=== PATIENT | female | born 1985 | race African-American/Black ===

== ENCOUNTER 2020-07-29 09:27 | Emergency (ER) | payer OTHER, SELFPAY ==
[2020-07-29 10:37] VITALS: BP 149/96; PULSE 63; RESP 18; TEMP 36.8; O2SAT 96; BMI 31.2
--- NOTE | 2020-07-29 12:59 | MHC.CARE ---
Addendum entered by [facility] 07/29/20 14:32: Followed up with patient, explained the Partial Hospitalization Program to patient, she expressed interest in attending so written materials and contact information were given to her. she continued to state her pain was significant, requested additional warm blankets. Provider updated. Original Note: CARE Team responded to consult request speak with patient who came to the ED for abdominal pain but reported to the provider ongoing depression due to the loss of her parents last year. Patient was resting in bed in a darkened room but sat up and easily engaged with the conversation, was alert and oriented. She explained that both of her parents about one year ago from illnesses, stated she does not to know what to do with herself and wishes they were back every moment; patient was quite tearful and at times sobbed loudly. In terms of natural and professional supports, patient reported she lives with her boyfriend who is helpful but is not close with any family members. Has a therapist at [facility] but has not had a session for about one month due to changes in the agency, is on a wait list for psychiatry. Patient was open to CARE Team reaching out to therapist on her behalf. Called [facility], clerical receptionist will reach out to the clinician and have her contact client directly and [facility].
[2020-07-29 13:15] LABS: MANUAL DIFF FLAG NO
[2020-07-29 13:16] LABS: Basophils Percent Auto 0.2 % (0-2); Hematocrit 41.1 % (37-47); Hemoglobin 13.2 g/dl (12.0-16.0); Imm Gran Abs Auto 0.07 X10*3/uL (0.00-0.03); Imm Gran Pct Auto 0.5 % (0.0-0.4); Lymphocytes Absolute Auto 1.9 X10*3/uL (1.2-4.9); Lymphocytes Percent Auto 13.1 % (20-40); Mean Corpuscular HGB Conc 32.1 g/dl (31.0-35.0); Mean Corpuscular Hemoglobin 26.5 pg (27.0-33.0); Mean Corpuscular Volume 82.4 fL (80-98); Mean Platelet Volume 8.8 fL (9.4-12.3); Monocytes Absolute Auto 1.1 X10*3/uL (0.1-1.2); Monocytes Percent Auto 7.5 % (2-11); Neutrophils Absolute Auto 11.5 X10*3/uL (2.0-8.3); Neutrophils Percent Auto 78.7 % (45-73); Platelet Count 558 X10*3/uL (160-400); Red Blood Count 4.99 X10*6/uL (4.20-5.50); Red Cell Distribution Width 18.4 % (11.0-16.0); White Blood Count 14.6 X10*3/uL (4.8-10.8)
[2020-07-29] MEDS: 0.9 % Sodium Chloride 1,000 ML 999 ML IVCONT (13:21)
[2020-07-29] MEDS: ondansetron HCL 4 MG/2 ML VIAL IVPUSH (13:22)
--- NOTE | 2020-07-29 13:22 | PC.NURSE ---
22G IN R HAND. FLUIDS RUNNING. MEDICATED FOR NAUSEA. PT REQUESTING PAIN MEDICATION FOR ABDOMINAL PAIN. SEEN HERE YESTERDAY FOR SAME ISSUE.
[2020-07-29 14:00] LABS: Alanine Aminotransferase 14 U/L (0-31); Albumin Level 5.1 g/dL (3.5-5.0); Alkaline Phosphatase 88 U/L (39-117); Anion Gap 17 (12-20); Aspartate Amino Transferase 27 U/L (5-31); Bilirubin Direct 0.2 mg/dL (0.0-0.5); Bilirubin Total 0.5 mg/dL (0.0-1.0); Blood Urea Nitrogen 10 mg/dL (9-16); Calcium 10.4 mg/dL (8.4-10.2); Carbon Dioxide 31 mmol/L (22-29); Chloride 93 mmol/L (96-108); Creatinine Clr Calc Pharmacy 87.8; Estimated Glomerular Filt Rate > 60; Glucose Random 128 mg/dL (60-115); Potassium 3.3 mmol/l (3.3-5.1); Sodium 138 mmol/L (135-145); Total Protein 8.7 g/dL (6.5-8.0)
--- NOTE | 2020-07-29 14:53 | ED.ABDPAIN ---
HPI - Abdominal Pain General Chief Complaint: Abdominal Pain Stated Complaint: ABD, BACK PAIN Time Seen by Provider: 07/29/20 11:39 Source: patient Mode of arrival: ambulatory Limitations: no limitations History of Present Illness MD elicited complaint: abdominal pain Onset (ago): week(s) Location: diffuse Quality: aching Radiation: none Migration to: no migration Exacerbating factors: vomiting Relieving factors: rest Related Data Patient : No Allergies Allergy/AdvReac Type Severity Reaction Status Date / Time prochlorperazine Allergy Mild RASH, gets Unverified 07/15/20 15:33 [From Compazine] cold metoclopramide [From REGLAN] Allergy Unknown MAKES ME Unverified 07/15/20 15:33 COLD famotidine [Pepcid] AdvReac Unknown loss of Verified 04/22/20 00:00 appetite Compazine Allergy Unknown Uncoded 06/09/20 00:00 Review of Systems Review of Systems Yes all other systems are reviewed and are negative Physical Exam Vital Signs and I&O and Narrative: Vital Signs and I&O: Vital Signs Temp 98.3 F 07/29/20 10:37 Pulse 63 07/29/20 10:37 Resp 18 07/29/20 10:37 BP 149/96 H 07/29/20 10:37 Pulse Ox 96 07/29/20 10:37 Intake & Output 07/28/20 07/29/20 07/29/20 18:59 06:59 18:59 Weight 72.575 kg Body Mass Index 31.2 Const: General: cooperative and healthy appearing; No acute distress or intoxicated appearing Nutritional Appearance: average body habitus Orientation/consciousness: patient oriented x3 HENMT: Head: Yes normal to inspection Ears: hearing grossly normal bilaterally Eyes: General: appearance normal, both eyes and all related structures Visual Ricardo: normal visual ricardo by confrontation Neck: Neck: Yes normal visual inspection, No positive Brudzinski's sign, No positive Kernig's sign and No tender Thyroid: Thyroid normal Chest: Chest palpation & inspection: normal inspection of the chest Resp: Effort & Inspection: normal respiratory effort Cardio: Jugular venous distension: no JVD GI: Inspection: Yes normal to inspection Percussion: Yes normal to percussion Auscultation: normal bowel sounds : General: Yes no CVA tenderness Back/Spine/Pelvis: Back: no CVA tenderness Skin: General skin exam: no rashes or lesions noted Neuro: General: patient oriented x3 Extrem: General: Yes normal to inspection Course Course Hospital Course: history of cannabis abuse / induced hyperemesis. More so more anxious recently lost her parents. She was to talk to her counselor here. Her met with care team who referred her to a partial program. MDM - Abdominal Pain Differential Diagnosis Differential diagnosis: Likely abdominal pain, gastroenteritis and gastritis; Unlikely aortic dissection, acute appendicitis, bowel perforation, calculus of kidney, constipation, diverticulitis, endometriosis and ovarian cyst Medical Records Attestation: I reviewed the patient's medical records. Lab Data Attestation: I reviewed the patient's lab results. Result diagrams: 07/29/20 13:11 07/29/20 13:11 Labs: Lab Results 07/29/20 07/29/20 Range/Units 13:11 13:11 WBC 14.6 H (4.8-10.8) X10*3/uL RBC 4.99 (4.20-5.50) X10*6/uL Hgb 13.2 (12.0-16.0) g/dl Hct 41.1 (37-47) % MCV 82.4 (80-98) fL MCH 26.5 L (27.0-33.0) pg MCHC 32.1 (31.0-35.0) g/dl RDW 18.4 H (11.0-16.0) % Plt Count 558 H (160-400) X10*3/uL MPV 8.8 L (9.4-12.3) fL Immature Gran % (Auto) 0.5 H (0.0-0.4) % Neut % (Auto) 78.7 H (45-73) % Lymph % (Auto) 13.1 L (20-40) % [place] % (Auto) 7.5 (2-11) % Eos % (Auto) 0.0 (0-4) % Baso % (Auto) 0.2 (0-2) % Neut # (Auto) 11.5 H (2.0-8.3) X10*3/uL Lymph # (Auto) 1.9 (1.2-4.9) X10*3/uL [place] # (Auto) 1.1 (0.1-1.2) X10*3/uL Eos # (Auto) 0.0 (0.0-0.4) X10*3/uL Baso # (Auto) 0.0 (0.0-0.2) X10*3/uL Abs Immat Gran (auto) 0.07 H (0.00-0.03) X10*3/uL Absolute Nucleated RBC 0.000 (0.0-0.012) X10*3/uL Nucleated RBC % (auto) 0.0 (0.0-0.2) /100WBC Sodium 138 (135-145) mmol/L Potassium 3.3 (3.3-5.1) mmol/l Chloride 93 L (96-108) mmol/L Carbon Dioxide 31 H (22-29) mmol/L Anion Gap 17 (12-20) BUN 10 (9-16) mg/dL Creatinine 0.78 (0.5-1.4) mg/dL Estim Creat Clear Calc 87.8 Estimated GFR > 60 Random Glucose 128 H (60-115) mg/dL Calcium 10.4 H (8.4-10.2) mg/dL Total Bilirubin 0.5 (0.0-1.0) mg/dL Direct Bilirubin 0.2 (0.0-0.5) mg/dL AST 27 (5-31) U/L ALT 14 (0-31) U/L Alkaline Phosphatase 88 (39-117) U/L Total Protein 8.7 H (6.5-8.0) g/dL Albumin 5.1 H (3.5-5.0) g/dL Discharge Plan Discharge Clinical Impression: Nausea & vomiting Patient Disposition: Elopement Instructions: Acute Nausea and Vomiting (ED) Discharge Date/Time: 07/29/20 14:58 [facility] Past Medical History Attestation statement: The following information was validated with the patient. Medical History (Updated 07/29/20 @ 15:05 by Rocky Burks NP) Anemia Depression Surgical History (Updated 07/29/20 @ 10:40 by Dionna Marquis) No history of previous surgery Social History Social History Advance Directives: No Advance Directives Information Provided: No
--- NOTE | 2020-07-29 14:53 | PC.NURSE ---
pt requesting pain medication provider states she will not be receiving pain medication in the ed she then took her iv access out and left the ed no active vomiting steady gait out of the ed
== END 2020-07-29 14:58 | disposition left against medical advice (07) ==
PROVIDERS: Nurse Practitioner Primary Care; Emergency Provider Emergency Medicine; PCP Internal Medicine
DX: R11.2 Nausea with vomiting, unspecified (principal); F12.10 Cannabis abuse, uncomplicated
CPT/HCPCS: 36415; 80048; 80076; 85025; 96361; 96374; 96376; 99282; 99284

== ENCOUNTER 2020-08-27 09:39 | Outpatient (REF) | payer OTHER, SELFPAY ==
[2020-08-27 16:47] LABS: CT PCR NOT DETECTED (Not Detect.); NG PCR NOT DETECTED (Not Detect.)
[2020-08-28 12:56] LABS: BV Int Neg Control Negative (Negative); BV Int Pos Control Positive (Positive)
[2020-09-01 19:51] LABS: HPV mRNA E6/E7 rflx Not Detected (Not Detected)
== END 2020-08-27 09:40 | disposition home or self-care (01) ==
LOC: HO.LAB 09:39
PROVIDERS: Visit Provider Advanced Practice Midwife
DX: Z01.419 Encounter for gynecological examination (general) (routine) without abnormal findings (principal); N92.6 Irregular menstruation, unspecified; N94.6 Dysmenorrhea, unspecified; R82.90 Unspecified abnormal findings in urine; R10.2 Pelvic and perineal pain; F32.9 Major depressive disorder, single episode, unspecified; N92.0 Excessive and frequent menstruation with regular cycle; Z20.2 Contact with and (suspected) exposure to infections with a predominantly sexual mode of transmission
CPT/HCPCS: 87480; 87491; 87510; 87591; 87624; 87625; 87660; 88142

== ENCOUNTER 2020-09-09 09:45 | Outpatient (REF) | payer OTHER, SELFPAY ==
--- NOTE | 2020-09-09 09:49 | US_ITS ---
EXAMINATION: US PELVIS US TRANSVAGINAL CLINICAL INFORMATION: Pelvic and perineal pain. COMPARISON: CT scan of the abdomen and pelvis December 2019. Pelvic ultrasound September 2019. TECHNIQUE: Transabdominal and transvaginal ultrasound of the pelvis performed. FINDINGS: Uterus: 8.0 x 3.6 x 5.3 cm. Endometrial thickness: 1.1 cm. Possible mass within the endometrial canal, polyp measuring approximately 5 mm. There is a 5 mm hypoechoic intramural mass in the posterior body compatible with a small fibroid. Right Ovary: 2.9 x 2.3 x 2.1 cm with a volume of 7.3 mL. A 9 mm cyst noted. Left Ovary: 2.3 x 2.1 x 1.0 cm with a volume of 2.5 mL. A 1.0 cm septated cyst noted. US/US transvaginal IMPRESSION: 1. Possible endometrial polyp. 2. Small fibroid. 3. Small bilateral ovarian cysts.
--- NOTE | 2020-09-09 09:49 | US_ITS ---
EXAMINATION: US PELVIS US TRANSVAGINAL CLINICAL INFORMATION: Pelvic and perineal pain. COMPARISON: CT scan of the abdomen and pelvis December 2019. Pelvic ultrasound September 2019. TECHNIQUE: Transabdominal and transvaginal ultrasound of the pelvis performed. FINDINGS: Uterus: 8.0 x 3.6 x 5.3 cm. Endometrial thickness: 1.1 cm. Possible mass within the endometrial canal, polyp measuring approximately 5 mm. There is a 5 mm hypoechoic intramural mass in the posterior body compatible with a small fibroid. Right Ovary: 2.9 x 2.3 x 2.1 cm with a volume of 7.3 mL. A 9 mm cyst noted. Left Ovary: 2.3 x 2.1 x 1.0 cm with a volume of 2.5 mL. A 1.0 cm septated cyst noted. US/US pelvic complete IMPRESSION: 1. Possible endometrial polyp. 2. Small fibroid. 3. Small bilateral ovarian cysts.
== END 2020-09-09 09:46 | disposition home or self-care (01) ==
LOC: HO.US 09:45
PROVIDERS: PCP Internal Medicine; Visit Provider Advanced Practice Midwife
DX: R10.2 Pelvic and perineal pain (principal)
CPT/HCPCS: 76830; 76856

== ENCOUNTER 2020-09-10 12:09 | Outpatient (REF) | payer OTHER, SELFPAY ==
[2020-09-10 14:23] LABS: Thyroid Stimulating Hormone 1.94 uIU/mL (0.32-4.0)
== END 2020-09-10 12:10 | disposition home or self-care (01) ==
LOC: HO.LAB 12:09
PROVIDERS: PCP Internal Medicine; Visit Provider Advanced Practice Midwife
DX: R10.2 Pelvic and perineal pain (principal); N92.0 Excessive and frequent menstruation with regular cycle; R82.90 Unspecified abnormal findings in urine; N84.0 Polyp of corpus uteri; F17.210 Nicotine dependence, cigarettes, uncomplicated; F12.20 Cannabis dependence, uncomplicated; Z71.2 Person consulting for explanation of examination or test findings
CPT/HCPCS: 84443; 87086; Q3014

== ENCOUNTER → 2020-09-21 10:34 | Outpatient (BNVA) | payer OTHER, SELFPAY | PROVIDERS: Visit Provider Advanced Practice Midwife | DX: Z76.89 Persons encountering health services in other specified circumstances (principal) ==

== ENCOUNTER 2020-09-24 15:34 | Emergency (ER) | payer OTHER, SELFPAY ==
[2020-09-24 16:03] VITALS: BP 180/90; PULSE 73; RESP 18; TEMP 37.2; O2SAT 98; BMI 31.2
--- NOTE | 2020-09-24 17:17 | ED_ITS ---
HPI - Nausea/Vomiting/Diarrhea General Chief complaint: Nausea/Vomiting/Diarrhea Stated complaint: food poisoning Time Seen by Provider: 09/24/20 17:08 Source: patient Mode of arrival: ambulatory Limitations: no limitations History of Present Illness HPI Narrative: Patient comes to emergency room complaining of nausea vomiting and diarrhea starting today at 1:00am. Patient denies abdominal pain. Patient states she had food poisoning. However, patient is known to use marijuana as well. MD elicited complaint: nausea, vomiting and diarrhea Related Data Home Medications Medication Instructions Recorded Confirmed acetaminophen 325 mg tablet 0 mg PO 08/27/20 docusate sodium 100 mg capsule 0 mg PO 08/27/20 ergocalciferol (vitamin D2) 1,250 1,250 mcg PO QWEEK 08/27/20 mcg (50,000 unit) capsule ferrous sulfate 325 mg (65 mg 0 mg PO 08/27/20 iron) tablet gabapentin 100 mg capsule 100 mg PO TID 08/27/20 lorazepam 0.5 mg tablet 0.5 mg PO TID PRN 08/27/20 lorazepam 1 mg tablet 1 mg PO Q6H PRN 08/27/20 melatonin 5 mg tablet 0 mg PO 08/27/20 nitrofurantoin 1 cap PO BID 08/27/20 monohydrate/macrocrystals 100 mg capsule paroxetine HCl 20 mg tablet 20 mg PO DAILY 08/27/20 risperidone 1 mg tablet 1 mg PO BEDTIME 08/27/20 tranexamic acid 650 mg tablet 1,300 mg PO TID 08/27/20 Previous Rx's Medication Instructions Recorded omeprazole 20 mg capsule,delayed 20 mg PO QAM #90 cap 09/01/20 release metronidazole 0.75 % vaginal gel 1 appful VAGINAL DAILY 5 Days #70 g 09/10/20 ondansetron HCl [Zofran] 4 mg PO Q6H PRN #14 tab 09/24/20 Allergies Allergy/AdvReac Type Severity Reaction Status Date / Time prochlorperazine Allergy Mild RASH, gets Verified 09/21/20 10:32 [From Compazine] cold metoclopramide [From REGLAN] Allergy Unknown MAKES ME Verified 09/21/20 10:32 COLD famotidine [Pepcid] AdvReac Unknown loss of Verified 09/21/20 10:32 appetite Compazine Allergy Unknown Unknown Uncoded 09/10/20 14:16 Review of Systems Review of Systems: Constitutional : No Weight loss, No Fever, No Chills, No Night Sweats, No Fatigue, No Malaise ENT/Mouth : No Hearing loss, No Ear Pain, No Nasal Congestion, No Sinus Pain, No Hoarseness, No sore throat, No Rhinorrhea, No Swallowing Difficulty Eyes: No Eye Pain, No Swelling, No Redness, No Foreign Body, No Discharge, No Vision Changes Cardiovascular : No Chest Pain, No SOB, No Dyspnea on Exertion, No Orthopnea, No Edema, No Palpitations Respiratory : No Cough, No Sputum, No Wheezing, No Smoke Exposure, No Dyspnea Gastrointestinal : Patient complaining of nausea vomiting and diarrhea, No Constipation, No abdominal Pain, No Hematochezia, No Melena Genitourinary : no irregular bleeding, No Dysuria, No Urinary Frequency, No Hematuria, No Urinary Incontinence, No Urgency, No Flank Pain, No Urinary Flow Changes, No Hesitancy Musculoskeletal : No joint pain, No Myalgias, No Joint Swelling Skin : No Skin Lesions, No rash Neuro : No Weakness, No Numbness, No Paresthesias, No Loss of Consciousness, No Dizziness, No Headache Psych : No Anxiety/Panic, No Depression, No SI/HI/AH/VH, No Social Issues, Heme/Lymph: No Bruising, No Bleeding,No Lymphadenopathy Endocrine : No Polyuria, No Polydipsia, No Temperature Intolerance [facility] Past Medical History Medical History (Updated 09/24/20 @ 19:03 by Mariia Johnson MD) Anemia Depression GERD (gastroesophageal reflux disease) Marijuana use, continuous Numbness of foot Syphilis contact, treated Surgical History No history of previous surgery Family History Family History Mother HTN (hypertension) Maternal Grandmother HTN (hypertension) Maternal Uncle HTN (hypertension) Maternal Aunt Diabetes mellitus Social History Social History Alcohol intake: never Smoking Status: Current every day smoker Tobacco Type: Cigarette Cigarettes Per Day: 4 Use of substances other than those prescribed or required for medical reasons: Yes Substance Use Type: Marijuana Substance Use Frequency: Chronic Longstanding Last Used Substance: Just Prior to Admission Any prior treatment program specific to substance use: No Advance Directives: No Advance Directives Information Provided: No Physical Exam Vital Signs: Vital Signs: Last Vital Signs Temp 99.0 F 09/24/20 16:03 Pulse 73 09/24/20 18:00 Resp 18 09/24/20 18:00 BP 178/84 H 09/24/20 18:00 Pulse Ox 98 09/24/20 18:00 Body Mass Index 31.2 Appearance: Alert. Oriented X3. Actively vomiting Eyes: Pupils equal, round and reactive to light. ENT: Pharynx normal. Neck: Normal inspection. Neck supple. No lymph nodes noted. No crepitus CVS: Normal heart rate and rhythm. Pulses normal. Normal S1 and S2 Respiratory: No respiratory distress. Breath sounds normal. No Wheezing. No rales Abdomen: Soft and nontender. No rigidity. No distention. good BS x4 Skin: Skin warm and dry. Normal skin color. Normal skin turgor. Extremities: No lower extremity edema. No lower extremity edema. No Lacerations. No Rash Neuro: Oriented X 3. No motor deficit. No sensory deficit. Moving all extermi ties. No slurred speech. Course Course Course Narrative: At this time, patient is no longer vomiting. Patient requesting something to sleep, states that she usually gets either morphine or Dilaudid to help her sleep. I discussed with the patient that at this time those medications are not indicated. I discussed the labs with the patient, patient being discharged home with nausea medications. I discussed with the patient that she needs to stop smoking marijuana her discomfort and induces cyclic vomiting MDM - Nausea/Vomiting/Diarrhea Lab Data Result diagrams: 09/24/20 17:52 09/24/20 17:52 Labs: Lab Results 09/24/20 09/24/20 09/24/20 Range/Units 17:52 17:52 17:52 Sodium 141 (135-145) mmol/L Potassium 3.7 (3.3-5.1) mmol/l Chloride 105 (96-108) mmol/L Carbon Dioxide 21 L (22-29) mmol/L Anion Gap 19 (12-20) BUN 8 L (9-16) mg/dL Creatinine 0.71 (0.5-1.4) mg/dL Estim Creat Clear Calc 96.4 Estimated GFR > 60 Random Glucose 117 H (60-115) mg/dL Calcium 9.4 D (8.4-10.2) mg/dL Total Bilirubin 0.6 (0.0-1.0) mg/dL Direct Bilirubin 0.3 (0.0-0.5) mg/dL AST 19 (5-31) U/L ALT 10 (0-31) U/L Alkaline Phosphatase 82 (39-117) U/L Total Protein 7.8 (6.5-8.0) g/dL Albumin 4.7 (3.5-5.0) g/dL Lipase 22 (8-78) U/L Beta HCG, Quant < 2 mIU/mL Urine Color YELLOW Urine Appearance CLOUDY Urine pH 8.0 (5.0-8.0) Ur Specific Graham 1.025 (1.005-1.025) Urine Protein TRACE (NEG-TRACE) MG/DL Urine Glucose (UA) NEG (NEG) MG/DL Urine Ketones 40 (NEG) MG/DL Urine Blood 1+ H (NEG) Urine Nitrite NEG (NEG) Ur Leukocyte Esterase NEG (NEG) Urine RBC 1-4 (0) /HPF Urine WBC 0 (0-4) /HPF Ur Squamous Epith Cells 2+ /LPF Amorphous Sediment 2+ /LPF Urine Bacteria NONE /LPF Urine Opiates Screen Not Detected (Not Detect) Ur Barbiturates Screen Not Detected (Not Detect) Ur Phencyclidine Scrn Not Detected (Not Detect) Ur Amphetamines Screen Not Detected (Not Detect) U Benzodiazepines Scrn Not Detected (Not Detect) Urine Cocaine Screen Not Detected (Not Detect) U Marijuana (THC) Screen POSITIVE H (Not Detect) Discharge Plan Discharge Clinical Impression: Cyclical vomiting, Marijuana use, continuous Patient Disposition: Home, Self-Care Instructions: Cyclic Vomiting Syndrome (ED) Prescriptions: New ondansetron HCl [Zofran] 4 mg tablet 4 mg PO Q6H PRN (Reason: nausea and vomiting) Qty: 14 RF: 0 No Action omeprazole 20 mg capsule,delayed release(DR/EC) 20 mg PO QAM Qty: 90 RF: 1 metronidazole [Metrogel Vaginal] 0.75 % gel 1 appful vaginal DAILY 5 Days Qty: 70 RF: 0 melatonin 5 mg tablet 0 mg PO RF: 0 risperidone 1 mg tablet 1 mg PO BEDTIME RF: 0 ergocalciferol (vitamin D2) 1,250 mcg (50,000 unit) capsule 1,250 mcg PO QWEEK RF: 0 gabapentin 100 mg capsule 100 mg PO TID RF: 0 docusate sodium 100 mg capsule 0 mg PO RF: 0 ferrous sulfate 325 mg (65 mg iron) tablet 0 mg PO RF: 0 paroxetine HCl 20 mg tablet 20 mg PO DAILY RF: 0 acetaminophen 325 mg tablet 0 mg PO RF: 0 tranexamic acid 650 mg tablet 1,300 mg PO TID RF: 0 nitrofurantoin monohyd/m-cryst 100 mg capsule 1 cap PO BID RF: 0 lorazepam 0.5 mg tablet 0.5 mg PO TID PRN (Reason: anxiety) RF: 0 lorazepam 1 mg tablet 1 mg PO Q6H PRN (Reason: anxiety) RF: 0
[2020-09-24] MEDS: 0.9 % Sodium Chloride 1,000 ML 999 ML IVCONT (17:50)
[2020-09-24] MEDS: ondansetron HCL 4 MG/2 ML VIAL IVPUSH (17:50)
[2020-09-24 18:00] VITALS: BP 178/84; PULSE 73; RESP 18; O2SAT 98
[2020-09-24 18:14] LABS: Glucose Urine UA NEG (NEG); Leukocyte Esterase Urine NEG (NEG); Nitrite Urine NEG (NEG); Specific Gravity - Urine 1.025 (1.005-1.025); Urine Blood 1+ (NEG); Urine Ketones 40 MG/DL (NEG); Urine Protein TRACE MG/DL (NEG-TRACE)
[2020-09-24 18:17] LABS: Appearance Urine CLOUDY; Color Urine YELLOW
[2020-09-24 18:23] LABS: Squamous Epithelial Cell Urine 2+ /LPF; WBC Urine 0 /HPF (0-4)
[2020-09-24 18:24] LABS: Amorphous Sediment Urine 2+ /LPF
[2020-09-24 18:37] LABS: Amphetamine Screen Urine Not Detected (Not Detect); Barbiturates, Urine Not Detected (Not Detect); Benzodiazepines Screen Urine Not Detected (Not Detect); Cannabinoid Screen Urine POSITIVE (Not Detect); Cocaine Screen Urine Not Detected (Not Detect); Opiate Screen Urine Not Detected (Not Detect); Phencyclidine Screen Urine Not Detected (Not Detect)
[2020-09-24 18:39] LABS: Alanine Aminotransferase 10 U/L (0-31); Albumin Level 4.7 g/dL (3.5-5.0); Alkaline Phosphatase 82 U/L (39-117); Anion Gap 19 (12-20); Aspartate Amino Transferase 19 U/L (5-31); Bilirubin Direct 0.3 mg/dL (0.0-0.5); Bilirubin Total 0.6 mg/dL (0.0-1.0); Blood Urea Nitrogen 8 mg/dL (9-16); Calcium 9.4 mg/dL (8.4-10.2); Carbon Dioxide 21 mmol/L (22-29); Chloride 105 mmol/L (96-108); Creatinine Clr Calc Pharmacy 96.4; Estimated Glomerular Filt Rate > 60; Glucose Random 117 mg/dL (60-115); Lipase 22 U/L (8-78); Potassium 3.7 mmol/l (3.3-5.1); Sodium 141 mmol/L (135-145); Total Protein 7.8 g/dL (6.5-8.0)
[2020-09-24 18:44] LABS: HCG Quantitative < 2 mIU/mL
[2020-09-24] MEDS: Acetaminophen 325 MG TABLET 650 MG PO (18:51)
[2020-09-24] MEDS: Dicyclomine HCl 10 MG CAPSULE PO (19:00)
== END 2020-09-24 19:13 | disposition home or self-care (01) ==
PROVIDERS: Emergency Provider Emergency Medicine; PCP Internal Medicine
DX: R11.15 Cyclical vomiting syndrome unrelated to migraine (principal); F12.90 Cannabis use, unspecified, uncomplicated; F17.210 Nicotine dependence, cigarettes, uncomplicated; Z71.6 Tobacco abuse counseling; Z79.899 Other long term (current) drug therapy; Z20.828 Contact with and (suspected) exposure to other viral communicable diseases
CPT/HCPCS: 80048; 80076; 80307; 81001; 83690; 84702; 96361; 96372; 96374; 96375; 99284; J2405

== ENCOUNTER 2020-09-27 12:37 | Emergency (ER) | payer OTHER, SELFPAY ==
[2020-09-27 14:52] VITALS: BP 181/99; PULSE 71; RESP 18; TEMP 37.1; O2SAT 98; BMI 29.9
--- NOTE | 2020-09-27 15:41 | PC.NURSE ---
PT HAS BEEN SLEEPING IN THE WR NO ACTIVE VOMITING NOTED OR REPORTED
== END 2020-09-27 16:35 | disposition left against medical advice (07) ==
PROVIDERS: Emergency Provider Emergency Medicine; PCP Internal Medicine
DX: R11.10 Vomiting, unspecified (principal)
CPT/HCPCS: 99282

== ENCOUNTER 2020-09-30 12:23 | Outpatient (REF) | payer OTHER, SELFPAY ==
[2020-09-30 13:28] LABS: MANUAL DIFF FLAG NO
[2020-09-30 13:35] LABS: Basophils Absolute Auto 0.1 X10*3/uL (0.0-0.2); Basophils Percent Auto 0.9 % (0-2); Eosinophils Absolute Auto 0.5 X10*3/uL (0.0-0.4); Eosinophils Percent Auto 6.1 % (0-4); Hemoglobin 10.3 g/dl (12.0-16.0); Imm Gran Abs Auto 0.04 X10*3/uL (0.00-0.03); Imm Gran Pct Auto 0.5 % (0.0-0.4); Lymphocytes Absolute Auto 3.8 X10*3/uL (1.2-4.9); Lymphocytes Percent Auto 42.8 % (20-40); Mean Corpuscular HGB Conc 31.2 g/dl (31.0-35.0); Mean Corpuscular Hemoglobin 27.2 pg (27.0-33.0); Mean Corpuscular Volume 87.1 fL (80-98); Mean Platelet Volume 10.4 fL (9.4-12.3); Monocytes Absolute Auto 0.8 X10*3/uL (0.1-1.2); Monocytes Percent Auto 9.5 % (2-11); Neutrophils Absolute Auto 3.5 X10*3/uL (2.0-8.3); Neutrophils Percent Auto 40.2 % (45-73); Platelet Count 370 X10*3/uL (160-400); Red Blood Count 3.79 X10*6/uL (4.20-5.50); Red Cell Distribution Width 17.5 % (11.0-16.0); White Blood Count 8.8 X10*3/uL (4.8-10.8)
[2020-09-30 13:49] LABS: Anion Gap 14 (12-20); Blood Urea Nitrogen 13 mg/dL (9-16); Calcium 9.2 mg/dL (8.4-10.2); Carbon Dioxide 27 mmol/L (22-29); Chloride 104 mmol/L (96-108); Estimated Glomerular Filt Rate > 60; Glucose Fasting 73 mg/dL (60-99); Potassium 4.1 mmol/l (3.3-5.1); Sodium 141 mmol/L (135-145)
== END 2020-09-30 12:24 | disposition home or self-care (01) ==
LOC: HO.LAB 12:23
PROVIDERS: PCP Internal Medicine; Visit Provider Nurse Practitioner Family
DX: E87.6 Hypokalemia (principal)
CPT/HCPCS: 36415; 80048; 85025

== ENCOUNTER → 2020-10-07 10:44 | Outpatient (BNVA) | payer OTHER, SELFPAY | PROVIDERS: PCP Internal Medicine; Visit Provider Obstetrics & Gynecology | DX: N92.0 Excessive and frequent menstruation with regular cycle (principal) | CPT/HCPCS: Q3014 ==

== ENCOUNTER 2020-10-27 12:01 | Outpatient (REF) | payer OTHER, SELFPAY ==
--- NOTE | 2020-10-27 12:06 | XR_ITS ---
EXAMINATION: XR CHEST CLINICAL INFORMATION: Chest pain. COMPARISON: Chest radiographs dated 06/02/2020 TECHNIQUE: 2 views of the chest were obtained. FINDINGS: The lungs are clear. The heart and mediastinal structures are unremarkable. Mild thoracic dextro scoliosis is noted. XR/XR chest 2V IMPRESSION: No acute cardiopulmonary process.
== END 2020-10-27 12:02 | disposition home or self-care (01) ==
LOC: HO.XRAY 12:01
PROVIDERS: PCP Internal Medicine; Visit Provider Internal Medicine
DX: R07.9 Chest pain, unspecified (principal)
CPT/HCPCS: 71046; 99212

== ENCOUNTER 2020-10-27 12:48 | Outpatient (REF) | payer OTHER, SELFPAY ==
[2020-10-28 10:16] LABS: BV Int Neg Control Negative (Negative); BV Int Pos Control Positive (Positive)
== END 2020-10-27 12:49 | disposition home or self-care (01) ==
LOC: HO.LAB 12:48
PROVIDERS: Advanced Practice Midwife; PCP Internal Medicine; Visit Provider Internal Medicine
DX: Z20.828 Contact with and (suspected) exposure to other viral communicable diseases (principal); N89.8 Other specified noninflammatory disorders of vagina
CPT/HCPCS: 87480; 87510; 87660; C9803; U0003

== ENCOUNTER → 2020-11-03 08:06 | Outpatient (BNVA) | payer OTHER, SELFPAY | PROVIDERS: PCP Internal Medicine; Visit Provider Obstetrics & Gynecology | DX: N92.0 Excessive and frequent menstruation with regular cycle (principal) | CPT/HCPCS: 99212 ==

== ENCOUNTER 2020-11-19 07:23 | Day surgery (SDC) | payer OTHER, SELFPAY ==
[2020-10-28 13:42] VITALS: BMI 32.0
--- NOTE | 2020-11-03 14:20 | HO.ANESPROP2 ---
HPI - Anesthesia Eval Consult details Narrative: 35yo F for D&C Diagnostic Hysteroscopy,poss polypectomy/myomectomy PMFSH Past Medical History Medical History Anemia Anxiety Chest pain Depression GERD (gastroesophageal reflux disease) History of back pain History of bipolar disorder Hx of Hx of iron deficiency anemia Hx of migraines Hypokalemia Marijuana use, continuous Menorrhagia Numbness of foot Syphilis contact, treated Family History Family History Mother HTN (hypertension) Maternal Grandmother HTN (hypertension) Maternal Uncle HTN (hypertension) Maternal Aunt Diabetes mellitus Surgical History Surgical History History of dilation and curettage Hx of colonoscopy Hx of esophagogastroduodenoscopy Social History Social History Alcohol intake: never Smoking Status: Former smoker Tobacco Type: Cigarette Packs Per Day: 0.25 Cigarettes Per Day: 5.0 Years Smoked: 15 Substance Use Type: Marijuana Meds Allergies Allergy/AdvReac Type Severity Reaction Status Date / Time prochlorperazine Allergy Mild RASH, gets Verified 11/03/20 08:38 [From Compazine] cold metoclopramide [From REGLAN] Allergy Unknown MAKES ME Verified 11/03/20 08:38 COLD famotidine [Pepcid] AdvReac Unknown loss of Verified 11/03/20 08:38 appetite Compazine Allergy Unknown Unknown Uncoded 11/03/20 08:38 Home Medications Medication Instructions Recorded Confirmed Type acetaminophen 325 mg tablet 325 mg PO QID PRN 08/27/20 11/03/20 History docusate sodium 100 mg capsule 100 mg PO DAILY 08/27/20 11/03/20 History ergocalciferol (vitamin D2) 1,250 1,250 mcg PO QWEEK 08/27/20 11/03/20 History mcg (50,000 unit) capsule gabapentin 100 mg capsule 100 mg PO TID 08/27/20 11/03/20 History lorazepam 0.5 mg tablet 0.5 mg PO TID PRN 08/27/20 11/03/20 History lorazepam 1 mg tablet 1 mg PO Q6H PRN 08/27/20 11/03/20 History nitrofurantoin 1 cap PO BID 08/27/20 11/03/20 History monohydrate/macrocrystals 100 mg capsule paroxetine HCl 20 mg tablet 20 mg PO DAILY 08/27/20 11/03/20 History risperidone 1 mg tablet 1 mg PO BEDTIME 08/27/20 11/03/20 History tranexamic acid 650 mg tablet 1,300 mg PO TID 08/27/20 11/03/20 History Exam Exam Date and Time: November 03, 2020 1420 Height,Weight and Vital Signs: Height 5 ft Weight 74.389 kg Pertinent Lab Results Pertinent Lab Results: Laboratory Tests 09/30/20 09/30/20 12:40 12:40 WBC 8.8 Hgb 10.3 L D Hct 33.0 L Plt Count 370 D Sodium 141 Potassium 4.1 Chloride 104 Carbon Dioxide 27 BUN 13 D Creatinine 0.74 Assessment and Plan Assessment Anesthesia Assessment: Chart Reviewed
--- NOTE | 2020-11-18 10:13 | HO.ANESPROP2 ---
Documented by User: Susie Guillen 11/18/20 10:14 HPI - Anesthesia Eval Consult details Narrative: 35yo F for D&C Diagnostic Hysteroscopy,poss polypectomy/myomectomy PMFSH Past Medical History Medical History Anemia Anxiety Chest pain Depression GERD (gastroesophageal reflux disease) History of back pain History of bipolar disorder Hx of Hx of iron deficiency anemia Hx of migraines Hypokalemia Marijuana use, continuous Menorrhagia Numbness of foot Syphilis contact, treated Family History Family History Mother HTN (hypertension) Maternal Grandmother HTN (hypertension) Maternal Uncle HTN (hypertension) Maternal Aunt Diabetes mellitus Surgical History Surgical History History of dilation and curettage Hx of colonoscopy Hx of esophagogastroduodenoscopy Social History Social History Are you a primary medical care administrator to a significant other at home: No Do you presently have visiting nurse or other home services: No Alcohol intake: never Smoking Status: Former smoker Tobacco Type: Cigarette Packs Per Day: 0.25 Cigarettes Per Day: 5.0 Years Smoked: 15 Smoked in Last 30 Days: No Smoking Quit Date: 08/2020 Patient Interested in Nicotine Replacement: No Patient Given Instructions on How to Stop Smoking: No Use of substances other than those prescribed or required for medical reasons: Yes Substance Use Type: Marijuana Substance Use Frequency: Weekly Have you been hit, kicked, punched, or otherwise hurt by someone within the past year? If so, by whom?: No Advance Directives: No Advance Directives Information Provided: No Advance Directives on File: No Recently lost weight without trying: No Meds Allergies Allergy/AdvReac Type Severity Reaction Status Date / Time prochlorperazine Allergy Mild RASH, gets Verified 11/03/20 08:38 [From Compazine] cold metoclopramide [From REGLAN] Allergy Unknown MAKES ME Verified 11/03/20 08:38 COLD famotidine [Pepcid] AdvReac Unknown loss of Verified 11/03/20 08:38 appetite Compazine Allergy Unknown Unknown Uncoded 11/03/20 08:38 Home Medications Medication Instructions Recorded Confirmed Type acetaminophen 325 mg tablet 325 mg PO QID PRN 08/27/20 11/03/20 History ergocalciferol (vitamin D2) 1,250 1,250 mcg PO QWEEK 08/27/20 11/03/20 History mcg (50,000 unit) capsule gabapentin 100 mg capsule 100 mg PO TID 08/27/20 11/03/20 History lorazepam 0.5 mg tablet 0.5 mg PO TID PRN 08/27/20 11/03/20 History lorazepam 1 mg tablet 1 mg PO Q6H PRN 08/27/20 11/03/20 History nitrofurantoin 1 cap PO BID 08/27/20 11/03/20 History monohydrate/macrocrystals 100 mg capsule paroxetine HCl 20 mg tablet 20 mg PO DAILY 08/27/20 11/03/20 History risperidone 1 mg tablet 1 mg PO BEDTIME 08/27/20 11/03/20 History tranexamic acid 650 mg tablet 1,300 mg PO TID 08/27/20 11/03/20 History Exam Exam Date and Time: November 18, 2020 1013 Height,Weight and Vital Signs: Height 5 ft Weight 74.389 kg Pertinent Lab Results Pertinent Lab Results: Laboratory Tests 09/30/20 09/30/20 12:40 12:40 WBC 8.8 Hgb 10.3 L D Hct 33.0 L Plt Count 370 D Sodium 141 Potassium 4.1 Chloride 104 Carbon Dioxide 27 BUN 13 D Creatinine 0.74 Assessment and Plan Assessment Anesthesia Assessment: Chart Reviewed Documented by User: Isael Malhotra 11/19/20 09:45 PMFSH Past Medical History Medical History Anemia Anxiety Chest pain Depression GERD (gastroesophageal reflux disease) History of back pain History of bipolar disorder Hx of Hx of iron deficiency anemia Hx of migraines Hypokalemia Marijuana use, continuous Menorrhagia Numbness of foot Syphilis contact, treated Family History Family History Mother HTN (hypertension) Maternal Grandmother HTN (hypertension) Maternal Uncle HTN (hypertension) Maternal Aunt Diabetes mellitus Family history of problems with anesthesia: No Surgical History Surgical History History of dilation and curettage Hx of colonoscopy Hx of esophagogastroduodenoscopy History of Problems with Anesthesia: No Social History Social History Are you a primary medical care administrator to a significant other at home: No Do you presently have visiting nurse or other home services: No Alcohol intake: never Smoking Status: Former smoker Tobacco Type: Cigarette Packs Per Day: 0.25 Cigarettes Per Day: 5.0 Years Smoked: 15 Smoked in Last 30 Days: No Smoking Quit Date: 08/2020 Patient Interested in Nicotine Replacement: No Patient Given Instructions on How to Stop Smoking: No Use of substances other than those prescribed or required for medical reasons: Yes Substance Use Type: Marijuana Substance Use Frequency: Weekly Have you been hit, kicked, punched, or otherwise hurt by someone within the past year? If so, by whom?: No Advance Directives: No Advance Directives Information Provided: No Advance Directives on File: No Recently lost weight without trying: No Meds Allergies Allergy/AdvReac Type Severity Reaction Status Date / Time prochlorperazine Allergy Mild RASH, gets Verified 11/03/20 08:38 [From Compazine] cold metoclopramide [From REGLAN] Allergy Unknown MAKES ME Verified 11/03/20 08:38 COLD famotidine [Pepcid] AdvReac Unknown loss of Verified 11/03/20 08:38 appetite Compazine Allergy Unknown Unknown Uncoded 11/03/20 08:38 Home Medications Medication Instructions Recorded Confirmed Type acetaminophen 325 mg tablet 325 mg PO QID PRN 08/27/20 11/03/20 History ergocalciferol (vitamin D2) 1,250 1,250 mcg PO QWEEK 08/27/20 11/03/20 History mcg (50,000 unit) capsule gabapentin 100 mg capsule 100 mg PO TID 08/27/20 11/03/20 History lorazepam 0.5 mg tablet 0.5 mg PO TID PRN 08/27/20 11/03/20 History lorazepam 1 mg tablet 1 mg PO Q6H PRN 08/27/20 11/03/20 History nitrofurantoin 1 cap PO BID 08/27/20 11/03/20 History monohydrate/macrocrystals 100 mg capsule paroxetine HCl 20 mg tablet 20 mg PO DAILY 08/27/20 11/03/20 History risperidone 1 mg tablet 1 mg PO BEDTIME 08/27/20 11/03/20 History tranexamic acid 650 mg tablet 1,300 mg PO TID 08/27/20 11/03/20 History Exam Airway Mallampati Class: I TM Dist: >3cm Neck ROM: Full Loose/Missing/Broken Teeth: No Heart: ok Lungs: ok
[2020-11-19 08:35] VITALS: BP 125/80; PULSE 70; RESP 16; TEMP 36.3; O2SAT 98
[2020-11-19 08:40] LABS: UPreg QC Valid YES; Urine Pregnancy NEGATIVE (NEGATIVE)
--- NOTE | 2020-11-19 08:45 | MHC.SHP ---
Pre-Procedural Eval Section B Chief Complaint: menorrhagia Allergies: Allergies Allergy/AdvReac Type Severity Reaction Status Date / Time prochlorperazine Allergy Mild RASH, gets Verified 11/03/20 08:38 [From Compazine] cold metoclopramide [From REGLAN] Allergy Unknown MAKES ME Verified 11/03/20 08:38 COLD famotidine [Pepcid] AdvReac Unknown loss of Verified 11/03/20 08:38 appetite Compazine Allergy Unknown Unknown Uncoded 11/03/20 08:38 Plan I have reviewed the history and physical and performed a pertinent physical examination on my patient. No changes have occurred unless specified.
[2020-11-19] MEDS: Lactated Ringers 1,000 ML 100 ML IVCONT (08:54)
--- NOTE | 2020-11-19 10:21 | PM.OP ---
Brief Operative Note Date of Service: 11/19/20 Pre-op diagnosis: Menometrorrhagia Post-op diagnosis: same Procedure: Hysteroscopy D&C Surgeon: Bijan Campo MD Anesthesia: MAC Estimated blood loss (mL): 0 Pathology: other (Endometrial Scrapping. Polyp) Condition: stable Disposition: PACU
--- NOTE | 2020-11-19 10:22 | P.OP_ITS ---
Operative Note Operative Note Date of Service: 11/19/20 Narrative: Preop Diagnosis: Menometrorrhagia Operation: Diagnostic Hysteroscopy, Dilataion & Curettage Post Op Diagnosis: normal endometrial and endocervical cavity no evidence of pathology QBL: Minimal Anesthesia: MAC Surgeon: Bijan Campo MD Revenue Integrity Analyst: None Complication: None Pathology: Endometrial Scrapings Procedure: The patient was put in the dorsal lithotomy position, scrubbed, and draped in the usual manner. A sterile speculum was inserted in the patient's vagina. The anterior lip of the cervix was grasped with a single tooth tenaculum. The cervix was dilated up to 5 mm, then the scope was inserted in the patient's uterus. Inspection revealed normal endocervical & endometrial cavity with no evidence of pathology. The scope was taken out of the uterine cavity , then sharp curetting was carried on with no complications. At the end of the procedure, all instruments were taken out of the patient uterine and vaginal cavity. The single tooth tenaculum was removed and homeostasis was assured using pressure. The patient tolerated the procedure well and was transferred to the PACU in a stable condition.
[2020-11-19 10:35] VITALS: BP 148/93; PULSE 73; RESP 20; TEMP 36.4; O2SAT 100
[2020-11-19 10:40] VITALS: BP 143/95; PULSE 72; RESP 20; O2SAT 98
[2020-11-19] MEDS: fentaNYL citrate/PF 100 MCG/2 ML VIAL 50 MCG IVPUSH ×2 (10:40→10:45)
[2020-11-19 10:45] VITALS: BP 144/88; PULSE 67; RESP 20; O2SAT 97
[2020-11-19 10:50] VITALS: BP 126/78; PULSE 64; RESP 16; O2SAT 96
[2020-11-19] MEDS: Ketorolac Tromethamine 15 MG/ML VIAL IVPUSH (10:50)
[2020-11-19] MEDS: Acetaminophen 325 MG TABLET 650 MG PO (10:51)
[2020-11-19 11:05] VITALS: BP 116/81; PULSE 58; RESP 16; TEMP 36.4; O2SAT 100
== END 2020-11-19 11:49 | disposition home or self-care (01) ==
LOC: HO.SSS 07:24
PROVIDERS: Nurse Practitioner; PCP Internal Medicine; Visit Provider Obstetrics & Gynecology
PROC: 0UDB8ZX Extraction of Endometrium, Via Natural or Artificial Opening Endoscopic, Diagnostic (ICD-10-PCS; CPT 58558; principal; 2020-11-19 09:40)
DX: N92.0 Excessive and frequent menstruation with regular cycle (principal); D64.9 Anemia, unspecified; E87.6 Hypokalemia; F32.9 Major depressive disorder, single episode, unspecified; K21.9 Gastro-esophageal reflux disease without esophagitis; R20.0 Anesthesia of skin; F12.90 Cannabis use, unspecified, uncomplicated; Z87.891 Personal history of nicotine dependence; Z79.899 Other long term (current) drug therapy
CPT/HCPCS: 58558; 81025; 88305; J1885; J2250; J3010

== ENCOUNTER → 2020-12-02 12:05 | Outpatient (BNVA) | payer OTHER, SELFPAY | PROVIDERS: PCP Internal Medicine; Visit Provider Obstetrics & Gynecology | DX: Z48.89 Encounter for other specified surgical aftercare (principal); N92.0 Excessive and frequent menstruation with regular cycle | CPT/HCPCS: Q3014 ==

== ENCOUNTER 2021-01-31 10:12 | Outpatient (REF) | payer OTHER, SELFPAY ==
[2021-01-31 12:00] LABS: Hematocrit 33.7 % (37-47); Hemoglobin 9.9 g/dl (12.0-16.0); Mean Corpuscular HGB Conc 29.4 g/dl (31.0-35.0); Mean Corpuscular Hemoglobin 24.4 pg (27.0-33.0); Mean Corpuscular Volume 83.2 fL (80-98); Mean Platelet Volume 8.9 fL (9.4-12.3); Platelet Count 493 X10*3/uL (160-400); Red Blood Count 4.05 X10*6/uL (4.20-5.50); Red Cell Distribution Width 17.9 % (11.0-16.0); White Blood Count 7.6 X10*3/uL (4.8-10.8)
[2021-02-01 09:59] LABS: CT PCR NOT DETECTED (Not Detect.); NG PCR NOT DETECTED (Not Detect.)
[2021-02-01 10:43] LABS: BV Int Neg Control Negative (Negative); BV Int Pos Control Positive (Positive)
== END 2021-01-31 10:13 | disposition home or self-care (01) ==
LOC: HO.LAB 10:12
PROVIDERS: PCP Internal Medicine; Visit Provider Obstetrics & Gynecology
DX: N92.0 Excessive and frequent menstruation with regular cycle (principal); N76.0 Acute vaginitis; B96.89 Other specified bacterial agents as the cause of diseases classified elsewhere
CPT/HCPCS: 36415; 85027; 87480; 87491; 87510; 87591; 87660; 99212

== ENCOUNTER 2021-02-06 07:58 | Emergency (ER) | payer OTHER, SELFPAY ==
--- NOTE | ~2021-02-06 | CT_ITS ---
EXAMINATION: CT ABDOMEN AND PELVIS WITHOUT CONTRAST CLINICAL INFORMATION: Left flank pain. Hematuria COMPARISON: Portions of previous study 01/20/20 TECHNIQUE: Multidetector volumetric imaging was performed from the superior aspect of the liver through the pubic symphysis. Sagittal and coronal reformatted images were obtained on the technologist's workstation. This CT examination was performed using dose optimization techniques as appropriate, variously including the following: *Automated exposure control *Adjustment of mA and/or kV according to patient size (this includes techniques or standardized protocols for targeted exams where dose is matched to indication/reason for exam; i.e. extremities or head) *Use of iterative reconstruction technique DLP: 711 mGy-cm FINDINGS: LUNG BASES: No suspicious abnormality in the visualized lower chest. LIVER, GALLBLADDER, AND BILIARY TREE: The liver contour is smooth. There is an unchanged focal area of low attenuation along the right side of the falciform ligament. This is a common location for focal fatty change and does not require any further evaluation. There is no opaque gallstone. There is no definite biliary dilation PANCREAS: No suspicious abnormality SPLEEN: Within normal limits ADRENAL GLANDS: No suspicious abnormality and no interval change. KIDNEYS AND URETERS: There is no dilation of the urinary collecting system on either side. There is no opaque urinary calculus demonstrated. There is no perinephric fat stranding. BLADDER: The bladder is not well-distended but there is no definite abnormality. No bladder calculus demonstrated. GASTROINTESTINAL TRACT: No localized colonic wall thickening. No small bowel dilation. The stomach is moderately distended. The appendix is normal. ABDOMINAL WALL: No significant hernia is appreciated. LYMPH NODES: There are no measurably enlarged abdominal or pelvic lymph nodes. There is a minimal amount of nonspecific free pelvic fluid. VASCULAR: There is no abdominal aortic aneurysm. PELVIC VISCERA: Within normal limits for age. Probably physiologic small right ovarian cysts. OSSEOUS STRUCTURES: No suspicious abnormality. Pseudoarticulation on the left at the lumbosacral junction. CT/CT abdomen pelvis wo con IMPRESSION: No evidence of urinary obstruction, opaque calculus or perinephric stranding. No etiology for hematuria demonstrated. Small amount of nonspecific free pelvic fluid which is not unusual in this age group.
[2021-02-06 09:16] VITALS: BP 177/99; PULSE 82; RESP 18; O2SAT 96; BMI 37.7
--- NOTE | 2021-02-06 09:39 | ED_ITS ---
HPI - Nausea/Vomiting/Diarrhea General Chief complaint: Nausea/Vomiting/Diarrhea Stated complaint: left flank pain, vomiting Time Seen by Provider: 02/06/21 09:13 Source: patient Mode of arrival: ambulatory Limitations: no limitations History of Present Illness HPI Narrative: 35 y/o female with history of depression, GERD, chronic anemia, marijuana use with cyclical vomiting who presents to the ED with 3-4 days of left sided abdominal pain and persistent vomiting. She reports being seen in [facility] ED yesterday and they didn't do anything so she left. She has not been able to eat or drink for the last 3 days. She states she is now only dry heaving because there is nothing in her system. She denies urinary symptoms including dysuria, hematuria, frequency or urgency. She reports a recently diagnosed yeast infection but she did not use the vaginal suppositories due to nausea and vomiting. She has persistent white thick vaginal discharge and some mild itching. Denies chance of . She denies fever, chills, SOB, chest pain. No known exposure to COVID. She arrives crying and anxious, stating her depr ession is severe and she no longer wants to live. Her mother and father in 2019 and she has no one. She denies thoughts of harming herself or attempts in the past but states she does not want to be alive anymore. MD elicited complaint: nausea, vomiting and abdominal pain Pertinent past history: cyclical vomiting Onset (ago): day(s) (4) Description of vomiting: food contents, watery and bilious Associated nausea: Yes Associated abdominal pain: Yes Location of pain: LUQ Radiation: epigastric and left flank Pain consistency: intermittent Severity: severe Quality: cramping and stabbing Exacerbating factors: eating Relieving factors: vomiting Context: marijuana use Associated symptoms: loss of appetite and nausea/vomiting Related Data Home Medications Medication Instructions Recorded Confirmed gabapentin 100 mg capsule 100 mg PO TID 08/27/20 02/03/21 lorazepam 0.5 mg tablet 0.5 mg PO TID PRN 08/27/20 02/03/21 lorazepam 1 mg tablet 1 mg PO Q6H PRN 08/27/20 02/03/21 paroxetine HCl 20 mg tablet 20 mg PO DAILY 08/27/20 02/03/21 risperidone 1 mg tablet 1 mg PO BEDTIME 08/27/20 02/03/21 Previous Rx's Medication Instructions Recorded ondansetron HCl [Zofran] 4 mg PO Q6H PRN #14 tab 09/24/20 cyclobenzaprine 10 mg tablet 10 mg PO BEDTIME 30 Days #30 tab 09/30/20 ibuprofen 800 mg tablet 800 mg PO Q8H PRN 10 Days #30 tab 09/30/20 omeprazole 20 mg capsule,delayed 20 mg PO DAILY #30 cap 10/03/20 release melatonin 10 mg capsule 10 mg PO BEDTIME PRN #30 cap 10/24/20 metronidazole 500 mg tablet 500 mg PO BID 7 Days #14 tab 10/27/20 docusate sodium 100 mg capsule 100 mg PO DAILY PRN 90 Days #90 cap 11/08/20 ferrous sulfate 325 mg (65 mg 325 mg PO BID 90 Days #180 tab 12/09/20 iron) tablet acetaminophen 325 mg tablet 650 mg PO Q6H PRN 30 Days #120 tab 01/01/21 metronidazole 0.75 % vaginal gel 1 appful VAGINAL BEDTIME 5 Days 01/31/21 #37.5 g tranexamic acid 650 mg tablet 1,300 mg PO TID 5 Days #30 tab 01/31/21 ergocalciferol (vitamin D2) 1,250 1,250 mcg PO QWEEK 30 Days #5 cap 02/03/21 mcg (50,000 unit) capsule Allergies Allergy/AdvReac Type Severity Reaction Status Date / Time metoclopramide [From REGLAN] Allergy Mild MAKES ME Verified 02/03/21 15:01 COLD prochlorperazine Allergy Mild RASH, gets Verified 02/03/21 15:01 [From Compazine] cold famotidine [Pepcid] AdvReac Mild loss of Verified 02/03/21 15:01 appetite Review of Systems Review of Systems: Constitutional: No Fever, No Chills ENT/Mouth: No sore throat, No Rhinorrhea, No Swallowing Difficulty Cardiovascular: No Chest Pain, No SOB, No Orthopnea, No Edema Respiratory: No Cough, No Sputum, No Wheezing, No dyspnea Gastrointestinal: + Nausea, + Vomiting, No Diarrhea, + abdominal Pain, No Hematochezia, No Melena Genitourinary: No Dysuria, No Urinary Frequency, No Hematuria, +Vaginal discharge Musculoskeletal: No joint pain, No Myalgias Skin: No Skin Lesions, No rash Neuro: No Weakness, No Numbness, No Dizziness, No Headache Psych: + Anxiety/Panic, + Depression Heme/Lymph: No Bruising, No Lymphadenopathy Endocrine: No Polyuria, No Polydipsia Gastrointestinal: Gastrointestinal: Reports nausea PMFSH Past Medical History Medical History Anemia Anxiety Chest pain Depression GERD (gastroesophageal reflux disease) History of back pain History of bipolar disorder Hx of Hx of iron deficiency anemia Hx of migraines Hypokalemia Iron deficiency anemia due to chronic blood loss Marijuana use, continuous Menorrhagia Numbness of foot Syphilis contact, treated Surgical History History of dilation and curettage Hx of colonoscopy Hx of esophagogastroduodenoscopy Family History Family History Mother HTN (hypertension) Maternal Grandmother HTN (hypertension) Maternal Uncle HTN (hypertension) Maternal Aunt Diabetes mellitus Social History Social History Alcohol intake: never Smoking Status: Current every day smoker Tobacco Type: Cigarette Packs Per Day: 0.25 Cigarettes Per Day: 5.0 Years Smoked: 15 Use of substances other than those prescribed or required for medical reasons: Yes Substance Use Type: Marijuana Substance Use Frequency: Occasionally Last Used Substance: Hours (ago) Any prior treatment program specific to substance use: No Advance Directives: No Physical Exam Vital Signs: Vital Signs: Last Vital Signs Pulse 70 02/06/21 11:49 Resp 16 02/06/21 11:49 BP 129/90 H 02/06/21 11:49 Pulse Ox 97 02/06/21 11:49 Body Mass Index 37.7 Appearance: Alert. Oriented X3. Crying, anxious Eyes: Pupils equal, round and reactive to light. ENT: Pharynx normal. Neck: Normal inspection. Neck supple. CVS: Normal heart rate and rhythm. Pulses normal. Respiratory: No respiratory distress. Breath sounds normal. Abdomen: Soft with left sided abdominal tenderness, not present when distracted with conversation, +CVA tenderness, +BS x4 Skin: Skin warm and dry. Normal skin color. Normal skin turgor. No rashes. Extremities: No lower extremity edema. Neuro: Oriented X 3. No motor deficit. No sensory deficit. Psych: depressed, anxious, tearful, vague suicidal statements with good insight to her illness. Course Course Course Narrative: 35 y/o female with history of bipolar depression, cyclical vomiting with continued marijuana use who presents to the ED with 3-4 days of left sided abdominal pain and vomiting. Untreated yeast infection can lead to systemic effects w/ vomiting but this is likely due to recurrent cyclical vomiting. Will check labs, utox and UA. Her exam changes with distraction, no significant abdominal tenderness illicited. Will give IVF, zofran, pepcid and toradol and reassess. Reevaluation(s) Reevaluation #1: Labs showing mild leukocytosis 11.6, likely reactive from vomiting. LFTs and renal function unremarkable. UA with blood, not due for menses for a couple weeks. Will get CT scan to assess for possible kidney stone given continued reports of pain. Reevaluation #2: Records obtained from [facility] from yesterday's visit - frequently asking for narcotics there and was not given them given the etiology of her pain was due to cyclical vomiting. She continues to request IV morphine here. Awaiting CT scan. Reevaluation #3: CT is negative for acute intra-abdominal pathology. No kidney stones. It was explained that she will not be getting IV pain medication for her reported recurrent abdominal pain. She is sleeping comfortably between care. She is upset with this, pulling out her IV and demanding to leave. She is adamantly denying SI saying she only said that before because she misses her parents. She would never harm herself. She has a therapist with an appointment on Sunday. Nursing called to bedside to remove IV and patient eloped. Consultations Consultation #1: BHN consulted for severe depression and reports of not wanting to live MDM - Nausea/Vomiting/Diarrhea Lab Data Result diagrams: 02/06/21 10:09 02/06/21 10:09 Labs: Lab Results 02/06/21 02/06/21 02/06/21 Range/Units 09:38 09:38 09:38 WBC (4.8-10.8) X10*3/uL RBC (4.20-5.50) X10*6/uL Hgb (12.0-16.0) g/dl Hct (37-47) % MCV (80-98) fL MCH (27.0-33.0) pg MCHC (31.0-35.0) g/dl RDW (11.0-16.0) % Plt Count (160-400) X10*3/uL MPV (9.4-12.3) fL Immature Gran % (Auto) (0.0-0.4) % Neut % (Auto) (45-73) % Lymph % (Auto) (20-40) % [place] % (Auto) (2-11) % Eos % (Auto) (0-4) % Baso % (Auto) (0-2) % Lymph # (Auto) (1.2-4.9) X10*3/uL [place] # (Auto) (0.1-1.2) X10*3/uL Eos # (Auto) (0.0-0.4) X10*3/uL Baso # (Auto) (0.0-0.2) X10*3/uL Abs Immat Gran (auto) (0.00-0.03) X10*3/uL Absolute Neuts (auto) (2.0-8.3) X10*3/uL Absolute Nucleated RBC (0.0-0.012) X10*3/uL Nucleated RBC % (auto) (0.0-0.2) /100WBC Hold Blue Top Sodium (135-145) mmol/L Potassium (3.3-5.1) mmol/L Chloride (96-108) mmol/L Carbon Dioxide (22-29) mmol/L Anion Gap (12-20) BUN (9-16) mg/dL Creatinine (0.5-1.4) mg/dL Estim Creat Clear Calc Estimated GFR Random Glucose (60-115) mg/dL Calcium (8.4-10.2) mg/dL Magnesium (1.6-2.6) mg/dL Total Bilirubin (0.0-1.0) mg/dL Direct Bilirubin (0.0-0.5) mg/dL AST (5-31) U/L ALT (0-31) U/L Alkaline Phosphatase (39-117) U/L Total Protein (6.5-8.0) g/dL Albumin (3.5-5.0) g/dL Urine Color YELLOW Urine Appearance HAZY Urine pH 7.0 (5.0-8.0) Ur Specific [place] 1.025 (1.005-1.025) Urine Protein 2+ H (NEG-TRACE) MG/DL Urine Glucose (UA) NEG (NEG) MG/DL Urine Ketones 40 (NEG) MG/DL Urine Blood 2+ H (NEG) Urine Nitrite NEG (NEG) Ur Leukocyte Esterase NEG (NEG) Urine RBC 1-4 (0) /HPF Urine WBC 0 (0-4) /HPF Ur Squamous Epith Cells TRACE /LPF Urine Bacteria NONE /LPF Urine Test NEGATIVE (NEGATIVE) Urine Opiates Screen Not Detected (Not Detect) Ur Barbiturates Screen Not Detected (Not Detect) Ur Phencyclidine Scrn Not Detected (Not Detect) Ur Amphetamines Screen Not Detected (Not Detect) U Benzodiazepines Scrn Not Detected (Not Detect) Urine Cocaine Screen Not Detected (Not Detect) U Marijuana (THC) Screen POSITIVE H (Not Detect) Ethyl Alcohol mg/dL 02/06/21 02/06/21 02/06/21 Range/Units 10:09 10:09 10:09 WBC 11.6 H (4.8-10.8) X10*3/uL RBC 4.77 (4.20-5.50) X10*6/uL Hgb 11.7 L (12.0-16.0) g/dl Hct 38.8 (37-47) % MCV 81.3 (80-98) fL MCH 24.5 L (27.0-33.0) pg MCHC 30.2 L (31.0-35.0) g/dl RDW 18.5 H (11.0-16.0) % Plt Count 488 H (160-400) X10*3/uL MPV 8.7 L (9.4-12.3) fL Immature Gran % (Auto) 0.9 H (0.0-0.4) % Neut % (Auto) 71.2 (45-73) % Lymph % (Auto) 19.3 L (20-40) % [place] % (Auto) 8.1 (2-11) % Eos % (Auto) 0.2 (0-4) % Baso % (Auto) 0.3 (0-2) % Lymph # (Auto) 2.2 (1.2-4.9) X10*3/uL [place] # (Auto) 0.9 (0.1-1.2) X10*3/uL Eos # (Auto) 0.0 (0.0-0.4) X10*3/uL Baso # (Auto) 0.0 (0.0-0.2) X10*3/uL Abs Immat Gran (auto) 0.11 H (0.00-0.03) X10*3/uL Absolute Neuts (auto) 8.3 (2.0-8.3) X10*3/uL Absolute Nucleated RBC 0.000 (0.0-0.012) X10*3/uL Nucleated RBC % (auto) 0.0 (0.0-0.2) /100WBC Hold Blue Top SEE NOTE Sodium 141 (135-145) mmol/L Potassium 3.3 (3.3-5.1) mmol/L Chloride 103 (96-108) mmol/L Carbon Dioxide 20 L (22-29) mmol/L Anion Gap 21 H (12-20) BUN 11 (9-16) mg/dL Creatinine 0.83 (0.5-1.4) mg/dL Estim Creat Clear Calc 91.3 Estimated GFR > 60 Random Glucose 128 H (60-115) mg/dL Calcium 9.7 (8.4-10.2) mg/dL Magnesium 2.2 (1.6-2.6) mg/dL Total Bilirubin 0.5 (0.0-1.0) mg/dL Direct Bilirubin 0.2 (0.0-0.5) mg/dL AST 20 (5-31) U/L ALT 17 (0-31) U/L Alkaline Phosphatase 88 (39-117) U/L Total Protein 8.8 H (6.5-8.0) g/dL Albumin 5.0 (3.5-5.0) g/dL Urine Color Urine Appearance Urine pH (5.0-8.0) Ur Specific [place] (1.005-1.025) Urine Protein (NEG-TRACE) MG/DL Urine Glucose (UA) (NEG) MG/DL Urine Ketones (NEG) MG/DL Urine Blood (NEG) Urine Nitrite (NEG) Ur Leukocyte Esterase (NEG) Urine RBC (0) /HPF Urine WBC (0-4) /HPF Ur Squamous Epith Cells /LPF Urine Bacteria /LPF Urine Test (NEGATIVE) Urine Opiates Screen (Not Detect) Ur Barbiturates Screen (Not Detect) Ur Phencyclidine Scrn (Not Detect) Ur Amphetamines Screen (Not Detect) U Benzodiazepines Scrn (Not Detect) Urine Cocaine Screen (Not Detect) U Marijuana (THC) Screen (Not Detect) Ethyl Alcohol mg/dL 02/06/21 Range/Units 10:09 WBC (4.8-10.8) X10*3/uL RBC (4.20-5.50) X10*6/uL Hgb (12.0-16.0) g/dl Hct (37-47) % MCV (80-98) fL MCH (27.0-33.0) pg MCHC (31.0-35.0) g/dl RDW (11.0-16.0) % Plt Count (160-400) X10*3/uL MPV (9.4-12.3) fL Immature Gran % (Auto) (0.0-0.4) % Neut % (Auto) (45-73) % Lymph % (Auto) (20-40) % [place] % (Auto) (2-11) % Eos % (Auto) (0-4) % Baso % (Auto) (0-2) % Lymph # (Auto) (1.2-4.9) X10*3/uL [place] # (Auto) (0.1-1.2) X10*3/uL Eos # (Auto) (0.0-0.4) X10*3/uL Baso # (Auto) (0.0-0.2) X10*3/uL Abs Immat Gran (auto) (0.00-0.03) X10*3/uL Absolute Neuts (auto) (2.0-8.3) X10*3/uL Absolute Nucleated RBC (0.0-0.012) X10*3/uL Nucleated RBC % (auto) (0.0-0.2) /100WBC Hold Blue Top Sodium (135-145) mmol/L Potassium (3.3-5.1) mmol/L Chloride (96-108) mmol/L Carbon Dioxide (22-29) mmol/L Anion Gap (12-20) BUN (9-16) mg/dL Creatinine (0.5-1.4) mg/dL Estim Creat Clear Calc Estimated GFR Random Glucose (60-115) mg/dL Calcium (8.4-10.2) mg/dL Magnesium (1.6-2.6) mg/dL Total Bilirubin (0.0-1.0) mg/dL Direct Bilirubin (0.0-0.5) mg/dL AST (5-31) U/L ALT (0-31) U/L Alkaline Phosphatase (39-117) U/L Total Protein (6.5-8.0) g/dL Albumin (3.5-5.0) g/dL Urine Color Urine Appearance Urine pH (5.0-8.0) Ur Specific [place] (1.005-1.025) Urine Protein (NEG-TRACE) MG/DL Urine Glucose (UA) (NEG) MG/DL Urine Ketones (NEG) MG/DL Urine Blood (NEG) Urine Nitrite (NEG) Ur Leukocyte Esterase (NEG) Urine RBC (0) /HPF Urine WBC (0-4) /HPF Ur Squamous Epith Cells /LPF Urine Bacteria /LPF Urine Test (NEGATIVE) Urine Opiates Screen (Not Detect) Ur Barbiturates Screen (Not Detect) Ur Phencyclidine Scrn (Not Detect) Ur Amphetamines Screen (Not Detect) U Benzodiazepines Scrn (Not Detect) Urine Cocaine Screen (Not Detect) U Marijuana (THC) Screen (Not Detect) Ethyl Alcohol < 10 mg/dL Discharge Plan Discharge Clinical Impression: Cyclical vomiting Depression Qualifiers: Depression Type: major depressive disorder Major depression recurrence: recurr ent Active/Remission status: currently active Major depression episode severity: unspecified Qualified Code(s): F33.9 - Major depressive disorder, recurrent, unspecified Patient Disposition: Elopement Instructions: Cyclic Vomiting Syndrome (ED) Prescriptions: No Action omeprazole 20 mg capsule,delayed release(DR/EC) 20 mg PO DAILY Qty: 30 RF: 1 melatonin 10 mg capsule 10 mg PO BEDTIME PRN (Reason: for insomnia) Qty: 30 RF: 0 docusate sodium 100 mg capsule 100 mg PO DAILY PRN (Reason: constipation) 90 Days Qty: 90 RF: 3 ferrous sulfate 325 mg (65 mg iron) tablet 325 mg PO BID 90 Days Qty: 180 RF: 3 acetaminophen 325 mg tablet 650 mg PO Q6H PRN (Reason: fever or pain) 30 Days Qty: 120 RF: 6 ondansetron HCl [Zofran] 4 mg tablet 4 mg PO Q6H PRN (Reason: nausea and vomiting) Qty: 14 RF: 0 ergocalciferol (vitamin D2) 1,250 mcg (50,000 unit) capsule 1,250 mcg PO QWEEK 30 Days Qty: 5 RF: 3 ibuprofen 800 mg tablet 800 mg PO Q8H PRN (Reason: pain) 10 Days Qty: 30 RF: 0 cyclobenzaprine 10 mg tablet 10 mg PO BEDTIME 30 Days Qty: 30 RF: 0 metronidazole [Flagyl] 500 mg tablet 500 mg PO BID 7 Days Qty: 14 RF: 0 risperidone 1 mg tablet 1 mg PO BEDTIME RF: 0 gabapentin 100 mg capsule 100 mg PO TID RF: 0 paroxetine HCl 20 mg tablet 20 mg PO DAILY RF: 0 lorazepam 0.5 mg tablet 0.5 mg PO TID PRN (Reason: anxiety) RF: 0 lorazepam 1 mg tablet 1 mg PO Q6H PRN (Reason: anxiety) RF: 0 tranexamic acid [Lysteda] 650 mg tablet 1,300 mg PO TID 5 Days Qty: 30 RF: 2 metronidazole 0.75 % gel 1 appful vaginal BEDTIME 5 Days Qty: 37.5 RF: 0 Referrals: Aggie Bo MD [Physician] - 1 week (recurrent nausea and vomiting)
[2021-02-06] MEDS: 0.9 % Sodium Chloride 1,000 ML 999 ML IVCONT (09:41)
[2021-02-06 09:54] LABS: Glucose Urine UA NEG (NEG); Leukocyte Esterase Urine NEG (NEG); Nitrite Urine NEG (NEG); Specific Gravity - Urine 1.025 (1.005-1.025); Urine Blood 2+ (NEG); Urine Ketones 40 MG/DL (NEG); Urine Protein 2+ MG/DL (NEG-TRACE)
[2021-02-06] MEDS: ondansetron HCL 4 MG/2 ML VIAL IVPUSH (09:54)
[2021-02-06] MEDS: LORazepam 2 MG/ML VIAL 1 MG IVPUSH (09:55)
[2021-02-06] MEDS: Famotidine/PF 20 MG/2 ML VIAL IVPUSH (09:55)
[2021-02-06 09:56] LABS: Appearance Urine HAZY; Color Urine YELLOW
[2021-02-06 10:03] LABS: Squamous Epithelial Cell Urine TRACE /LPF; WBC Urine 0 /HPF (0-4)
[2021-02-06 10:14] LABS: MANUAL DIFF FLAG NO
[2021-02-06 10:15] LABS: Basophils Percent Auto 0.3 % (0-2); Eosinophils Percent Auto 0.2 % (0-4); Hematocrit 38.8 % (37-47); Hemoglobin 11.7 g/dl (12.0-16.0); Imm Gran Abs Auto 0.11 X10*3/uL (0.00-0.03); Imm Gran Pct Auto 0.9 % (0.0-0.4); Lymphocytes Absolute Auto 2.2 X10*3/uL (1.2-4.9); Lymphocytes Percent Auto 19.3 % (20-40); Mean Corpuscular HGB Conc 30.2 g/dl (31.0-35.0); Mean Corpuscular Hemoglobin 24.5 pg (27.0-33.0); Mean Corpuscular Volume 81.3 fL (80-98); Mean Platelet Volume 8.7 fL (9.4-12.3); Monocytes Absolute Auto 0.9 X10*3/uL (0.1-1.2); Monocytes Percent Auto 8.1 % (2-11); Neutrophils Absolute Auto 8.3 X10*3/uL (2.0-8.3); Neutrophils Percent Auto 71.2 % (45-73); Platelet Count 488 X10*3/uL (160-400); Red Blood Count 4.77 X10*6/uL (4.20-5.50); Red Cell Distribution Width 18.5 % (11.0-16.0); White Blood Count 11.6 X10*3/uL (4.8-10.8)
--- NOTE | 2021-02-06 10:30 | PC.NURSE ---
PT REPORTS SHE WANTS TO BE WITH PARENTS WHO RECENTLY PASSED ON. CRYING AND REPORTS FEELING DEPRESSED. PT EXPRESSED THIS WITH PA AT BEDSIDE, DENIES FEELINGS OF SI. PA EXPLAINED TO PT WILL ENSURE EVERYTHING IS MEDICALLY STABLE THEN WILL GET HER SOMEONE TO TALK TO. PT RESTING QUIETLY AT THIS TIME.
[2021-02-06 10:35] LABS: Ethanol < 10 mg/dL
[2021-02-06 10:36] VITALS: BP 116/79; PULSE 86; RESP 17; O2SAT 98
[2021-02-06 10:41] LABS: Alanine Aminotransferase 17 U/L (0-31); Alkaline Phosphatase 88 U/L (39-117); Aspartate Amino Transferase 20 U/L (5-31); Bilirubin Direct 0.2 mg/dL (0.0-0.5); Bilirubin Total 0.5 mg/dL (0.0-1.0); Blood Urea Nitrogen 11 mg/dL (9-16); Calcium 9.7 mg/dL (8.4-10.2); Creatinine Clr Calc Pharmacy 91.3; Estimated Glomerular Filt Rate > 60; Glucose Random 128 mg/dL (60-115); Magnesium 2.2 mg/dL (1.6-2.6); Total Protein 8.8 g/dL (6.5-8.0)
[2021-02-06 10:44] LABS: UPreg QC Valid YES; Urine Pregnancy NEGATIVE (NEGATIVE)
[2021-02-06 10:51] LABS: Anion Gap 21 (12-20); Carbon Dioxide 20 mmol/L (22-29); Chloride 103 mmol/L (96-108); Potassium 3.3 mmol/L (3.3-5.1); Sodium 141 mmol/L (135-145)
[2021-02-06 10:56] LABS: Amphetamine Screen Urine Not Detected (Not Detect); Barbiturates, Urine Not Detected (Not Detect); Benzodiazepines Screen Urine Not Detected (Not Detect); Cannabinoid Screen Urine POSITIVE (Not Detect); Cocaine Screen Urine Not Detected (Not Detect); Opiate Screen Urine Not Detected (Not Detect); Phencyclidine Screen Urine Not Detected (Not Detect)
[2021-02-06] MEDS: Fluconazole 150 MG TABLET PO (11:44)
[2021-02-06] MEDS: Ketorolac Tromethamine 30 MG/ML VIAL IVPUSH (11:45)
[2021-02-06 11:49] VITALS: BP 129/90; PULSE 70; RESP 16; O2SAT 97
[2021-02-06] MEDS: Acetaminophen 325 MG TABLET 975 MG PO (13:22)
--- NOTE | 2021-02-06 14:47 | PC.NURSE ---
THIS WRECKING CAR DRIVER WENT TO PT's ROOM TO TAKE OUT IV. THE PT WAS NOT IN HER ROOM. PT TOOK OUT HER IV, THREW IT IN THE TRASH, AND LEFT THE EMERGENCY ROOM WITHOUT DISCHARGE SUMMARY/RECOMMENDATION.
== END 2021-02-06 14:25 | disposition left against medical advice (07) ==
PROVIDERS: Physician Assistant; Emergency Provider Emergency Medicine Emergency Medical Services; PCP Internal Medicine
DX: R11.15 Cyclical vomiting syndrome unrelated to migraine (principal); F12.90 Cannabis use, unspecified, uncomplicated; F33.9 Major depressive disorder, recurrent, unspecified; Z72.89 Other problems related to lifestyle; Z63.4 Disappearance and death of family member; R10.9 Unspecified abdominal pain; K21.9 Gastro-esophageal reflux disease without esophagitis; D64.9 Anemia, unspecified; F17.210 Nicotine dependence, cigarettes, uncomplicated; Z79.899 Other long term (current) drug therapy
CPT/HCPCS: 36415; 74176; 80048; 80076; 80307; 80320; 81001; 81025; 83735; 85025; 96361; 96374; 96375; 99284; J1885; J2060; J2405

== ENCOUNTER 2021-02-17 07:30 | Emergency (ER) | payer OTHER, SELFPAY ==
--- NOTE | ~2021-02-17 | XR_ITS ---
EXAMINATION: XR CHEST CLINICAL INFORMATION: Chest pain COMPARISON: Chest radiographs 10/27/2020, 06/02/2020 TECHNIQUE: Portable upright AP view of the chest was obtained. FINDINGS: The lungs are clear. The vascularity is normal. There is no pneumothorax or pleural reaction. No infiltrate or groundglass opacity or effusion. The heart is normal in size and the hilar and mediastinal contours are unremarkable. There is a gentle dextrocurvature thoracic spine again noted. XR/XR chest 1V IMPRESSION: Unremarkable examination.
--- NOTE | 2021-02-17 07:41 | ECG_ITS ---
Test Reason : CHEST TIGHTNESS Blood Pressure : / mmHG Vent. Rate : 072 BPM Atrial Rate : 072 BPM P-R Int : 158 ms QRS Dur : 080 ms QT Int : 380 ms P-R-T Axes : 046 006 012 degrees QTc Int : 416 ms Normal sinus rhythm with sinus arrhythmia Normal ECG When compared with ECG of 20-SEP-2019 03:55, No significant change was found Referred By: Marylu Richard Electronically Signed By:Otf Jaramillo
[2021-02-17 07:47] VITALS: BP 121/86; PULSE 75; RESP 14; TEMP 36.6; O2SAT 98; BMI 37.3
[2021-02-17 08:43] LABS: MANUAL DIFF FLAG NO
[2021-02-17 08:44] LABS: Basophils Absolute Auto 0.1 X10*3/uL (0.0-0.2); Basophils Percent Auto 0.8 % (0-2); Eosinophils Absolute Auto 0.3 X10*3/uL (0.0-0.4); Eosinophils Percent Auto 5.2 % (0-4); Hematocrit 33.6 % (37-47); Hemoglobin 10.1 g/dl (12.0-16.0); Imm Gran Abs Auto 0.02 X10*3/uL (0.00-0.03); Imm Gran Pct Auto 0.3 % (0.0-0.4); Lymphocytes Percent Auto 29.8 % (20-40); Mean Corpuscular HGB Conc 30.1 g/dl (31.0-35.0); Mean Corpuscular Volume 83.2 fL (80-98); Mean Platelet Volume 8.5 fL (9.4-12.3); Monocytes Absolute Auto 0.6 X10*3/uL (0.1-1.2); Monocytes Percent Auto 9.5 % (2-11); Neutrophils Absolute Auto 3.6 X10*3/uL (2.0-8.3); Neutrophils Percent Auto 54.4 % (45-73); Platelet Count 582 X10*3/uL (160-400); Red Blood Count 4.04 X10*6/uL (4.20-5.50); Red Cell Distribution Width 18.9 % (11.0-16.0); White Blood Count 6.5 X10*3/uL (4.8-10.8)
--- NOTE | 2021-02-17 08:54 | ED_ITS ---
HPI - Chest Pain General Chief Complaint: Chest Pain Stated Complaint: chest pain Time Seen by Provider: 02/17/21 07:41 Source: patient Mode of arrival: ambulatory History of Present Illness HPI narrative: 35 y/o female with history of depression, GERD, chronic anemia, marijuana use with cyclical vomiting who presents to the ED with substernal chest tightness since last night with mild associated SOB. Reports symptoms are related to increased cigarette smoking/stress. Admits lost her mother and father, which is increasing stresors at home. Denies cough, fever, chills, abdominal pain, nausea/vomiting, LE edema, calf pain MD complaint: chest discomfort Related Data Home Medications Medication Instructions Recorded Confirmed gabapentin 100 mg capsule 100 mg PO TID 08/27/20 02/03/21 lorazepam 0.5 mg tablet 0.5 mg PO TID PRN 08/27/20 02/03/21 lorazepam 1 mg tablet 1 mg PO Q6H PRN 08/27/20 02/03/21 paroxetine HCl 20 mg tablet 20 mg PO DAILY 08/27/20 02/03/21 Previous Rx's Medication Instructions Recorded ondansetron HCl [Zofran] 4 mg PO Q6H PRN #14 tab 09/24/20 cyclobenzaprine 10 mg tablet 10 mg PO BEDTIME 30 Days #30 tab 09/30/20 ibuprofen 800 mg tablet 800 mg PO Q8H PRN 10 Days #30 tab 09/30/20 metronidazole 500 mg tablet 500 mg PO BID 7 Days #14 tab 10/27/20 docusate sodium 100 mg capsule 100 mg PO DAILY PRN 90 Days #90 cap 11/08/20 ferrous sulfate 325 mg (65 mg 325 mg PO BID 90 Days #180 tab 12/09/20 iron) tablet acetaminophen 325 mg tablet 650 mg PO Q6H PRN 30 Days #120 tab 01/01/21 metronidazole 0.75 % vaginal gel 1 appful VAGINAL BEDTIME 5 Days 01/31/21 #37.5 g tranexamic acid 650 mg tablet 1,300 mg PO TID 5 Days #30 tab 01/31/21 ergocalciferol (vitamin D2) 1,250 1,250 mcg PO QWEEK 30 Days #5 cap 02/03/21 mcg (50,000 unit) capsule melatonin 10 mg capsule 10 mg PO BEDTIME PRN #30 cap 02/16/21 risperidone 1 mg tablet 1 mg PO DAILY #90 tab 02/16/21 omeprazole 20 mg capsule,delayed 20 mg PO QAM #90 cap 02/17/21 release Allergies Allergy/AdvReac Type Severity Reaction Status Date / Time metoclopramide [From REGLAN] Allergy Mild MAKES ME Verified 02/03/21 15:01 COLD prochlorperazine Allergy Mild RASH, gets Verified 02/03/21 15:01 [From Compazine] cold famotidine [Pepcid] AdvReac Mild loss of Verified 02/03/21 15:01 appetite Review of Systems Review of Systems: Constitutional: No Fever, No Chills Cardiovascular: + Chest Pain, +SOB, No Dyspnea on Exertion, No Edema, No Palpitations Respiratory: No Cough, +cigarette smoking Gastrointestinal: No Nausea, No Vomiting, No Diarrhea, No Constipation, No Abdominal pain Genitourinary: No Dysuria, No Urinary Frequency, No Hematuria Musculoskeletal: No joint pain, No Myalgias Skin: No Skin Lesions, No rash Neuro: No Weakness, No Numbness, No Paresthesias Psych: No Anxiety/Panic, + Depression, No SI/HI Yes all other systems are reviewed and are negative [facility] Past Medical History Attestation statement: The following information was validated with the patient. Medical History Anemia Anxiety Chest pain Depression GERD (gastroesophageal reflux disease) History of back pain History of bipolar disorder Hx of Hx of iron deficiency anemia Hx of migraines Hypokalemia Iron deficiency anemia due to chronic blood loss Marijuana use, continuous Menorrhagia Numbness of foot Syphilis contact, treated Surgical History History of dilation and curettage Hx of colonoscopy Hx of esophagogastroduodenoscopy Family History Family History Mother HTN (hypertension) Maternal Grandmother HTN (hypertension) Maternal Uncle HTN (hypertension) Maternal Aunt Diabetes mellitus Social History Social History Alcohol intake: never Smoking Status: Current every day smoker Tobacco Type: Cigarette Packs Per Day: 0.25 Cigarettes Per Day: 5.0 Years Smoked: 15 Use of substances other than those prescribed or required for medical reasons: Yes Substance Use Type: Marijuana Advance Directives: Yes Advance Directives Information Provided: Yes Advance Directives on File: No Physical Exam Vital Signs: Vital Signs: Last Vital Signs Temp 97.8 F 02/17/21 07:47 Pulse 75 02/17/21 07:47 Resp 14 02/17/21 07:47 BP 121/86 02/17/21 07:47 Pulse Ox 98 02/17/21 07:47 Body Mass Index 37.3 Const: General: cooperative, healthy appearing and comfortable Orientation/consciousness: patient oriented x3 Limitations: no limitations HENMT: Head: Yes normal to inspection Ears: hearing grossly normal bilaterally General nose exam: Normal external nose present Face and sinus: Yes normal facial exam Eyes: General: appearance normal, both eyes and all related structures EOM: EOMs intact bilaterally Neck: Neck: Yes normal visual inspection and Yes no meningeal signs Resp: Effort & Inspection: normal respiratory effort Auscultation: clear to auscultation bilaterally, no rales, no rhonchi and no wheezes Cardio: Rate: regular rate Heart sounds: S1 normal heart sound present and S2 normal heart sound present GI: Inspection: Yes normal to inspection Palpation (GI): Soft to palpation, nontender, no guarding and not rigid Skin: Rashes: no rashes Wounds: no wounds Neuro: General: patient oriented x3 and no meningeal signs Gait exam (Neuro): Normal gait present Extrem: General: Yes normal to inspection, Yes no pedal edema and Yes no calf tenderness Course Course Course Narrative: -no leukocytosis, H&H stable, troponin negative XR chest 1V IMPRESSION: Unremarkable examination. -UA and negative MDM - Chest Pain MDM Narrative Medical decision making narrative: 35 y/o female with history of depression, GERD, chronic anemia, marijuana use with cyclical vomiting who presents to the ED with substernal chest tightness since last night with mild associated SOB. On exam VSS, NAD, anxious, lungs CTA, no pedal edema or calf tenderness. Likely anxiety. Rule out ACS vs pneumonia. Low concern for PE/CHF or viral syndrome/COVID-19 Plan: EKG, labs, CXR Medical Records Data Attestation: I reviewed the patient's medical records. Lab Data Attestation: I reviewed the patient's lab results. Result diagrams: 02/17/21 08:35 02/17/21 08:35 Labs: Lab Results 02/17/21 02/17/21 02/17/21 Range/Units 08:35 08:35 08:35 WBC 6.5 (4.8-10.8) X10*3/uL RBC 4.04 L (4.20-5.50) X10*6/uL Hgb 10.1 L (12.0-16.0) g/dl Hct 33.6 L (37-47) % MCV 83.2 (80-98) fL MCH 25.0 L (27.0-33.0) pg MCHC 30.1 L (31.0-35.0) g/dl RDW 18.9 H (11.0-16.0) % Plt Count 582 H (160-400) X10*3/uL MPV 8.5 L (9.4-12.3) fL Immature Gran % (Auto) 0.3 (0.0-0.4) % Neut % (Auto) 54.4 (45-73) % Lymph % (Auto) 29.8 (20-40) % [place] % (Auto) 9.5 (2-11) % Eos % (Auto) 5.2 H (0-4) % Baso % (Auto) 0.8 (0-2) % Lymph # (Auto) 2.0 (1.2-4.9) X10*3/uL [place] # (Auto) 0.6 (0.1-1.2) X10*3/uL Eos # (Auto) 0.3 (0.0-0.4) X10*3/uL Baso # (Auto) 0.1 (0.0-0.2) X10*3/uL Abs Immat Gran (auto) 0.02 (0.00-0.03) X10*3/uL Absolute Neuts (auto) 3.6 (2.0-8.3) X10*3/uL Absolute Nucleated RBC 0.000 (0.0-0.012) X10*3/uL Nucleated RBC % (auto) 0.0 (0.0-0.2) /100WBC Hold Blue Top SEE NOTE Sodium 142 (135-145) mmol/L Potassium 3.7 (3.3-5.1) mmol/L Chloride 107 (96-108) mmol/L Carbon Dioxide 26 (22-29) mmol/L Anion Gap 13 (12-20) BUN 9 (9-16) mg/dL Creatinine 0.74 (0.5-1.4) mg/dL Estim Creat Clear Calc 101.7 Estimated GFR > 60 Random Glucose 99 (60-115) mg/dL Calcium 9.3 (8.4-10.2) mg/dL Magnesium 2.5 (1.6-2.6) mg/dL Total Bilirubin 0.4 (0.0-1.0) mg/dL Direct Bilirubin 0.2 (0.0-0.5) mg/dL AST 15 (5-31) U/L ALT 11 (0-31) U/L Alkaline Phosphatase 67 D (39-117) U/L Troponin I High Sens (<3.5-17.0) ng/L Total Protein 7.3 (6.5-8.0) g/dL Albumin 4.4 (3.5-5.0) g/dL Lipase 38 (8-78) U/L Urine Color Urine Appearance Urine pH (5.0-8.0) Ur Specific [place] (1.005-1.025) Urine Protein (NEG-TRACE) MG/DL Urine Glucose (UA) (NEG) MG/DL Urine Ketones (NEG) MG/DL Urine Blood (NEG) Urine Nitrite (NEG) Ur Leukocyte Esterase (NEG) Urine RBC (0) /HPF Urine WBC (0-4) /HPF Ur Squamous Epith Cells /LPF Calcium Oxalate Crystal /LPF Urine Bacteria /LPF Urine Mucus /LPF Urine Test (NEGATIVE) Urine Opiates Screen (Not Detect) Ur Barbiturates Screen (Not Detect) Ur Phencyclidine Scrn (Not Detect) Ur Amphetamines Screen (Not Detect) U Benzodiazepines Scrn (Not Detect) Urine Cocaine Screen (Not Detect) U Marijuana (THC) Screen (Not Detect) COVID-19 (JESSICA) (Negative) COVID-19 Clin Com 02/17/21 02/17/21 02/17/21 Range/Units 08:35 08:35 09:59 WBC (4.8-10.8) X10*3/uL RBC (4.20-5.50) X10*6/uL Hgb (12.0-16.0) g/dl Hct (37-47) % MCV (80-98) fL MCH (27.0-33.0) pg MCHC (31.0-35.0) g/dl RDW (11.0-16.0) % Plt Count (160-400) X10*3/uL MPV (9.4-12.3) fL Immature Gran % (Auto) (0.0-0.4) % Neut % (Auto) (45-73) % Lymph % (Auto) (20-40) % [place] % (Auto) (2-11) % Eos % (Auto) (0-4) % Baso % (Auto) (0-2) % Lymph # (Auto) (1.2-4.9) X10*3/uL [place] # (Auto) (0.1-1.2) X10*3/uL Eos # (Auto) (0.0-0.4) X10*3/uL Baso # (Auto) (0.0-0.2) X10*3/uL Abs Immat Gran (auto) (0.00-0.03) X10*3/uL Absolute Neuts (auto) (2.0-8.3) X10*3/uL Absolute Nucleated RBC (0.0-0.012) X10*3/uL Nucleated RBC % (auto) (0.0-0.2) /100WBC Hold Blue Top Sodium (135-145) mmol/L Potassium (3.3-5.1) mmol/L Chloride (96-108) mmol/L Carbon Dioxide (22-29) mmol/L Anion Gap (12-20) BUN (9-16) mg/dL Creatinine (0.5-1.4) mg/dL Estim Creat Clear Calc Estimated GFR Random Glucose (60-115) mg/dL Calcium (8.4-10.2) mg/dL Magnesium (1.6-2.6) mg/dL Total Bilirubin (0.0-1.0) mg/dL Direct Bilirubin (0.0-0.5) mg/dL AST (5-31) U/L ALT (0-31) U/L Alkaline Phosphatase (39-117) U/L Troponin I High Sens < 3.5 (<3.5-17.0) ng/L Total Protein (6.5-8.0) g/dL Albumin (3.5-5.0) g/dL Lipase (8-78) U/L Urine Color YELLOW Urine Appearance CLEAR Urine pH 6.5 (5.0-8.0) Ur Specific [place] >= 1.030 H (1.005-1.025) Urine Protein TRACE (NEG-TRACE) MG/DL Urine Glucose (UA) NEG (NEG) MG/DL Urine Ketones 5 (NEG) MG/DL Urine Blood 1+ H (NEG) Urine Nitrite NEG (NEG) Ur Leukocyte Esterase NEG (NEG) Urine RBC 0-2 (0) /HPF Urine WBC 0-2 (0-4) /HPF Ur Squamous Epith Cells 1+ /LPF Calcium Oxalate Crystal 1+ /LPF Urine Bacteria TRACE /LPF Urine Mucus 1+ /LPF Urine Test (NEGATIVE) Urine Opiates Screen (Not Detect) Ur Barbiturates Screen (Not Detect) Ur Phencyclidine Scrn (Not Detect) Ur Amphetamines Screen (Not Detect) U Benzodiazepines Scrn (Not Detect) Urine Cocaine Screen (Not Detect) U Marijuana (THC) Screen (Not Detect) COVID-19 (JESSICA) Negative (Negative) COVID-19 Clin Com See Note 02/17/21 02/17/21 Range/Units 09:59 09:59 WBC (4.8-10.8) X10*3/uL RBC (4.20-5.50) X10*6/uL Hgb (12.0-16.0) g/dl Hct (37-47) % MCV (80-98) fL MCH (27.0-33.0) pg MCHC (31.0-35.0) g/dl RDW (11.0-16.0) % Plt Count (160-400) X10*3/uL MPV (9.4-12.3) fL Immature Gran % (Auto) (0.0-0.4) % Neut % (Auto) (45-73) % Lymph % (Auto) (20-40) % [place] % (Auto) (2-11) % Eos % (Auto) (0-4) % Baso % (Auto) (0-2) % Lymph # (Auto) (1.2-4.9) X10*3/uL [place] # (Auto) (0.1-1.2) X10*3/uL Eos # (Auto) (0.0-0.4) X10*3/uL Baso # (Auto) (0.0-0.2) X10*3/uL Abs Immat Gran (auto) (0.00-0.03) X10*3/uL Absolute Neuts (auto) (2.0-8.3) X10*3/uL Absolute Nucleated RBC (0.0-0.012) X10*3/uL Nucleated RBC % (auto) (0.0-0.2) /100WBC Hold Blue Top Sodium (135-145) mmol/L Potassium (3.3-5.1) mmol/L Chloride (96-108) mmol/L Carbon Dioxide (22-29) mmol/L Anion Gap (12-20) BUN (9-16) mg/dL Creatinine (0.5-1.4) mg/dL Estim Creat Clear Calc Estimated GFR Random Glucose (60-115) mg/dL Calcium (8.4-10.2) mg/dL Magnesium (1.6-2.6) mg/dL Total Bilirubin (0.0-1.0) mg/dL Direct Bilirubin (0.0-0.5) mg/dL AST (5-31) U/L ALT (0-31) U/L Alkaline Phosphatase (39-117) U/L Troponin I High Sens (<3.5-17.0) ng/L Total Protein (6.5-8.0) g/dL Albumin (3.5-5.0) g/dL Lipase (8-78) U/L Urine Color Urine Appearance Urine pH (5.0-8.0) Ur Specific [place] (1.005-1.025) Urine Protein (NEG-TRACE) MG/DL Urine Glucose (UA) (NEG) MG/DL Urine Ketones (NEG) MG/DL Urine Blood (NEG) Urine Nitrite (NEG) Ur Leukocyte Esterase (NEG) Urine RBC (0) /HPF Urine WBC (0-4) /HPF Ur Squamous Epith Cells /LPF Calcium Oxalate Crystal /LPF Urine Bacteria /LPF Urine Mucus /LPF Urine Test NEGATIVE (NEGATIVE) Urine Opiates Screen Not Detected (Not Detect) Ur Barbiturates Screen Not Detected (Not Detect) Ur Phencyclidine Scrn Not Detected (Not Detect) Ur Amphetamines Screen Not Detected (Not Detect) U Benzodiazepines Scrn Not Detected (Not Detect) Urine Cocaine Screen Not Detected (Not Detect) U Marijuana (THC) Screen POSITIVE H (Not Detect) COVID-19 (JESSICA) (Negative) COVID-19 Clin Com ECG Data ECG #1: Attestation: I personally reviewed and interpreted this ECG as follows: ECG interpretation date: 02/17/21 ECG interpretation time: 07:44 Prior ECG tracings: available for review Interpretation: EKG normal sinus rhythm with a rate of 72. No STEMI, nonischemic. QTC 416, unchanged from prior Discharge Plan Discharge Clinical Impression: Chest pain Patient Disposition: Home, Self-Care Instructions: Chest Pain (ED) Additional Instructions: Your blood work and chest x-ray were unremarkable today in the ED Is important for you to follow-up with her primary care doctor If her symptoms persist or worsen, become more constant, develops fever, chills, or shortness of breath return to the ED Prescriptions: No Action docusate sodium 100 mg capsule 100 mg PO DAILY PRN (Reason: constipation) 90 Days Qty: 90 RF: 3 ferrous sulfate 325 mg (65 mg iron) tablet 325 mg PO BID 90 Days Qty: 180 RF: 3 acetaminophen 325 mg tablet 650 mg PO Q6H PRN (Reason: fever or pain) 30 Days Qty: 120 RF: 6 risperidone 1 mg tablet 1 mg PO DAILY Qty: 90 RF: 3 melatonin 10 mg capsule 10 mg PO BEDTIME PRN (Reason: for insomnia) Qty: 30 RF: 3 omeprazole 20 mg capsule,delayed release(DR/EC) 20 mg PO QAM Qty: 90 RF: 0 ondansetron HCl [Zofran] 4 mg tablet 4 mg PO Q6H PRN (Reason: nausea and vomiting) Qty: 14 RF: 0 ergocalciferol (vitamin D2) 1,250 mcg (50,000 unit) capsule 1,250 mcg PO QWEEK 30 Days Qty: 5 RF: 3 ibuprofen 800 mg tablet 800 mg PO Q8H PRN (Reason: pain) 10 Days Qty: 30 RF: 0 cyclobenzaprine 10 mg tablet 10 mg PO BEDTIME 30 Days Qty: 30 RF: 0 metronidazole [Flagyl] 500 mg tablet 500 mg PO BID 7 Days Qty: 14 RF: 0 gabapentin 100 mg capsule 100 mg PO TID RF: 0 paroxetine HCl 20 mg tablet 20 mg PO DAILY RF: 0 lorazepam 0.5 mg tablet 0.5 mg PO TID PRN (Reason: anxiety) RF: 0 lorazepam 1 mg tablet 1 mg PO Q6H PRN (Reason: anxiety) RF: 0 tranexamic acid [Lysteda] 650 mg tablet 1,300 mg PO TID 5 Days Qty: 30 RF: 2 metronidazole 0.75 % gel 1 appful vaginal BEDTIME 5 Days Qty: 37.5 RF: 0 Referrals: Zonia Kamara MD [Primary Care Provider] - 2 days
[2021-02-17 09:03] LABS: COVID-19 Test Negative (Negative); IDNOW Serial# 9DD0AD1C
[2021-02-17 09:13] LABS: Alanine Aminotransferase 11 U/L (0-31); Albumin Level 4.4 g/dL (3.5-5.0); Alkaline Phosphatase 67 U/L (39-117); Anion Gap 13 (12-20); Aspartate Amino Transferase 15 U/L (5-31); Bilirubin Direct 0.2 mg/dL (0.0-0.5); Bilirubin Total 0.4 mg/dL (0.0-1.0); Blood Urea Nitrogen 9 mg/dL (9-16); Calcium 9.3 mg/dL (8.4-10.2); Carbon Dioxide 26 mmol/L (22-29); Chloride 107 mmol/L (96-108); Creatinine Clr Calc Pharmacy 101.7; Estimated Glomerular Filt Rate > 60; Glucose Random 99 mg/dL (60-115); Lipase 38 U/L (8-78); Magnesium 2.5 mg/dL (1.6-2.6); Potassium 3.7 mmol/L (3.3-5.1); Sodium 142 mmol/L (135-145); Total Protein 7.3 g/dL (6.5-8.0)
[2021-02-17 09:19] LABS: Troponin-I High Sensitivity < 3.5 ng/L (<3.5-17.0)
--- NOTE | 2021-02-17 10:10 | PC.NURSE ---
pt ambulating to restroom w steady gait to provide ua spec, tolerating po w/o issue. nad.
[2021-02-17 10:34] LABS: Glucose Urine UA NEG (NEG); Leukocyte Esterase Urine NEG (NEG); Nitrite Urine NEG (NEG); PH 6.5 (5.0-8.0); Specific Gravity - Urine >= 1.030 (1.005-1.025); Urine Blood 1+ (NEG); Urine Ketones 5 MG/DL (NEG); Urine Protein TRACE MG/DL (NEG-TRACE)
[2021-02-17 10:40] LABS: UPreg QC Valid YES; Urine Pregnancy NEGATIVE (NEGATIVE)
[2021-02-17 10:41] LABS: Appearance Urine CLEAR; Color Urine YELLOW
[2021-02-17 10:56] LABS: Bacteria Urine TRACE /LPF; Calcium Oxalate Crystals Urine 1+ /LPF; Mucus Urine 1+ /LPF; RBC Urine 0-2 /HPF (0); Squamous Epithelial Cell Urine 1+ /LPF; WBC Urine 0-2 /HPF (0-4)
[2021-02-17 11:00] LABS: Amphetamine Screen Urine Not Detected (Not Detect); Barbiturates, Urine Not Detected (Not Detect); Benzodiazepines Screen Urine Not Detected (Not Detect); Cannabinoid Screen Urine POSITIVE (Not Detect); Cocaine Screen Urine Not Detected (Not Detect); Opiate Screen Urine Not Detected (Not Detect); Phencyclidine Screen Urine Not Detected (Not Detect)
== END 2021-02-17 11:33 | disposition home or self-care (01) ==
PROVIDERS: Emergency Provider Emergency Medicine; PCP Internal Medicine
DX: R07.9 Chest pain, unspecified (principal); F17.210 Nicotine dependence, cigarettes, uncomplicated; F12.90 Cannabis use, unspecified, uncomplicated; Z20.822 Contact with and (suspected) exposure to COVID-19; Z71.6 Tobacco abuse counseling; Z79.899 Other long term (current) drug therapy
CPT/HCPCS: 36415; 71045; 80048; 80076; 80307; 81001; 81025; 83690; 83735; 84484; 85025; 87635; 93005; 99284

== ENCOUNTER 2021-02-22 12:44 | Emergency (ER) | payer OTHER, SELFPAY ==
--- NOTE | ~2021-02-22 | XR_ITS ---
EXAMINATION: XR ABDOMEN KUB CLINICAL INDICATION: Abdominal pain COMPARISON: CT abdomen 02/06/2021 TECHNIQUE: AP view of the abdomen. FINDINGS: The bowel gas pattern is normal with no evidence of ileus or obstruction. Phleboliths are noted in the right hemipelvis. No unusual soft tissue calcifications are noted. Again seen is a pseudoarticulation at the left lumbosacral junction. The bones are otherwise unremarkable. XR/XR KUB IMPRESSION: No acute disease.
[2021-02-22 13:05] VITALS: BP 133/84; PULSE 76; RESP 18; TEMP 37.4; O2SAT 96; BMI 31.6
[2021-02-22 16:29] LABS: MANUAL DIFF FLAG NO
[2021-02-22 16:34] LABS: Basophils Absolute Auto 0.1 X10*3/uL (0.0-0.2); Basophils Percent Auto 0.8 % (0-2); Eosinophils Absolute Auto 0.2 X10*3/uL (0.0-0.4); Hematocrit 35.8 % (37-47); Hemoglobin 10.5 g/dl (12.0-16.0); Imm Gran Abs Auto 0.01 X10*3/uL (0.00-0.03); Imm Gran Pct Auto 0.2 % (0.0-0.4); Lymphocytes Percent Auto 45.9 % (20-40); Mean Corpuscular HGB Conc 29.3 g/dl (31.0-35.0); Mean Corpuscular Hemoglobin 24.6 pg (27.0-33.0); Mean Corpuscular Volume 83.8 fL (80-98); Mean Platelet Volume 8.6 fL (9.4-12.3); Monocytes Absolute Auto 0.4 X10*3/uL (0.1-1.2); Monocytes Percent Auto 6.5 % (2-11); Neutrophils Absolute Auto 2.9 X10*3/uL (2.0-8.3); Neutrophils Percent Auto 43.6 % (45-73); Platelet Count 568 X10*3/uL (160-400); Red Blood Count 4.27 X10*6/uL (4.20-5.50); Red Cell Distribution Width 18.5 % (11.0-16.0); White Blood Count 6.6 X10*3/uL (4.8-10.8)
[2021-02-22 16:59] LABS: Alanine Aminotransferase 12 U/L (0-31); Albumin Level 4.7 g/dL (3.5-5.0); Alkaline Phosphatase 73 U/L (39-117); Aspartate Amino Transferase 18 U/L (5-31); Bilirubin Direct 0.3 mg/dL (0.0-0.5); Bilirubin Total 0.6 mg/dL (0.0-1.0); Magnesium 2.3 mg/dL (1.6-2.6); Total Protein 7.8 g/dL (6.5-8.0)
[2021-02-22 17:00] LABS: Anion Gap 15 (12-20); Blood Urea Nitrogen 11 mg/dL (9-16); Calcium 9.9 mg/dL (8.4-10.2); Carbon Dioxide 28 mmol/L (22-29); Chloride 102 mmol/L (96-108); Creatinine Clr Calc Pharmacy 121.8; Estimated Glomerular Filt Rate > 60; Glucose Random 68 mg/dL (60-115); Lipase 38 U/L (8-78); Potassium 4.3 mmol/L (3.3-5.1); Sodium 141 mmol/L (135-145)
--- NOTE | 2021-02-22 17:27 | ED_ITS ---
HPI - Abdominal Pain General Chief Complaint: Abdominal Pain Stated Complaint: abd pain Time Seen by Provider: 02/22/21 13:19 Source: patient Mode of arrival: ambulatory Limitations: no limitations History of Present Illness HPI narrative: 35 y/o female with history of depression, GERD, chronic anemia, marijuana use with cyclical vomiting presents to the emergency department for diffuse abdominal pain. States that she has been having nausea and vomiting with diarrhea over the past 3 days. States that she is weak, unable to eat or drink, but denies fevers, chills, chest pain or pressure, palpitations, shortne ss of breath, dysuria, hematuria, and edema. MD elicited complaint: abdominal pain and flank pain Onset (ago): day(s) Pain Consistency: constant Location: diffuse Severity: severe Pain scale (0-10): 10 Quality: aching Exacerbating factors: eating, vomiting and movement Relieving factors: nothing Associated symptoms: nausea, vomiting and diarrhea Related Data Home Medications Medication Instructions Recorded Confirmed gabapentin 100 mg capsule 100 mg PO TID 08/27/20 02/03/21 lorazepam 0.5 mg tablet 0.5 mg PO TID PRN 08/27/20 02/03/21 lorazepam 1 mg tablet 1 mg PO Q6H PRN 08/27/20 02/03/21 paroxetine HCl 20 mg tablet 20 mg PO DAILY 08/27/20 02/03/21 Previous Rx's Medication Instructions Recorded ondansetron HCl [Zofran] 4 mg PO Q6H PRN #14 tab 09/24/20 cyclobenzaprine 10 mg tablet 10 mg PO BEDTIME 30 Days #30 tab 09/30/20 ibuprofen 800 mg tablet 800 mg PO Q8H PRN 10 Days #30 tab 09/30/20 metronidazole 500 mg tablet 500 mg PO BID 7 Days #14 tab 10/27/20 docusate sodium 100 mg capsule 100 mg PO DAILY PRN 90 Days #90 cap 11/08/20 ferrous sulfate 325 mg (65 mg 325 mg PO BID 90 Days #180 tab 12/09/20 iron) tablet acetaminophen 325 mg tablet 650 mg PO Q6H PRN 30 Days #120 tab 01/01/21 metronidazole 0.75 % vaginal gel 1 appful VAGINAL BEDTIME 5 Days 01/31/21 #37.5 g tranexamic acid 650 mg tablet 1,300 mg PO TID 5 Days #30 tab 01/31/21 ergocalciferol (vitamin D2) 1,250 1,250 mcg PO QWEEK 30 Days #5 cap 02/03/21 mcg (50,000 unit) capsule melatonin 10 mg capsule 10 mg PO BEDTIME PRN #30 cap 02/16/21 risperidone 1 mg tablet 1 mg PO DAILY #90 tab 02/16/21 omeprazole 20 mg capsule,delayed 20 mg PO QAM #90 cap 02/17/21 release Allergies Allergy/AdvReac Type Severity Reaction Status Date / Time metoclopramide [From REGLAN] Allergy Mild MAKES ME Verified 02/03/21 15:01 COLD prochlorperazine Allergy Mild RASH, gets Verified 02/03/21 15:01 [From Compazine] cold famotidine [Pepcid] AdvReac Mild loss of Verified 02/03/21 15:01 appetite Review of Systems Review of Systems Constitutional: No Weight loss, No Fever, No Chills, No Night Sweats, No Fatigue, No Malaise ENT/Mouth: No Ear Pain, No Nasal Congestion, No Sinus Pain, No sore throat, No Rhinorrhea, No Swallowing Difficulty Eyes: No Eye Pain, No Swelling, No Redness Cardiovascular: No Chest Pain, No SOB, No Dyspnea on Exertion, No Orthopnea, No Edema, No Palpitations Respiratory: No Cough, No Sputum, No Wheezing, No Smoke Exposure, No Dyspnea Gastrointestinal: Positive Nausea, Positive Vomiting, positive Diarrhea, positive abdominal Pain, No Hematochezia, No Melena Genitourinary: no irregular bleeding, No Dysuria, No Urinary Frequency, No Hematuria, No Urinary Incontinence, No Urgency, No Flank Pain, No Urinary Flow Changes, No Hesitancy Musculoskeletal: No joint pain, No Myalgias, No Joint Swelling Skin: No Skin Lesions, No rash Neuro: No Weakness, No Numbness, No Paresthesias, No Loss of Consciousness, No Dizziness, No Headache Psych: No Anxiety/Panic, No Depression, No SI/HI/AH/VH, positive Social Issues Heme/Lymph: No Bruising, No Bleeding,No Lymphadenopathy Endocrine: No Polyuria, No Polydipsia, No Temperature Intolerance Yes all other systems are reviewed and are negative Physical Exam Vital Signs: Vital Signs: Last Vital Signs Temp 99.4 F 02/22/21 13:05 Pulse 86 02/22/21 20:00 Resp 16 02/22/21 20:00 BP 128/75 02/22/21 20:00 Pulse Ox 99 02/22/21 20:00 Body Mass Index 31.6 Appearance: Alert. Oriented X3. Moderate distress. Eyes: Pupils equal, round and reactive to light. ENT: Pharynx normal. Neck: Normal inspection. Neck supple. CVS: Normal heart rate and rhythm. Pulses normal. Respiratory: No respiratory distress. Breath sounds normal. Abdomen: Soft and nontender. Skin: Skin warm and dry. Normal skin color. Normal skin turgor. Extremities: No lower extremity edema. Gait well balanced well coordinated Neuro: No motor deficit. No sensory deficit. No focal neural deficit Course Course Course Narrative: A 35-year-old female presents with abdominal pain. Labs drawn in the emergency department waiting room, CBC and Chem 7 are unremarkable, she does have a known history of anemia, current H&H 10.5/35.8 which is a better value and consistent with her prior values dating back to 2018. Platelets are 568 also improved and consistent with prior values which have been as high as 700 dating back to 2018. 5:25 p.m. patient very upset because of the long wait time, speaking in an angry derogatory tone is unable to be redirected, states that she wants to get divorce lawyer's involved to [place] us because she was waiting in the emergency department waiting room. She stated that ?idiots sent her home with no IV fluids? after she was evaluated here for chest pain with a normal lab workup besides her baseline anemia. Patient is requesting pain medications, I offered Toradol and Zofran for her nausea. Patient dissatisfied with this plan however will accept medications. MDM - Abdominal Pain Differential Diagnosis Differential diagnosis: Likely abdominal pain and calculus of kidney Medical Records Attestation: I reviewed the patient's medical records. Lab Data Attestation: I reviewed the patient's lab results. Result diagrams: 02/22/21 16:21 02/22/21 16:21 Labs: Lab Results 02/22/21 02/22/21 02/22/21 Range/Units 16:21 16:21 16:21 WBC 6.6 (4.8-10.8) X10*3/uL RBC 4.27 (4.20-5.50) X10*6/uL Hgb 10.5 L (12.0-16.0) g/dl Hct 35.8 L (37-47) % MCV 83.8 (80-98) fL MCH 24.6 L (27.0-33.0) pg MCHC 29.3 L (31.0-35.0) g/dl RDW 18.5 H (11.0-16.0) % Plt Count 568 H (160-400) X10*3/uL MPV 8.6 L (9.4-12.3) fL Immature Gran % (Auto) 0.2 (0.0-0.4) % Neut % (Auto) 43.6 L (45-73) % Lymph % (Auto) 45.9 H (20-40) % [place] % (Auto) 6.5 (2-11) % Eos % (Auto) 3.0 (0-4) % Baso % (Auto) 0.8 (0-2) % Lymph # (Auto) 3.0 (1.2-4.9) X10*3/uL [place] # (Auto) 0.4 (0.1-1.2) X10*3/uL Eos # (Auto) 0.2 (0.0-0.4) X10*3/uL Baso # (Auto) 0.1 (0.0-0.2) X10*3/uL Abs Immat Gran (auto) 0.01 (0.00-0.03) X10*3/uL Absolute Neuts (auto) 2.9 (2.0-8.3) X10*3/uL Absolute Nucleated RBC 0.000 (0.0-0.012) X10*3/uL Nucleated RBC % (auto) 0.0 (0.0-0.2) /100WBC Hold Blue Top SEE NOTE Sodium 141 (135-145) mmol/L Potassium 4.3 (3.3-5.1) mmol/L Chloride 102 (96-108) mmol/L Carbon Dioxide 28 (22-29) mmol/L Anion Gap 15 (12-20) BUN 11 (9-16) mg/dL Creatinine 0.71 (0.5-1.4) mg/dL Estim Creat Clear Calc 121.8 Estimated GFR > 60 Random Glucose 68 (60-115) mg/dL Calcium 9.9 D (8.4-10.2) mg/dL Magnesium (1.6-2.6) mg/dL Total Bilirubin (0.0-1.0) mg/dL Direct Bilirubin (0.0-0.5) mg/dL AST (5-31) U/L ALT (0-31) U/L Alkaline Phosphatase (39-117) U/L Total Protein (6.5-8.0) g/dL Albumin (3.5-5.0) g/dL Lipase 38 (8-78) U/L 02/22/21 Range/Units 16:21 WBC (4.8-10.8) X10*3/uL RBC (4.20-5.50) X10*6/uL Hgb (12.0-16.0) g/dl Hct (37-47) % MCV (80-98) fL MCH (27.0-33.0) pg MCHC (31.0-35.0) g/dl RDW (11.0-16.0) % Plt Count (160-400) X10*3/uL MPV (9.4-12.3) fL Immature Gran % (Auto) (0.0-0.4) % Neut % (Auto) (45-73) % Lymph % (Auto) (20-40) % [place] % (Auto) (2-11) % Eos % (Auto) (0-4) % Baso % (Auto) (0-2) % Lymph # (Auto) (1.2-4.9) X10*3/uL [place] # (Auto) (0.1-1.2) X10*3/uL Eos # (Auto) (0.0-0.4) X10*3/uL Baso # (Auto) (0.0-0.2) X10*3/uL Abs Immat Gran (auto) (0.00-0.03) X10*3/uL Absolute Neuts (auto) (2.0-8.3) X10*3/uL Absolute Nucleated RBC (0.0-0.012) X10*3/uL Nucleated RBC % (auto) (0.0-0.2) /100WBC Hold Blue Top Sodium (135-145) mmol/L Potassium (3.3-5.1) mmol/L Chloride (96-108) mmol/L Carbon Dioxide (22-29) mmol/L Anion Gap (12-20) BUN (9-16) mg/dL Creatinine (0.5-1.4) mg/dL Estim Creat Clear Calc Estimated GFR Random Glucose (60-115) mg/dL Calcium (8.4-10.2) mg/dL Magnesium 2.3 (1.6-2.6) mg/dL Total Bilirubin 0.6 (0.0-1.0) mg/dL Direct Bilirubin 0.3 (0.0-0.5) mg/dL AST 18 (5-31) U/L ALT 12 (0-31) U/L Alkaline Phosphatase 73 (39-117) U/L Total Protein 7.8 (6.5-8.0) g/dL Albumin 4.7 (3.5-5.0) g/dL Lipase (8-78) U/L Imaging Data Abdominal x-ray: Attestation: I personally reviewed and interpreted this imaging study as follows: Radiologist's impression: EXAMINATION: XR ABDOMEN KUB CLINICAL INDICATION: Abdominal pain COMPARISON: CT abdomen 02/06/2021 TECHNIQUE: AP view of the abdomen. FINDINGS: The bowel gas pattern is normal with no evidence of ileus or obstruction. Phleboliths are noted in the right hemipelvis. No unusual soft tissue calcifications are noted. Again seen is a pseudoarticulation at the left lumbosacral junction. The bones are otherwise unremarkable. XR/XR KUB IMPRESSION: No acute disease. Discharge Plan Discharge Clinical Impression: Abdominal pain Patient Disposition: Home, Self-Care Instructions: Abdominal Pain (ED) Additional Instructions: You were evaluated for abdominal pain. X-rays are negative for acute findings. Your blood work did not shown infection, and your liver enzymes were normal. You have chronic anemia, your hemoglobin was 10.5 and her hematocrit was 35.8 which is better than her previous values. Normal hemoglobin is 12 and normal hematocrit is 37. Your levels are not low enough for blood transfusion. Your lab values do not indicate dehydration. Please follow-up with primary care physician. Thank you for choosing this emergency department for evaluation. Please follow-up with primary care physician as needed. Return to the emergency department for any new, concerning, or worsening symptoms. Prescriptions: No Action docusate sodium 100 mg capsule 100 mg PO DAILY PRN (Reason: constipation) 90 Days Qty: 90 RF: 3 ferrous sulfate 325 mg (65 mg iron) tablet 325 mg PO BID 90 Days Qty: 180 RF: 3 acetaminophen 325 mg tablet 650 mg PO Q6H PRN (Reason: fever or pain) 30 Days Qty: 120 RF: 6 risperidone 1 mg tablet 1 mg PO DAILY Qty: 90 RF: 3 melatonin 10 mg capsule 10 mg PO BEDTIME PRN (Reason: for insomnia) Qty: 30 RF: 3 omeprazole 20 mg capsule,delayed release(DR/EC) 20 mg PO QAM Qty: 90 RF: 0 ondansetron HCl [Zofran] 4 mg tablet 4 mg PO Q6H PRN (Reason: nausea and vomiting) Qty: 14 RF: 0 ergocalciferol (vitamin D2) 1,250 mcg (50,000 unit) capsule 1,250 mcg PO QWEEK 30 Days Qty: 5 RF: 3 ibuprofen 800 mg tablet 800 mg PO Q8H PRN (Reason: pain) 10 Days Qty: 30 RF: 0 cyclobenzaprine 10 mg tablet 10 mg PO BEDTIME 30 Days Qty: 30 RF: 0 metronidazole [Flagyl] 500 mg tablet 500 mg PO BID 7 Days Qty: 14 RF: 0 gabapentin 100 mg capsule 100 mg PO TID RF: 0 paroxetine HCl 20 mg tablet 20 mg PO DAILY RF: 0 lorazepam 0.5 mg tablet 0.5 mg PO TID PRN (Reason: anxiety) RF: 0 lorazepam 1 mg tablet 1 mg PO Q6H PRN (Reason: anxiety) RF: 0 tranexamic acid [Lysteda] 650 mg tablet 1,300 mg PO TID 5 Days Qty: 30 RF: 2 metronidazole 0.75 % gel 1 appful vaginal BEDTIME 5 Days Qty: 37.5 RF: 0 Interventions: ED Discharge Assessment Last Done: 02/22/21 20:50 Discharge Date/Time: 02/22/21 20:52 [facility] Past Medical History Attestation statement: The following information was validated with the patient. Source: old records reviewed Medical History Anemia Anxiety Chest pain Depression GERD (gastroesophageal reflux disease) History of back pain History of bipolar disorder Hx of Hx of iron deficiency anemia Hx of migraines Hypokalemia Iron deficiency anemia due to chronic blood loss Marijuana use, continuous Menorrhagia Numbness of foot Syphilis contact, treated Surgical History History of dilation and curettage Hx of colonoscopy Hx of esophagogastroduodenoscopy Family History Family History Mother HTN (hypertension) Maternal Grandmother HTN (hypertension) Maternal Uncle HTN (hypertension) Maternal Aunt Diabetes mellitus Social History Social History Alcohol intake: never Smoking Status: Current every day smoker Tobacco Type: Cigarette Packs Per Day: 0.25 Cigarettes Per Day: 5.0 Years Smoked: 15 Substance Use Type: Marijuana Advance Directives: No Advance Directives Information Provided: No
[2021-02-22] MEDS: ondansetron HCL 4 MG/2 ML VIAL IVPUSH (18:21)
[2021-02-22] MEDS: Ketorolac Tromethamine 30 MG/ML VIAL IVPUSH (18:21)
[2021-02-22] MEDS: 0.9 % Sodium Chloride 1,000 ML 999 ML IVCONT (18:23)
[2021-02-22 20:00] VITALS: BP 128/75; PULSE 86; RESP 16; O2SAT 99
--- NOTE | 2021-02-22 20:01 | PC.NURSE ---
Pt sitting upright in bed, speaking full sentences, denies pain. Pt tolerating PO intake. Plan for DC after IVFs is complete. Continue to monitor.
== END 2021-02-22 20:52 | disposition home or self-care (01) ==
PROVIDERS: Emergency Medicine; Emergency Provider Internal Medicine; PCP Internal Medicine
DX: R10.9 Unspecified abdominal pain (principal); R11.2 Nausea with vomiting, unspecified; F12.90 Cannabis use, unspecified, uncomplicated; F17.210 Nicotine dependence, cigarettes, uncomplicated
CPT/HCPCS: 36415; 74018; 80048; 80076; 83690; 83735; 85025; 96361; 96374; 96375; 99284; J1885; J2405

== ENCOUNTER → 2021-03-14 14:10 | Outpatient (BNVA) | payer OTHER, SELFPAY | PROVIDERS: Visit Provider Obstetrics & Gynecology | DX: N92.0 Excessive and frequent menstruation with regular cycle (principal) | CPT/HCPCS: 99212 ==

== ENCOUNTER 2021-03-18 08:47 | Emergency (ER) | payer OTHER, SELFPAY ==
--- NOTE | 2021-03-18 09:21 | ED_ITS ---
HPI - Abdominal Pain General Chief Complaint: General Medical Stated Complaint: dehydration Time Seen by Provider: 03/18/21 09:20 Source: patient Mode of arrival: ambulatory Limitations: no limitations History of Present Illness HPI narrative: Patient history of anxiety/depression has not taken medication for last few days was seen at [facility] been here multiple times for similar situation very anxious on arrival trying to vomit asking for IV fluids and also to drink Related Data Home Medications Medication Instructions Recorded Confirmed lorazepam 0.5 mg tablet 0.5 mg PO TID PRN 08/27/20 02/03/21 lorazepam 1 mg tablet 1 mg PO Q6H PRN 08/27/20 02/03/21 paroxetine HCl 20 mg tablet 20 mg PO DAILY 08/27/20 02/03/21 Previous Rx's Medication Instructions Recorded ondansetron HCl [Zofran] 4 mg PO Q6H PRN #14 tab 09/24/20 cyclobenzaprine 10 mg tablet 10 mg PO BEDTIME 30 Days #30 tab 09/30/20 ibuprofen 800 mg tablet 800 mg PO Q8H PRN 10 Days #30 tab 09/30/20 metronidazole 500 mg tablet 500 mg PO BID 7 Days #14 tab 10/27/20 docusate sodium 100 mg capsule 100 mg PO DAILY PRN 90 Days #90 cap 11/08/20 ferrous sulfate 325 mg (65 mg 325 mg PO BID 90 Days #180 tab 12/09/20 iron) tablet metronidazole 0.75 % vaginal gel 1 appful VAGINAL BEDTIME 5 Days 01/31/21 #37.5 g ergocalciferol (vitamin D2) 1,250 1,250 mcg PO QWEEK 30 Days #5 cap 02/03/21 mcg (50,000 unit) capsule melatonin 10 mg capsule 10 mg PO BEDTIME PRN #30 cap 02/16/21 risperidone 1 mg tablet 1 mg PO DAILY #90 tab 02/16/21 omeprazole 20 mg capsule,delayed 20 mg PO QAM #90 cap 02/17/21 release tranexamic acid 650 mg tablet 1,300 mg PO TID 5 Days #30 tab 03/14/21 acetaminophen 325 mg tablet 650 mg PO Q6H PRN 30 Days #120 tab 03/15/21 gabapentin 100 mg capsule 100 mg PO TID #270 cap 03/15/21 Allergies Allergy/AdvReac Type Severity Reaction Status Date / Time metoclopramide [From REGLAN] Allergy Mild MAKES ME Verified 02/03/21 15:01 COLD prochlorperazine Allergy Mild RASH, gets Verified 02/03/21 15:01 [From Compazine] cold famotidine [Pepcid] AdvReac Mild loss of Verified 02/03/21 15:01 appetite Review of Systems Review of Systems Constitutional : No Weight loss, No Fever, No Chills ENT/Mouth : No sore throat, No Rhinorrhea Eyes: No Eye Pain, No Swelling Cardiovascular : No Chest Pain, no palpitations Respiratory : No Cough, No Sputum, no shortness of breath Gastrointestinal : + Nausea, +Vomiting, No Diarrhea, No abdominal Pain, no black stools Genitourinary : No Dysuria, No Urinary Frequency Musculoskeletal : No joint pain, No Myalgias, No Joint Swelling Skin : No Skin Lesions, No rash Neuro : No Weakness, No Numbness, No Dizziness, No Headache Psych : + Anxiety/Panic, No Depression Heme/Lymph: No Bruising, No Lymphadenopathy Endocrine : No Polyuria, No Polydipsia All other systems reviewed and are negative Physical Exam Vital Signs: Vital Signs: Last Vital Signs Temp 98.7 F 03/18/21 12:01 Pulse 95 03/18/21 12:01 Resp 18 03/18/21 12:01 BP 150/100 H 03/18/21 12:01 Pulse Ox 98 03/18/21 12:01 Body Mass Index 35.3 Appearance: Alert. Oriented X3. No acute distress. Very anxious crying in between Eyes: PERRLA, No Nystagmus ENT: Pharynx normal. Oral Mucosa moist Neck: Normal inspection. Neck supple. CVS: Normal heart rate and rhythm. Pulses normal. Respiratory: No respiratory distress. Equal air entry bilateral, no wheezing/rales/rhonchi Abdomen: Soft and nontender. Bowel sounds are present, no mass palpable, no CVA tenderness Skin: Skin warm and dry. Normal skin color. Normal skin turgor. Extremities: No lower extremity edema. No calf tenderness Neuro: Oriented X 3. No motor deficit. No sensory deficit.No cerebellar signs , cranial nerves II-XII intact MDM - Abdominal Pain MDM Narrative Medical decision making narrative: Patient feeling much better after Ativan relaxed discharged home advised to continue her home medication Medical Records Attestation: I reviewed the patient's medical records. Lab Data Attestation: I reviewed the patient's lab results. Labs: Lab Results 03/18/21 Range/Units 10:03 Urine Color YELLOW Urine Appearance HAZY Urine pH 6.0 (5.0-8.0) Ur Specific [place] >= 1.030 H (1.005-1.025) Urine Protein 2+ H (NEG-TRACE) MG/DL Urine Glucose (UA) NEG (NEG) MG/DL Urine Ketones >=80 (NEG) MG/DL Urine Blood 3+ H (NEG) Urine Nitrite NEG (NEG) Ur Leukocyte Esterase NEG (NEG) Urine RBC 76-150 H (0) /HPF Urine WBC 1-4 (0-4) /HPF Ur Squamous Epith Cells 1+ /LPF Urine Bacteria NONE /LPF Urine Mucus 1+ /LPF Discharge Plan Discharge Clinical Impression: Anxiety Patient Disposition: Home, Self-Care Instructions: Anxiety (ED) Additional Instructions: Continue medication follow-up with therapist Prescriptions: No Action docusate sodium 100 mg capsule 100 mg PO DAILY PRN (Reason: constipation) 90 Days Qty: 90 RF: 3 ferrous sulfate 325 mg (65 mg iron) tablet 325 mg PO BID 90 Days Qty: 180 RF: 3 risperidone 1 mg tablet 1 mg PO DAILY Qty: 90 RF: 3 melatonin 10 mg capsule 10 mg PO BEDTIME PRN (Reason: for insomnia) Qty: 30 RF: 3 omeprazole 20 mg capsule,delayed release(DR/EC) 20 mg PO QAM Qty: 90 RF: 0 gabapentin 100 mg capsule 100 mg PO TID Qty: 270 RF: 3 acetaminophen 325 mg tablet 650 mg PO Q6H PRN (Reason: fever or pain) 30 Days Qty: 120 RF: 6 ondansetron HCl [Zofran] 4 mg tablet 4 mg PO Q6H PRN (Reason: nausea and vomiting) Qty: 14 RF: 0 ergocalciferol (vitamin D2) 1,250 mcg (50,000 unit) capsule 1,250 mcg PO QWEEK 30 Days Qty: 5 RF: 3 ibuprofen 800 mg tablet 800 mg PO Q8H PRN (Reason: pain) 10 Days Qty: 30 RF: 0 cyclobenzaprine 10 mg tablet 10 mg PO BEDTIME 30 Days Qty: 30 RF: 0 metronidazole [Flagyl] 500 mg tablet 500 mg PO BID 7 Days Qty: 14 RF: 0 tranexamic acid [Lysteda] 650 mg tablet 1,300 mg PO TID 5 Days Qty: 30 RF: 11 paroxetine HCl 20 mg tablet 20 mg PO DAILY RF: 0 lorazepam 0.5 mg tablet 0.5 mg PO TID PRN (Reason: anxiety) RF: 0 lorazepam 1 mg tablet 1 mg PO Q6H PRN (Reason: anxiety) RF: 0 metronidazole 0.75 % gel 1 appful vaginal BEDTIME 5 Days Qty: 37.5 RF: 0 Interventions: ED Discharge Assessment Last Done: 03/18/21 12:10 Discharge Date/Time: 03/18/21 12:11 PMF[facility] Past Medical History Medical History Anemia Anxiety Chest pain Depression GERD (gastroesophageal reflux disease) History of back pain History of bipolar disorder Hx of Hx of iron deficiency anemia Hx of migraines Hypokalemia Iron deficiency anemia due to chronic blood loss Marijuana use, continuous Menorrhagia Numbness of foot Syphilis contact, treated Surgical History History of dilation and curettage Hx of colonoscopy Hx of esophagogastroduodenoscopy Family History Family History Mother HTN (hypertension) Maternal Grandmother HTN (hypertension) Maternal Uncle HTN (hypertension) Maternal Aunt Diabetes mellitus Social History Social History Alcohol intake: never Smoking Status: Current every day smoker Tobacco Type: Cigarette Packs Per Day: 0.25 Cigarettes Per Day: 5.0 Years Smoked: 15 Use of substances other than those prescribed or required for medical reasons: Yes Substance Use Type: Marijuana Advance Directives: No Advance Directives Information Provided: No Patient : No
[2021-03-18 09:48] VITALS: BP 146/92; PULSE 68; RESP 16; TEMP 37.1; O2SAT 99; BMI 35.3
[2021-03-18] MEDS: LORazepam 2 MG/ML VIAL IM (09:55)
[2021-03-18 10:10] LABS: Appearance Urine HAZY; Color Urine YELLOW; Glucose Urine UA NEG (NEG); Leukocyte Esterase Urine NEG (NEG); Nitrite Urine NEG (NEG); Specific Gravity - Urine >= 1.030 (1.005-1.025); Urine Blood 3+ (NEG); Urine Ketones >=80 MG/DL (NEG); Urine Protein 2+ MG/DL (NEG-TRACE)
[2021-03-18 10:22] LABS: Mucus Urine 1+ /LPF; Squamous Epithelial Cell Urine 1+ /LPF
[2021-03-18 12:01] VITALS: BP 150/100; PULSE 95; RESP 18; TEMP 37.1; O2SAT 98
== END 2021-03-18 12:11 | disposition home or self-care (01) ==
PROVIDERS: Emergency Provider Internal Medicine; PCP Internal Medicine
DX: E86.0 Dehydration (principal); F41.1 Generalized anxiety disorder; F43.0 Acute stress reaction; F17.210 Nicotine dependence, cigarettes, uncomplicated; Z79.899 Other long term (current) drug therapy; Z71.6 Tobacco abuse counseling
CPT/HCPCS: 81001; 81003; 96372; 99284; J2060

== ENCOUNTER 2021-03-19 08:08 | Emergency (ER) | payer OTHER, SELFPAY ==
[2021-03-19 09:34] VITALS: BP 131/89; PULSE 106; RESP 18; TEMP 36.6; O2SAT 99; BMI 35.3
--- NOTE | 2021-03-19 10:02 | ED.NAVMDI ---
HPI - Nausea/Vomiting/Diarrhea General Chief complaint: Nausea/Vomiting/Diarrhea Stated complaint: nausea Time Seen by Provider: 03/19/21 09:35 History of Present Illness HPI Narrative: This is a 35 years old female presented to the emergency department with the chief complaint of nausea vomiting unable to keep any fluids down. She was seen yesterday in the emergency department a discharge home a the urine yesterday showed ketonuria and high specific gravity consistent with dehydration MD elicited complaint: nausea and vomiting Onset (ago): day(s) (2 days) Description of vomiting: watery and continuous Description of diarrhea: watery Associated nausea: Yes Quality: cramping Exacerbating factors: eating Related Data Home Medications Medication Instructions Recorded Confirmed lorazepam 0.5 mg tablet 0.5 mg PO TID PRN 08/27/20 02/03/21 lorazepam 1 mg tablet 1 mg PO Q6H PRN 08/27/20 02/03/21 paroxetine HCl 20 mg tablet 20 mg PO DAILY 08/27/20 02/03/21 Previous Rx's Medication Instructions Recorded ondansetron HCl [Zofran] 4 mg PO Q6H PRN #14 tab 09/24/20 cyclobenzaprine 10 mg tablet 10 mg PO BEDTIME 30 Days #30 tab 09/30/20 ibuprofen 800 mg tablet 800 mg PO Q8H PRN 10 Days #30 tab 09/30/20 metronidazole 500 mg tablet 500 mg PO BID 7 Days #14 tab 10/27/20 docusate sodium 100 mg capsule 100 mg PO DAILY PRN 90 Days #90 cap 11/08/20 ferrous sulfate 325 mg (65 mg 325 mg PO BID 90 Days #180 tab 12/09/20 iron) tablet metronidazole 0.75 % vaginal gel 1 appful VAGINAL BEDTIME 5 Days 01/31/21 #37.5 g ergocalciferol (vitamin D2) 1,250 1,250 mcg PO QWEEK 30 Days #5 cap 02/03/21 mcg (50,000 unit) capsule melatonin 10 mg capsule 10 mg PO BEDTIME PRN #30 cap 02/16/21 risperidone 1 mg tablet 1 mg PO DAILY #90 tab 02/16/21 omeprazole 20 mg capsule,delayed 20 mg PO QAM #90 cap 02/17/21 release tranexamic acid 650 mg tablet 1,300 mg PO TID 5 Days #30 tab 03/14/21 acetaminophen 325 mg tablet 650 mg PO Q6H PRN 30 Days #120 tab 03/15/21 gabapentin 100 mg capsule 100 mg PO TID #270 cap 03/15/21 Allergies Allergy/AdvReac Type Severity Reaction Status Date / Time metoclopramide [From REGLAN] Allergy Mild MAKES ME Verified 02/03/21 15:01 COLD prochlorperazine Allergy Mild RASH, gets Verified 02/03/21 15:01 [From Compazine] cold famotidine [Pepcid] AdvReac Mild loss of Verified 02/03/21 15:01 appetite Review of Systems Review of Systems: Yes all other systems are reviewed and are negative Cardiovascular: Cardiovascular: Reports no additional cardiovascular complaints Gastrointestinal: Gastrointestinal: Reports nausea and Reports vomiting Allergic/Immunologic: Allergic/Immunologic: Reports no additional allergic/immunologic complaints PMFSH Past Medical History Medical History Anemia Anxiety Chest pain Depression GERD (gastroesophageal reflux disease) History of back pain History of bipolar disorder Hx of Hx of iron deficiency anemia Hx of migraines Hypokalemia Iron deficiency anemia due to chronic blood loss Marijuana use, continuous Menorrhagia Numbness of foot Syphilis contact, treated Surgical History History of dilation and curettage Hx of colonoscopy Hx of esophagogastroduodenoscopy Family History Family History Mother HTN (hypertension) Maternal Grandmother HTN (hypertension) Maternal Uncle HTN (hypertension) Maternal Aunt Diabetes mellitus Social History Social History Alcohol intake: never Smoking Status: Current every day smoker Tobacco Type: Cigarette Packs Per Day: 0.25 Cigarettes Per Day: 5.0 Years Smoked: 15 Substance Use Type: Marijuana Advance Directives: No Advance Directives Information Provided: No Patient : No Physical Exam Vital Signs: Vital Signs: Last Vital Signs Temp 98 F 03/19/21 09:34 Pulse 106 H 03/19/21 09:34 Resp 18 03/19/21 09:34 BP 131/89 03/19/21 09:34 Pulse Ox 99 03/19/21 09:34 Body Mass Index 35.3 Const: General: cooperative and anxious Orientation/consciousness: oriented to person, oriented to place, oriented to time and patient oriented x3 HENMT: Head: Yes normal to inspection Eyes: General: appearance normal, both eyes and all related structures Neck: Neck: Yes normal visual inspection and Yes full ROM Chest: Chest palpation & inspection: normal inspection of the chest and normal palpation of entire chest wall Resp: Effort & Inspection: normal respiratory effort and able to speak in complete sentences Cardio: Jugular venous distension: no JVD Rate: regular rate Rhythm: regular rhythm GI: Inspection: Yes normal to inspection Percussion: Yes normal to percussion Skin: General skin exam: no rashes or lesions noted and elasticity normal Neuro: General: oriented to person, oriented to place, oriented to time and patient oriented x3 Extrem: General: Yes normal to inspection and Yes full ROM Procedures Procedure Narrative Procedure Narrative: Difficult IV access I was asked the RN to insert a peripheral IV, under ultrasound-guided linear probe cannulated the right deep brachial vein at 1 cm with a 20 gauge intracan catheter 1 3/4 inch good blood flow labs obtained fluids started MDM - Nausea/Vomiting/Diarrhea MDM Narrative Medical decision making narrative: Patient is feeling much better we will discharge her home She tolerated p.o. well, she is feeling much better. Labs showed a metabolic acidosis with anion gap about she received a more than 2 L of fluids BUN was slightly elevated to 18 Lab Data Result diagrams: 03/19/21 11:00 03/19/21 11:00 Labs: Lab Results 03/19/21 03/19/21 03/19/21 Range/Units 10:59 10:59 11:00 WBC 13.3 H (4.8-10.8) X10*3/uL RBC 4.91 (4.20-5.50) X10*6/uL Hgb 12.3 (12.0-16.0) g/dl Hct 39.2 (37-47) % MCV 79.8 L (80-98) fL MCH 25.1 L (27.0-33.0) pg MCHC 31.4 (31.0-35.0) g/dl RDW 19.1 H (11.0-16.0) % Plt Count 765 H D (160-400) X10*3/uL MPV 9.0 L (9.4-12.3) fL Immature Gran % (Auto) 0.5 H (0.0-0.4) % Neut % (Auto) 73.7 H (45-73) % Lymph % (Auto) 16.5 L (20-40) % [place] % (Auto) 9.1 (2-11) % Eos % (Auto) 0.0 (0-4) % Baso % (Auto) 0.2 (0-2) % Lymph # (Auto) 2.2 (1.2-4.9) X10*3/uL [place] # (Auto) 1.2 (0.1-1.2) X10*3/uL Eos # (Auto) 0.0 (0.0-0.4) X10*3/uL Baso # (Auto) 0.0 (0.0-0.2) X10*3/uL Abs Immat Gran (auto) 0.07 H (0.00-0.03) X10*3/uL Absolute Neuts (auto) 9.8 H (2.0-8.3) X10*3/uL Absolute Nucleated RBC 0.000 (0.0-0.012) X10*3/uL Nucleated RBC % (auto) 0.0 (0.0-0.2) /100WBC Sodium (135-145) mmol/L Potassium (3.3-5.1) mmol/L Chloride (96-108) mmol/L Carbon Dioxide (22-29) mmol/L Anion Gap (12-20) BUN (9-16) mg/dL Creatinine (0.5-1.4) mg/dL Estim Creat Clear Calc Estimated GFR Random Glucose (60-115) mg/dL Calcium (8.4-10.2) mg/dL Total Bilirubin (0.0-1.0) mg/dL AST (5-31) U/L ALT (0-31) U/L Alkaline Phosphatase (39-117) U/L Total Protein (6.5-8.0) g/dL Albumin (3.5-5.0) g/dL Beta HCG, Quant Cancelled Urine Opiates Screen Not Detected (Not Detect) Ur Barbiturates Screen Not Detected (Not Detect) Ur Phencyclidine Scrn Not Detected (Not Detect) Ur Amphetamines Screen Not Detected (Not Detect) U Benzodiazepines Scrn Not Detected (Not Detect) Urine Cocaine Screen Not Detected (Not Detect) U Marijuana (THC) Screen POSITIVE H (Not Detect) 03/19/21 Range/Units 11:00 WBC (4.8-10.8) X10*3/uL RBC (4.20-5.50) X10*6/uL Hgb (12.0-16.0) g/dl Hct (37-47) % MCV (80-98) fL MCH (27.0-33.0) pg MCHC (31.0-35.0) g/dl RDW (11.0-16.0) % Plt Count (160-400) X10*3/uL MPV (9.4-12.3) fL Immature Gran % (Auto) (0.0-0.4) % Neut % (Auto) (45-73) % Lymph % (Auto) (20-40) % [place] % (Auto) (2-11) % Eos % (Auto) (0-4) % Baso % (Auto) (0-2) % Lymph # (Auto) (1.2-4.9) X10*3/uL [place] # (Auto) (0.1-1.2) X10*3/uL Eos # (Auto) (0.0-0.4) X10*3/uL Baso # (Auto) (0.0-0.2) X10*3/uL Abs Immat Gran (auto) (0.00-0.03) X10*3/uL Absolute Neuts (auto) (2.0-8.3) X10*3/uL Absolute Nucleated RBC (0.0-0.012) X10*3/uL Nucleated RBC % (auto) (0.0-0.2) /100WBC Sodium 139 (135-145) mmol/L Potassium 3.6 (3.3-5.1) mmol/L Chloride 95 L (96-108) mmol/L Carbon Dioxide 25 (22-29) mmol/L Anion Gap 23 H (12-20) BUN 18 H D (9-16) mg/dL Creatinine 1.02 (0.5-1.4) mg/dL Estim Creat Clear Calc 71.7 Estimated GFR > 60 Random Glucose 117 H D (60-115) mg/dL Calcium 10.5 H D (8.4-10.2) mg/dL Total Bilirubin 0.8 (0.0-1.0) mg/dL AST 21 (5-31) U/L ALT 15 (0-31) U/L Alkaline Phosphatase 91 D (39-117) U/L Total Protein 8.9 H (6.5-8.0) g/dL Albumin 4.9 (3.5-5.0) g/dL Beta HCG, Quant < 2 Urine Opiates Screen (Not Detect) Ur Barbiturates Screen (Not Detect) Ur Phencyclidine Scrn (Not Detect) Ur Amphetamines Screen (Not Detect) U Benzodiazepines Scrn (Not Detect) Urine Cocaine Screen (Not Detect) U Marijuana (THC) Screen (Not Detect) Discharge Plan Discharge Clinical Impression: Acute dehydration, Vomiting Patient Disposition: Home, Self-Care Instructions: Dehydration (ED), Acute Nausea and Vomiting (ED) Prescriptions: No Action docusate sodium 100 mg capsule 100 mg PO DAILY PRN (Reason: constipation) 90 Days Qty: 90 RF: 3 ferrous sulfate 325 mg (65 mg iron) tablet 325 mg PO BID 90 Days Qty: 180 RF: 3 risperidone 1 mg tablet 1 mg PO DAILY Qty: 90 RF: 3 melatonin 10 mg capsule 10 mg PO BEDTIME PRN (Reason: for insomnia) Qty: 30 RF: 3 omeprazole 20 mg capsule,delayed release(DR/EC) 20 mg PO QAM Qty: 90 RF: 0 gabapentin 100 mg capsule 100 mg PO TID Qty: 270 RF: 3 acetaminophen 325 mg tablet 650 mg PO Q6H PRN (Reason: fever or pain) 30 Days Qty: 120 RF: 6 ondansetron HCl [Zofran] 4 mg tablet 4 mg PO Q6H PRN (Reason: nausea and vomiting) Qty: 14 RF: 0 ergocalciferol (vitamin D2) 1,250 mcg (50,000 unit) capsule 1,250 mcg PO QWEEK 30 Days Qty: 5 RF: 3 ibuprofen 800 mg tablet 800 mg PO Q8H PRN (Reason: pain) 10 Days Qty: 30 RF: 0 cyclobenzaprine 10 mg tablet 10 mg PO BEDTIME 30 Days Qty: 30 RF: 0 metronidazole [Flagyl] 500 mg tablet 500 mg PO BID 7 Days Qty: 14 RF: 0 tranexamic acid [Lysteda] 650 mg tablet 1,300 mg PO TID 5 Days Qty: 30 RF: 11 paroxetine HCl 20 mg tablet 20 mg PO DAILY RF: 0 lorazepam 0.5 mg tablet 0.5 mg PO TID PRN (Reason: anxiety) RF: 0 lorazepam 1 mg tablet 1 mg PO Q6H PRN (Reason: anxiety) RF: 0 metronidazole 0.75 % gel 1 appful vaginal BEDTIME 5 Days Qty: 37.5 RF: 0
[2021-03-19] MEDS: 0.9 % Sodium Chloride 1,000 ML 999 ML IVCONT ×3 (10:57→13:17)
[2021-03-19 11:10] LABS: MANUAL DIFF FLAG NO
[2021-03-19 11:12] LABS: Basophils Percent Auto 0.2 % (0-2); Hematocrit 39.2 % (37-47); Hemoglobin 12.3 g/dl (12.0-16.0); Imm Gran Abs Auto 0.07 X10*3/uL (0.00-0.03); Imm Gran Pct Auto 0.5 % (0.0-0.4); Lymphocytes Absolute Auto 2.2 X10*3/uL (1.2-4.9); Lymphocytes Percent Auto 16.5 % (20-40); Mean Corpuscular HGB Conc 31.4 g/dl (31.0-35.0); Mean Corpuscular Hemoglobin 25.1 pg (27.0-33.0); Mean Corpuscular Volume 79.8 fL (80-98); Monocytes Absolute Auto 1.2 X10*3/uL (0.1-1.2); Monocytes Percent Auto 9.1 % (2-11); Neutrophils Absolute Auto 9.8 X10*3/uL (2.0-8.3); Neutrophils Percent Auto 73.7 % (45-73); Platelet Count 765 X10*3/uL (160-400); Red Blood Count 4.91 X10*6/uL (4.20-5.50); Red Cell Distribution Width 19.1 % (11.0-16.0); White Blood Count 13.3 X10*3/uL (4.8-10.8)
[2021-03-19] MEDS: LORazepam 2 MG/ML VIAL 1 MG IVPUSH (11:23)
[2021-03-19 11:46] LABS: Alanine Aminotransferase 15 U/L (0-31); Albumin Level 4.9 g/dL (3.5-5.0); Alkaline Phosphatase 91 U/L (39-117); Anion Gap 23 (12-20); Aspartate Amino Transferase 21 U/L (5-31); Bilirubin Total 0.8 mg/dL (0.0-1.0); Blood Urea Nitrogen 18 mg/dL (9-16); Calcium 10.5 mg/dL (8.4-10.2); Carbon Dioxide 25 mmol/L (22-29); Chloride 95 mmol/L (96-108); Creatinine Clr Calc Pharmacy 71.7; Estimated Glomerular Filt Rate > 60; Glucose Random 117 mg/dL (60-115); Potassium 3.6 mmol/L (3.3-5.1); Sodium 139 mmol/L (135-145); Total Protein 8.9 g/dL (6.5-8.0)
[2021-03-19 11:47] LABS: Amphetamine Screen Urine Not Detected (Not Detect); Barbiturates, Urine Not Detected (Not Detect); Benzodiazepines Screen Urine Not Detected (Not Detect); Cannabinoid Screen Urine POSITIVE (Not Detect); Cocaine Screen Urine Not Detected (Not Detect); Opiate Screen Urine Not Detected (Not Detect); Phencyclidine Screen Urine Not Detected (Not Detect)
[2021-03-19 11:53] LABS: HCG Quantitative < 2 mIU/mL
== END 2021-03-19 14:45 | disposition home or self-care (01) ==
PROVIDERS: Emergency Provider Emergency Medicine; PCP Internal Medicine
DX: R11.2 Nausea with vomiting, unspecified (principal); E86.0 Dehydration; F17.201 Nicotine dependence, unspecified, in remission; F12.90 Cannabis use, unspecified, uncomplicated; K21.9 Gastro-esophageal reflux disease without esophagitis
CPT/HCPCS: 36415; 36573; 80053; 80307; 84702; 85025; 96361; 96374; 96375; 99283; 99284; 99285; J1790; J2060

== ENCOUNTER → 2021-04-26 09:20 | Outpatient (BNVA) | payer OTHER, SELFPAY | PROVIDERS: PCP Internal Medicine; Visit Provider Advanced Practice Midwife | DX: O21.0 Mild hyperemesis gravidarum (principal); Z32.01 Encounter for pregnancy test, result positive | CPT/HCPCS: 81003; 81025; 99212 ==

== ENCOUNTER 2021-04-27 04:48 | Emergency (ER) | payer OTHER, SELFPAY ==
[2021-04-27 05:31] VITALS: BP 152/79; PULSE 60; RESP 16; TEMP 36.8; O2SAT 99; BMI 34.2
--- NOTE | 2021-04-27 05:53 | ED.NAVMDI ---
HPI - Nausea/Vomiting/Diarrhea General Chief complaint: Nausea/Vomiting/Diarrhea Stated complaint: , can't keep any food down Time Seen by Provider: 04/27/21 05:37 Source: patient Mode of arrival: ambulatory History of Present Illness HPI Narrative: patient with history of anxiety 1st trimester likely 6 weeks planning for MTP this week comes here for nausea vomiting asking for medicine for anxiety and nausea and asking for water and food denies any vaginal bleed or significant lower abdominal pain patient was at [facility] last week had a CT scan done Related Data Home Medications Medication Instructions Recorded Confirmed lorazepam 0.5 mg tablet 0.5 mg PO TID PRN 08/27/20 02/03/21 lorazepam 1 mg tablet 1 mg PO Q6H PRN 08/27/20 04/26/21 paroxetine HCl 20 mg tablet 20 mg PO DAILY 08/27/20 04/26/21 Previous Rx's Medication Instructions Recorded ondansetron HCl [Zofran] 4 mg PO Q6H PRN #14 tab 09/24/20 cyclobenzaprine 10 mg tablet 10 mg PO BEDTIME 30 Days #30 tab 09/30/20 ibuprofen 800 mg tablet 800 mg PO Q8H PRN 10 Days #30 tab 09/30/20 metronidazole 500 mg tablet 500 mg PO BID 7 Days #14 tab 10/27/20 docusate sodium 100 mg capsule 100 mg PO DAILY PRN 90 Days #90 cap 11/08/20 ferrous sulfate 325 mg (65 mg 325 mg PO BID 90 Days #180 tab 12/09/20 iron) tablet metronidazole 0.75 % vaginal gel 1 appful VAGINAL BEDTIME 5 Days 01/31/21 #37.5 g ergocalciferol (vitamin D2) 1,250 1,250 mcg PO QWEEK 30 Days #5 cap 02/03/21 mcg (50,000 unit) capsule melatonin 10 mg capsule 10 mg PO BEDTIME PRN #30 cap 02/16/21 risperidone 1 mg tablet 1 mg PO DAILY #90 tab 02/16/21 omeprazole 20 mg capsule,delayed 20 mg PO QAM #90 cap 02/17/21 release tranexamic acid 650 mg tablet 1,300 mg PO TID 5 Days #30 tab 03/14/21 acetaminophen 325 mg tablet 650 mg PO Q6H PRN 30 Days #120 tab 03/15/21 gabapentin 100 mg capsule 100 mg PO TID #270 cap 03/15/21 Allergies Allergy/AdvReac Type Severity Reaction Status Date / Time metoclopramide [From REGLAN] Allergy Mild MAKES ME Verified 04/26/21 09:44 COLD prochlorperazine Allergy Mild RASH, gets Verified 04/26/21 09:44 [From Compazine] cold famotidine [Pepcid] AdvReac Mild loss of Verified 04/26/21 09:44 appetite Review of Systems Review of Systems: Yes all other systems are reviewed and are negative [facility] Past Medical History Medical History Anemia Anxiety Chest pain Depression GERD (gastroesophageal reflux disease) History of back pain History of bipolar disorder Hx of Hx of iron deficiency anemia Hx of migraines Hypokalemia Iron deficiency anemia due to chronic blood loss Marijuana use, continuous Menorrhagia Numbness of foot Syphilis contact, treated Surgical History History of dilation and curettage Hx of colonoscopy Hx of esophagogastroduodenoscopy Family History Family History Mother HTN (hypertension) Maternal Grandmother HTN (hypertension) Maternal Uncle HTN (hypertension) Maternal Aunt Diabetes mellitus Social History Social History Are you a primary field care advocate to a significant other at home: No Do you presently have visiting nurse or other home services: No Alcohol intake: never Cigarette Packs Per Day: 0.25 Cigarettes Per Day: 5.0 Years Smoked: 15 Substance Use Type: Marijuana Advance Directives: No Advance Directives Information Provided: No Patient : Yes Physical Exam Vital Signs: Vital Signs: Last Vital Signs Temp 98.3 F 04/27/21 05:31 Pulse 60 04/27/21 05:31 Resp 16 04/27/21 05:31 BP 152/79 H 04/27/21 05:31 Pulse Ox 99 04/27/21 05:31 Body Mass Index 34.2 Appearance: Alert. Oriented X3. No acute distress. anxious Eyes: PERRLA, No Nystagmus ENT: Pharynx normal. Oral Mucosa moist Neck: Normal inspection. Neck supple. CVS: Normal heart rate and rhythm. Pulses normal. Respiratory: No respiratory distress. Equal air entry bilateral, no wheezing/rales/rhonchi Abdomen: Soft and nontender. Bowel sounds are present, no mass palpable, no CVA tenderness Skin: Skin warm and dry. Normal skin color. Normal skin turgor. Extremities: No lower extremity edema. No calf tenderness Neuro: Oriented X 3. No motor deficit. MDM - Nausea/Vomiting/Diarrhea MDM Narrative Medical decision making narrative: patient's anxiety multiple complaints asking to stay here for longer seen in the ER drinking fluids asking for food no significant distress asking for anxiety medication planning for MTP this week patient was given Zofran sublingual and Ativan will discharge patient home Discharge Plan Discharge Clinical Impression: Vomiting affecting , antepartum, Anxiety Patient Disposition: Home, Self-Care Instructions: Acute Nausea and Vomiting (ED), Anxiety (ED) Additional Instructions: follow-up with your OB doctor drink plenty of fluids Prescriptions: No Action docusate sodium 100 mg capsule 100 mg PO DAILY PRN (Reason: constipation) 90 Days Qty: 90 RF: 3 ferrous sulfate 325 mg (65 mg iron) tablet 325 mg PO BID 90 Days Qty: 180 RF: 3 risperidone 1 mg tablet 1 mg PO DAILY Qty: 90 RF: 3 melatonin 10 mg capsule 10 mg PO BEDTIME PRN (Reason: for insomnia) Qty: 30 RF: 3 omeprazole 20 mg capsule,delayed release(DR/EC) 20 mg PO QAM Qty: 90 RF: 0 gabapentin 100 mg capsule 100 mg PO TID Qty: 270 RF: 3 acetaminophen 325 mg tablet 650 mg PO Q6H PRN (Reason: fever or pain) 30 Days Qty: 120 RF: 6 ondansetron HCl [Zofran] 4 mg tablet 4 mg PO Q6H PRN (Reason: nausea and vomiting) Qty: 14 RF: 0 ergocalciferol (vitamin D2) 1,250 mcg (50,000 unit) capsule 1,250 mcg PO QWEEK 30 Days Qty: 5 RF: 3 ibuprofen 800 mg tablet 800 mg PO Q8H PRN (Reason: pain) 10 Days Qty: 30 RF: 0 cyclobenzaprine 10 mg tablet 10 mg PO BEDTIME 30 Days Qty: 30 RF: 0 metronidazole [Flagyl] 500 mg tablet 500 mg PO BID 7 Days Qty: 14 RF: 0 tranexamic acid [Lysteda] 650 mg tablet 1,300 mg PO TID 5 Days Qty: 30 RF: 11 paroxetine HCl 20 mg tablet 20 mg PO DAILY RF: 0 lorazepam 0.5 mg tablet 0.5 mg PO TID PRN (Reason: anxiety) RF: 0 lorazepam 1 mg tablet 1 mg PO Q6H PRN (Reason: anxiety) RF: 0 metronidazole 0.75 % gel 1 appful vaginal BEDTIME 5 Days Qty: 37.5 RF: 0
--- NOTE | 2021-04-27 05:54 | PC.NURSE ---
patient coming into the room with rn, patient changing into hospital attire, wanting hospital sock, holding legs out for this rn to place socks on feet. handing socks to patient who sighs at this rn. Asking for fluids and ice, explaining that md will be in shortly and after his evaluation. patient unsatisfied with that response, leaving to go into the bathroom, ignoring the nurses triage. provider in the room, patient given po zofran and tolerating 1 glass of water. asking for more water finishing a whole pitcher without vomiting. patient demanding an iv explaining that she is tolerating liquids and an iv is not necessary if she can eat and drink. patient then stating that she has been throwing up this whole time, patient has been constantly out in the hallway following this rn and md around the nurses station. no evidence of emesis bags or that the patient has been throwing up. stating to patient that I need to not be drinking and eat, taking fluids away from patient, patient screaming that this rn. grabbing beverages from this rns hands and attempting to drink them. Asking for more water, now denying that she was throwing up.
[2021-04-27] MEDS: LORazepam 1 MG TABLET PO (06:14)
--- NOTE | 2021-04-27 06:20 | PC.NURSE ---
patient has now found her own cup and is drinking water from the sink. plan of care for discharge. patient continuously ringing the fuller for the nurse, then coming into the halls and following this rn around the department. patient directed back to her room several times. patient having no active episodes of vomiting while repeatedly ambulating around the unit in full view of staff.
== END 2021-04-27 06:23 | disposition home or self-care (01) ==
PROVIDERS: Emergency Provider Internal Medicine
DX: O21.0 Mild hyperemesis gravidarum (principal); O99.341 Other mental disorders complicating pregnancy, first trimester; F41.9 Anxiety disorder, unspecified; Z3A.01 Less than 8 weeks gestation of pregnancy
CPT/HCPCS: 99283

== ENCOUNTER 2021-04-27 19:11 | Emergency (ER) | payer OTHER, SELFPAY ==
[2021-04-27 19:54] VITALS: BP 147/98; PULSE 95; RESP 16; TEMP 36.7; O2SAT 97; BMI 34.7
--- NOTE | 2021-04-27 22:38 | PC.NURSE ---
PT HAS BEEN PACING AROUND WAITING ROOM, ASKING WHEN SHE WILL GO BACK. NO VOMITING FOR PAST 90 MINUTES. PT STOPPED TAKING IN FLUIDS AFTER TRIAGE.
--- NOTE | 2021-04-27 23:27 | ED_ITS ---
HPI - Nausea/Vomiting/Diarrhea General Chief complaint: Nausea/Vomiting/Diarrhea Stated complaint: Vomiting/Preg Time Seen by Provider: 04/27/21 23:27 Source: patient Mode of arrival: ambulatory History of Present Illness HPI Narrative: 35-year-old female who is and has complaints of nausea and vomiting with plans for medical on 05/03. As per nursing on observation patient has been noted to be tolerating liquids while waiting to be seen in the waiting room. Patient denies any fever, chills, diarrhea, urinary pain /burning /frequency, or vaginal bleeding. Related Data Home Medications Medication Instructions Recorded Confirmed lorazepam 0.5 mg tablet 0.5 mg PO TID PRN 08/27/20 02/03/21 lorazepam 1 mg tablet 1 mg PO Q6H PRN 08/27/20 04/26/21 paroxetine HCl 20 mg tablet 20 mg PO DAILY 08/27/20 04/26/21 Previous Rx's Medication Instructions Recorded ondansetron HCl [Zofran] 4 mg PO Q6H PRN #14 tab 09/24/20 cyclobenzaprine 10 mg tablet 10 mg PO BEDTIME 30 Days #30 tab 09/30/20 ibuprofen 800 mg tablet 800 mg PO Q8H PRN 10 Days #30 tab 09/30/20 metronidazole 500 mg tablet 500 mg PO BID 7 Days #14 tab 10/27/20 docusate sodium 100 mg capsule 100 mg PO DAILY PRN 90 Days #90 cap 11/08/20 ferrous sulfate 325 mg (65 mg 325 mg PO BID 90 Days #180 tab 12/09/20 iron) tablet metronidazole 0.75 % vaginal gel 1 appful VAGINAL BEDTIME 5 Days 01/31/21 #37.5 g ergocalciferol (vitamin D2) 1,250 1,250 mcg PO QWEEK 30 Days #5 cap 02/03/21 mcg (50,000 unit) capsule melatonin 10 mg capsule 10 mg PO BEDTIME PRN #30 cap 02/16/21 risperidone 1 mg tablet 1 mg PO DAILY #90 tab 02/16/21 omeprazole 20 mg capsule,delayed 20 mg PO QAM #90 cap 02/17/21 release tranexamic acid 650 mg tablet 1,300 mg PO TID 5 Days #30 tab 03/14/21 acetaminophen 325 mg tablet 650 mg PO Q6H PRN 30 Days #120 tab 03/15/21 gabapentin 100 mg capsule 100 mg PO TID #270 cap 03/15/21 pyridoxine (vitamin B6) 25 mg PO TID 14 Days #42 tab 04/28/21 Allergies Allergy/AdvReac Type Severity Reaction Status Date / Time metoclopramide [From REGLAN] Allergy Mild MAKES ME Verified 04/27/21 19:54 COLD prochlorperazine Allergy Mild RASH, gets Verified 04/27/21 19:54 [From Compazine] cold famotidine [Pepcid] AdvReac Mild loss of Verified 04/27/21 19:54 appetite Review of Systems Review of Systems: Pertinent positives and negatives as stated in HPI 10 point review of systems is otherwise negative. FOR[facility]LY [facility], [facility] Past Medical History Source: nursing notes reviewed Medical History Anemia Anxiety Chest pain Depression GERD (gastroesophageal reflux disease) History of back pain History of bipolar disorder Hx of Hx of iron deficiency anemia Hx of migraines Hypokalemia Iron deficiency anemia due to chronic blood loss Marijuana use, continuous Menorrhagia Numbness of foot Syphilis contact, treated Surgical History History of dilation and curettage Hx of colonoscopy Hx of esophagogastroduodenoscopy Family History Family History Mother HTN (hypertension) Maternal Grandmother HTN (hypertension) Maternal Uncle HTN (hypertension) Maternal Aunt Diabetes mellitus Social History Social History Are you a primary care professionals to a significant other at home: No Do you presently have visiting nurse or other home services: No Alcohol intake: never Cigarette Packs Per Day: 0.25 Cigarettes Per Day: 5.0 Years Smoked: 15 Substance Use Type: Marijuana Advance Directives: No Advance Directives Information Provided: No Patient : Yes Physical Exam Vital Signs: Vital Signs: Last Vital Signs Temp 98.7 F 04/28/21 00:00 Pulse 71 04/28/21 00:00 Resp 17 04/28/21 00:00 BP 157/94 H 04/28/21 00:00 Pulse Ox 99 04/28/21 00:00 Body Mass Index 34.7 VITAL SIGNS: Reviewed. GENERAL: Well developed, well nourished, in no acute distress. HEAD: Normocephalic/atraumatic EYES: PERRLA, EOMI EARS: Ext canals without abnormality NOSE: Nares patent bilateral OROPHARYNX: no oral lesions noted, posterior pharynx clear NECK: Supple, no adenopathy LUNGS: Normal breath sounds. No adventitious sounds or accessory muscle use. SpO2<99> CARDIOVASCULAR: Regular rate and rhythm without noted murmurs ABDOMEN: Soft, non-tender, non-distended with bowel sounds. MUSCULOSKELETAL: No tenderness, deformities, or effusions noted on gross inspection. EXTREMITIES: No cyanosis, clubbing or edema. SKIN: Inspection of the skin reveals no rashes NEUROLOGIC: Alert and oriented x 4. Course Course Course Narrative: 35-year-old female with history and clinical presentation consistent with nausea and vomiting associated with , patient able to tolerate oral intake while here in the emergency room after receiving Zofran as well as vitamin B6. Patient was subsequently discharged in stable condition with a prescription for vitamin B6. Discharge Plan Discharge Clinical Impression: Nausea and vomiting during Patient Disposition: Home, Self-Care Instructions: Nausea and Vomiting in (ED) Additional Instructions: 1. Please take the medication that has been sent to your pharmacy for your nausea and vomiting. Return to the ER for any acute worsening of your symptoms. Prescriptions: New pyridoxine (vitamin B6) 25 mg tablet 25 mg PO TID 14 Days Qty: 42 RF: 0 No Action docusate sodium 100 mg capsule 100 mg PO DAILY PRN (Reason: constipation) 90 Days Qty: 90 RF: 3 ferrous sulfate 325 mg (65 mg iron) tablet 325 mg PO BID 90 Days Qty: 180 RF: 3 risperidone 1 mg tablet 1 mg PO DAILY Qty: 90 RF: 3 melatonin 10 mg capsule 10 mg PO BEDTIME PRN (Reason: for insomnia) Qty: 30 RF: 3 omeprazole 20 mg capsule,delayed release(DR/EC) 20 mg PO QAM Qty: 90 RF: 0 gabapentin 100 mg capsule 100 mg PO TID Qty: 270 RF: 3 acetaminophen 325 mg tablet 650 mg PO Q6H PRN (Reason: fever or pain) 30 Days Qty: 120 RF: 6 ondansetron HCl [Zofran] 4 mg tablet 4 mg PO Q6H PRN (Reason: nausea and vomiting) Qty: 14 RF: 0 ergocalciferol (vitamin D2) 1,250 mcg (50,000 unit) capsule 1,250 mcg PO QWEEK 30 Days Qty: 5 RF: 3 ibuprofen 800 mg tablet 800 mg PO Q8H PRN (Reason: pain) 10 Days Qty: 30 RF: 0 cyclobenzaprine 10 mg tablet 10 mg PO BEDTIME 30 Days Qty: 30 RF: 0 metronidazole [Flagyl] 500 mg tablet 500 mg PO BID 7 Days Qty: 14 RF: 0 tranexamic acid [Lysteda] 650 mg tablet 1,300 mg PO TID 5 Days Qty: 30 RF: 11 paroxetine HCl 20 mg tablet 20 mg PO DAILY RF: 0 lorazepam 0.5 mg tablet 0.5 mg PO TID PRN (Reason: anxiety) RF: 0 lorazepam 1 mg tablet 1 mg PO Q6H PRN (Reason: anxiety) RF: 0 metronidazole 0.75 % gel 1 appful vaginal BEDTIME 5 Days Qty: 37.5 RF: 0 Referrals: Jorge Brewer MD [Primary Care Provider] - 2 days
[2021-04-28] VITALS: BP 157/94; PULSE 71; RESP 17; TEMP 37.1; O2SAT 99
[2021-04-28] MEDS: Pyridoxine HCl (Vitamin B6) 50 MG TABLET PO (00:50)
--- NOTE | 2021-04-28 01:37 | PC.NURSE ---
TOLERATING MULTIPLE PO CHALLENGES WITH WATER, MEDICATION, JUICE. PATIENT HAVING NO EPISODES OF VOMITING. CURRENTLY ASLEEP ON THE STRETCHER WITH NO DISTRESS.
== END 2021-04-28 01:49 | disposition home or self-care (01) ==
PROVIDERS: Emergency Provider Student in an Organized Health Care Education/Training Program; PCP Internal Medicine
DX: O21.9 Vomiting of pregnancy, unspecified (principal); O09.519 Supervision of elderly primigravida, unspecified trimester; Z3A.00 Weeks of gestation of pregnancy not specified
CPT/HCPCS: 99283; 99284

== ENCOUNTER → 2021-05-03 10:35 | Outpatient (BNVA) | payer OTHER, SELFPAY | PROVIDERS: PCP Internal Medicine; Visit Provider Obstetrics & Gynecology | DX: N92.0 Excessive and frequent menstruation with regular cycle (principal) | CPT/HCPCS: Q3014 ==

== ENCOUNTER 2021-06-04 14:32 | Emergency (ER) | payer OTHER, SELFPAY ==
[2021-06-04 14:41] VITALS: BP 172/87; PULSE 88; RESP 16; TEMP 37.2; O2SAT 98; BMI 33.2
[2021-06-04 15:57] LABS: Glucose Urine UA NEG (NEG); Leukocyte Esterase Urine NEG (NEG); Nitrite Urine NEG (NEG); Specific Gravity - Urine 1.025 (1.005-1.025); UACC Culture Trigger NO; Urine Blood 2+ (NEG); Urine Ketones 15 MG/DL (NEG); Urine Protein 1+ MG/DL (NEG-TRACE)
[2021-06-04 15:59] LABS: Appearance Urine HAZY; Color Urine YELLOW
[2021-06-04 16:06] LABS: Bacteria Urine 1+ /LPF; Mucus Urine 2+ /LPF; Squamous Epithelial Cell Urine 3+ /LPF; WBC Urine 0 /HPF (0-4)
[2021-06-04] MEDS: Ondansetron ODT 4 MG TAB.RAPDIS SUBLINGUAL (16:50)
[2021-06-04 16:54] LABS: MANUAL DIFF FLAG NO
[2021-06-04 16:56] LABS: Basophils Absolute Auto 0.1 X10*3/uL (0.0-0.2); Basophils Percent Auto 0.5 % (0-2); Eosinophils Percent Auto 0.4 % (0-4); Hematocrit 35.8 % (37-47); Hemoglobin 11.1 g/dl (12.0-16.0); Imm Gran Abs Auto 0.17 X10*3/uL (0.00-0.03); Imm Gran Pct Auto 1.6 % (0.0-0.4); Lymphocytes Absolute Auto 1.8 X10*3/uL (1.2-4.9); Lymphocytes Percent Auto 16.2 % (20-40); Mean Corpuscular Hemoglobin 24.3 pg (27.0-33.0); Mean Corpuscular Volume 78.3 fL (80-98); Mean Platelet Volume 8.9 fL (9.4-12.3); Monocytes Absolute Auto 0.4 X10*3/uL (0.1-1.2); Neutrophils Absolute Auto 8.4 X10*3/uL (2.0-8.3); Neutrophils Percent Auto 77.3 % (45-73); Platelet Count 718 X10*3/uL (160-400); Red Blood Count 4.57 X10*6/uL (4.20-5.50); Red Cell Distribution Width 18.2 % (11.0-16.0); White Blood Count 10.8 X10*3/uL (4.8-10.8)
[2021-06-04 17:20] LABS: Alanine Aminotransferase 9 U/L (0-31); Albumin Level 4.6 g/dL (3.5-5.0); Alkaline Phosphatase 81 U/L (39-117); Anion Gap 17 (12-20); Aspartate Amino Transferase 15 U/L (5-31); Bilirubin Direct 0.2 mg/dL (0.0-0.5); Bilirubin Total 0.4 mg/dL (0.0-1.0); Blood Urea Nitrogen 6 mg/dL (9-16); Calcium 9.8 mg/dL (8.4-10.2); Carbon Dioxide 20 mmol/L (22-29); Chloride 108 mmol/L (96-108); Estimated Glomerular Filt Rate > 60; Glucose Random 134 mg/dL (60-115); Lipase 26 U/L (8-78); Potassium 3.8 mmol/L (3.3-5.1); Sodium 141 mmol/L (135-145)
--- NOTE | 2021-06-04 17:47 | PC.NURSE ---
pt flailing around in the hospital bed, attempted to place an IV for patients n/v and patient uncooperative with care- thrashing around in the bed not listening to this RN advising her to stay still patient uncooperative with the IV attempt X2
--- NOTE | 2021-06-04 17:51 | ED.NAVMDI ---
HPI - Nausea/Vomiting/Diarrhea General Chief complaint: Nausea/Vomiting/Diarrhea Stated complaint: ?Food Poisoning Time Seen by Provider: 06/04/21 17:22 Source: patient Mode of arrival: ambulatory Limitations: no limitations History of Present Illness HPI Narrative: Patient smoked cannabis been here multiple times in the past for nausea vomiting abdominal pain with history of cyclic vomiting with use of cannabis comes here for nausea vomiting since last night also complaining of diarrhea asking for pain medicine in the ER. No fever no chills no urinary complaints Related Data Home Medications Medication Instructions Recorded Confirmed lorazepam 0.5 mg tablet 0.5 mg PO TID PRN 08/27/20 02/03/21 lorazepam 1 mg tablet 1 mg PO Q6H PRN 08/27/20 04/26/21 Previous Rx's Medication Instructions Recorded ondansetron HCl 4 mg tablet 4 mg PO Q6H PRN #14 tab 09/24/20 (Zofran) cyclobenzaprine 10 mg tablet 10 mg PO BEDTIME 30 Days #30 tab 09/30/20 ibuprofen 800 mg tablet 800 mg PO Q8H PRN 10 Days #30 tab 09/30/20 metronidazole 500 mg tablet 500 mg PO BID 7 Days #14 tab 10/27/20 (Flagyl) docusate sodium 100 mg capsule 100 mg PO DAILY PRN 90 Days #90 cap 11/08/20 metronidazole 0.75 % vaginal gel 1 appful VAGINAL BEDTIME 5 Days 01/31/21 #37.5 g melatonin 10 mg capsule 10 mg PO BEDTIME PRN #30 cap 02/16/21 risperidone 1 mg tablet 1 mg PO DAILY #90 tab 02/16/21 tranexamic acid 650 mg tablet 1,300 mg PO TID 5 Days #30 tab 03/14/21 (Lysteda) acetaminophen 325 mg tablet 650 mg PO Q6H PRN 30 Days #120 tab 03/15/21 gabapentin 100 mg capsule 100 mg PO TID #270 cap 03/15/21 pyridoxine (vitamin B6) 25 mg 25 mg PO TID 14 Days #42 tab 04/28/21 tablet ergocalciferol (vitamin D2) 1,250 1,250 mcg PO QWEEK 30 Days #5 cap 05/09/21 mcg (50,000 unit) capsule ferrous sulfate 325 mg (65 mg 325 mg PO BID 90 Days #180 tab 05/09/21 iron) tablet omeprazole 20 mg capsule,delayed 20 mg PO QAM #90 cap 05/09/21 release paroxetine HCl 20 mg tablet 20 mg PO DAILY 90 Days #90 tab 05/09/21 ondansetron 4 mg disintegrating 4 mg PO Q6-8H PRN #7 tab 06/04/21 tablet Allergies Allergy/AdvReac Type Severity Reaction Status Date / Time metoclopramide [From REGLAN] Allergy Mild MAKES ME Verified 04/27/21 19:54 COLD prochlorperazine Allergy Mild RASH, gets Verified 04/27/21 19:54 [From Compazine] cold famotidine [Pepcid] AdvReac Mild loss of Verified 04/27/21 19:54 appetite Review of Systems Review of Systems: Yes all other systems are reviewed and are negative COUNT INCLUDES THE [facility] Past Medical History Medical History Anemia Anxiety Chest pain Depression GERD (gastroesophageal reflux disease) History of back pain History of bipolar disorder Hx of Hx of iron deficiency anemia Hx of migraines Hypokalemia Iron deficiency anemia due to chronic blood loss Marijuana use, continuous Menorrhagia Numbness of foot Syphilis contact, treated Surgical History History of dilation and curettage Hx of colonoscopy Hx of esophagogastroduodenoscopy Family History Family History Mother HTN (hypertension) Maternal Grandmother HTN (hypertension) Maternal Uncle HTN (hypertension) Maternal Aunt Diabetes mellitus Social History Social History Are you a primary director of primary care to a significant other at home: No Do you presently have visiting nurse or other home services: No Alcohol intake: never Cigarette Packs Per Day: 0.25 Cigarettes Per Day: 5.0 Years Smoked: 15 Substance Use Type: Marijuana Advance Directives: No Advance Directives Information Provided: No Physical Exam Vital Signs: Vital Signs: Last Vital Signs Temp 98.9 F 06/04/21 14:41 Pulse 88 06/04/21 14:41 Resp 16 06/04/21 14:41 BP 172/87 H 06/04/21 14:41 Pulse Ox 98 06/04/21 14:41 Body Mass Index 33.2 Appearance: Alert. Oriented X3. No acute distress. Eyes: PERRLA, No Nystagmus ENT: Pharynx normal. Oral Mucosa moist Neck: Normal inspection. Neck supple. CVS: Normal heart rate and rhythm. Pulses normal. Respiratory: No respiratory distress. Equal air entry bilateral, no wheezing/rales/rhonchi Abdomen: Soft and mild diffuse tenderness no rebound tenderness or guarding Bowel sounds are present, no mass palpable, no CVA tenderness Skin: Skin warm and dry. Normal skin color. Normal skin turgor. Extremities: No lower extremity edema. No calf tenderness Neuro: Oriented X 3. No motor deficit. No sensory deficit.No cerebellar signs , cranial nerves II-XII intact MDM - Nausea/Vomiting/Diarrhea MDM Narrative Medical decision making narrative: Patient feeling better now taking p.o. fluids will discharge patient home Lab Data Attestation: I reviewed the patient's lab results. Result diagrams: 06/04/21 16:49 06/04/21 16:49 Labs: Lab Results 06/04/21 06/04/21 06/04/21 Range/Units 15:39 16:49 16:49 WBC 10.8 (4.8-10.8) X10*3/uL RBC 4.57 (4.20-5.50) X10*6/uL Hgb 11.1 L (12.0-16.0) g/dl Hct 35.8 L (37-47) % MCV 78.3 L (80-98) fL MCH 24.3 L (27.0-33.0) pg MCHC 31.0 (31.0-35.0) g/dl RDW 18.2 H (11.0-16.0) % Plt Count 718 H (160-400) X10*3/uL MPV 8.9 L (9.4-12.3) fL Immature Gran % (Auto) 1.6 H (0.0-0.4) % Neut % (Auto) 77.3 H (45-73) % Lymph % (Auto) 16.2 L (20-40) % Ford % (Auto) 4.0 (2-11) % Eos % (Auto) 0.4 (0-4) % Baso % (Auto) 0.5 (0-2) % Lymph # (Auto) 1.8 (1.2-4.9) X10*3/uL Ford # (Auto) 0.4 (0.1-1.2) X10*3/uL Eos # (Auto) 0.0 (0.0-0.4) X10*3/uL Baso # (Auto) 0.1 (0.0-0.2) X10*3/uL Abs Immat Gran (auto) 0.17 H (0.00-0.03) X10*3/uL Absolute Neuts (auto) 8.4 H (2.0-8.3) X10*3/uL Absolute Nucleated RBC 0.000 (0.0-0.012) X10*3/uL Nucleated RBC % (auto) 0.0 (0.0-0.2) /100WBC Sodium 141 (135-145) mmol/L Potassium 3.8 (3.3-5.1) mmol/L Chloride 108 (96-108) mmol/L Carbon Dioxide 20 L (22-29) mmol/L Anion Gap 17 (12-20) BUN 6 L D (9-16) mg/dL Creatinine 0.70 (0.5-1.4) mg/dL Estim Creat Clear Calc 101.0 Estimated GFR > 60 Random Glucose 134 H (60-115) mg/dL Calcium 9.8 D (8.4-10.2) mg/dL Total Bilirubin 0.4 (0.0-1.0) mg/dL Direct Bilirubin 0.2 (0.0-0.5) mg/dL AST 15 (5-31) U/L ALT 9 (0-31) U/L Alkaline Phosphatase 81 (39-117) U/L Total Protein 8.0 (6.5-8.0) g/dL Albumin 4.6 (3.5-5.0) g/dL Lipase 26 (8-78) U/L Urine Color YELLOW Urine Appearance HAZY Urine pH 7.0 (5.0-8.0) Ur Specific Bighorn 1.025 (1.005-1.025) Urine Protein 1+ H (NEG-TRACE) MG/DL Urine Glucose (UA) NEG (NEG) MG/DL Urine Ketones 15 (NEG) MG/DL Urine Blood 2+ H (NEG) Urine Nitrite NEG (NEG) Ur Leukocyte Esterase NEG (NEG) Urine RBC 5-9 H (0) /HPF Urine WBC 0 (0-4) /HPF Ur Squamous Epith Cells 3+ /LPF Urine Bacteria 1+ /LPF Urine Mucus 2+ /LPF Urine Yeast 2+ /HPF Discharge Plan Discharge Clinical Impression: Cyclic vomiting syndrome Patient Disposition: Home, Self-Care Instructions: Cyclic Vomiting Syndrome (ED) Additional Instructions: Stop smoking marijuana drink plenty of fluids take medication for nausea as prescribed Prescriptions: New ondansetron 4 mg tablet,disintegrating 4 mg PO Q6-8H PRN (Reason: nausea and vomiting) Qty: 7 RF: 0 No Action docusate sodium 100 mg capsule 100 mg PO DAILY PRN (Reason: constipation) 90 Days Qty: 90 RF: 3 risperidone 1 mg tablet 1 mg PO DAILY Qty: 90 RF: 3 melatonin 10 mg capsule 10 mg PO BEDTIME PRN (Reason: for insomnia) Qty: 30 RF: 3 gabapentin 100 mg capsule 100 mg PO TID Qty: 270 RF: 3 acetaminophen 325 mg tablet 650 mg PO Q6H PRN (Reason: fever or pain) 30 Days Qty: 120 RF: 6 ferrous sulfate 325 mg (65 mg iron) tablet 325 mg PO BID 90 Days Qty: 180 RF: 3 omeprazole 20 mg capsule,delayed release(DR/EC) 20 mg PO QAM Qty: 90 RF: 3 paroxetine HCl 20 mg tablet 20 mg PO DAILY 90 Days Qty: 90 RF: 3 ergocalciferol (vitamin D2) 1,250 mcg (50,000 unit) capsule 1,250 mcg PO QWEEK 30 Days Qty: 5 RF: 3 ondansetron HCl [Zofran] 4 mg tablet 4 mg PO Q6H PRN (Reason: nausea and vomiting) Qty: 14 RF: 0 pyridoxine (vitamin B6) 25 mg tablet 25 mg PO TID 14 Days Qty: 42 RF: 0 ibuprofen 800 mg tablet 800 mg PO Q8H PRN (Reason: pain) 10 Days Qty: 30 RF: 0 cyclobenzaprine 10 mg tablet 10 mg PO BEDTIME 30 Days Qty: 30 RF: 0 metronidazole [Flagyl] 500 mg tablet 500 mg PO BID 7 Days Qty: 14 RF: 0 tranexamic acid [Lysteda] 650 mg tablet 1,300 mg PO TID 5 Days Qty: 30 RF: 11 lorazepam 0.5 mg tablet 0.5 mg PO TID PRN (Reason: anxiety) RF: 0 lorazepam 1 mg tablet 1 mg PO Q6H PRN (Reason: anxiety) RF: 0 metronidazole 0.75 % gel 1 appful vaginal BEDTIME 5 Days Qty: 37.5 RF: 0 Interventions: ED Discharge Assessment Last Done: 06/04/21 19:06 Discharge Date/Time: 06/04/21 19:07
[2021-06-04] MEDS: Morphine Sulfate 4 MG/ML CARTRIDGE IM (18:03)
--- NOTE | 2021-06-04 18:47 | PC.NURSE ---
per provider request, patient to be PO challenged- this RN went to give the patient some water and patient was initially refusing to attempt to drink any fluids. This RN informed the patient that she needed to try to drink some water to see how she felt after in order to discharge her home. Patient not cooperative with care- eventually reluctantly taking the water and laying back down not drinking any.
== END 2021-06-04 19:07 | disposition home or self-care (01) ==
PROVIDERS: Emergency Provider Internal Medicine; PCP Internal Medicine
DX: R11.15 Cyclical vomiting syndrome unrelated to migraine (principal); F12.90 Cannabis use, unspecified, uncomplicated; R10.9 Unspecified abdominal pain; F17.210 Nicotine dependence, cigarettes, uncomplicated
CPT/HCPCS: 36415; 80048; 80076; 81001; 83690; 85025; 96372; 99284; J2270

== ENCOUNTER 2021-06-16 12:11 | Outpatient (REF) | payer OTHER, SELFPAY ==
--- NOTE | ~2021-06-16 | XR_ITS ---
EXAMINATION: XR CHEST 2 VIEWS CLINICAL INFORMATION: Shortness of breath. COMPARISON: Prior chest radiographs, most recently 02/17/2021 TECHNIQUE: Frontal and lateral views of the chest were obtained. FINDINGS: The heart, great vessels, pulmonary vasculature and mediastinum are normal. The lungs show no focal infiltrate, effusion or pneumothorax. There is no acute osseous abnormality. There is a mild thoracic levoscoliosis, which may be positional. XR/XR chest 2V IMPRESSION: No active cardiopulmonary disease.
--- NOTE | 2021-06-16 12:15 | ECG_ITS ---
Test Reason : CHEST PAIN Blood Pressure : / mmHG Vent. Rate : 061 BPM Atrial Rate : 061 BPM P-R Int : 170 ms QRS Dur : 074 ms QT Int : 408 ms P-R-T Axes : 040 009 015 degrees QTc Int : 410 ms Normal sinus rhythm Normal ECG When compared with ECG of 17-FEB-2021 07:44, No significant change was found Referred By: Zonia Black Electronically Signed By:JUANCARLOS LOPEZ
== END 2021-06-16 12:12 | disposition home or self-care (01) ==
LOC: HO.XRAY 12:11
PROVIDERS: PCP Internal Medicine; Visit Provider Internal Medicine
DX: R07.9 Chest pain, unspecified (principal); R06.02 Shortness of breath; D64.9 Anemia, unspecified; E78.5 Hyperlipidemia, unspecified; E55.9 Vitamin D deficiency, unspecified
CPT/HCPCS: 71046; 93005

== ENCOUNTER 2021-07-07 12:27 | Outpatient (REF) | payer OTHER, SELFPAY ==
--- NOTE | ~2021-07-07 | US_ITS ---
EXAMINATION: US RETROPERITONEAL LIMITED (RENAL ONLY) CLINICAL INFORMATION: Calculus of kidney. COMPARISON: X-ray abdomen K[facility] 02/22/2021. CT abdomen and pelvis 02/06/2021. Renal ultrasound 12/07/2019. Ultrasound abdomen 10/13/2019. TECHNIQUE: Real-time imaging of the kidneys. FINDINGS: RIGHT KIDNEY: 10.4 x 3.7 x 4.5 cm (SAG x AP x TRV). The kidney is normal in size, contour, and echogenicity. Renal cortical thickness is normal. No stone or focal parenchymal lesions. No hydronephrosis. LEFT KIDNEY: 9.6 x 4.8 x 4.5 cm (SAG x AP x TRV). The kidney is normal in size, contour, and echogenicity. Renal cortical thickness is normal. There is a 2 mm echogenic density in the midpole questionable for a small stone. No focal parenchymal lesions or hydronephrosis. US/US renal BI IMPRESSION: Question tiny left renal stone.
== END 2021-07-07 12:28 | disposition home or self-care (01) ==
LOC: HO.US 12:27
PROVIDERS: PCP Internal Medicine; Visit Provider Internal Medicine
DX: N20.0 Calculus of kidney (principal)
CPT/HCPCS: 76775

== ENCOUNTER 2021-07-16 16:04 | Emergency (ER) | payer OTHER, SELFPAY ==
--- NOTE | ~2021-07-16 | CT_ITS ---
EXAMINATION: CT ABDOMEN AND PELVIS WITH CONTRAST CLINICAL INFORMATION: Left lower quadrant pain. Left CVA tenderness. COMPARISON: CT scan abdomen pelvis February 06, 2021 TECHNIQUE: Multidetector volumetric images were obtained from the superior aspect of the liver through the pubic symphysis following administration 85 mL of Omnipaque 350 intravenous contrast. Sagittal and coronal reformatted images were obtained on the technologist's workstation. Oral contrast: No This CT examination was performed using dose optimization techniques as appropriate, variously including the following: *Automated exposure control *Adjustment of mA and/or kV according to patient size (this includes techniques or standardized protocols for targeted exams where dose is matched to indication/reason for exam; i.e. extremities or head) *Use of iterative reconstruction technique DLP: 589 mGy-cm FINDINGS: LUNG BASES: The visualized lung bases are unremarkable. LIVER, GALLBLADDER, AND BILIARY TREE: The liver is normal in size, shape, and attenuation. No focal hepatic lesion or biliary ductal dilatation is present. The gallbladder is unremarkable with no evidence of radiopaque gallstones, gallbladder wall thickening, or obvious pericholecystic inflammatory changes. PANCREAS: Unremarkable. SPLEEN: Unremarkable. ADRENAL GLANDS: Unremarkable. KIDNEYS AND URETERS: The kidneys are normal in size, shape, and attenuation. No hydronephrosis, hydroureter, or calculi seen. No perinephric stranding. BLADDER: Unremarkable. GASTROINTESTINAL TRACT: The small and large bowel are unremarkable. The appendix is unremarkable. ABDOMINAL WALL: No significant hernia is appreciated. LYMPH NODES: Normal. VASCULAR: Unremarkable. PELVIC VISCERA: Unremarkable. OSSEOUS STRUCTURES: Unremarkable. CT/CT abdomen pelvis w con IMPRESSION: No acute abnormality CT scan abdomen pelvis.
[2021-07-16 16:13] VITALS: BP 169/98; PULSE 106; RESP 18; TEMP 36.8; O2SAT 100; BMI 35.2
--- NOTE | 2021-07-16 19:53 | ED_ITS ---
HPI - Nausea/Vomiting/Diarrhea General Chief complaint: Nausea/Vomiting/Diarrhea <KATERINA Ty Last Filed: 07/16/21 22:45> Stated complaint: Stomach pain <KATERINA Ty Last Filed: 07/16/21 22:45> Time Seen by Provider: 07/16/21 19:53 <KATERINA Ty Last Filed: 07/16/21 22:45> Source: patient <KATERINA Ty Last Filed: 07/16/21 22:45> Mode of arrival: ambulatory <KATERINA Ty Last Filed: 07/16/21 22:45> Limitations: no limitations <KATERINA Ty Last Filed: 07/16/21 22:45> History of Present Illness HPI Narrative: 35-year-old female with a history of cyclic vomiting presents for 2 days of nausea vomiting and left lower quadrant pain. States her left lower quadrant pain radiates to her back. Patient states she has vomited multiple times, and is vomiting as I am interviewing her. Patient denies bad foods, defer water sources, travel, recent antibiotic use. No fevers, patient has had diarrhea. No chest pain, no shortness of breath. Patient when she is seen at [facility] for her vomiting they give her morphine <KATERINA Ty - Last Filed: 07/16/21 22:45> MD elicited complaint: nausea, vomiting, diarrhea and abdominal pain <KATERINA Ty Last Filed: 07/16/21 22:45> Pertinent past history: cyclical vomiting <KATERINA Ty Last Filed: 07/16/21 22:45> Onset (ago): day(s) (2) <KATERINA Ty - Last Filed: 07/16/21 22:45> Description of vomiting: food contents and bilious <KATERINA Ty Last Filed: 07/16/21 22:45> Associated nausea: Yes <KATERINA Ty Last Filed: 07/16/21 22:45> Associated abdominal pain: Yes <KATERINA Ty Last Filed: 07/16/21 22:45> Location of pain: LLQ <KATERINA Ty Last Filed: 07/16/21 22:45> Pain consistency: constant <KATERINA Ty Last Filed: 07/16/21 22:45> Severity: severe <KATERINA Ty Last Filed: 07/16/21 22:45> Quality: cramping and aching <KATERINA Ty Last Filed: 07/16/21 22:45> Exacerbating factors: eating and vomiting <KATERINA Ty Last Filed: 07/16/21 22:45> Relieving factors: none <KATERINA Ty Last Filed: 07/16/21 22:45> Associated symptoms: nausea/vomiting <KATERINA Ty Last Filed: 07/16/21 22:45> Related Data Home medications: Previous Rx's Medication Instructions Recorded cyclobenzaprine 10 mg tablet 10 mg PO BEDTIME 30 Days #30 tab 09/30/20 ibuprofen 800 mg tablet 800 mg PO Q8H PRN 10 Days #30 tab 09/30/20 docusate sodium 100 mg capsule 100 mg PO DAILY PRN 90 Days #90 cap 11/08/20 risperidone 1 mg tablet 1 mg PO DAILY #90 tab 02/16/21 tranexamic acid 650 mg tablet 1,300 mg PO TID 5 Days #30 tab 03/14/21 (Lysteda) gabapentin 100 mg capsule 100 mg PO TID #270 cap 03/15/21 omeprazole 20 mg capsule,delayed 20 mg PO QAM #90 cap 05/09/21 release melatonin 10 mg capsule 10 mg PO BEDTIME PRN #30 cap 06/07/21 ergocalciferol (vitamin D2) 1,250 1,250 mcg PO QWEEK 30 Days #5 cap 06/16/21 mcg (50,000 unit) capsule ferrous sulfate 325 mg (65 mg 325 mg PO BID 90 Days #180 tab 06/16/21 iron) tablet ondansetron 4 mg disintegrating 4 mg PO Q8H PRN 30 Days #90 tab 06/16/21 tablet paroxetine HCl 20 mg tablet 20 mg PO DAILY 90 Days #90 tab 06/16/21 pyridoxine (vitamin B6) 25 mg 25 mg PO TID 14 Days #42 tab 06/16/21 tablet acetaminophen 325 mg tablet 650 mg PO Q6H PRN 30 Days #120 tab 07/05/21 ondansetron HCl 4 mg tablet 4 mg PO Q8H PRN #10 tab 07/17/21 (Zofran) <KATERINA Ty Last Filed: 07/16/21 22:45> Allergies/Adverse reactions: Allergies Allergy/AdvReac Type Severity Reaction Status Date / Time metoclopramide [From REGLAN] Allergy Mild MAKES ME Verified 06/16/21 11:45 COLD prochlorperazine Allergy Mild RASH, gets Verified 06/16/21 11:45 [From Compazine] cold famotidine [Pepcid] AdvReac Mild loss of Verified 06/16/21 11:45 appetite <KATERINA Ty Last Filed: 07/16/21 22:45> Review of Systems Constitutional: Constitutional: Denies fatigue, Denies headache(s) and Denies weakness <KATERINA Ty Last Filed: 07/16/21 22:45> Eyes: Eyes: Denies diplopia <KATERINA Ty Last Filed: 07/16/21 22:45> ENT: Denies vertigo, Denies dizziness, Denies otalgia, Denies headache(s), Denies mouth pain, Denies post nasal drip, Denies sinus pain, Denies sinus pressure, Denies sore throat and Denies throat swelling <KATERINA Ty Last Filed: 07/16/21 22:45> Cardiovascular: Cardiovascular: Denies chest pain, Denies syncope, Denies leg edema, Denies lightheadedness, Denies Loss of Consciousness, Denies palpitations and Denies dyspnea <KATERINA Ty Last Filed: 07/16/21 22:45> Respiratory: Respiratory: Denies chest congestion, Denies cough and Denies dyspnea <KATERINA Ty Last Filed: 07/16/21 22:45> Gastrointestinal: Gastrointestinal: Reports abdominal pain, Reports diarrhea, Reports nausea and Reports vomiting <KATERINA Ty Last Filed: 07/16/21 22:45> Genitourinary: Genitourinary: Reports no additional female genitourinary complaints <KATERINA Ty Last Filed: 07/16/21 22:45> Musculoskeletal: Musculoskeletal: Reports no additional musculoskeletal compla ints <KATERINA Ty - Last Filed: 07/16/21 22:45> Neurologic: Denies confusion, Denies vertigo, Denies dizziness, Denies syncope, Denies headache(s) and Denies weakness <KATERINA Ty - Last Filed: 07/16/21 22:45> Psychiatric: Psychiatric: Denies anxiety, Denies confusion and Denies depression <KATERINA Ty - Last Filed: 07/16/21 22:45> Endocrine: Endocrine: Denies fatigue and Denies palpitations <KATERINA Ty - Last Filed: 07/16/21 22:45> Allergic/Immunologic: Allergic/Immunologic: Denies throat swelling <KATERINA Ty - Last Filed: 07/16/21 22:45> [facility] Past Medical History Medical History: Medical History Anemia Anxiety Chest pain Chest pain Cyclic vomiting syndrome Depression GERD (gastroesophageal reflux disease) History of back pain History of bipolar disorder Hx of Hx of iron deficiency anemia Hx of migraines Hypokalemia Iron deficiency anemia due to chronic blood loss Iron deficiency anemia due to chronic blood loss Marijuana use, continuous Menorrhagia Moderate recurrent major depression Numbness of foot Renal calculi Shortness of breath Syphilis contact, treated <KATERINA Ty - Last Filed: 07/16/21 22:45> Surgical History: Surgical History History of dilation and curettage Hx of colonoscopy Hx of esophagogastroduodenoscopy <KATERINA Ty - Last Filed: 07/16/21 22:45> Family History Family History: Family History (Updated 06/16/21 @ 11:33 by OBIE Linder) Mother HTN (hypertension) Maternal Grandmother HTN (hypertension) Maternal Uncle HTN (hypertension) Maternal Aunt Diabetes mellitus Family/Other Mental health disorder Substance use disorder <KATERINA Ty - Last Filed: 07/16/21 22:45> Social History Social History: Social History Housing: Apartment Are you a primary patient care technician to a significant other at home: No Do you presently have visiting nurse or other home services: No Alcohol intake: never Cigarette Packs Per Day: 0.25 Cigarettes Per Day: 5 Years Smoked: 15 e-Cigarette/Vaping Use: Never Used Second Hand Smoke Exposure: No Substance Use Type: Marijuana Advance Directives: No Advance Directives Information Provided: No Patient : No service: No Current occupational status: unemployed <KATERINA Ty - Last Filed: 07/16/21 22:45> Physical Exam Vital Signs: Vital Signs: Last Vital Signs Temp 97.7 F 07/17/21 00:27 Pulse 63 07/17/21 00:27 Resp 22 H 07/17/21 00:27 BP 189/107 H 07/17/21 00:27 Pulse Ox 100 07/17/21 00:27 Body Mass Index 35.2 <KATERINA Ty - Last Filed: 07/16/21 22:45> Vital Signs: Last Vital Signs Temp 97.7 F 07/17/21 00:27 Pulse 63 07/17/21 00:27 Resp 22 H 07/17/21 00:27 BP 189/107 H 07/17/21 00:27 Pulse Ox 100 07/17/21 00:27 Body Mass Index 35.2 <Hi Scruggs MD - Last Filed: 07/17/21 02:43> Const: General: awake, Physically active and acute distress (from vomiting); No confusion <KATERINA Ty - Last Filed: 07/16/21 22:45> Nutritional Appearance: well nourished <KATERINA Ty - Last Filed: 07/16/21 22:45> Orientation/consciousness: patient oriented x3 and No confusion <KATERINA Ty - Last Filed: 07/16/21 22:45> Limitations: no limitations <KATERINA Ty Last Filed: 07/16/21 22:45> HENMT: Head: Yes normal to inspection, Yes normocephalic and Yes atraumatic <KATERINA Ty - Last Filed: 07/16/21 22:45> Ears: hearing grossly normal bilaterally, external ears normal, TM's normal bilaterally and EAC's normal <KATERINA Ty - Last Filed: 07/16/21 22:45> General nose exam: Normal external nose present <Hortensia Manrique [facility] Last Filed: 07/16/21 22:45> Face and sinus: Yes normal facial exam and Yes sinuses nontender <Hortensia Manrique [facility] Last Filed: 07/16/21 22:45> Mouth: Normal oral and palatal mucosa present <Hortensia Manrique [facility] Last Filed: 07/16/21 22:45> Throat: Yes posterior oropharynx normal <Hortensia Manrique [facility] Last Filed: 07/16/21 22:45> Eyes: Conjunctivae: conjunctivae normal <Hortensia Manrique [facility] Last Filed: 07/16/21 22:45> Pupils: Equal, round and reactive pupils present <Hortensia Manrique [facility] Last Filed: 07/16/21 22:45> EOM: EOMs intact bilaterally <Hortensia Manrique [facility] Last Filed: 07/16/21 22:45> Neck: Neck: Yes full ROM, Yes no lymphadenopathy and Yes supple <Hortensia Manrique [facility] Last Filed: 07/16/21 22:45> Resp: Effort & Inspection: normal respiratory effort and able to speak in complete sentences <Hortensia Manrique [facility] Last Filed: 07/16/21 22:45> Auscultation: clear to auscultation bilaterally, no crackles, no rales, no rhonchi and no wheezes <Hortensia Manrique [facility] Last Filed: 07/16/21 22:45> Cardio: Rate: regular rate <Hortensia Manrique [facility] Last Filed: 07/16/21 22:45> Rhythm: regular rhythm <Hortensia Manrique [facility] Last Filed: 07/16/21 22:45> Heart sounds: S1 normal heart sound present and S2 normal heart sound present <Hortensia Manrique [facility] Last Filed: 07/16/21 22:45> GI: Inspection: Yes obesity <Hortensia Manrique [facility] Last Filed: 07/16/21 22:45> Palpation (GI): Soft to palpation, Tenderness to palpation present (GI) in the LLQ, Guarding due to palpation present (GI) in the LLQ and not rigid <Hortensia Manrique [facility] Last Filed: 07/16/21 22:45> Percussion: Yes normal to percussion <KATERINA Ty - Last Filed: 07/16/21 22:45> Auscultation: normal bowel sounds <KATERINA Ty - Last Filed: 07/16/21 22:45> : General: Yes CVA tenderness on the left <KATERINA Ty - Last Filed: 07/16/21 22:45> Back/Spine/Pelvis: Back: CVA tenderness <KATERINA Ty - Last Filed: 07/16/21 22:45> Skin: General skin exam: no rashes or lesions noted <KATERINA Ty - Last Filed: 07/16/21 22:45> Neuro: General: patient oriented x3 and No confusion <KATERINA Ty - Last Filed: 07/16/21 22:45> Cranial nerves: Yes Equal, round and reactive pupils present <KATERINA Ty Last Filed: 07/16/21 22:45> Extrem: General: Yes normal to inspection and Yes full ROM <KATERINA Ty - Last Filed: 07/16/21 22:45> Psych: Appearance: grossly normal <KATERINA Ty Last Filed: 07/16/21 22:45> Affect: normal affect <KATERINA Ty - Last Filed: 07/16/21 22:45> Attitude: cooperative <KATERINA Ty - Last Filed: 07/16/21 22:45> Thought process: Normal thought process present <KATERINA Ty Last Filed: 07/16/21 22:45> Course Course Course Narrative: Labs are remarkable for mild anemia and leukocytosis of 12.2, most likely reactive due to vomiting. Awaiting CT scan results. <KATERINA Ty Last Filed: 07/16/21 22:45> Reevaluation(s) Reevaluation #1: Patient is sleeping comfortably, vomiting has resolved. Sign patient out to Dr. Scruggs, pending CT scan results. <KATERINA Ty Last Filed: 07/16/21 22:45> Reevaluation #2: IMPRESSION: No acute abnormality CT scan abdomen pelvis.? Will discharge on zofran <Hi Scruggs MD - Last Filed: 07/17/21 02:43> Time: 02:42 <Hi Scruggs MD - Last Filed: 07/17/21 02:43> MDM - Nausea/Vomiting/Diarrhea Lab Data Result diagrams: : 07/16/21 21:05 07/16/21 21:05 <KATERINA Ty - Last Filed: 07/16/21 22:45> Labs: Lab Results 07/16/21 07/16/21 07/17/21 Range/Units 21:05 21:05 00:24 WBC 12.2 H (4.8-10.8) X10*3/uL RBC 4.53 (4.20-5.50) X10*6/uL Hgb 10.7 L (12.0-16.0) g/dl Hct 35.0 L (37-47) % MCV 77.3 L (80-98) fL MCH 23.6 L (27.0-33.0) pg MCHC 30.6 L (31.0-35.0) g/dl RDW 18.1 H (11.0-16.0) % Plt Count 713 H (160-400) X10*3/uL MPV 8.7 L (9.4-12.3) fL Immature Gran % (Auto) 0.7 H (0.0-0.4) % Neut % (Auto) 79.3 H (45-73) % Lymph % (Auto) 15.5 L (20-40) % Clinch % (Auto) 3.7 (2-11) % Eos % (Auto) 0.2 (0-4) % Baso % (Auto) 0.6 (0-2) % Lymph # (Auto) 1.9 (1.2-4.9) X10*3/uL Clinch # (Auto) 0.5 (0.1-1.2) X10*3/uL Eos # (Auto) 0.0 (0.0-0.4) X10*3/uL Baso # (Auto) 0.1 (0.0-0.2) X10*3/uL Abs Immat Gran (auto) 0.09 H (0.00-0.03) X10*3/uL Absolute Neuts (auto) 9.7 H (2.0-8.3) X10*3/uL Absolute Nucleated RBC 0.000 (0.0-0.012) X10*3/uL Nucleated RBC % (auto) 0.0 (0.0-0.2) /100WBC Sodium 138 (135-145) mmol/L Potassium 3.9 (3.3-5.1) mmol/L Chloride 103 (96-108) mmol/L Carbon Dioxide 20 L (22-29) mmol/L Anion Gap 19 (12-20) BUN 6 L (9-16) mg/dL Creatinine 0.75 (0.5-1.4) mg/dL Estim Creat Clear Calc 97.2 Estimated GFR > 60 POC Glucose 132 H (60-115) mg/dL Random Glucose 143 H (60-115) mg/dL Calcium 10.0 (8.4-10.2) mg/dL Total Bilirubin 0.5 (0.0-1.0) mg/dL Direct Bilirubin 0.2 (0.0-0.5) mg/dL AST 18 (5-31) U/L ALT 10 (0-31) U/L Alkaline Phosphatase 89 (39-117) U/L Total Protein 8.0 (6.5-8.0) g/dL Albumin 4.7 (3.5-5.0) g/dL Lipase 34 (8-78) U/L <KATERINA Ty - Last Filed: 07/16/21 22:45> Lab Results 07/16/21 07/16/21 07/17/21 Range/Units 21:05 21:05 00:24 WBC 12.2 H (4.8-10.8) X10*3/uL RBC 4.53 (4.20-5.50) X10*6/uL Hgb 10.7 L (12.0-16.0) g/dl Hct 35.0 L (37-47) % MCV 77.3 L (80-98) fL MCH 23.6 L (27.0-33.0) pg MCHC 30.6 L (31.0-35.0) g/dl RDW 18.1 H (11.0-16.0) % Plt Count 713 H (160-400) X10*3/uL MPV 8.7 L (9.4-12.3) fL Immature Gran % (Auto) 0.7 H (0.0-0.4) % Neut % (Auto) 79.3 H (45-73) % Lymph % (Auto) 15.5 L (20-40) % Clinch % (Auto) 3.7 (2-11) % Eos % (Auto) 0.2 (0-4) % Baso % (Auto) 0.6 (0-2) % Lymph # (Auto) 1.9 (1.2-4.9) X10*3/uL Clinch # (Auto) 0.5 (0.1-1.2) X10*3/uL Eos # (Auto) 0.0 (0.0-0.4) X10*3/uL Baso # (Auto) 0.1 (0.0-0.2) X10*3/uL Abs Immat Gran (auto) 0.09 H (0.00-0.03) X10*3/uL Absolute Neuts (auto) 9.7 H (2.0-8.3) X10*3/uL Absolute Nucleated RBC 0.000 (0.0-0.012) X10*3/uL Nucleated RBC % (auto) 0.0 (0.0-0.2) /100WBC Sodium 138 (135-145) mmol/L Potassium 3.9 (3.3-5.1) mmol/L Chloride 103 (96-108) mmol/L Carbon Dioxide 20 L (22-29) mmol/L Anion Gap 19 (12-20) BUN 6 L (9-16) mg/dL Creatinine 0.75 (0.5-1.4) mg/dL Estim Creat Clear Calc 97.2 Estimated GFR > 60 POC Glucose 132 H (60-115) mg/dL Random Glucose 143 H (60-115) mg/dL Calcium 10.0 (8.4-10.2) mg/dL Total Bilirubin 0.5 (0.0-1.0) mg/dL Direct Bilirubin 0.2 (0.0-0.5) mg/dL AST 18 (5-31) U/L ALT 10 (0-31) U/L Alkaline Phosphatase 89 (39-117) U/L Total Protein 8.0 (6.5-8.0) g/dL Albumin 4.7 (3.5-5.0) g/dL Lipase 34 (8-78) U/L <Hi Scruggs MD - Last Filed: 07/17/21 02:43> Discharge Plan Discharge Clinical Impression: Cyclic vomiting syndrome <KATERINA Ty - Last Filed: 07/16/21 22:45> Patient Disposition: Home, Self-Care <KATERINA Ty - Last Filed: 07/16/21 22:45> Prescriptions: New ondansetron HCl [Zofran] 4 mg tablet 4 mg PO Q8H PRN (Reason: nausea and vomiting) Qty: 10 RF: 0 No Action docusate sodium 100 mg capsule 100 mg PO DAILY PRN (Reason: constipation) 90 Days Qty: 90 RF: 3 risperidone 1 mg tablet 1 mg PO DAILY Qty: 90 RF: 3 gabapentin 100 mg capsule 100 mg PO TID Qty: 270 RF: 3 omeprazole 20 mg capsule,delayed release(DR/EC) 20 mg PO QAM Qty: 90 RF: 3 melatonin 10 mg capsule 10 mg PO BEDTIME PRN (Reason: for insomnia) Qty: 30 RF: 3 acetaminophen 325 mg tablet 650 mg PO Q6H PRN (Reason: fever or pain) 30 Days Qty: 120 RF: 6 ibuprofen 800 mg tablet 800 mg PO Q8H PRN (Reason: pain) 10 Days Qty: 30 RF: 0 cyclobenzaprine 10 mg tablet 10 mg PO BEDTIME 30 Days Qty: 30 RF: 0 ergocalciferol (vitamin D2) 1,250 mcg (50,000 unit) capsule 1,250 mcg PO QWEEK 30 Days Qty: 5 RF: 3 ferrous sulfate 325 mg (65 mg iron) tablet 325 mg PO BID 90 Days Qty: 180 RF: 3 paroxetine HCl 20 mg tablet 20 mg PO DAILY 90 Days Qty: 90 RF: 3 pyridoxine (vitamin B6) 25 mg tablet 25 mg PO TID 14 Days Qty: 42 RF: 0 ondansetron 4 mg tablet,disintegrating 4 mg PO Q8H PRN (Reason: nausea and vomiting) 30 Days Qty: 90 RF: 0 tranexamic acid [Lysteda] 650 mg tablet 1,300 mg PO TID 5 Days Qty: 30 RF: 11 <KATERINA Ty - Last Filed: 07/16/21 22:45> Referrals: Zonia Kamara MD [Primary Care Provider] - 1 week <KATERINA Ty - Last Filed: 07/16/21 22:45>
[2021-07-16 21:14] LABS: MANUAL DIFF FLAG NO
[2021-07-16 21:15] LABS: Basophils Absolute Auto 0.1 X10*3/uL (0.0-0.2); Basophils Percent Auto 0.6 % (0-2); Eosinophils Percent Auto 0.2 % (0-4); Hemoglobin 10.7 g/dl (12.0-16.0); Imm Gran Abs Auto 0.09 X10*3/uL (0.00-0.03); Imm Gran Pct Auto 0.7 % (0.0-0.4); Lymphocytes Absolute Auto 1.9 X10*3/uL (1.2-4.9); Lymphocytes Percent Auto 15.5 % (20-40); Mean Corpuscular HGB Conc 30.6 g/dl (31.0-35.0); Mean Corpuscular Hemoglobin 23.6 pg (27.0-33.0); Mean Corpuscular Volume 77.3 fL (80-98); Mean Platelet Volume 8.7 fL (9.4-12.3); Monocytes Absolute Auto 0.5 X10*3/uL (0.1-1.2); Monocytes Percent Auto 3.7 % (2-11); Neutrophils Absolute Auto 9.7 X10*3/uL (2.0-8.3); Neutrophils Percent Auto 79.3 % (45-73); Platelet Count 713 X10*3/uL (160-400); Red Blood Count 4.53 X10*6/uL (4.20-5.50); Red Cell Distribution Width 18.1 % (11.0-16.0); White Blood Count 12.2 X10*3/uL (4.8-10.8)
[2021-07-16 21:31] LABS: Alanine Aminotransferase 10 U/L (0-31); Albumin Level 4.7 g/dL (3.5-5.0); Alkaline Phosphatase 89 U/L (39-117); Anion Gap 19 (12-20); Aspartate Amino Transferase 18 U/L (5-31); Bilirubin Direct 0.2 mg/dL (0.0-0.5); Bilirubin Total 0.5 mg/dL (0.0-1.0); Blood Urea Nitrogen 6 mg/dL (9-16); Carbon Dioxide 20 mmol/L (22-29); Chloride 103 mmol/L (96-108); Creatinine Clr Calc Pharmacy 97.2; Estimated Glomerular Filt Rate > 60; Glucose Random 143 mg/dL (60-115); Lipase 34 U/L (8-78); Potassium 3.9 mmol/L (3.3-5.1); Sodium 138 mmol/L (135-145)
--- NOTE | 2021-07-16 21:33 | PC.NURSE ---
Patient here for nausea and vomiting. Asking for PO, explained to patient she has been vomiting and I will need to ask her nurse if it is ok. patient proceeded to the bathroom and filled a cup of water and drank the whole cup and able to tolerate.
[2021-07-16] MEDS: LORazepam 2 MG/ML VIAL 1 MG IVPUSH (21:58)
[2021-07-16] MEDS: ondansetron HCL 4 MG/2 ML VIAL IVPUSH (21:58)
[2021-07-16] MEDS: iohexoL 350 MG/ML 100 ML INFUS..BTL 85 ML IV (22:11)
--- NOTE | 2021-07-16 22:45 | PC.NURSE ---
IV access was previously established by Rita Otero RN. Shortly after CT scan, IV access infiltrated. No access at this time. Pt is a difficult stick. Provider aware. Pt also repeatedly asking for cranberry juice but vomiting.
[2021-07-17 00:27] VITALS: BP 189/107; PULSE 63; RESP 22; TEMP 36.5; O2SAT 100
[2021-07-17 00:28] LABS: Glucose, Whole Blood 132 mg/dL (60-115)
[2021-07-17] MEDS: 0.9 % Sodium Chloride 1,000 ML 999 ML IV (00:44)
--- NOTE | 2021-07-17 03:13 | PC.NURSE ---
pt was asking for pain medication for cyclic vomiing syndrome. provider made aware, pt did receive ativan and zofran. pt has a ride home and is ready for discharge. teaching on the need to stop smoking abner.
== END 2021-07-17 03:15 | disposition home or self-care (01) ==
PROVIDERS: Physician Assistant; Emergency Provider Emergency Medicine; PCP Internal Medicine
DX: R11.15 Cyclical vomiting syndrome unrelated to migraine (principal); R11.2 Nausea with vomiting, unspecified; R10.9 Unspecified abdominal pain; F12.90 Cannabis use, unspecified, uncomplicated; Z79.899 Other long term (current) drug therapy; F17.210 Nicotine dependence, cigarettes, uncomplicated; Z71.6 Tobacco abuse counseling
CPT/HCPCS: 36415; 74177; 80048; 80076; 82947; 83690; 85025; 96361; 96374; 96375; 99283; 99284; J2060; J2405; Q9967

== ENCOUNTER 2021-08-02 17:00 | Emergency (ER) | payer OTHER, SELFPAY ==
[2021-08-02 17:45] VITALS: BP 122/86; PULSE 81; RESP 18; TEMP 36.8; O2SAT 97; BMI 35.2
--- NOTE | 2021-08-02 18:39 | ED_ITS ---
HPI - Extremity Problem General Chief complaint: Extremity Injury, Upper Stated complaint: neck shoulder arm pain/ numb Time Seen by Provider: 08/02/21 17:59 Source: patient Mode of arrival: ambulatory Limitations: no limitations History of Present Illness HPI Narrative: Patient presents to the ED for right sided neck pain going down arm so for the past 2 days. Patient states she slept on the right side of her neck and shoulder & woke up with right-sided neck and shoulder feeling tight and limited ability to turn neck to the right side. Patient feeling like she has a knot in right trapezius/shoulder/right neck. Patient denies any trauma the neck/ shoulder/back. Patient denies any headache, fever, chills, nausea, vomiting, or photophobia. Patient denies any right upper extremity swelling. Patient denies any slurred speech, loss of vision, or paralysis of extremities. Related Data Previous Rx's Medication Instructions Recorded cyclobenzaprine 10 mg tablet 10 mg PO BEDTIME 30 Days #30 tab 09/30/20 ibuprofen 800 mg tablet 800 mg PO Q8H PRN 10 Days #30 tab 09/30/20 docusate sodium 100 mg capsule 100 mg PO DAILY PRN 90 Days #90 cap 11/08/20 risperidone 1 mg tablet 1 mg PO DAILY #90 tab 02/16/21 tranexamic acid 650 mg tablet 1,300 mg PO TID 5 Days #30 tab 03/14/21 (Lysteda) gabapentin 100 mg capsule 100 mg PO TID #270 cap 03/15/21 omeprazole 20 mg capsule,delayed 20 mg PO QAM #90 cap 05/09/21 release melatonin 10 mg capsule 10 mg PO BEDTIME PRN #30 cap 06/07/21 ergocalciferol (vitamin D2) 1,250 1,250 mcg PO QWEEK 30 Days #5 cap 06/16/21 mcg (50,000 unit) capsule ferrous sulfate 325 mg (65 mg 325 mg PO BID 90 Days #180 tab 06/16/21 iron) tablet ondansetron 4 mg disintegrating 4 mg PO Q8H PRN 30 Days #90 tab 06/16/21 tablet paroxetine HCl 20 mg tablet 20 mg PO DAILY 90 Days #90 tab 06/16/21 pyridoxine (vitamin B6) 25 mg 25 mg PO TID 14 Days #42 tab 06/16/21 tablet acetaminophen 325 mg tablet 650 mg PO Q6H PRN 30 Days #120 tab 07/05/21 ondansetron HCl 4 mg tablet 4 mg PO Q8H PRN #10 tab 07/17/21 (Zofran) cyclobenzaprine 10 mg tablet 10 mg PO TID PRN #21 tab 08/02/21 naproxen 500 mg tablet 500 mg PO BID PRN #20 tab 08/02/21 Allergies Allergy/AdvReac Type Severity Reaction Status Date / Time metoclopramide [From REGLAN] Allergy Mild MAKES ME Verified 08/02/21 17:45 COLD prochlorperazine Allergy Mild RASH, gets Verified 08/02/21 17:45 [From Compazine] cold famotidine [Pepcid] AdvReac Mild loss of Verified 08/02/21 17:45 appetite Review of Systems Review of Systems: Yes all other systems are reviewed and are negative Constitutional: Constitutional: Reports as per HPI and Reports no additional constitutional complaints Eyes: Eyes: Reports as per HPI and Reports no additional eye complaints ENT: Reports system reviewed and no additional complaints, except as documented, Reports as per HPI and Reports neck pain (right sided neck pain) Cardiovascular: Cardiovascular: Reports as per HPI and Reports no additional cardiovascular complaints Respiratory: Respiratory: Reports as per HPI and Reports no additional respiratory complaints Gastrointestinal: Gastrointestinal: Reports as per HPI and Reports no additional gastrointestinal complaints Genitourinary: Genitourinary: Reports no additional female genitourinary complaints and Reports as per HPI Musculoskeletal: Musculoskeletal: Reports no additional musculoskeletal complaints, Reports as per HPI, Reports arthralgias (right shoulder) and Reports neck pain (right sided neck pain) Integumentary/Breasts: Skin/Breast: Reports system reviewed and no additional complaints, except as docu and Reports as per HPI Neurologic: Reports system reviewed and no additional complaints, except as documented and Reports as per HPI Psychiatric: Psychiatric: Reports no additional psychiatric complaints and Reports as per HPI PMFSH Past Medical History Medical History Anemia Anxiety Chest pain Chest pain Cyclic vomiting syndrome Depression GERD (gastroesophageal reflux disease) History of back pain History of bipolar disorder Hx of Hx of iron deficiency anemia Hx of migraines Hypokalemia Iron deficiency anemia due to chronic blood loss Iron deficiency anemia due to chronic blood loss Marijuana use, continuous Menorrhagia Moderate recurrent major depression Numbness of foot Renal calculi Shortness of breath Syphilis contact, treated Surgical History History of dilation and curettage Hx of colonoscopy Hx of esophagogastroduodenoscopy Family History Family History (Updated 06/16/21 @ 11:33 by OBIE Linder) Mother HTN (hypertension) Maternal Grandmother HTN (hypertension) Maternal Uncle HTN (hypertension) Maternal Aunt Diabetes mellitus Family/Other Mental health disorder Substance use disorder Social History Social History Housing: Apartment Are you a primary healthcare network consultant to a significant other at home: No Do you presently have visiting nurse or other home services: No Alcohol intake: never Cigarette Packs Per Day: 0.25 Cigarettes Per Day: 5 Years Smoked: 15 e-Cigarette/Vaping Use: Never Used Second Hand Smoke Exposure: No Substance Use Type: Marijuana Advance Directives: No Advance Directives Information Provided: Yes Patient : No service: No Current occupational status: unemployed Physical Exam Vital Signs: Vital Signs: Last Vital Signs Temp 98.3 F 08/02/21 17:45 Pulse 81 08/02/21 17:45 Resp 18 08/02/21 17:45 BP 122/86 08/02/21 17:45 Pulse Ox 97 08/02/21 17:45 Body Mass Index 35.2 Const: General: cooperative, healthy appearing, comfortable, no acute distress, well developed, alert, awake and Physically active Orientation/consciousness: patient oriented x3 HENMT: Head: Yes normal to inspection, Yes No palpable skull fracture present, Yes normocephalic, Yes atraumatic and No abrasion Head images: 1. Tender on the right trapezius/right shoulder and right lateral neck on palpation and movement. Negative for palpable mass on palpation. Negative for any posterior neck tenderness on palpation. Negative for photophobia. Negative for meningeal signs. Negative for any ecchymosis or bruises of anterior, lateral, and posterior neck Eyes: General: appearance normal, both eyes and all related structures Neck: Neck: Yes normal visual inspection, Yes full ROM, Yes no lymp hadenopathy, Yes no meningeal signs, Yes trachea midline, Yes supple and Yes tender Chest: Chest palpation & inspection: normal inspection of the chest and normal palpation of entire chest wall Resp: Effort & Inspection: normal respiratory effort and able to speak in complete sentences Cardio: Jugular venous distension: no JVD Heart sounds: S1 normal heart sound present and S2 normal heart sound present GI: Inspection: Yes normal to inspection and No abdominal wall ecchymosis Palpation (GI): Soft to palpation, not firm, nontender, no guarding and not rigid : General: No CVA tenderness and Yes no CVA tenderness Back/Spine/Pelvis: Back: no CVA tenderness, No CVA tenderness and No back tenderness Skin: General skin exam: no rashes or lesions noted and elasticity normal Neuro: General: patient oriented x3, gait normal, no meningeal signs and CN's II-XI intact bilaterally Cranial nerves: Yes CN's II-XII intact bilaterally Extrem: General: Yes normal to inspection and Yes full ROM Shoulder/upper arm images: 1. Tender and patient states feels tight. Negative for ecchymosis or obvious deformity. Patient has range of motion of shoulder. Right upper extremity negative for swelling, redness, mass, bluish black discoloration, hotness, coolness. Neural, vascular, motor exam of right upper e xtremity intact. Psych: Appearance: grossly normal, well kempt and not disheveled Course Course Course Narrative: No indication for imaging. Not suspecting meningitis. not Suspect any carotid dissection. Patient did not have any recent chiropractic work of neck or any trauma Reevaluation(s) Reevaluation #1: Diagnosis muscle spasm/torcillosis. Patient discharged with NSAIDs and muscle relaxers Time: 18:46 Discharge Plan Discharge Clinical Impression: Muscle spasm, Torticollis Patient Disposition: Home, Self-Care Instructions: Muscle Spasm (ED) Additional Instructions: Return to ED for any headache, neck stiffness, photophobia, fever, chills, slurred speech, swelling of right upper extremity, severe neck pain, paralysis of extremity, chest pain, shortness of breath, loss of vision, dizziness, or any other concerning symptoms. Warm compress can be placed on area for relief. Please follow-up with primary care provider. Prescriptions: New naproxen 500 mg tablet 500 mg PO BID PRN (Reason: pain) Qty: 20 RF: 0 cyclobenzaprine 10 mg tablet 10 mg PO TID PRN (Reason: muscle spasm) Qty: 21 RF: 0 No Action docusate sodium 100 mg capsule 100 mg PO DAILY PRN (Reason: constipation) 90 Days Qty: 90 RF: 3 risperidone 1 mg tablet 1 mg PO DAILY Qty: 90 RF: 3 gabapentin 100 mg capsule 100 mg PO TID Qty: 270 RF: 3 omeprazole 20 mg capsule,delayed release(DR/EC) 20 mg PO QAM Qty: 90 RF: 3 melatonin 10 mg capsule 10 mg PO BEDTIME PRN (Reason: for insomnia) Qty: 30 RF: 3 acetaminophen 325 mg tablet 650 mg PO Q6H PRN (Reason: fever or pain) 30 Days Qty: 120 RF: 6 ondansetron HCl [Zofran] 4 mg tablet 4 mg PO Q8H PRN (Reason: nausea and vomiting) Qty: 10 RF: 0 ibuprofen 800 mg tablet 800 mg PO Q8H PRN (Reason: pain) 10 Days Qty: 30 RF: 0 cyclobenzaprine 10 mg tablet 10 mg PO BEDTIME 30 Days Qty: 30 RF: 0 ergocalciferol (vitamin D2) 1,250 mcg (50,000 unit) capsule 1,250 mcg PO QWEEK 30 Days Qty: 5 RF: 3 ferrous sulfate 325 mg (65 mg iron) tablet 325 mg PO BID 90 Days Qty: 180 RF: 3 paroxetine HCl 20 mg tablet 20 mg PO DAILY 90 Days Qty: 90 RF: 3 pyridoxine (vitamin B6) 25 mg tablet 25 mg PO TID 14 Days Qty: 42 RF: 0 ondansetron 4 mg tablet,disintegrating 4 mg PO Q8H PRN (Reason: nausea and vomiting) 30 Days Qty: 90 RF: 0 tranexamic acid [Lysteda] 650 mg tablet 1,300 mg PO TID 5 Days Qty: 30 RF: 11 Interventions: ED Discharge Assessment Last Done: 08/02/21 19:00 Discharge Date/Time: 08/02/21 19:25 Print Language: Greenlandic
[2021-08-02] MEDS: Ibuprofen 800 MG TABLET PO (18:54)
[2021-08-02] MEDS: Cyclobenzaprine HCl 10 MG TABLET PO (18:54)
== END 2021-08-02 19:25 | disposition home or self-care (01) ==
PROVIDERS: Emergency Provider Internal Medicine; PCP Internal Medicine
DX: G24.3 Spasmodic torticollis (principal); M54.2 Cervicalgia; M25.511 Pain in right shoulder; F17.210 Nicotine dependence, cigarettes, uncomplicated; F12.90 Cannabis use, unspecified, uncomplicated; Z79.899 Other long term (current) drug therapy; Z71.6 Tobacco abuse counseling
CPT/HCPCS: 99283

== ENCOUNTER 2021-09-29 12:02 | Outpatient (REF) | payer OTHER, SELFPAY ==
[2021-09-29 12:28] LABS: MANUAL DIFF FLAG NO
[2021-09-29 12:45] LABS: Basophils Absolute Auto 0.1 X10*3/uL (0.0-0.2); Basophils Percent Auto 0.7 % (0-2); Eosinophils Absolute Auto 0.7 X10*3/uL (0.0-0.4); Eosinophils Percent Auto 8.7 % (0-4); Hematocrit 32.4 % (37.0-47.0); Hemoglobin 9.4 g/dl (12.0-16.0); Imm Gran Abs Auto 0.03 X10*3/uL (0.00-0.03); Imm Gran Pct Auto 0.4 % (0.0-0.4); Lymphocytes Absolute Auto 2.7 X10*3/uL (1.2-4.9); Lymphocytes Percent Auto 36.5 % (20-40); Mean Corpuscular Hemoglobin 22.9 pg (27.0-33.0); Mean Platelet Volume 8.7 fL (9.4-12.3); Monocytes Absolute Auto 0.5 X10*3/uL (0.1-1.2); Monocytes Percent Auto 6.7 % (2-11); Neutrophils Absolute Auto 3.5 x10*3/uL (2.0-8.3); Platelet Count 563 X10*3/uL (160-400); Red Cell Distribution Width 17.6 % (11.0-16.0); White Blood Count 7.5 X10*3/uL (4.8-10.8)
[2021-09-29 13:24] LABS: Alanine Aminotransferase 13 U/L (0-31); Albumin Level 4.3 g/dL (3.5-5.0); Alkaline Phosphatase 87 U/L (39-117); Anion Gap 11 (12-20); Aspartate Amino Transferase 16 U/L (5-31); Bilirubin Total 0.3 mg/dL (0.0-1.0); Blood Urea Nitrogen 9 mg/dL (9-16); Calcium 9.2 mg/dL (8.4-10.2); Carbon Dioxide 26 mmol/L (22-29); Chloride 108 mmol/L (96-108); Cholesterol 134 mg/dL; Estimated Glomerular Filt Rate > 60; Glucose Fasting 76 mg/dL (60-99); HDL Cholesterol 55 mg/dL; Iron 20 mcg/dL (30-160); LDL Cholesterol Calculated 65 mg/dl; Percent Iron Saturation 4 % (15-50); Sodium 141 mmol/L (135-145); Total Iron Binding Capacity 489 mcg/dL (228-428); Total Protein 7.4 g/dL (6.5-8.0); Triglycerides 70 mg/dL; Unsaturated Iron Binding 469 ug/dL
[2021-09-29 13:38] LABS: Thyroid Stimulating Hormone 15.73 uIU/mL (0.32-4.0)
[2021-10-04 12:41] LABS: Vitamin D 25-OH, D2 6 ng/mL; Vitamin D 25-OH, D3 10 ng/mL; Vitamin D 25-OH, Total 16 ng/mL (30-100)
== END 2021-09-29 12:03 | disposition home or self-care (01) ==
LOC: HO.LAB 12:02
PROVIDERS: PCP Internal Medicine; Visit Provider Internal Medicine
DX: R07.9 Chest pain, unspecified (principal); D64.9 Anemia, unspecified; E55.9 Vitamin D deficiency, unspecified; E66.9 Obesity, unspecified; E78.5 Hyperlipidemia, unspecified
CPT/HCPCS: 36415; 80053; 80061; 82306; 83540; 84443; 85025

== ENCOUNTER 2021-10-14 14:13 | Outpatient (REF) | payer OTHER, SELFPAY ==
[2021-10-14 14:35] LABS: MANUAL DIFF FLAG NO
[2021-10-14 14:55] LABS: Basophils Absolute Auto 0.1 X10*3/uL (0.0-0.2); Basophils Percent Auto 0.8 % (0-2); Eosinophils Absolute Auto 0.6 X10*3/uL (0.0-0.4); Eosinophils Percent Auto 6.7 % (0-4); Hematocrit 32.7 % (37.0-47.0); Hemoglobin 9.4 g/dl (12.0-16.0); Imm Gran Abs Auto 0.03 X10*3/uL (0.00-0.03); Imm Gran Pct Auto 0.3 % (0.0-0.4); Lymphocytes Absolute Auto 1.9 X10*3/uL (1.2-4.9); Mean Corpuscular HGB Conc 28.7 g/dl (31.0-35.0); Mean Corpuscular Hemoglobin 22.4 pg (27.0-33.0); Mean Corpuscular Volume 77.9 fL (80.0-98.0); Mean Platelet Volume 8.7 fL (9.4-12.3); Monocytes Absolute Auto 0.5 X10*3/uL (0.1-1.2); Neutrophils Absolute Auto 5.8 x10*3/uL (2.0-8.3); Neutrophils Percent Auto 65.2 % (45-73); Platelet Count 616 X10*3/uL (160-400); Red Cell Distribution Width 17.4 % (11.0-16.0); White Blood Count 8.8 X10*3/uL (4.8-10.8)
[2021-10-14 15:21] LABS: Alanine Aminotransferase 10 U/L (0-31); Albumin Level 4.5 g/dL (3.5-5.0); Alkaline Phosphatase 81 U/L (39-117); Anion Gap 11 (12-20); Aspartate Amino Transferase 16 U/L (5-31); Bilirubin Total 0.4 mg/dL (0.0-1.0); Blood Urea Nitrogen 8 mg/dL (9-16); Calcium 9.5 mg/dL (8.4-10.2); Carbon Dioxide 27 mmol/L (22-29); Chloride 107 mmol/L (96-108); Cholesterol 141 mg/dL; Estimated Glomerular Filt Rate > 60; Glucose Fasting 109 mg/dL (60-99); HDL Cholesterol 52 mg/dL; Iron 15 mcg/dL (30-160); LDL Cholesterol Calculated 74 mg/dl; Percent Iron Saturation 3 % (15-50); Potassium 3.8 mmol/L (3.3-5.1); Sodium 141 mmol/L (135-145); Total Iron Binding Capacity 506 mcg/dL (228-428); Total Protein 7.5 g/dL (6.5-8.0); Triglycerides 76 mg/dL; Unsaturated Iron Binding 491 ug/dL
[2021-10-14 15:43] LABS: Free T4 (Free Thyroxine) 0.79 ng/dL (0.71-1.85)
[2021-10-17 03:54] LABS: HBS Num1 4.15 mIU/mL (0-7.99); HBc Num1 0.06 S/CO (0.00-0.79); HBsAGNum1 0.27 S/CO (0.00-0.99); Hepatitis B Core Antibody Nonreactive (Nonreactive); Hepatitis B Surface Antigen Negative (Negative); ~Hepatitis B Surface Antibody NONREACTIVE (Nonreactive)
[2021-10-17 07:47] LABS: TS Negative Control Passed; TS Panel A 0; TS Panel B 0; TS Positive Control Passed; TSpotTB Negative (Negative)
[2021-10-17 17:02] LABS: Thyroid Peroxidase Antibodies >900 IU/mL (<9)
[2021-10-17 21:10] LABS: Thyroglobulin Antibodies 5 IU/mL (< or = 1)
[2021-10-17 21:36] LABS: Rubella IgG Antibody 3.13 Index
[2021-10-20 17:42] LABS: Vitamin D 25-OH, D2 16 ng/mL; Vitamin D 25-OH, D3 14 ng/mL; Vitamin D 25-OH, Total 30 ng/mL (30-100)
== END 2021-10-14 14:14 | disposition home or self-care (01) ==
LOC: HO.LAB 14:13
PROVIDERS: PCP Internal Medicine; Visit Provider Internal Medicine
DX: Z01.84 Encounter for antibody response examination (principal); R06.02 Shortness of breath; E03.9 Hypothyroidism, unspecified; D64.9 Anemia, unspecified; E78.5 Hyperlipidemia, unspecified; E55.9 Vitamin D deficiency, unspecified
CPT/HCPCS: 36415; 80053; 80061; 82306; 83540; 84439; 85025; 86376; 86481; 86704; 86706; 86735; 86762; 86765; 86787; 86800; 87340

== ENCOUNTER 2021-10-30 08:03 | Emergency (ER) | payer OTHER, SELFPAY ==
--- NOTE | ~2021-10-30 | CT_ITS ---
EXAMINATION: CT ABDOMEN AND PELVIS WITHOUT CONTRAST CLINICAL INFORMATION: Left flank pain with blood in urine COMPARISON: Prior CT scan the abdomen and pelvis June 2021 TECHNIQUE: Multidetector volumetric imaging was performed from the superior aspect of the liver through the pubic symphysis. Sagittal and coronal reformatted images were obtained on the technologist's workstation. This CT examination was performed using dose optimization techniques as appropriate, variously including the following: *Automated exposure control *Adjustment of mA and/or kV according to patient size (this includes techniques or standardized protocols for targeted exams where dose is matched to indication/reason for exam; i.e. extremities or head) *Use of iterative reconstruction technique DLP: 656 mGy-cm FINDINGS: LUNG BASES: The visualized lung bases are unremarkable. LIVER, GALLBLADDER, AND BILIARY TREE: The liver is normal in size, shape, and attenuation. No focal hepatic lesion or biliary ductal dilatation is present. The gallbladder is unremarkable with no evidence of radiopaque gallstones, gallbladder wall thickening, or obvious pericholecystic inflammatory changes. PANCREAS: Unremarkable. SPLEEN: Unremarkable. ADRENAL GLANDS: Unremarkable. KIDNEYS AND URETERS: The kidneys are normal in size, shape, and attenuation. No hydronephrosis, hydroureter, or calculi seen. No perinephric stranding. BLADDER: Unremarkable. GASTROINTESTINAL TRACT: The small and large bowel are unremarkable. The appendix is unremarkable. ABDOMINAL WALL: No significant hernia is appreciated. LYMPH NODES: Normal. VASCULAR: Unremarkable. PELVIC VISCERA: Unremarkable. OSSEOUS STRUCTURES: Unremarkable. CT/CT abdomen pelvis wo con IMPRESSION: No significant abnormality. No evidence for urinary tract calculi Fleischner guidelines were followed.
[2021-10-30 08:31] VITALS: BP 180/103; PULSE 93; RESP 16; TEMP 36.9; O2SAT 98; BMI 35.2
--- NOTE | 2021-10-30 08:54 | ED.GENADULT ---
HPI - General Adult General Chief complaint: General Medical Stated complaint: Flu Like Symptoms Time Seen by Provider: 10/30/21 08:53 Source: patient Mode of arrival: ambulatory Limitations: no limitations History of Present Illness HPI narrative: 36-year-old female came in for evaluation of abdominal pain. This is a 36-year-old female history of chronic abdominal pain, stated that her abdominal pain started 3-4 days ago as diffuse abdominal pain, feeling nauseous, but no vomiting, pain is localized to left side of the abdomen, describing the pain as dull aching pain, moderate in severity, 5/10., no alleviating factor, no relieving factor, no aggravating factor, patient had this pain in the past multiple times, patient was seen at [facility] and [facility] in the last 2-3 days but patient left because the long time of waiting in those 2 hospitals, last bowel movement was 3 days ago patient also feels constipated. Patient with history of chronic cyclical vomiting, with chronic marijuana use. LMP is today, no vaginal discharge otherwise and no abnormal vaginal bleeding, patient declined chance of being . Patient declined chance of being . Related Data Previous Rx's Medication Instructions Recorded ibuprofen 800 mg tablet 800 mg PO Q8H PRN 10 Days #30 tab 09/30/20 docusate sodium 100 mg capsule 100 mg PO DAILY PRN 90 Days #90 cap 11/08/20 risperidone 1 mg tablet 1 mg PO DAILY #90 tab 02/16/21 omeprazole 20 mg capsule,delayed 20 mg PO QAM #90 cap 05/09/21 release ferrous sulfate 325 mg (65 mg 325 mg PO BID 90 Days #180 tab 06/16/21 iron) tablet paroxetine HCl 20 mg tablet 20 mg PO DAILY 90 Days #90 tab 06/16/21 pyridoxine (vitamin B6) 25 mg 25 mg PO TID 14 Days #42 tab 06/16/21 tablet ondansetron HCl 4 mg tablet 4 mg PO Q8H PRN #10 tab 07/17/21 (Zofran) cyclobenzaprine 10 mg tablet 10 mg PO TID PRN #21 tab 08/02/21 naproxen 500 mg tablet 500 mg PO BID PRN #20 tab 08/02/21 fluconazole 150 mg tablet 150 mg PO Q3D #2 tab 09/27/21 gabapentin 100 mg capsule 100 mg PO TID #270 cap 09/27/21 tranexamic acid 650 mg tablet 1,300 mg PO TID 30 Days #180 tab 09/27/21 (Lysteda) levothyroxine 25 mcg tablet 25 mcg PO DAILY 90 Days #90 tab 10/01/21 ergocalciferol (vitamin D2) 1,250 1,250 mcg PO QWEEK 30 Days #5 cap 10/04/21 mcg (50,000 unit) capsule melatonin 10 mg capsule 10 mg PO BEDTIME PRN #30 cap 10/08/21 acetaminophen 325 mg tablet 650 mg PO Q6H PRN 30 Days #120 tab 10/30/21 ondansetron HCl 4 mg tablet 4 mg PO Q8H PRN #7 tab 10/30/21 (Zofran) Allergies Allergy/AdvReac Type Severity Reaction Status Date / Time metoclopramide [From REGLAN] Allergy Mild MAKES ME Verified 09/27/21 11:27 COLD prochlorperazine Allergy Mild RASH, gets Verified 09/27/21 11:27 [From Compazine] cold famotidine [Pepcid] AdvReac Mild loss of Verified 09/27/21 11:27 appetite Review of Systems Review of Systems: All other systems are reviewed and are negative Constitutional: Reports as per HPI and Reports no additional constitutional complaints Eyes: Reports as per HPI and Reports no additional eye complaints Reports system reviewed and no additional complaints, except as documented Cardiovascular: Reports as per HPI and Reports no additional cardiovascular complaints Respiratory: Reports as per HPI and Reports no additional respiratory complaints Gastrointestinal: Reports as per HPI and Reports no additional gastrointestinal complaints Genitourinary: Reports no additional female genitourinary complaints Musculoskeletal: Reports no additional musculoskeletal complaints Skin/Breast: Reports system reviewed and no additional complaints, except as docu Psychiatric: Reports no additional psychiatric complaints Endocrine: Reports no additional endocrine complaints Hematologic/Lymphatic: Reports no additional hematologic/lymphatic complaints Allergic/Immunologic: Reports no additional allergic/immunologic complaints Reports system reviewed and no additional complaints, except as documented and Reports Abnormal speech present [facility] Past Medical History Medical History Anemia Anxiety Chest pain Chest pain Cyclic vomiting syndrome Depression GERD (gastroesophageal reflux disease) History of back pain History of bipolar disorder Hx of Hx of iron deficiency anemia Hx of migraines Hypokalemia Hypothyroidism Iron deficiency anemia due to chronic blood loss Iron deficiency anemia due to chronic blood loss Marijuana use, continuous Menorrhagia Moderate recurrent major depression Numbness of foot Polyarthralgia Renal calculi Shortness of breath Syphilis contact, treated Surgical History History of dilation and curettage Hx of colonoscopy Hx of esophagogastroduodenoscopy Family History Family History Mother HTN (hypertension) Maternal Grandmother HTN (hypertension) Maternal Uncle HTN (hypertension) Maternal Aunt Diabetes mellitus Family/Other Mental health disorder Substance use disorder Social History Social History Housing: Apartment Are you a primary housekeeper caregiver to a significant other at home: No Do you presently have visiting nurse or other home services: No Alcohol intake: never Cigarette Packs Per Day: 0.25 Cigarettes Per Day: 5 Years Smoked: 15 e-Cigarette/Vaping Use: Never Used Second Hand Smoke Exposure: No Substance Use Type: Marijuana Advance Directives: No Advance Directives Information Provided: No Patient : No service: No Current occupational status: unemployed Physical Exam Vital Signs: Vital Signs: Last Vital Signs Temp 98.4 F 10/30/21 13:15 Pulse 78 10/30/21 13:15 Resp 16 10/30/21 13:15 BP 183/97 H 10/30/21 13:15 Pulse Ox 100 10/30/21 13:15 BMI result Body Mass Index 35.2 Vital signs have been reviewed as appeared to be correct. Blood pressure elevated. Heart rate normal. Respiration rate normal. Temperature normal. Oxygen saturation normal. Appearance: Alert. Oriented X3. No acute distress. Head: Normal external exam. Normocephalic. Atraumatic. No Faulkner signs noted. No raccoon eyes noted Eyes: PERRLA. EOMI. Conjunctiva and sclera normal. Eyelids normal. ENT: TM's Normal. Pharynx normal. Uvula midline. Moist mucous membranes. No trismus noted. No drooling noted. No muffled voice noted. Neck: Normal inspection. Neck supple. FROM. No adenopathy. Thyroid Normal. No meningeal signs. No neck mass noted. CVS: Normal heart rate and rhythm. Heart sound normal. No murmurs noted. Pulses normal throughout. Respiratory: No respiratory distress. Painless inspiration. Breath sounds normal. No wheezes/rales/rhonchi noted. Chest nontender. No accessory muscle usage noted or decreased air movement noted. Abdomen: Soft and nontender. Bowel sounds normal in all 4 quadrants. No distention noted. No organomegaly noted. No visible injury noted. Back: No CVA tenderness. Full range of motion noted. Skin: Skin warm and dry. Normal skin color. Normal skin turgor. No rashes/lesions/lacerations noted. Extremities: No lower extremity edema. Extremities exhibit normal range of motion. Extremities nontender. Neuro: Oriented X 3. Cranial nerve exam: II-XII are grossly intact No motor deficit. No sensory deficit. Reflexes normal. Course Course Course Narrative: Assessment and plan. 36-year-old female came in for evaluation of abdominal pain and nausea and vomiting, patient is well-known to our ED staff, patient had leukocytosis, and chronic anemia but otherwise unremarkable labs, blood in the urine secondary to menstruation now, CT abdomen and pelvis is unremarkable for acute pathology. Patient now feels better and able to tolerate p.o. intake. I have taken care of this patient in the past patient not really truly drug seeker but patient believes that morphine is the only medicine work for her, on I also felt that patient had mental/psychiatric component into her frequent symptoms of abdominal pain. Patient at the current time denies SI or HI or hallucination. Medical Decision Making Lab Data Lab results reviewed: Yes I reviewed the patient's lab results. Result diagrams: 10/30/21 11:28 10/30/21 11:28 Labs: Lab Results 10/30/21 10/30/21 10/30/21 Range/Units 09:07 09:07 11:28 WBC 16.7 H (4.8-10.8) X10*3/uL RBC 4.42 (4.20-5.50) X10*6/uL Hgb 9.8 L (12.0-16.0) g/dl Hct 32.2 L (37.0-47.0) % MCV 72.9 L (80.0-98.0) fL MCH 22.2 L (27.0-33.0) pg MCHC 30.4 L (31.0-35.0) g/dl RDW 17.2 H (11.0-16.0) % Plt Count 752 H (160-400) X10*3/uL MPV 8.9 L (9.4-12.3) fL Immature Gran % (Auto) 1.4 H (0.0-0.4) % Neut % (Auto) 81.3 H (45-73) % Lymph % (Auto) 9.5 L (20-40) % Johnson % (Auto) 7.6 (2-11) % Eos % (Auto) 0.0 (0-4) % Baso % (Auto) 0.2 (0-2) % Lymph # (Auto) 1.6 (1.2-4.9) X10*3/uL Johnson # (Auto) 1.3 H (0.1-1.2) X10*3/uL Eos # (Auto) 0.0 (0.0-0.4) X10*3/uL Baso # (Auto) 0.0 (0.0-0.2) X10*3/uL Abs Immat Gran (auto) 0.23 H (0.00-0.03) X10*3/uL Absolute Neuts (auto) 13.6 H (2.0-8.3) x10*3/uL Absolute Nucleated RBC 0.030 H (0.0-0.012) X10*3/uL Nucleated RBC % (auto) 0.2 (0.0-0.2) /100WBC Sodium (135-145) mmol/L Potassium (3.3-5.1) mmol/L Chloride (96-108) mmol/L Carbon Dioxide (22-29) mmol/L Anion Gap (12-20) BUN (9-16) mg/dL Creatinine (0.5-1.4) mg/dL Estim Creat Clear Calc Estimated GFR Random Glucose (60-115) mg/dL Calcium (8.4-10.2) mg/dL Total Bilirubin (0.0-1.0) mg/dL Direct Bilirubin (0.0-0.5) mg/dL AST (5-31) U/L ALT (0-31) U/L Alkaline Phosphatase (39-117) U/L Troponin I High Sens (<3.5-17.0) ng/L Total Protein (6.5-8.0) g/dL Albumin (3.5-5.0) g/dL Lipase (8-78) U/L Urine Color DK YELLOW Urine Appearance CLOUDY Urine pH 6.0 (5.0-8.0) Ur Specific [place] >= 1.030 H (1.005-1.025) Urine Protein 3+ H (NEG-TRACE) MG/DL Urine Glucose (UA) NEG (NEG) MG/DL Urine Ketones 40 (NEG) MG/DL Urine Blood 3+ H (NEG) Urine Nitrite NEG (NEG) Ur Leukocyte Esterase NEG (NEG) Urine RBC TNTC H (0) /HPF Urine WBC 0-2 (0-4) /HPF Ur Squamous Epith Cells 1+ /LPF Urine Bacteria NONE /LPF Urine Test NEGATIVE (NEGATIVE) 10/30/21 10/30/21 Range/Units 11:28 11:28 WBC (4.8-10.8) X10*3/uL RBC (4.20-5.50) X10*6/uL Hgb (12.0-16.0) g/dl Hct (37.0-47.0) % MCV (80.0-98.0) fL MCH (27.0-33.0) pg MCHC (31.0-35.0) g/dl RDW (11.0-16.0) % Plt Count (160-400) X10*3/uL MPV (9.4-12.3) fL Immature Gran % (Auto) (0.0-0.4) % Neut % (Auto) (45-73) % Lymph % (Auto) (20-40) % Johnson % (Auto) (2-11) % Eos % (Auto) (0-4) % Baso % (Auto) (0-2) % Lymph # (Auto) (1.2-4.9) X10*3/uL Johnson # (Auto) (0.1-1.2) X10*3/uL Eos # (Auto) (0.0-0.4) X10*3/uL Baso # (Auto) (0.0-0.2) X10*3/uL Abs Immat Gran (auto) (0.00-0.03) X10*3/uL Absolute Neuts (auto) (2.0-8.3) x10*3/uL Absolute Nucleated RBC (0.0-0.012) X10*3/uL Nucleated RBC % (auto) (0.0-0.2) /100WBC Sodium 140 (135-145) mmol/L Potassium 3.2 L (3.3-5.1) mmol/L Chloride 101 (96-108) mmol/L Carbon Dioxide 27 (22-29) mmol/L Anion Gap 15 (12-20) BUN 11 (9-16) mg/dL Creatinine 0.77 (0.5-1.4) mg/dL Estim Creat Clear Calc 93.8 Estimated GFR > 60 Random Glucose 126 H (60-115) mg/dL Calcium 10.3 H D (8.4-10.2) mg/dL Total Bilirubin 0.6 (0.0-1.0) mg/dL Direct Bilirubin 0.3 (0.0-0.5) mg/dL AST 39 H D (5-31) U/L ALT 17 (0-31) U/L Alkaline Phosphatase 99 D (39-117) U/L Troponin I High Sens 6.4 (<3.5-17.0) ng/L Total Protein 8.8 H (6.5-8.0) g/dL Albumin 5.0 (3.5-5.0) g/dL Lipase 35 (8-78) U/L Urine Color Urine Appearance Urine pH (5.0-8.0) Ur Specific [place] (1.005-1.025) Urine Protein (NEG-TRACE) MG/DL Urine Glucose (UA) (NEG) MG/DL Urine Ketones (NEG) MG/DL Urine Blood (NEG) Urine Nitrite (NEG) Ur Leukocyte Esterase (NEG) Urine RBC (0) /HPF Urine WBC (0-4) /HPF Ur Squamous Epith Cells /LPF Urine Bacteria /LPF Urine Test (NEGATIVE) Imaging Data CT scan - abdomen: Attestation: I personally reviewed and interpreted this imaging study as follows: Radiologist's impression: No significant abnormality. ? No evidence for urinary tract calculi ? Fleischner guidelines were followed. Discharge Plan Discharge Clinical Impression: Abdominal pain Patient Disposition: Home, Self-Care Instructions: Abdominal Pain (ED) Prescriptions: New ondansetron HCl [Zofran] 4 mg tablet 4 mg PO Q8H PRN (Reason: nausea and vomiting) Qty: 7 RF: 0 No Action docusate sodium 100 mg capsule 100 mg PO DAILY PRN (Reason: constipation) 90 Days Qty: 90 RF: 3 risperidone 1 mg tablet 1 mg PO DAILY Qty: 90 RF: 3 omeprazole 20 mg capsule,delayed release(DR/EC) 20 mg PO QAM Qty: 90 RF: 3 levothyroxine 25 mcg tablet 25 mcg PO DAILY 90 Days Qty: 90 RF: 1 ergocalciferol (vitamin D2) 1,250 mcg (50,000 unit) capsule 1,250 mcg PO QWEEK 30 Days Qty: 5 RF: 3 melatonin 10 mg capsule 10 mg PO BEDTIME PRN (Reason: for insomnia) Qty: 30 RF: 3 acetaminophen 325 mg tablet 650 mg PO Q6H PRN (Reason: fever or pain) 30 Days Qty: 120 RF: 6 ondansetron HCl [Zofran] 4 mg tablet 4 mg PO Q8H PRN (Reason: nausea and vomiting) Qty: 10 RF: 0 naproxen 500 mg tablet 500 mg PO BID PRN (Reason: pain) Qty: 20 RF: 0 cyclobenzaprine 10 mg tablet 10 mg PO TID PRN (Reason: muscle spasm) Qty: 21 RF: 0 ibuprofen 800 mg tablet 800 mg PO Q8H PRN (Reason: pain) 10 Days Qty: 30 RF: 0 ferrous sulfate 325 mg (65 mg iron) tablet 325 mg PO BID 90 Days Qty: 180 RF: 3 paroxetine HCl 20 mg tablet 20 mg PO DAILY 90 Days Qty: 90 RF: 3 pyridoxine (vitamin B6) 25 mg tablet 25 mg PO TID 14 Days Qty: 42 RF: 0 gabapentin 100 mg capsule 100 mg PO TID Qty: 270 RF: 3 tranexamic acid [Lysteda] 650 mg tablet 1,300 mg PO TID 30 Days Qty: 180 RF: 6 fluconazole 150 mg tablet 150 mg PO Q3D Qty: 2 RF: 0 Referrals: Zonia Kamara MD [Primary Care Provider] - 2 days
[2021-10-30 09:29] LABS: Appearance Urine CLOUDY; Color Urine DK YELLOW; Glucose Urine UA NEG (NEG); Leukocyte Esterase Urine NEG (NEG); Nitrite Urine NEG (NEG); Specific Gravity - Urine >= 1.030 (1.005-1.025); UACC Culture Trigger NO; Urine Blood 3+ (NEG); Urine Ketones 40 MG/DL (NEG); Urine Protein 3+ MG/DL (NEG-TRACE)
[2021-10-30 09:32] LABS: UPreg QC Valid YES; Urine Pregnancy NEGATIVE (NEGATIVE)
[2021-10-30 09:44] LABS: RBC Urine TNTC /HPF (0); Squamous Epithelial Cell Urine 1+ /LPF; WBC Urine 0-2 /HPF (0-4)
[2021-10-30] MEDS: Milk of Magnesia 30 ML ORAL.SUSP PO (10:12)
[2021-10-30] MEDS: 0.9 % Sodium Chloride 1,000 ML 999 ML IV (10:14)
[2021-10-30] MEDS: Morphine Sulfate 2 MG/ML CARTRIDGE 1 MG IVPUSH (10:23)
[2021-10-30 11:33] LABS: MANUAL DIFF FLAG NO
[2021-10-30 11:36] LABS: Basophils Percent Auto 0.2 % (0-2); Hematocrit 32.2 % (37.0-47.0); Hemoglobin 9.8 g/dl (12.0-16.0); Imm Gran Abs Auto 0.23 X10*3/uL (0.00-0.03); Imm Gran Pct Auto 1.4 % (0.0-0.4); Lymphocytes Absolute Auto 1.6 X10*3/uL (1.2-4.9); Lymphocytes Percent Auto 9.5 % (20-40); Mean Corpuscular HGB Conc 30.4 g/dl (31.0-35.0); Mean Corpuscular Hemoglobin 22.2 pg (27.0-33.0); Mean Corpuscular Volume 72.9 fL (80.0-98.0); Mean Platelet Volume 8.9 fL (9.4-12.3); Monocytes Absolute Auto 1.3 X10*3/uL (0.1-1.2); Monocytes Percent Auto 7.6 % (2-11); NRBC Pct Auto 0.2 /100WBC (0.0-0.2); Neutrophils Absolute Auto 13.6 x10*3/uL (2.0-8.3); Neutrophils Percent Auto 81.3 % (45-73); Platelet Count 752 X10*3/uL (160-400); Red Blood Count 4.42 X10*6/uL (4.20-5.50); Red Cell Distribution Width 17.2 % (11.0-16.0); White Blood Count 16.7 X10*3/uL (4.8-10.8)
--- NOTE | 2021-10-30 11:36 | ECG_ITS ---
Test Reason : CP Blood Pressure : / mmHG Vent. Rate : 061 BPM Atrial Rate : 061 BPM P-R Int : 132 ms QRS Dur : 082 ms QT Int : 434 ms P-R-T Axes : 046 018 029 degrees QTc Int : 436 ms Sinus rhythm with Premature atrial complexes Otherwise normal ECG When compared with ECG of 16-JUN-2021 12:25, Premature atrial complexes are now Present Referred By: Liliana Alexander Electronically Signed By:RAYNE MAURICE MD
[2021-10-30] MEDS: ondansetron HCL 4 MG/2 ML VIAL IVPUSH ×2 (11:48→13:07)
[2021-10-30] MEDS: Ketorolac Tromethamine 30 MG/ML VIAL IVPUSH (11:50)
[2021-10-30 11:52] LABS: Alanine Aminotransferase 17 U/L (0-31); Alkaline Phosphatase 99 U/L (39-117); Anion Gap 15 (12-20); Aspartate Amino Transferase 39 U/L (5-31); Bilirubin Direct 0.3 mg/dL (0.0-0.5); Bilirubin Total 0.6 mg/dL (0.0-1.0); Blood Urea Nitrogen 11 mg/dL (9-16); Calcium 10.3 mg/dL (8.4-10.2); Carbon Dioxide 27 mmol/L (22-29); Chloride 101 mmol/L (96-108); Creatinine Clr Calc Pharmacy 93.8; Estimated Glomerular Filt Rate > 60; Glucose Random 126 mg/dL (60-115); Lipase 35 U/L (8-78); Potassium 3.2 mmol/L (3.3-5.1); Sodium 140 mmol/L (135-145); Total Protein 8.8 g/dL (6.5-8.0)
[2021-10-30 12:49] LABS: Troponin-I High Sensitivity 6.4 ng/L (<3.5-17.0)
[2021-10-30] MEDS: Morphine Sulfate 2 MG/ML CARTRIDGE IVPUSH (13:11)
[2021-10-30] MEDS: Potassium Chloride Packet 20 MEQ PACKET 40 MEQ PO (13:12)
[2021-10-30] MEDS: Magnesium Hydrox/Alum Hydrox 30 ML ORAL.SUSP PO (13:14)
[2021-10-30 13:15] VITALS: BP 183/97; PULSE 78; RESP 16; TEMP 36.9; O2SAT 100
== END 2021-10-30 15:06 | disposition home or self-care (01) ==
PROVIDERS: Emergency Provider Emergency Medicine; PCP Internal Medicine
DX: R10.9 Unspecified abdominal pain (principal); D72.829 Elevated white blood cell count, unspecified; D64.9 Anemia, unspecified
CPT/HCPCS: 36415; 74176; 80048; 80076; 81001; 81025; 83690; 84484; 85025; 93005; 96361; 96374; 96375; 96376; 99284; J1885; J2270; J2405

== ENCOUNTER 2021-10-31 14:14 | Emergency (ER) | payer OTHER, SELFPAY ==
--- NOTE | ~2021-10-31 | XR_ITS ---
EXAMINATION: XR ABDOMEN KUB CLINICAL INDICATION: Evaluate stool burden COMPARISON: 02/22/2021 plain films and 10/30/2021 CT scan TECHNIQUE: AP view of the abdomen. FINDINGS: The bowel gas pattern is normal with no evidence of ileus or obstruction. No unusual soft tissue calcifications are noted. Mild degenerative changes at the lumbosacral junction with partial sacralization of L5 on the left. XR/XR KUB IMPRESSION: Unremarkable bowel gas pattern. No evidence for obstruction
[2021-10-31 14:22] VITALS: BP 172/100; PULSE 72; O2SAT 100
[2021-10-31 15:31] VITALS: BP 149/100; PULSE 94; RESP 16; TEMP 37.2; O2SAT 98; BMI 35.2
--- NOTE | 2021-10-31 20:09 | ED_ITS ---
HPI - Nausea/Vomiting/Diarrhea General Chief complaint: Nausea/Vomiting/Diarrhea Stated complaint: N/V X 1 WEEK Time Seen by Provider: 10/31/21 19:57 Source: patient Mode of arrival: ambulatory Limitations: no limitations History of Present Illness HPI Narrative: 36-year-old female with a history of cyclic vomiting syndrome, chronic abdominal pain and vomiting here with reports of abdominal pain for the last few days associated vomiting, inability to tolerate p.o.. Patient tells me she was seen her several days ago and had some lab work and a CT scan. She was discharged home but had continued symptoms. She has had some constipation and her last BM was about 5 days ago. She denies any fevers, chills, urinary symptoms. She is currently on her menses. Associated nausea: Yes Related Data Previous Rx's Medication Instructions Recorded ibuprofen 800 mg tablet 800 mg PO Q8H PRN 10 Days #30 tab 09/30/20 docusate sodium 100 mg capsule 100 mg PO DAILY PRN 90 Days #90 cap 11/08/20 risperidone 1 mg tablet 1 mg PO DAILY #90 tab 02/16/21 omeprazole 20 mg capsule,delayed 20 mg PO QAM #90 cap 05/09/21 release ferrous sulfate 325 mg (65 mg 325 mg PO BID 90 Days #180 tab 06/16/21 iron) tablet paroxetine HCl 20 mg tablet 20 mg PO DAILY 90 Days #90 tab 06/16/21 pyridoxine (vitamin B6) 25 mg 25 mg PO TID 14 Days #42 tab 06/16/21 tablet ondansetron HCl 4 mg tablet 4 mg PO Q8H PRN #10 tab 07/17/21 (Zofran) cyclobenzaprine 10 mg tablet 10 mg PO TID PRN #21 tab 08/02/21 naproxen 500 mg tablet 500 mg PO BID PRN #20 tab 08/02/21 fluconazole 150 mg tablet 150 mg PO Q3D #2 tab 09/27/21 gabapentin 100 mg capsule 100 mg PO TID #270 cap 09/27/21 tranexamic acid 650 mg tablet 1,300 mg PO TID 30 Days #180 tab 09/27/21 (Lysteda) levothyroxine 25 mcg tablet 25 mcg PO DAILY 90 Days #90 tab 10/01/21 ergocalciferol (vitamin D2) 1,250 1,250 mcg PO QWEEK 30 Days #5 cap 12/07/21 mcg (50,000 unit) capsule melatonin 10 mg capsule 10 mg PO BEDTIME PRN #30 cap 10/08/21 acetaminophen 325 mg tablet 650 mg PO Q6H PRN 30 Days #120 tab 10/30/21 ondansetron HCl 4 mg tablet 4 mg PO Q8H PRN #7 tab 10/30/21 (Zofran) ondansetron 4 mg disintegrating 4 mg PO Q6H PRN #10 tab 11/01/21 tablet Allergies Allergy/AdvReac Type Severity Reaction Status Date / Time metoclopramide [From REGLAN] Allergy Mild MAKES ME Verified 09/27/21 11:27 COLD prochlorperazine Allergy Mild RASH, gets Verified 09/27/21 11:27 [From Compazine] cold famotidine [Pepcid] AdvReac Mild loss of Verified 09/27/21 11:27 appetite Review of Systems Review of Systems: Yes all other systems are reviewed and are negative Constitutional: Constitutional: Reports no additional constitutional complaints, Denies body ache(s), Denies chills, Denies fever(s), Denies headache(s) and Denies weakness Eyes: Eyes: Reports no additional eye complaints and Denies change in vision ENT: Reports system reviewed and no additional complaints, except as d ocumented, Denies dizziness, Denies headache(s), Denies nasal congestion, Denies nasal discharge and Denies neck pain Cardiovascular: Cardiovascular: Reports no additional cardiovascular complaints, Denies chest pain, Denies leg edema and Denies dyspnea Respiratory: Respiratory: Reports no additional respiratory complaints, Denies cough and Denies dyspnea Gastrointestinal: Gastrointestinal: Reports no additional gastrointestinal complaints, Reports abdominal pain, Reports constipation, Denies diarrhea, Reports nausea and Reports vomiting Genitourinary: Genitourinary: Reports no additional female genitourinary complaints and Denies urinary incontinence Musculoskeletal: Musculoskeletal: Reports no additional musculoskeletal complaints, Denies back pain, Denies arthralgias, Denies joint swelling, Denies neck pain, Denies numbness and Denies tingling Integumentary/Breasts: Skin/Breast: Reports system reviewed and no additional complaints, except as docu and Denies rash Neurologic: Reports system reviewed and no additional complaints, except as documented, Denies Abnormal speech present, Denies dizziness, Denies headache(s), Denies numbness, Denies tingling and Denies weakness [facility] Past Medical History Attestation statement: The following information was validated with the patient. Source: old records reviewed and nursing notes reviewed Medical History Anemia Anxiety Chest pain Chest pain Cyclic vomiting syndrome Depression GERD (gastroesophageal reflux disease) History of back pain History of bipolar disorder Hx of Hx of iron deficiency anemia Hx of migraines Hypokalemia Hypothyroidism Iron deficiency anemia due to chronic blood loss Iron deficiency anemia due to chronic blood loss Marijuana use, continuous Menorrhagia Moderate recurrent major depression Numbness of foot Polyarthralgia Renal calculi Shortness of breath Syphilis contact, treated Surgical History History of dilation and curettage Hx of colonoscopy Hx of esophagogastroduodenoscopy Family History Family History Mother HTN (hypertension) Maternal Grandmother HTN (hypertension) Maternal Uncle HTN (hypertension) Maternal Aunt Diabetes mellitus Family/Other Mental health disorder Substance use disorder Social History Social History Housing: Apartment Are you a primary lawn care technician to a significant other at home: No Do you presently have visiting nurse or other home services: No Alcohol intake: never Cigarette Packs Per Day: 0.25 Cigarettes Per Day: 5 Years Smoked: 15 e-Cigarette/Vaping Use: Never Used Second Hand Smoke Exposure: No Substance Use Type: Marijuana Advance Directives: No Advance Directives Information Provided: No Patient : No service: No Current occupational status: unemployed Physical Exam Vital Signs: Vital Signs: Last Vital Signs Temp 99 F 10/31/21 22:00 Pulse 94 10/31/21 22:00 Resp 15 10/31/21 22:00 BP 149/100 H 10/31/21 22:00 Pulse Ox 98 10/31/21 22:00 BMI result Body Mass Index 35.2 Const: General: cooperative, healthy appearing, comfortable and no acute distress Orientation/consciousness: patient oriented x3 Limitations: no limitations HENMT: Head: Yes normal to inspection Ears: hearing grossly normal bilaterally and TM's normal bilaterally General nose exam: Normal external nose present Face and sinus: Yes normal facial exam Mouth: Normal oral and palatal mucosa present Throat: Yes posterior oropharynx normal, Yes tonsils normal and Yes uvula midline Eyes: General: appearance normal, both eyes and all related structures Pupils: Equal, round and reactive pupils present Neck: Neck: Yes normal visual inspection, Yes full ROM and Yes no lymphadenopathy Chest: Chest palpation & inspection: normal inspection of the chest Resp: Effort & Inspection: normal respiratory effort Auscultation: clear to auscultation bilaterally Cardio: Rate: regular rate Rhythm: regular rhythm Peripheral pulses: Peripheral pulses 2+ throughout GI: Inspection: Yes normal to inspection Palpation (GI): Soft to palpation and Tenderness to palpation present (GI) (Mild diffusely tender. Rebound or guarding) Auscultation: normal bowel sounds Back/Spine/Pelvis: Thoracic/Lumbar Spine: thoracic and lumbar spine normal to inspection Skin: General skin exam: no rashes or lesions noted Neuro: General: patient oriented x3, no focal motor deficits and normal sensation to monofilament Cranial nerves: Yes Equal, round and reactive pupils present Cognition (Neuro): normal cognition Speech: No Abnormal speech present Gait exam (Neuro): Normal gait present Motor exam (neuro): 5/5 motor strength present throughout Extrem: General: Yes normal to inspection Course Course Course Narrative: 36-year-old female here with reports of generalized abdominal pain with nausea and vomiting constipation. Patient has history of chronic abdominal pain with vomiting as well as cyclic vomiting syndrome. She states her symptoms feel similar to her baseline. She does have some constipation and is taking Colace without any relief of symptoms. Patient has had multiple ER vi sits for similar symptoms. She normally receives morphine during her ER visits and is requesting a dose of morphine when I went in to examine her. This is likely contributing to her constipation. Will check labs, UA, KUB. Abdomen is diffusely tender with no rebound and guarding. Patient had a normal CT scan on 10/30/21. 2100-Leukocytosis from vomiting and not infection All other labs unremarkable. KUB does not show large stool burden or obstruction. Will continue fluids. 2200-spoke to patient. She has had about 8 oz of apple juice with no additional vomiting episodes. She is still complaining of nausea but no additional vomiting. Will repeat dose of Zofran. She continues to request morphine for pain. Her abdomen on repeat exam is soft and diffusely tender she is resting comfortably. At this time I feel like morphine may only further antagonize her constipation. Will give Toradol. lorazepam. No need for additional imaging as patient had negative CT scan <24 hrs with symp toms she tells me are consistent with her cyclical vomiting. 2330-Patient feeling much improved. She had apple juice 8 ounces x3 with no additional vomiting episodes. Resting comfortably. Reviewed worrisome signs and symptoms of when to return to the emergency department. Comfortable discharge home MDM - Nausea/Vomiting/Diarrhea Medical Records Attestation: I reviewed the patient's medical records. Lab Data Attestation: I reviewed the patient's lab results. Result diagrams: 10/31/21 20:48 10/31/21 20:48 Labs: Lab Results 10/31/21 10/31/21 10/31/21 Range/Units 20:48 20:48 20:50 WBC 15.0 H (4.8-10.8) X10*3/uL RBC 4.67 (4.20-5.50) X10*6/uL Hgb 10.5 L (12.0-16.0) g/dl Hct 35.1 L (37.0-47.0) % MCV 75.2 L (80.0-98.0) fL MCH 22.5 L (27.0-33.0) pg MCHC 29.9 L (31.0-35.0) g/dl RDW 17.6 H (11.0-16.0) % Plt Count 752 H (160-400) X10*3/uL MPV 8.8 L (9.4-12.3) fL Immature Gran % (Auto) 1.3 H (0.0-0.4) % Neut % (Auto) 67.5 (45-73) % Lymph % (Auto) 22.8 (20-40) % [place] % (Auto) 7.9 (2-11) % Eos % (Auto) 0.1 (0-4) % Baso % (Auto) 0.4 (0-2) % Lymph # (Auto) 3.4 (1.2-4.9) X10*3/uL [place] # (Auto) 1.2 (0.1-1.2) X10*3/uL Eos # (Auto) 0.0 (0.0-0.4) X10*3/uL Baso # (Auto) 0.1 (0.0-0.2) X10*3/uL Abs Immat Gran (auto) 0.20 H (0.00-0.03) X10*3/uL Absolute Neuts (auto) 10.1 H (2.0-8.3) x10*3/uL Absolute Nucleated RBC 0.090 H (0.0-0.012) X10*3/uL Nucleated RBC % (auto) 0.6 H (0.0-0.2) /100WBC Sodium 139 (135-145) mmol/L Potassium 3.5 (3.3-5.1) mmol/L Chloride 95 L (96-108) mmol/L Carbon Dioxide 32 H (22-29) mmol/L Anion Gap 16 (12-20) BUN 10 (9-16) mg/dL Creatinine 0.84 (0.5-1.4) mg/dL Estim Creat Clear Calc 85.9 Estimated GFR > 60 Random Glucose 102 (60-115) mg/dL Calcium 10.3 H (8.4-10.2) mg/dL Magnesium 2.8 H (1.6-2.6) mg/dL Total Bilirubin 0.6 (0.0-1.0) mg/dL Direct Bilirubin 0.3 (0.0-0.5) mg/dL AST 32 H (5-31) U/L ALT 21 (0-31) U/L Alkaline Phosphatase 97 (39-117) U/L Total Protein 8.6 H (6.5-8.0) g/dL Albumin 4.8 (3.5-5.0) g/dL Lipase 39 (8-78) U/L Urine Color YELLOW Urine Appearance HAZY Urine pH 7.5 (5.0-8.0) Ur Specific [place] 1.015 (1.005-1.025) Urine Protein 2+ H (NEG-TRACE) MG/DL Urine Glucose (UA) NEG (NEG) MG/DL Urine Ketones 40 (NEG) MG/DL Urine Blood 2+ H (NEG) Urine Nitrite NEG (NEG) Ur Leukocyte Esterase NEG (NEG) Urine RBC 15-29 H (0) /HPF Urine WBC 0-2 (0-4) /HPF Ur Squamous Epith Cells 4+ /LPF Urine Bacteria 1+ /LPF Urine Mucus TRACE /LPF Urine Test (NEGATIVE) 10/31/21 Range/Units 20:50 WBC (4.8-10.8) X10*3/uL RBC (4.20-5.50) X10*6/uL Hgb (12.0-16.0) g/dl Hct (37.0-47.0) % MCV (80.0-98.0) fL MCH (27.0-33.0) pg MCHC (31.0-35.0) g/dl RDW (11.0-16.0) % Plt Count (160-400) X10*3/uL MPV (9.4-12.3) fL Immature Gran % (Auto) (0.0-0.4) % Neut % (Auto) (45-73) % Lymph % (Auto) (20-40) % [place] % (Auto) (2-11) % Eos % (Auto) (0-4) % Baso % (Auto) (0-2) % Lymph # (Auto) (1.2-4.9) X10*3/uL [place] # (Auto) (0.1-1.2) X10*3/uL Eos # (Auto) (0.0-0.4) X10*3/uL Baso # (Auto) (0.0-0.2) X10*3/uL Abs Immat Gran (auto) (0.00-0.03) X10*3/uL Absolute Neuts (auto) (2.0-8.3) x10*3/uL Absolute Nucleated RBC (0.0-0.012) X10*3/uL Nucleated RBC % (auto) (0.0-0.2) /100WBC Sodium (135-145) mmol/L Potassium (3.3-5.1) mmol/L Chloride (96-108) mmol/L Carbon Dioxide (22-29) mmol/L Anion Gap (12-20) BUN (9-16) mg/dL Creatinine (0.5-1.4) mg/dL Estim Creat Clear Calc Estimated GFR Random Glucose (60-115) mg/dL Calcium (8.4-10.2) mg/dL Magnesium (1.6-2.6) mg/dL Total Bilirubin (0.0-1.0) mg/dL Direct Bilirubin (0.0-0.5) mg/dL AST (5-31) U/L ALT (0-31) U/L Alkaline Phosphatase (39-117) U/L Total Protein (6.5-8.0) g/dL Albumin (3.5-5.0) g/dL Lipase (8-78) U/L Urine Color Urine Appearance Urine pH (5.0-8.0) Ur Specific [place] (1.005-1.025) Urine Protein (NEG-TRACE) MG/DL Urine Glucose (UA) (NEG) MG/DL Urine Ketones (NEG) MG/DL Urine Blood (NEG) Urine Nitrite (NEG) Ur Leukocyte Esterase (NEG) Urine RBC (0) /HPF Urine WBC (0-4) /HPF Ur Squamous Epith Cells /LPF Urine Bacteria /LPF Urine Mucus /LPF Urine Test NEGATIVE (NEGATIVE) Discharge Plan Discharge Clinical Impression: Cyclic vomiting syndrome Patient Disposition: Home, Self-Care Instructions: Acute Nausea and Vomiting (ED) Additional Instructions: Follow-up with outpatient providers Start with clear liquids then advance diet as tolerated Prescriptions: New ondansetron 4 mg tablet,disintegrating 4 mg PO Q6H PRN (Reason: nausea and vomiting) Qty: 10 RF: 0 No Action docusate sodium 100 mg capsule 100 mg PO DAILY PRN (Reason: constipation) 90 Days Qty: 90 RF: 3 risperidone 1 mg tablet 1 mg PO DAILY Qty: 90 RF: 3 omeprazole 20 mg capsule,delayed release(DR/EC) 20 mg PO QAM Qty: 90 RF: 3 levothyroxine 25 mcg tablet 25 mcg PO DAILY 90 Days Qty: 90 RF: 1 ergocalciferol (vitamin D2) 1,250 mcg (50,000 unit) capsule 1,250 mcg PO QWEEK 30 Days Qty: 5 RF: 3 melatonin 10 mg capsule 10 mg PO BEDTIME PRN (Reason: for insomnia) Qty: 30 RF: 3 acetaminophen 325 mg tablet 650 mg PO Q6H PRN (Reason: fever or pain) 30 Days Qty: 120 RF: 6 ondansetron HCl [Zofran] 4 mg tablet 4 mg PO Q8H PRN (Reason: nausea and vomiting) Qty: 10 RF: 0 ondansetron HCl [Zofran] 4 mg tablet 4 mg PO Q8H PRN (Reason: nausea and vomiting) Qty: 7 RF: 0 naproxen 500 mg tablet 500 mg PO BID PRN (Reason: pain) Qty: 20 RF: 0 cyclobenzaprine 10 mg tablet 10 mg PO TID PRN (Reason: muscle spasm) Qty: 21 RF: 0 ibuprofen 800 mg tablet 800 mg PO Q8H PRN (Reason: pain) 10 Days Qty: 30 RF: 0 ferrous sulfate 325 mg (65 mg iron) tablet 325 mg PO BID 90 Days Qty: 180 RF: 3 paroxetine HCl 20 mg tablet 20 mg PO DAILY 90 Days Qty: 90 RF: 3 pyridoxine (vitamin B6) 25 mg tablet 25 mg PO TID 14 Days Qty: 42 RF: 0 gabapentin 100 mg capsule 100 mg PO TID Qty: 270 RF: 3 tranexamic acid [Lysteda] 650 mg tablet 1,300 mg PO TID 30 Days Qty: 180 RF: 6 fluconazole 150 mg tablet 150 mg PO Q3D Qty: 2 RF: 0 Referrals: Zonia Kamara MD [Primary Care Provider] - 2 days Interventions: ED Discharge Assessment Last Done: 11/01/21 00:31 Discharge Date/Time: 11/01/21 00:32
[2021-10-31 20:52] LABS: MANUAL DIFF FLAG NO
[2021-10-31 20:56] LABS: Basophils Absolute Auto 0.1 X10*3/uL (0.0-0.2); Basophils Percent Auto 0.4 % (0-2); Eosinophils Percent Auto 0.1 % (0-4); Hematocrit 35.1 % (37.0-47.0); Hemoglobin 10.5 g/dl (12.0-16.0); Imm Gran Pct Auto 1.3 % (0.0-0.4); Lymphocytes Absolute Auto 3.4 X10*3/uL (1.2-4.9); Lymphocytes Percent Auto 22.8 % (20-40); Mean Corpuscular HGB Conc 29.9 g/dl (31.0-35.0); Mean Corpuscular Hemoglobin 22.5 pg (27.0-33.0); Mean Corpuscular Volume 75.2 fL (80.0-98.0); Mean Platelet Volume 8.8 fL (9.4-12.3); Monocytes Absolute Auto 1.2 X10*3/uL (0.1-1.2); Monocytes Percent Auto 7.9 % (2-11); NRBC Pct Auto 0.6 /100WBC (0.0-0.2); Neutrophils Absolute Auto 10.1 x10*3/uL (2.0-8.3); Neutrophils Percent Auto 67.5 % (45-73); Platelet Count 752 X10*3/uL (160-400); Red Blood Count 4.67 X10*6/uL (4.20-5.50); Red Cell Distribution Width 17.6 % (11.0-16.0)
[2021-10-31 20:56] LABS: Appearance Urine HAZY; Color Urine YELLOW; Glucose Urine UA NEG (NEG); Leukocyte Esterase Urine NEG (NEG); Nitrite Urine NEG (NEG); PH 7.5 (5.0-8.0); Specific Gravity - Urine 1.015 (1.005-1.025); UACC Culture Trigger NO; Urine Blood 2+ (NEG); Urine Ketones 40 MG/DL (NEG); Urine Protein 2+ MG/DL (NEG-TRACE)
[2021-10-31 20:58] LABS: UPreg QC Valid YES; Urine Pregnancy NEGATIVE (NEGATIVE)
[2021-10-31] MEDS: 0.9 % Sodium Chloride 1,000 ML 999 ML IV (21:00)
[2021-10-31 21:01] VITALS: RESP 15
[2021-10-31] MEDS: ondansetron HCL 4 MG/2 ML VIAL IVPUSH ×2 (21:01→23:00)
[2021-10-31] MEDS: Morphine Sulfate 4 MG/ML CARTRIDGE IVPUSH (21:01)
[2021-10-31 21:05] LABS: WBC Urine 0-2 /HPF (0-4)
[2021-10-31 21:06] LABS: Bacteria Urine 1+ /LPF; Mucus Urine TRACE /LPF; Squamous Epithelial Cell Urine 4+ /LPF
[2021-10-31 21:09] LABS: Alanine Aminotransferase 21 U/L (0-31); Albumin Level 4.8 g/dL (3.5-5.0); Alkaline Phosphatase 97 U/L (39-117); Anion Gap 16 (12-20); Aspartate Amino Transferase 32 U/L (5-31); Bilirubin Direct 0.3 mg/dL (0.0-0.5); Bilirubin Total 0.6 mg/dL (0.0-1.0); Blood Urea Nitrogen 10 mg/dL (9-16); Calcium 10.3 mg/dL (8.4-10.2); Carbon Dioxide 32 mmol/L (22-29); Chloride 95 mmol/L (96-108); Creatinine Clr Calc Pharmacy 85.9; Estimated Glomerular Filt Rate > 60; Glucose Random 102 mg/dL (60-115); Lipase 39 U/L (8-78); Magnesium 2.8 mg/dL (1.6-2.6); Potassium 3.5 mmol/L (3.3-5.1); Sodium 139 mmol/L (135-145); Total Protein 8.6 g/dL (6.5-8.0)
[2021-10-31 22:00] VITALS: BP 149/100; PULSE 94; RESP 15; TEMP 37.2; O2SAT 98
[2021-10-31] MEDS: Ketorolac Tromethamine 30 MG/ML VIAL IVPUSH (23:00)
[2021-10-31] MEDS: LORazepam 2 MG/ML VIAL 1 MG IVPUSH (23:01)
== END 2021-11-01 00:32 | disposition home or self-care (01) ==
PROVIDERS: Nurse Practitioner Family; Emergency Provider Emergency Medicine; PCP Internal Medicine
DX: R11.15 Cyclical vomiting syndrome unrelated to migraine (principal); F12.90 Cannabis use, unspecified, uncomplicated; F17.200 Nicotine dependence, unspecified, uncomplicated
CPT/HCPCS: 36415; 74018; 80048; 80076; 81001; 81025; 83690; 83735; 85025; 96361; 96374; 96375; 96376; 99284; J1885; J2060; J2270; J2405

== ENCOUNTER 2021-12-30 07:20 | Emergency (ER) | payer OTHER, SELFPAY ==
[2021-12-30 07:22] VITALS: BP 166/104; PULSE 100; RESP 16; TEMP 37.3; O2SAT 96; BMI 37.0
--- NOTE | 2021-12-30 07:25 | ECG_ITS ---
Test Reason : cp Blood Pressure : / mmHG Vent. Rate : 082 BPM Atrial Rate : 082 BPM P-R Int : 138 ms QRS Dur : 080 ms QT Int : 372 ms P-R-T Axes : 077 035 030 degrees QTc Int : 434 ms Normal sinus rhythm with sinus arrhythmia Normal ECG When compared with ECG of 30-OCT-2021 11:45, Premature atrial complexes are no longer Present Referred By: Generic ED Physician Electronically Signed By:Otf Jaramillo
--- NOTE | 2021-12-30 07:44 | ED_ITS ---
HPI - Nausea/Vomiting/Diarrhea General Chief complaint: Nausea/Vomiting/Diarrhea Stated complaint: Back pain/Vomiting Time Seen by Provider: 12/30/21 07:31 Source: patient Mode of arrival: ambulatory Limitations: no limitations History of Present Illness HPI Narrative: Patient is a 36-year-old female with a past medical history of hypothyroidism, depression, cyclic vomiting syndrome, renal calculi, anemia. Patient presents emergency department for evaluation of diffuse lower back pain vomiting chest pain and shortness of breath. Reports symptoms x3 days. States she was evaluated at [facility] yesterday, they didn't do anything , reports being sent home with antiemetics but did not come up from the pharmacy. Diffuse anterior chest pain and pain the to the left lower chest beneath the ribs. S hortness of breath is intermittent and she is not able to identify exacerbating or alleviating factors. Pain to the left side of her abdomen. Reports she is vomiting at least 10 times daily, having liquid that she has strength or bile. Denies diarrhea, reports no BM for 2 days. Denies fevers or chills. Diffuse lower back pain, denies identifiable precipitating injury, burning with micturition, urinary frequency, urgency, hesitancy, bladder or bowel dysfunction, numbness or tingling of the perineum or bilateral legs. Denies any recent surgical procedures, any known immune compromising conditions, personal history of cancer, or IV drug usage. Denies possibility of , she is uncertain of her last menstrual period. Denies abnormal vaginal bleeding or abnormal vaginal discharge or pelvic pain. MD elicited complaint: nausea, vomiting and abdominal pain Onset (ago): day(s) Description of vomiting: food contents and bilious Associated nausea: Yes Associated abdominal pain: Yes Location of pain: LUQ and LLQ Pain consistency: constant Severity: severe Pain scale (0-10): 7 Quality: cramping Exacerbating factors: eating Relieving factors: none Associated symptoms: chest pain, nausea/vomiting and shortness of breath Related Data Previous Rx's Medication Instructions Recorded ibuprofen 800 mg tablet 800 mg PO Q8H PRN 10 Days #30 tab 09/30/20 risperidone 1 mg tablet 1 mg PO DAILY #90 tab 02/16/21 omeprazole 20 mg capsule,delayed 20 mg PO QAM #90 cap 05/09/21 release ferrous sulfate 325 mg (65 mg 325 mg PO BID 90 Days #180 tab 06/16/21 iron) tablet paroxetine HCl 20 mg tablet 20 mg PO DAILY 90 Days #90 tab 06/16/21 pyridoxine (vitamin B6) 25 mg 25 mg PO TID 14 Days #42 tab 06/16/21 tablet ondansetron HCl 4 mg tablet 4 mg PO Q8H PRN #10 tab 07/17/21 (Zofran) cyclobenzaprine 10 mg tablet 10 mg PO TID PRN #21 tab 08/02/21 naproxen 500 mg tablet 500 mg PO BID PRN #20 tab 08/02/21 fluconazole 150 mg tablet 150 mg PO Q3D #2 tab 09/27/21 gabapentin 100 mg capsule 100 mg PO TID #270 cap 09/27/21 tranexamic acid 650 mg tablet 1,300 mg PO TID 30 Days #180 tab 09/27/21 (Lysteda) levothyroxine 25 mcg tablet 25 mcg PO DAILY 90 Days #90 tab 10/01/21 ergocalciferol (vitamin D2) 1,250 1,250 mcg PO QWEEK 30 Days #5 cap 10/04/21 mcg (50,000 unit) capsule melatonin 10 mg capsule 10 mg PO BEDTIME PRN #30 cap 10/08/21 acetaminophen 325 mg tablet 650 mg PO Q6H PRN 30 Days #120 tab 10/30/21 ondansetron HCl 4 mg tablet 4 mg PO Q8H PRN #7 tab 10/30/21 (Zofran) ondansetron 4 mg disintegrating 4 mg PO Q6H PRN #10 tab 11/01/21 tablet docusate sodium 100 mg capsule 100 mg PO DAILY PRN 90 Days #90 cap 11/22/21 Allergies Allergy/AdvReac Type Severity Reaction Status Date / Time metoclopramide [From REGLAN] Allergy Mild MAKES ME Verified 09/27/21 11:27 COLD prochlorperazine Allergy Mild RASH, gets Verified 09/27/21 11:27 [From Compazine] cold famotidine [Pepcid] AdvReac Mild loss of Verified 09/27/21 11:27 appetite Review of Systems Review of Systems: Constitutional : No Weight loss, No Fever, No Chills ENT/Mouth :? No sore throat, No Rhinorrhea Eyes: No Swelling, No Redness Cardiovascular : Positive Chest Pain, Positive SOB, No Edema Respiratory : No Cough, No Sputum, No Wheezing Gastrointestinal : Positive Nausea, Positive Vomiting, no Diarrhea, positive abdominal pain, No Hematochezia, No Melena Genitourinary : No Dysuria, No Urinary Frequency, No Hematuria, No Urgency? Musculoskeletal : Positive back pain. No joint pain, No Myalgias, No Joint Swelling Skin : No Skin Lesions, No rash Neuro : No Weakness, No Numbness, No Dizziness, No Headache Psych : No Anxiety/Panic, No Depression Heme/Lymph: No Bruising, No Lymphadenopathy Endocrine : No Polyuria, No Polydipsia All other systems reviewed and are negative. Gastrointestinal: Gastrointestinal: Reports nausea PMFSH Past Medical History Attestation statement: The following information was validated with the patient. Source: old records reviewed Medical History Anemia Anxiety Chest pain Chest pain Cyclic vomiting syndrome Depression GERD (gastroesophageal reflux disease) History of back pain History of bipolar disorder Hx of Hx of iron deficiency anemia Hx of migraines Hypokalemia Hypothyroidism Iron deficiency anemia due to chronic blood loss Iron deficiency anemia due to chronic blood loss Marijuana use, continuous Menorrhagia Moderate recurrent major depression Numbness of foot Polyarthralgia Renal calculi Shortness of breath Syphilis contact, treated Surgical History History of dilation and curettage Hx of colonoscopy Hx of esophagogastroduodenoscopy Family History Family History Mother HTN (hypertension) Maternal Grandmother HTN (hypertension) Maternal Uncle HTN (hypertension) Maternal Aunt Diabetes mellitus Family/Other Mental health disorder Substance use disorder Social History Social History Housing: Apartment Are you a primary health care liaison to a significant other at home: No Do you presently have visiting nurse or other home services: No Alcohol intake: never Patient Tobacco Use Status: Current everyday Tobacco user Cigarette Packs Per Day: 0.25 Cigarettes Per Day: 5 Years Smoked: 15 e-Cigarette/Vaping Use: Never Used Second Hand Smoke Exposure: No Use of substances other than those prescribed or required for medical reasons: Yes Substance Use Type: Marijuana Advance Directives: No Advance Directives Information Provided: Yes Advance Directives on File: No service: No Current occupational status: unemployed Physical Exam Vital Signs: Vital Signs: Last Vital Signs Temp 97.8 F 12/30/21 08:39 Pulse 61 12/30/21 08:39 Resp 18 12/30/21 08:39 BP 151/91 H 12/30/21 08:39 Pulse Ox 98 12/30/21 08:39 BMI result Body Mass Index 37.0 Vital signs have been reviewed and appeared to be correct. Blood pressure elevated 166/104. Heart rate normal.? Respiration rate normal. Temperature normal.? Oxygen saturation normal. Appearance: Alert.?Oriented to person, place and time. No acute distress.?Normal affect. Eyes: Pupils equal, round and reactive to light.? ENT: Pharynx normal.?? Neck: Normal inspection.? Neck supple.?? CVS: Heart sounds normal. Normal heart rate and rhythm.? Pulses normal.?? Respiratory: No respiratory distress.? Lung sounds clear to auscultation bilaterally?? Abdomen: Soft and non-tender to palpation. Normoactive bowel sounds. No pulsatile mass.? Genitourinary: No CVA tenderness. Declines genitourinary/ pelvic exam Skin: Skin warm and dry.? Normal skin color.? Normal skin turgor.?? Extremities: No lower extremity edema.? No calf ttp? Neuro: Moves all extremities spontaneously. Sensation intact bilaterally. CN II- XII intact. No focal neuro deficits. Ambulates with normal steady gait. Course Course Course Narrative: Patient is a 36-year-old female being evaluated for multiple complaints including chest pain shortness of breath abdominal pain vomiting and lower back pain. Will obtain CBC to evaluate for leukocytosis/ anemia, CMP and lipase to evaluate for abnormal electrolytes /abnormal renal function/ abnormal hepatic/biliary function, EKG and troponin to evaluate for ischemia/ACS. D- dimer to exclude pulmonary embolism. Urinalysis to evaluate for infection/ pr egnancy. Will administer Zofran 4 mg IV and Toradol 30 mg IV. Disposition pending results. Reevaluation(s) Reevaluation #1: EKG reveals normal sinus rhythm, troponin 5.4 consistent with prior lab obtained, unlikely to be ACS. COVID-19 testing is negative. CBC reveals leukocytosis 14.3 but I suspect that this is reactive to vomiting or secondary to viral gastroenteritis. Hemoglobin and hematocrit are stable in comparison to baseline 10.1 and 34.2 respectively. thrombocytosis with platelet count 739 consistent with prior labs. CMP is overall unremarkable, liver function testing is normal, lipase is mildly elevated at 82, no RUQ tenderness on palpation, suspect this is due to dehydration. Discussed with patient that we can repeat labs after hydration to assure that lipase has normalized. Urinalysis results are pending at this time. Went to bedside to re-evaluate patient she is requesting additional pain medication at this time requesting Haldol and Benadryl she reports that she received this yesterday at another hospital. I discussed with her that at this time there is no indication for either medication. Offered bentyl. Patient is becoming aggressive, making physical gestures with a fist as though she is going to strike me, using vulgar words towards me. I suspect that her symptoms at this time are most consistent with a gastroenteritis. Time: 09:54 Reevaluation #2: Informed by nursing staff the patient left against medical advice in nursing staff to bedside patient's hospital gown on the bed personal belongings home. Nursing staff in contact with local PD unable to confirm whether patient left with IV catheter in place. Time: 10:48 MDM - Nausea/Vomiting/Diarrhea Medical Records Attestation: I reviewed the patient's medical records. Lab Data Attestation: I reviewed the patient's lab results. Result diagrams: 12/30/21 08:32 12/30/21 08:32 Labs: Lab Results 12/30/21 12/30/21 12/30/21 Range/Units 08:32 08:32 08:32 WBC 14.3 H (4.8-10.8) X10*3/uL RBC 4.66 (4.20-5.50) X10*6/uL Hgb 10.0 L (12.0-16.0) g/dl Hct 34.2 L (37.0-47.0) % MCV 73.4 L (80.0-98.0) fL MCH 21.5 L (27.0-33.0) pg MCHC 29.2 L (31.0-35.0) g/dl RDW 17.9 H (11.0-16.0) % Plt Count 739 H (160-400) X10*3/uL MPV 8.9 L (9.4-12.3) fL Immature Gran % (Auto) 1.7 H (0.0-0.4) % Neut % (Auto) 74.6 H (45-73) % Lymph % (Auto) 15.3 L (20-40) % [place] % (Auto) 8.1 (2-11) % Eos % (Auto) 0.1 (0-4) % Baso % (Auto) 0.2 (0-2) % Lymph # (Auto) 2.2 (1.2-4.9) X10*3/uL [place] # (Auto) 1.2 (0.1-1.2) X10*3/uL Eos # (Auto) 0.0 (0.0-0.4) X10*3/uL Baso # (Auto) 0.0 (0.0-0.2) X10*3/uL Abs Immat Gran (auto) 0.24 H (0.00-0.03) X10*3/uL Absolute Neuts (auto) 10.7 H (2.0-8.3) x10*3/uL Absolute Nucleated RBC 0.070 H (0.0-0.012) X10*3/uL Nucleated RBC % (auto) 0.5 H (0.0-0.2) /100WBC D-Dimer High Sensitivty NG/ML Sodium 137 (135-145) mmol/L Potassium 3.5 (3.3-5.1) mmol/L Chloride 96 (96-108) mmol/L Carbon Dioxide 27 (22-29) mmol/L Anion Gap 18 (12-20) BUN 8 L (9-16) mg/dL Creatinine 0.79 (0.5-1.4) mg/dL Estim Creat Clear Calc 94.1 Estimated GFR > 60 Random Glucose 119 H (60-115) mg/dL Calcium 10.4 H (8.4-10.2) mg/dL Magnesium 2.1 (1.6-2.6) mg/dL Total Bilirubin 0.5 (0.0-1.0) mg/dL AST 19 D (5-31) U/L ALT 10 (0-31) U/L Alkaline Phosphatase 94 (39-117) U/L Troponin I High Sens 5.4 (<3.5-17.0) ng/L Total Protein 8.4 H (6.5-8.0) g/dL Albumin 4.8 (3.5-5.0) g/dL Lipase 82 H (8-78) U/L Urine Color Urine Appearance Urine pH (5.0-8.0) Ur Specific [place] (1.005-1.025) Urine Protein (NEG-TRACE) MG/DL Urine Glucose (UA) (NEG) MG/DL Urine Ketones (NEG) MG/DL Urine Blood (NEG) Urine Nitrite (NEG) Ur Leukocyte Esterase (NEG) Urine RBC (0) /HPF Urine WBC (0-4) /HPF Ur Squamous Epith Cells /LPF Urine Bacteria /LPF Urine Test (NEGATIVE) COVID-19 (JESSICA) (Negative) COVID-19 Clin Com 12/30/21 12/30/21 12/30/21 Range/Units 08:32 09:44 09:44 WBC (4.8-10.8) X10*3/uL RBC (4.20-5.50) X10*6/uL Hgb (12.0-16.0) g/dl Hct (37.0-47.0) % MCV (80.0-98.0) fL MCH (27.0-33.0) pg MCHC (31.0-35.0) g/dl RDW (11.0-16.0) % Plt Count (160-400) X10*3/uL MPV (9.4-12.3) fL Immature Gran % (Auto) (0.0-0.4) % Neut % (Auto) (45-73) % Lymph % (Auto) (20-40) % [place] % (Auto) (2-11) % Eos % (Auto) (0-4) % Baso % (Auto) (0-2) % Lymph # (Auto) (1.2-4.9) X10*3/uL [place] # (Auto) (0.1-1.2) X10*3/uL Eos # (Auto) (0.0-0.4) X10*3/uL Baso # (Auto) (0.0-0.2) X10*3/uL Abs Immat Gran (auto) (0.00-0.03) X10*3/uL Absolute Neuts (auto) (2.0-8.3) x10*3/uL Absolute Nucleated RBC (0.0-0.012) X10*3/uL Nucleated RBC % (auto) (0.0-0.2) /100WBC D-Dimer High Sensitivty < 150 NG/ML Sodium (135-145) mmol/L Potassium (3.3-5.1) mmol/L Chloride (96-108) mmol/L Carbon Dioxide (22-29) mmol/L Anion Gap (12-20) BUN (9-16) mg/dL Creatinine (0.5-1.4) mg/dL Estim Creat Clear Calc Estimated GFR Random Glucose (60-115) mg/dL Calcium (8.4-10.2) mg/dL Magnesium (1.6-2.6) mg/dL Total Bilirubin (0.0-1.0) mg/dL AST (5-31) U/L ALT (0-31) U/L Alkaline Phosphatase (39-117) U/L Troponin I High Sens (<3.5-17.0) ng/L Total Protein (6.5-8.0) g/dL Albumin (3.5-5.0) g/dL Lipase (8-78) U/L Urine Color YELLOW Urine Appearance CLEAR Urine pH 8.5 H (5.0-8.0) Ur Specific [place] 1.015 (1.005-1.025) Urine Protein 2+ H (NEG-TRACE) MG/DL Urine Glucose (UA) NEG (NEG) MG/DL Urine Ketones >=80 (NEG) MG/DL Urine Blood 2+ H (NEG) Urine Nitrite NEG (NEG) Ur Leukocyte Esterase NEG (NEG) Urine RBC 15-29 H (0) /HPF Urine WBC 1-4 (0-4) /HPF Ur Squamous Epith Cells 3+ /LPF Urine Bacteria TRACE /LPF Urine Test (NEGATIVE) COVID-19 (JESSICA) Negative (Negative) COVID-19 Clin Com See Note 12/30/21 Range/Units 09:44 WBC (4.8-10.8) X10*3/uL RBC (4.20-5.50) X10*6/uL Hgb (12.0-16.0) g/dl Hct (37.0-47.0) % MCV (80.0-98.0) fL MCH (27.0-33.0) pg MCHC (31.0-35.0) g/dl RDW (11.0-16.0) % Plt Count (160-400) X10*3/uL MPV (9.4-12.3) fL Immature Gran % (Auto) (0.0-0.4) % Neut % (Auto) (45-73) % Lymph % (Auto) (20-40) % [place] % (Auto) (2-11) % Eos % (Auto) (0-4) % Baso % (Auto) (0-2) % Lymph # (Auto) (1.2-4.9) X10*3/uL [place] # (Auto) (0.1-1.2) X10*3/uL Eos # (Auto) (0.0-0.4) X10*3/uL Baso # (Auto) (0.0-0.2) X10*3/uL Abs Immat Gran (auto) (0.00-0.03) X10*3/uL Absolute Neuts (auto) (2.0-8.3) x10*3/uL Absolute Nucleated RBC (0.0-0.012) X10*3/uL Nucleated RBC % (auto) (0.0-0.2) /100WBC D-Dimer High Sensitivty NG/ML Sodium (135-145) mmol/L Potassium (3.3-5.1) mmol/L Chloride (96-108) mmol/L Carbon Dioxide (22-29) mmol/L Anion Gap (12-20) BUN (9-16) mg/dL Creatinine (0.5-1.4) mg/dL Estim Creat Clear Calc Estimated GFR Random Glucose (60-115) mg/dL Calcium (8.4-10.2) mg/dL Magnesium (1.6-2.6) mg/dL Total Bilirubin (0.0-1.0) mg/dL AST (5-31) U/L ALT (0-31) U/L Alkaline Phosphatase (39-117) U/L Troponin I High Sens (<3.5-17.0) ng/L Total Protein (6.5-8.0) g/dL Albumin (3.5-5.0) g/dL Lipase (8-78) U/L Urine Color Urine Appearance Urine pH (5.0-8.0) Ur Specific [place] (1.005-1.025) Urine Protein (NEG-TRACE) MG/DL Urine Glucose (UA) (NEG) MG/DL Urine Ketones (NEG) MG/DL Urine Blood (NEG) Urine Nitrite (NEG) Ur Leukocyte Esterase (NEG) Urine RBC (0) /HPF Urine WBC (0-4) /HPF Ur Squamous Epith Cells /LPF Urine Bacteria /LPF Urine Test NEGATIVE (NEGATIVE) COVID-19 (JESSICA) (Negative) COVID-19 Clin Com ECG Data Attestation: I personally reviewed and interpreted this ECG as follows: ECG interpretation date: 12/30/21 ECG interpretation time: 07:59 Prior ECG tracings: available for review Interpretation: Rate: 82 Rhythm:? Normal sinus rhythm [place]:? Normal Normal P waves.? Normal [place].?? Normal QRS complex.?? ST T wave :??No elevation, no ST depression, no T-wave inversion qTC: 434 prior studies:? October 2021 The study has been interpreted contemporaneously by me. Discharge Plan Discharge Clinical Impression: Vomiting Patient Disposition: Elopement Prescriptions: No Action risperidone 1 mg tablet 1 mg PO DAILY Qty: 90 3RF omeprazole 20 mg capsule,delayed release(DR/EC) 20 mg PO QAM Qty: 90 3RF levothyroxine 25 mcg tablet 25 mcg PO DAILY 90 Days Qty: 90 1RF ergocalciferol (vitamin D2) 1,250 mcg (50,000 unit) capsule 1,250 mcg PO QWEEK 30 Days Qty: 5 3RF melatonin 10 mg capsule 10 mg PO BEDTIME PRN (Reason: for insomnia) Qty: 30 3RF acetaminophen 325 mg tablet 650 mg PO Q6H PRN (Reason: fever or pain) 30 Days Qty: 120 6RF docusate sodium 100 mg capsule 100 mg PO DAILY PRN (Reason: constipation) 90 Days Qty: 90 3RF ondansetron HCl [Zofran] 4 mg tablet 4 mg PO Q8H PRN (Reason: nausea and vomiting) Qty: 10 0RF ondansetron HCl [Zofran] 4 mg tablet 4 mg PO Q8H PRN (Reason: nausea and vomiting) Qty: 7 0RF ondansetron 4 mg tablet,disintegrating 4 mg PO Q6H PRN (Reason: nausea and vomiting) Qty: 10 0RF naproxen 500 mg tablet 500 mg PO BID PRN (Reason: pain) Qty: 20 0RF cyclobenzaprine 10 mg tablet 10 mg PO TID PRN (Reason: muscle spasm) Qty: 21 0RF Rx Instructions: side effect is drowsiness. Do not take at work or while driving. ibuprofen 800 mg tablet 800 mg PO Q8H PRN (Reason: pain) 10 Days Qty: 30 0RF ferrous sulfate 325 mg (65 mg iron) tablet 325 mg PO BID 90 Days Qty: 180 3RF paroxetine HCl 20 mg tablet 20 mg PO DAILY 90 Days Qty: 90 3RF pyridoxine (vitamin B6) 25 mg tablet 25 mg PO TID 14 Days Qty: 42 0RF gabapentin 100 mg capsule 100 mg PO TID Qty: 270 3RF tranexamic acid [Lysteda] 650 mg tablet 1,300 mg PO TID 30 Days Qty: 180 6RF Rx Instructions: Start on the 1st day of menses up to 3-5 days fluconazole 150 mg tablet 150 mg PO Q3D Qty: 2 0RF Discharge Date/Time: 12/30/21 10:47
[2021-12-30 08:39] VITALS: BP 151/91; PULSE 61; RESP 18; TEMP 36.6; O2SAT 98
[2021-12-30] MEDS: Ketorolac Tromethamine 30 MG/ML VIAL IVPUSH (08:42)
[2021-12-30] MEDS: ondansetron HCL 4 MG/2 ML VIAL IVPUSH (08:42)
[2021-12-30] MEDS: 0.9 % Sodium Chloride 1,000 ML 999 ML IV (08:42)
[2021-12-30 08:43] LABS: MANUAL DIFF FLAG NO
--- NOTE | 2021-12-30 08:43 | PC.NURSE ---
PT has been a very difficulty stick. was tolerant of many attempts. states chest pain and left fredo epain started after food posioning. skin pwd. dry heaving infrequently. moist mm nsr on monitor. fluids infusing on pump into 24 left thumb.
[2021-12-30 08:44] LABS: Basophils Percent Auto 0.2 % (0-2); Eosinophils Percent Auto 0.1 % (0-4); Hematocrit 34.2 % (37.0-47.0); Imm Gran Abs Auto 0.24 X10*3/uL (0.00-0.03); Imm Gran Pct Auto 1.7 % (0.0-0.4); Lymphocytes Absolute Auto 2.2 X10*3/uL (1.2-4.9); Lymphocytes Percent Auto 15.3 % (20-40); Mean Corpuscular HGB Conc 29.2 g/dl (31.0-35.0); Mean Corpuscular Hemoglobin 21.5 pg (27.0-33.0); Mean Corpuscular Volume 73.4 fL (80.0-98.0); Mean Platelet Volume 8.9 fL (9.4-12.3); Monocytes Absolute Auto 1.2 X10*3/uL (0.1-1.2); Monocytes Percent Auto 8.1 % (2-11); NRBC Pct Auto 0.5 /100WBC (0.0-0.2); Neutrophils Absolute Auto 10.7 x10*3/uL (2.0-8.3); Neutrophils Percent Auto 74.6 % (45-73); Platelet Count 739 X10*3/uL (160-400); Red Blood Count 4.66 X10*6/uL (4.20-5.50); Red Cell Distribution Width 17.9 % (11.0-16.0); White Blood Count 14.3 X10*3/uL (4.8-10.8)
[2021-12-30 09:02] LABS: Troponin-I High Sensitivity 5.4 ng/L (<3.5-17.0)
[2021-12-30 09:10] LABS: COVID-19 Test Negative (Negative)
[2021-12-30 09:14] LABS: Alanine Aminotransferase 10 U/L (0-31); Albumin Level 4.8 g/dL (3.5-5.0); Alkaline Phosphatase 94 U/L (39-117); Anion Gap 18 (12-20); Aspartate Amino Transferase 19 U/L (5-31); Bilirubin Total 0.5 mg/dL (0.0-1.0); Blood Urea Nitrogen 8 mg/dL (9-16); Calcium 10.4 mg/dL (8.4-10.2); Carbon Dioxide 27 mmol/L (22-29); Chloride 96 mmol/L (96-108); Creatinine Clr Calc Pharmacy 94.1; Estimated Glomerular Filt Rate > 60; Glucose Random 119 mg/dL (60-115); Magnesium 2.1 mg/dL (1.6-2.6); Potassium 3.5 mmol/L (3.3-5.1); Sodium 137 mmol/L (135-145); Total Protein 8.4 g/dL (6.5-8.0)
[2021-12-30 09:20] LABS: Lipase 82 U/L (8-78)
--- NOTE | 2021-12-30 09:48 | PC.NURSE ---
Pt continues to complain of pain. [employer] is aware and will speak with patient directly. Additional labs being drawn at this time. pt PCT. Pt was ambulatory to [facility] w/o diff.
[2021-12-30 09:56] LABS: Appearance Urine CLEAR; Color Urine YELLOW; Glucose Urine UA NEG (NEG); Leukocyte Esterase Urine NEG (NEG); Nitrite Urine NEG (NEG); PH 8.5 (5.0-8.0); Specific Gravity - Urine 1.015 (1.005-1.025); UACC Culture Trigger NO; UPreg QC Valid YES; Urine Blood 2+ (NEG); Urine Ketones >=80 MG/DL (NEG)
[2021-12-30 09:57] LABS: Urine Pregnancy NEGATIVE (NEGATIVE)
[2021-12-30 09:58] LABS: Urine Protein 2+ MG/DL (NEG-TRACE)
[2021-12-30 10:08] LABS: Bacteria Urine TRACE /LPF; Squamous Epithelial Cell Urine 3+ /LPF
[2021-12-30 10:11] LABS: D Dimer High Sensitivity < 150 NG/ML
--- NOTE | 2021-12-30 10:46 | PC.NURSE ---
Pt appears to have left. There is no sign of her IV anywhere in the room. trash, linens etc. [facility] is aware and will attempt to locate her and confirm that her IV was removed.
== END 2021-12-30 10:47 | disposition left against medical advice (07) ==
PROVIDERS: Nurse Practitioner Family; Emergency Provider Emergency Medicine; PCP Internal Medicine
DX: M54.50 Low back pain, unspecified (principal); R07.89 Other chest pain; R11.2 Nausea with vomiting, unspecified; R06.02 Shortness of breath; R10.32 Left lower quadrant pain; F17.210 Nicotine dependence, cigarettes, uncomplicated; Z20.822 Contact with and (suspected) exposure to COVID-19; Z79.899 Other long term (current) drug therapy; Z71.6 Tobacco abuse counseling
CPT/HCPCS: 80053; 81001; 81025; 83690; 83735; 84484; 85025; 85379; 87635; 93005; 96361; 96374; 96375; 99284; 99285; J1885; J2405

== ENCOUNTER 2022-01-02 07:18 | Emergency (ER) | payer OTHER, SELFPAY ==
--- NOTE | ~2022-01-02 | CT_ITS ---
EXAMINATION: CT ABDOMEN AND PELVIS WITHOUT CONTRAST CLINICAL INFORMATION: Left flank pain COMPARISON: Previous CT of the abdomen and pelvis and KUB October 2021 TECHNIQUE: Multidetector volumetric imaging was performed from the superior aspect of the liver through the pubic symphysis. Sagittal and coronal reformatted images were obtained on the technologist's workstation. This CT examination was performed using dose optimization techniques as appropriate, variously including the following: *Automated exposure control *Adjustment of mA and/or kV according to patient size (this includes techniques or standardized protocols for targeted exams where dose is matched to indication/reason for exam; i.e. extremities or head) *Use of iterative reconstruction technique DLP: 684 mGy-cm FINDINGS: LUNG BASES: The visualized lung bases are unremarkable. LIVER, GALLBLADDER, AND BILIARY TREE: The liver is normal in size, shape, and attenuation. No focal hepatic lesion or biliary ductal dilatation is present. The gallbladder is unremarkable with no evidence of radiopaque gallstones, gallbladder wall thickening, or obvious pericholecystic inflammatory changes. PANCREAS: Unremarkable. SPLEEN: Unremarkable. ADRENAL GLANDS: Unremarkable. KIDNEYS AND URETERS: The kidneys are normal in size, shape, and attenuation. No hydronephrosis, hydroureter, or calculi seen. No perinephric stranding. BLADDER: Unremarkable. GASTROINTESTINAL TRACT: The small and large bowel are unremarkable. The appendix is unremarkable. ABDOMINAL WALL: There is a small umbilical hernia containing fat. LYMPH NODES: Normal. VASCULAR: Unremarkable. PELVIC VISCERA: Unremarkable. OSSEOUS STRUCTURES: Unremarkable. CT/CT abdomen pelvis wo con IMPRESSION: Unremarkable exam. No stone seen. Fleischner guidelines were followed.
[2022-01-02 07:22] VITALS: BP 148/100; PULSE 90; RESP 16; TEMP 37.2; O2SAT 97; BMI 37.0
--- NOTE | 2022-01-02 08:13 | ED_ITS ---
HPI - Abdominal Pain General Chief Complaint: Abdominal Pain Stated Complaint: pain on left side of abd Time Seen by Provider: 01/02/22 08:07 Source: patient Mode of arrival: ambulatory History of Present Illness HPI narrative: 36 yo female with hx of cyclic vomiting presented c/o left side abdominal pain X 1 week denies fever .chills MD elicited complaint: abdominal pain and flank pain Pertinent past history: other (cyclic vomiting) Onset (ago): week(s) (1) Pain Consistency: constant Location: LLQ Quality: cramping Radiation: L flank Migration to: no migration Exacerbating factors: nothing Relieving factors: nothing Associated symptoms: nausea Related Data Previous Rx's Medication Instructions Recorded ibuprofen 800 mg tablet 800 mg PO Q8H PRN 10 Days #30 tab 09/30/20 risperidone 1 mg tablet 1 mg PO DAILY #90 tab 02/16/21 omeprazole 20 mg capsule,delayed 20 mg PO QAM #90 cap 05/09/21 release ferrous sulfate 325 mg (65 mg 325 mg PO BID 90 Days #180 tab 06/16/21 iron) tablet paroxetine HCl 20 mg tablet 20 mg PO DAILY 90 Days #90 tab 06/16/21 pyridoxine (vitamin B6) 25 mg 25 mg PO TID 14 Days #42 tab 06/16/21 tablet ondansetron HCl 4 mg tablet 4 mg PO Q8H PRN #10 tab 07/17/21 (Zofran) cyclobenzaprine 10 mg tablet 10 mg PO TID PRN #21 tab 08/02/21 naproxen 500 mg tablet 500 mg PO BID PRN #20 tab 08/02/21 fluconazole 150 mg tablet 150 mg PO Q3D #2 tab 09/27/21 gabapentin 100 mg capsule 100 mg PO TID #270 cap 09/27/21 tranexamic acid 650 mg tablet 1,300 mg PO TID 30 Days #180 tab 09/27/21 (Lysteda) levothyroxine 25 mcg tablet 25 mcg PO DAILY 90 Days #90 tab 10/01/21 ergocalciferol (vitamin D2) 1,250 1,250 mcg PO QWEEK 30 Days #5 cap 10/04/21 mcg (50,000 unit) capsule melatonin 10 mg capsule 10 mg PO BEDTIME PRN #30 cap 10/08/21 acetaminophen 325 mg tablet 650 mg PO Q6H PRN 30 Days #120 tab 10/30/21 ondansetron HCl 4 mg tablet 4 mg PO Q8H PRN #7 tab 10/30/21 (Zofran) ondansetron 4 mg disintegrating 4 mg PO Q6H PRN #10 tab 11/01/21 tablet docusate sodium 100 mg capsule 100 mg PO DAILY PRN 90 Days #90 cap 11/22/21 Allergies Allergy/AdvReac Type Severity Reaction Status Date / Time metoclopramide [From REGLAN] Allergy Mild MAKES ME Verified 09/27/21 11:27 COLD prochlorperazine Allergy Mild RASH, gets Verified 09/27/21 11:27 [From Compazine] cold famotidine [Pepcid] AdvReac Mild loss of Verified 09/27/21 11:27 appetite Review of Systems Review of Systems Yes all other systems are reviewed and are negative Constitutional: Reports no additional constitutional complaints Reports system reviewed and no additional complaints, except as documented Respiratory: Reports no additional respiratory complaints Gastrointestinal: Reports no additional gastrointestinal complaints Musculoskeletal: Reports no additional musculoskeletal complaints Skin/Breast: Reports system reviewed and no additional complaints, except as docu Endocrine: Reports no additional endocrine complaints PMFSH Past Medical History Medical History Anemia Anxiety Chest pain Chest pain Cyclic vomiting syndrome Depression GERD (gastroesophageal reflux disease) History of back pain History of bipolar disorder Hx of Hx of iron deficiency anemia Hx of migraines Hypokalemia Hypothyroidism Iron deficiency anemia due to chronic blood loss Iron deficiency anemia due to chronic blood loss Marijuana use, continuous Menorrhagia Moderate recurrent major depression Numbness of foot Polyarthralgia Renal calculi Shortness of breath Syphilis contact, treated Surgical History History of dilation and curettage Hx of colonoscopy Hx of esophagogastroduodenoscopy Family History Family History Mother HTN (hypertension) Maternal Grandmother HTN (hypertension) Maternal Uncle HTN (hypertension) Maternal Aunt Diabetes mellitus Family/Other Mental health disorder Substance use disorder Social History Social History Housing: Apartment Are you a primary palliative care physician to a significant other at home: No Do you presently have visiting nurse or other home services: No Alcohol intake: never Patient Tobacco Use Status: Current everyday Tobacco user Cigarette Packs Per Day: 0.25 Cigarettes Per Day: 5 Years Smoked: 15 e-Cigarette/Vaping Use: Never Used Second Hand Smoke Exposure: No Substance Use Type: Marijuana Advance Directives: No Advance Directives Information Provided: No Patient : No service: No Current occupational status: unemployed Physical Exam ED Vital Signs: Vital Signs - 24 hr 01/02/22 07:22 01/02/22 09:20 Temperature 99 F Pulse Rate 90 90 Respiratory Rate 16 16 Blood Pressure 148/100 H 111/71 Pulse Oximetry 97 95 BMI result Body Mass Index 37.0 Const General: cooperative Nutritional Appearance: well nourished Orientation/consciousness: patient oriented x3 HENMT Head: Yes normal to inspection Face and sinus: Yes normal facial exam Mouth: Normal oral and palatal mucosa present Neck Neck: Yes normal visual inspection and Yes full ROM Chest Chest palpation & inspection: normal inspection of the chest Resp Effort & Inspection: normal respiratory effort and able to speak in complete sentences Auscultation: clear to auscultation bilaterally Cardio Jugular venous distension: no JVD Rate: regular rate GI Inspection: Yes normal to inspection Palpation (GI): Soft to palpation and Tenderness to palpation present (GI) (left lower quadrant tenderness) in the LUQ Auscultation: normal bowel sounds Skin General skin exam: no rashes or lesions noted and elasticity normal Lesions: no lesions Rashes: no rashes Neuro General: patient oriented x3 Course Reevaluation(s) Reevaluation #1: Patient is feeling much better, workup is negative including CT scan of the abdomen and pelvis ,labs are within normal limit ;hCG is negative she will be discharged home Time: 10:51 MDM - Abdominal Pain Lab Data Result diagrams: 01/02/22 09:17 01/02/22 09:17 Labs: Lab Results 01/02/22 01/02/22 01/02/22 Range/Units 08:45 09:17 09:17 WBC 11.3 H (4.8-10.8) X10*3/uL RBC 4.38 (4.20-5.50) X10*6/uL Hgb 9.5 L (12.0-16.0) g/dl Hct 32.5 L (37.0-47.0) % MCV 74.2 L (80.0-98.0) fL MCH 21.7 L (27.0-33.0) pg MCHC 29.2 L (31.0-35.0) g/dl RDW 18.4 H (11.0-16.0) % Plt Count 582 H (160-400) X10*3/uL MPV 8.4 L (9.4-12.3) fL Immature Gran % (Auto) 1.1 H (0.0-0.4) % Neut % (Auto) 66.0 (45-73) % Lymph % (Auto) 23.8 (20-40) % [place] % (Auto) 8.3 (2-11) % Eos % (Auto) 0.4 (0-4) % Baso % (Auto) 0.4 (0-2) % Lymph # (Auto) 2.7 (1.2-4.9) X10*3/uL [place] # (Auto) 0.9 (0.1-1.2) X10*3/uL Eos # (Auto) 0.1 (0.0-0.4) X10*3/uL Baso # (Auto) 0.1 (0.0-0.2) X10*3/uL Abs Immat Gran (auto) 0.12 H (0.00-0.03) X10*3/uL Absolute Neuts (auto) 7.4 (2.0-8.3) x10*3/uL Absolute Nucleated RBC 0.040 H (0.0-0.012) X10*3/uL Nucleated RBC % (auto) 0.4 H (0.0-0.2) /100WBC Sodium 135 (135-145) mmol/L Potassium 3.3 (3.3-5.1) mmol/L Chloride 95 L (96-108) mmol/L Carbon Dioxide 31 H (22-29) mmol/L Anion Gap 12 (12-20) BUN 5 L (9-16) mg/dL Creatinine 0.77 (0.5-1.4) mg/dL Estim Creat Clear Calc 96.6 Estimated GFR > 60 Random Glucose 129 H (60-115) mg/dL Calcium 9.7 D (8.4-10.2) mg/dL Total Bilirubin 0.5 (0.0-1.0) mg/dL AST 16 (5-31) U/L ALT 20 (0-31) U/L Alkaline Phosphatase 76 (39-117) U/L Total Protein 7.3 (6.5-8.0) g/dL Albumin 4.4 (3.5-5.0) g/dL Lipase 35 (8-78) U/L Beta HCG, Quant mIU/mL Urine Color YELLOW Urine Appearance HAZY Urine pH 6.5 (5.0-8.0) Ur Specific [place] 1.020 (1.005-1.025) Urine Protein 1+ H (NEG-TRACE) MG/DL Urine Glucose (UA) NEG (NEG) MG/DL Urine Ketones 15 (NEG) MG/DL Urine Blood TRACE (NEG) Urine Nitrite NEG (NEG) Ur Leukocyte Esterase NEG (NEG) Urine RBC 0 (0) /HPF Urine WBC 0-2 (0-4) /HPF Ur Squamous Epith Cells 2+ /LPF Urine Bacteria NONE /LPF Urine Mucus 1+ /LPF Urine Yeast 2+ /HPF 03// Range/Units 09:17 WBC (4.8-10.8) X10*3/uL RBC (4.20-5.50) X10*6/uL Hgb (12.0-16.0) g/dl Hct (37.0-47.0) % MCV (80.0-98.0) fL MCH (27.0-33.0) pg MCHC (31.0-35.0) g/dl RDW (11.0-16.0) % Plt Count (160-400) X10*3/uL MPV (9.4-12.3) fL Immature Gran % (Auto) (0.0-0.4) % Neut % (Auto) (45-73) % Lymph % (Auto) (20-40) % [place] % (Auto) (2-11) % Eos % (Auto) (0-4) % Baso % (Auto) (0-2) % Lymph # (Auto) (1.2-4.9) X10*3/uL [place] # (Auto) (0.1-1.2) X10*3/uL Eos # (Auto) (0.0-0.4) X10*3/uL Baso # (Auto) (0.0-0.2) X10*3/uL Abs Immat Gran (auto) (0.00-0.03) X10*3/uL Absolute Neuts (auto) (2.0-8.3) x10*3/uL Absolute Nucleated RBC (0.0-0.012) X10*3/uL Nucleated RBC % (auto) (0.0-0.2) /100WBC Sodium (135-145) mmol/L Potassium (3.3-5.1) mmol/L Chloride (96-108) mmol/L Carbon Dioxide (22-29) mmol/L Anion Gap (12-20) BUN (9-16) mg/dL Creatinine (0.5-1.4) mg/dL Estim Creat Clear Calc Estimated GFR Random Glucose (60-115) mg/dL Calcium (8.4-10.2) mg/dL Total Bilirubin (0.0-1.0) mg/dL AST (5-31) U/L ALT (0-31) U/L Alkaline Phosphatase (39-117) U/L Total Protein (6.5-8.0) g/dL Albumin (3.5-5.0) g/dL Lipase (8-78) U/L Beta HCG, Quant < 2 mIU/mL Urine Color Urine Appearance Urine pH (5.0-8.0) Ur Specific [place] (1.005-1.025) Urine Protein (NEG-TRACE) MG/DL Urine Glucose (UA) (NEG) MG/DL Urine Ketones (NEG) MG/DL Urine Blood (NEG) Urine Nitrite (NEG) Ur Leukocyte Esterase (NEG) Urine RBC (0) /HPF Urine WBC (0-4) /HPF Ur Squamous Epith Cells /LPF Urine Bacteria /LPF Urine Mucus /LPF Urine Yeast /HPF Imaging Data CT scan - abdomen: Radiologist's impression: PANCREAS: Unremarkable.? SPLEEN: Unremarkable.? ADRENAL GLANDS: Unremarkable.? KIDNEYS AND URETERS: The kidneys are normal in size, shape, and attenuation. No hydronephrosis, hydroureter, or calculi seen. No perinephric stranding. ? BLADDER: Unremarkable.? GASTROINTESTINAL TRACT: The small and large bowel are unremarkable. The appendix is unremarkable.? ABDOMINAL WALL: There is a small umbilical hernia containing fat.? LYMPH NODES: Normal. VASCULAR: Unremarkable. PELVIC VISCERA: Unremarkable.? OSSEOUS STRUCTURES: Unremarkable.? CT/CT abdomen pelvis wo con IMPRESSION: Unremarkable exam. No stone seen. ? Fleischner guidelines were followed. Dictated By: Carrie Bui MD Signed By: <Electronically signed by Carrie Bui MD in OV> 01/02/22 1011 DD/ 0957 TD/TT:? Vegetable Grader: REHANA Discharge Plan Discharge Clinical Impression: Abdominal pain Patient Disposition: Home, Self-Care Instructions: Abdominal Pain (ED) Additional Instructions: Please follow-up with your primary care physician, clear liquid diet times 24 hour, return to the emergency room if you worse Prescriptions: No Action risperidone 1 mg tablet 1 mg PO DAILY Qty: 90 3RF omeprazole 20 mg capsule,delayed release(DR/EC) 20 mg PO QAM Qty: 90 3RF levothyroxine 25 mcg tablet 25 mcg PO DAILY 90 Days Qty: 90 1RF ergocalciferol (vitamin D2) 1,250 mcg (50,000 unit) capsule 1,250 mcg PO QWEEK 30 Days Qty: 5 3RF melatonin 10 mg capsule 10 mg PO BEDTIME PRN (Reason: for insomnia) Qty: 30 3RF acetaminophen 325 mg tablet 650 mg PO Q6H PRN (Reason: fever or pain) 30 Days Qty: 120 6RF docusate sodium 100 mg capsule 100 mg PO DAILY PRN (Reason: constipation) 90 Days Qty: 90 3RF ondansetron HCl [Zofran] 4 mg tablet 4 mg PO Q8H PRN (Reason: nausea and vomiting) Qty: 10 0RF ondansetron HCl [Zofran] 4 mg tablet 4 mg PO Q8H PRN (Reason: nausea and vomiting) Qty: 7 0RF ondansetron 4 mg tablet,disintegrating 4 mg PO Q6H PRN (Reason: nausea and vomiting) Qty: 10 0RF naproxen 500 mg tablet 500 mg PO BID PRN (Reason: pain) Qty: 20 0RF cyclobenzaprine 10 mg tablet 10 mg PO TID PRN (Reason: muscle spasm) Qty: 21 0RF Rx Instructions: side effect is drowsiness. Do not take at work or while driving. ibuprofen 800 mg tablet 800 mg PO Q8H PRN (Reason: pain) 10 Days Qty: 30 0RF ferrous sulfate 325 mg (65 mg iron) tablet 325 mg PO BID 90 Days Qty: 180 3RF paroxetine HCl 20 mg tablet 20 mg PO DAILY 90 Days Qty: 90 3RF pyridoxine (vitamin B6) 25 mg tablet 25 mg PO TID 14 Days Qty: 42 0RF gabapentin 100 mg capsule 100 mg PO TID Qty: 270 3RF tranexamic acid [Lysteda] 650 mg tablet 1,300 mg PO TID 30 Days Qty: 180 6RF Rx Instructions: Start on the 1st day of menses up to 3-5 days fluconazole 150 mg tablet 150 mg PO Q3D Qty: 2 0RF Referrals: Zonia Kamara MD [Primary Care Provider] - 2 days
--- NOTE | 2022-01-02 08:49 | PC.NURSE ---
Pt received: Pt AOX4 and offers c/o L lower abd intermittently radiating to lower abd. Heart sounds normal and lungs clear. Pt abd soft and non-tender. Pt still up in bed and tolerating water with no noted N/V.
[2022-01-02 08:55] LABS: Appearance Urine HAZY; Glucose Urine UA NEG (NEG); Leukocyte Esterase Urine NEG (NEG); Nitrite Urine NEG (NEG); PH 6.5 (5.0-8.0); UACC Culture Trigger NO; Urine Blood TRACE (NEG); Urine Ketones 15 MG/DL (NEG); Urine Protein 1+ MG/DL (NEG-TRACE)
[2022-01-02 08:56] LABS: Color Urine YELLOW
[2022-01-02 09:15] LABS: RBC Urine 0 /HPF (0); Squamous Epithelial Cell Urine 2+ /LPF; WBC Urine 0-2 /HPF (0-4)
[2022-01-02 09:16] LABS: Mucus Urine 1+ /LPF
[2022-01-02 09:20] VITALS: BP 111/71; PULSE 90; RESP 16; O2SAT 95
[2022-01-02 09:23] LABS: MANUAL DIFF FLAG NO
[2022-01-02] MEDS: 0.9 % Sodium Chloride 1,000 ML 999 ML IVCONT (09:23)
[2022-01-02] MEDS: LORazepam 2 MG/ML VIAL 1 MG IVPUSH (09:23)
[2022-01-02] MEDS: ondansetron HCL 4 MG/2 ML VIAL IVPUSH (09:23)
[2022-01-02] MEDS: Morphine Sulfate 4 MG/ML CARTRIDGE IVPUSH (09:23)
[2022-01-02 09:25] LABS: Basophils Absolute Auto 0.1 X10*3/uL (0.0-0.2); Basophils Percent Auto 0.4 % (0-2); Eosinophils Absolute Auto 0.1 X10*3/uL (0.0-0.4); Eosinophils Percent Auto 0.4 % (0-4); Hematocrit 32.5 % (37.0-47.0); Hemoglobin 9.5 g/dl (12.0-16.0); Imm Gran Abs Auto 0.12 X10*3/uL (0.00-0.03); Imm Gran Pct Auto 1.1 % (0.0-0.4); Lymphocytes Absolute Auto 2.7 X10*3/uL (1.2-4.9); Lymphocytes Percent Auto 23.8 % (20-40); Mean Corpuscular HGB Conc 29.2 g/dl (31.0-35.0); Mean Corpuscular Hemoglobin 21.7 pg (27.0-33.0); Mean Corpuscular Volume 74.2 fL (80.0-98.0); Mean Platelet Volume 8.4 fL (9.4-12.3); Monocytes Absolute Auto 0.9 X10*3/uL (0.1-1.2); Monocytes Percent Auto 8.3 % (2-11); NRBC Pct Auto 0.4 /100WBC (0.0-0.2); Neutrophils Absolute Auto 7.4 x10*3/uL (2.0-8.3); Platelet Count 582 X10*3/uL (160-400); Red Blood Count 4.38 X10*6/uL (4.20-5.50); Red Cell Distribution Width 18.4 % (11.0-16.0); White Blood Count 11.3 X10*3/uL (4.8-10.8)
[2022-01-02 09:38] LABS: Alanine Aminotransferase 20 U/L (0-31); Albumin Level 4.4 g/dL (3.5-5.0); Alkaline Phosphatase 76 U/L (39-117); Anion Gap 12 (12-20); Aspartate Amino Transferase 16 U/L (5-31); Bilirubin Total 0.5 mg/dL (0.0-1.0); Blood Urea Nitrogen 5 mg/dL (9-16); Calcium 9.7 mg/dL (8.4-10.2); Carbon Dioxide 31 mmol/L (22-29); Chloride 95 mmol/L (96-108); Creatinine Clr Calc Pharmacy 96.6; Estimated Glomerular Filt Rate > 60; Glucose Random 129 mg/dL (60-115); Lipase 35 U/L (8-78); Potassium 3.3 mmol/L (3.3-5.1); Sodium 135 mmol/L (135-145); Total Protein 7.3 g/dL (6.5-8.0)
[2022-01-02 09:44] LABS: HCG Quantitative < 2 mIU/mL
--- NOTE | 2022-01-02 10:04 | PC.NURSE ---
Prior to admin any IV medications, pt noted to be intermittently drinking cups of water with no N/V or ABD pain. Pt able to ambulate with ease. Vitals WNL. MD Clarke aware. RN will continue to monitor.
== END 2022-01-02 11:25 | disposition home or self-care (01) ==
PROVIDERS: Emergency Provider Emergency Medicine; PCP Internal Medicine
DX: R10.9 Unspecified abdominal pain (principal); F12.90 Cannabis use, unspecified, uncomplicated; F17.200 Nicotine dependence, unspecified, uncomplicated
CPT/HCPCS: 36415; 74176; 80053; 81001; 83690; 84702; 85025; 96361; 96374; 96375; 99283; 99284; J2060; J2270; J2405

== ENCOUNTER 2022-01-23 12:44 | Emergency (ER) | payer OTHER, SELFPAY ==
[2022-01-23 12:53] VITALS: BP 140/90; PULSE 90; O2SAT 98
[2022-01-23 13:31] VITALS: BP 165/88; PULSE 76; RESP 18; TEMP 36.8; O2SAT 96; BMI 37.0
== END 2022-01-23 19:45 | disposition left against medical advice (07) ==
PROVIDERS: Emergency Provider Emergency Medicine
DX: R11.2 Nausea with vomiting, unspecified (principal); R10.9 Unspecified abdominal pain
CPT/HCPCS: 99281; 99282

== ENCOUNTER 2022-01-24 09:35 | Emergency (ER) | payer OTHER, SELFPAY ==
[2022-01-24 09:42] VITALS: BP 150/100; PULSE 96; O2SAT 99
--- NOTE | 2022-01-24 10:47 | PC.NURSE ---
pt called twice for triage w no answer from waiting room. ?lwt
[2022-01-24 11:15] VITALS: PULSE 78; RESP 16; TEMP 36.8; O2SAT 97; BMI 33.6
[2022-01-24 11:44] LABS: Hematocrit 34.1 % (37.0-47.0); Mean Corpuscular HGB Conc 29.3 g/dl (31.0-35.0); Mean Corpuscular Hemoglobin 20.6 pg (27.0-33.0); Mean Corpuscular Volume 70.3 fL (80.0-98.0); Mean Platelet Volume 9.2 fL (9.4-12.3); Platelet Count 630 X10*3/uL (160-400); Red Blood Count 4.85 X10*6/uL (4.20-5.50); White Blood Count 12.6 X10*3/uL (4.8-10.8)
[2022-01-24 11:59] LABS: Anion Gap 18 (12-20); Blood Urea Nitrogen 8 mg/dL (9-16); Calcium 10.8 mg/dL (8.4-10.2); Carbon Dioxide 24 mmol/L (22-29); Chloride 100 mmol/L (96-108); Creatinine Clr Calc Pharmacy 101.7; Estimated Glomerular Filt Rate > 60; Glucose Random 128 mg/dL (60-115); Lipase 34 U/L (8-78); Potassium 3.9 mmol/L (3.3-5.1); Sodium 138 mmol/L (135-145)
[2022-01-24] MEDS: Ondansetron ODT 4 MG TAB.RAPDIS TRANSLINGU (13:41)
[2022-01-24] MEDS: Acetaminophen 325 MG TABLET 650 MG PO (13:41)
--- NOTE | 2022-01-24 13:43 | PC.NURSE ---
pt sts she wants to leave, educated about importance of awaiting being seen, updated on blood work, asking for zofran and tylenol, provided as well as apple juice.
[2022-01-24 16:36] VITALS: BP 137/93; PULSE 111; RESP 16; TEMP 37.1; O2SAT 98
--- NOTE | 2022-01-24 16:54 | ED_ITS ---
HPI - Abdominal Pain General Chief Complaint: Abdominal Pain Stated Complaint: ABD PAIN,VOMITING,CONSTIPATION X'S 1 DAY PER EMS Time Seen by Provider: 01/24/22 16:54 Source: patient Mode of arrival: ambulatory Limitations: no limitations History of Present Illness HPI narrative: Patient has cyclic vomiting syndrome with anxiety been here multiple times for abdominal pain and vomiting comes here for similar situations patient already had 2 CT scans this yr already comes here for vomiting and diffuse abdominal pa in after eating mac and cheese yesterday had 3-4 vomiting today no diarrhea patient was seen drinking apple juice and water and the waiting area no actively vomiting since arrived Related Data Previous Rx's Medication Instructions Recorded ibuprofen 800 mg tablet 800 mg PO Q8H PRN 10 Days #30 tab 09/30/20 omeprazole 20 mg capsule,delayed 20 mg PO QAM #90 cap 05/09/21 release ferrous sulfate 325 mg (65 mg 325 mg PO BID 90 Days #180 tab 06/16/21 iron) tablet paroxetine HCl 20 mg tablet 20 mg PO DAILY 90 Days #90 tab 06/16/21 pyridoxine (vitamin B6) 25 mg 25 mg PO TID 14 Days #42 tab 06/16/21 tablet ondansetron HCl 4 mg tablet 4 mg PO Q8H PRN #10 tab 07/17/21 (Zofran) cyclobenzaprine 10 mg tablet 10 mg PO TID PRN #21 tab 08/02/21 naproxen 500 mg tablet 500 mg PO BID PRN #20 tab 08/02/21 fluconazole 150 mg tablet 150 mg PO Q3D #2 tab 09/27/21 gabapentin 100 mg capsule 100 mg PO TID #270 cap 09/27/21 tranexamic acid 650 mg tablet 1,300 mg PO TID 30 Days #180 tab 09/27/21 (Lysteda) levothyroxine 25 mcg tablet 25 mcg PO DAILY 90 Days #90 tab 10/01/21 ergocalciferol (vitamin D2) 1,250 1,250 mcg PO QWEEK 30 Days #5 cap 10/04/21 mcg (50,000 unit) capsule acetaminophen 325 mg tablet 650 mg PO Q6H PRN 30 Days #120 tab 10/30/21 ondansetron HCl 4 mg tablet 4 mg PO Q8H PRN #7 tab 10/30/21 (Zofran) ondansetron 4 mg disintegrating 4 mg PO Q6H PRN #10 tab 11/01/21 tablet docusate sodium 100 mg capsule 100 mg PO DAILY PRN 90 Days #90 cap 11/22/21 melatonin 10 mg capsule 10 mg PO BEDTIME PRN #30 cap 01/12/22 risperidone 1 mg tablet 1 mg PO DAILY #90 tab 01/12/22 ondansetron 4 mg disintegrating 4 mg PO Q6-8H PRN #7 tab 01/24/22 tablet Allergies Allergy/AdvReac Type Severity Reaction Status Date / Time metoclopramide [From REGLAN] Allergy Mild MAKES ME Verified 09/27/21 11:27 COLD prochlorperazine Allergy Mild RASH, gets Verified 09/27/21 11:27 [From Compazine] cold famotidine [Pepcid] AdvReac Mild loss of Verified 09/27/21 11:27 appetite Review of Systems Review of Systems Yes all other systems are reviewed and are negative PMFSH Past Medical History Medical History Anemia Anxiety Chest pain Chest pain Cyclic vomiting syndrome Depression GERD (gastroesophageal reflux disease) History of back pain History of bipolar disorder Hx of Hx of iron deficiency anemia Hx of migraines Hypokalemia Hypothyroidism Iron deficiency anemia due to chronic blood loss Iron deficiency anemia due to chronic blood loss Marijuana use, continuous Menorrhagia Moderate recurrent major depression Numbness of foot Polyarthralgia Renal calculi Shortness of breath Syphilis contact, treated Surgical History History of dilation and curettage Hx of colonoscopy Hx of esophagogastroduodenoscopy Family History Family History Mother HTN (hypertension) Maternal Grandmother HTN (hypertension) Maternal Uncle HTN (hypertension) Maternal Aunt Diabetes mellitus Family/Other Mental health disorder Substance use disorder Social History Social History Housing: Apartment Are you a primary assistant child care teacher to a significant other at home: No Do you presently have visiting nurse or other home services: No Alcohol intake: never Patient Tobacco Use Status: Current everyday Tobacco user Cigarette Packs Per Day: 0.25 Cigarettes Per Day: 5 Years Smoked: 15 e-Cigarette/Vaping Use: Never Used Second Hand Smoke Exposure: No Substance Use Type: Marijuana Advance Directives: No Advance Directives Information Provided: No Patient : No service: No Current occupational status: unemployed Physical Exam ED Vital Signs: Vital Signs - 24 hr 01/24/22 11:15 01/24/22 16:36 Temperature 98.2 F 98.7 F Pulse Rate 78 111 H Respiratory Rate 16 16 Blood Pressure 137/93 H Pulse Oximetry 97 98 BMI result Body Mass Index 33.6 Appearance: Alert. Oriented X3. No acute distress. ENT: Pharynx normal. Oral Mucosa moist Neck: Normal inspection. Neck supple. CVS: Normal heart rate and rhythm. Pulses normal. Respiratory: No respiratory distress. Equal air entry bilateral, no wheezing/rales/rhonchi Abdomen: Soft and nontender. Bowel sounds are present, no mass palpable, no CVA tenderness Skin: Skin warm and dry. Normal skin color. Normal skin turgor. Extremities: No lower extremity edema. No calf tenderness Neuro: Oriented X 3. MDM - Abdominal Pain MDM Narrative Medical decision making narrative: Patient without any distress Differential Diagnosis Differential diagnosis narrative:: Patient taking p.o. fluids no significant distress will discharge patient home Zofran with does have history of cyclic vomiting Lab Data Attestation: I reviewed the patient's lab results. Result diagrams: 01/24/22 11:29 01/24/22 11:29 Labs: Lab Results 01/24/22 01/24/22 Range/Units 11:29 11:29 WBC 12.6 H (4.8-10.8) X10*3/uL RBC 4.85 (4.20-5.50) X10*6/uL Hgb 10.0 L (12.0-16.0) g/dl Hct 34.1 L (37.0-47.0) % MCV 70.3 L (80.0-98.0) fL MCH 20.6 L (27.0-33.0) pg MCHC 29.3 L (31.0-35.0) g/dl RDW 18.0 H (11.0-16.0) % Plt Count 630 H (160-400) X10*3/uL MPV 9.2 L (9.4-12.3) fL Absolute Nucleated RBC 0.000 (0.0-0.012) X10*3/uL Nucleated RBC % (auto) 0.0 (0.0-0.2) /100WBC Sodium 138 (135-145) mmol/L Potassium 3.9 (3.3-5.1) mmol/L Chloride 100 (96-108) mmol/L Carbon Dioxide 24 (22-29) mmol/L Anion Gap 18 (12-20) BUN 8 L D (9-16) mg/dL Creatinine 0.78 (0.5-1.4) mg/dL Estim Creat Clear Calc 101.7 Estimated GFR > 60 Random Glucose 128 H (60-115) mg/dL Calcium 10.8 H D (8.4-10.2) mg/dL Lipase 34 (8-78) U/L Discharge Plan Discharge Clinical Impression: Vomiting Patient Disposition: Home, Self-Care Instructions: Acute Nausea and Vomiting (ED) Additional Instructions: Continue medication for the nausea Follow-up with your PCP Prescriptions: New ondansetron 4 mg tablet,disintegrating 4 mg PO Q6-8H PRN (Reason: nausea and vomiting) Qty: 7 0RF No Action omeprazole 20 mg capsule,delayed release(DR/EC) 20 mg PO QAM Qty: 90 3RF levothyroxine 25 mcg tablet 25 mcg PO DAILY 90 Days Qty: 90 1RF ergocalciferol (vitamin D2) 1,250 mcg (50,000 unit) capsule 1,250 mcg PO QWEEK 30 Days Qty: 5 3RF acetaminophen 325 mg tablet 650 mg PO Q6H PRN (Reason: fever or pain) 30 Days Qty: 120 6RF docusate sodium 100 mg capsule 100 mg PO DAILY PRN (Reason: constipation) 90 Days Qty: 90 3RF risperidone 1 mg tablet 1 mg PO DAILY Qty: 90 3RF melatonin 10 mg capsule 10 mg PO BEDTIME PRN (Reason: for insomnia) Qty: 30 3RF ondansetron HCl [Zofran] 4 mg tablet 4 mg PO Q8H PRN (Reason: nausea and vomiting) Qty: 10 0RF ondansetron HCl [Zofran] 4 mg tablet 4 mg PO Q8H PRN (Reason: nausea and vomiting) Qty: 7 0RF ondansetron 4 mg tablet,disintegrating 4 mg PO Q6H PRN (Reason: nausea and vomiting) Qty: 10 0RF naproxen 500 mg tablet 500 mg PO BID PRN (Reason: pain) Qty: 20 0RF cyclobenzaprine 10 mg tablet 10 mg PO TID PRN (Reason: muscle spasm) Qty: 21 0RF Rx Instructions: side effect is drowsiness. Do not take at work or while driving. ibuprofen 800 mg tablet 800 mg PO Q8H PRN (Reason: pain) 10 Days Qty: 30 0RF ferrous sulfate 325 mg (65 mg iron) tablet 325 mg PO BID 90 Days Qty: 180 3RF paroxetine HCl 20 mg tablet 20 mg PO DAILY 90 Days Qty: 90 3RF pyridoxine (vitamin B6) 25 mg tablet 25 mg PO TID 14 Days Qty: 42 0RF gabapentin 100 mg capsule 100 mg PO TID Qty: 270 3RF tranexamic acid [Lysteda] 650 mg tablet 1,300 mg PO TID 30 Days Qty: 180 6RF Rx Instructions: Start on the 1st day of menses up to 3-5 days fluconazole 150 mg tablet 150 mg PO Q3D Qty: 2 0RF
== END 2022-01-24 17:58 | disposition home or self-care (01) ==
PROVIDERS: Emergency Provider Internal Medicine; PCP Internal Medicine
DX: R11.15 Cyclical vomiting syndrome unrelated to migraine (principal); R10.9 Unspecified abdominal pain; F12.90 Cannabis use, unspecified, uncomplicated; K59.00 Constipation, unspecified; F41.1 Generalized anxiety disorder; F43.0 Acute stress reaction; Z79.899 Other long term (current) drug therapy; F17.210 Nicotine dependence, cigarettes, uncomplicated; Z71.6 Tobacco abuse counseling
CPT/HCPCS: 36415; 80048; 83690; 85027; 99283

== ENCOUNTER 2022-02-06 13:10 | Outpatient (REF) | payer OTHER, SELFPAY ==
[2022-02-06 13:33] LABS: MANUAL DIFF FLAG NO
[2022-02-06 14:25] LABS: Basophils Percent Auto 0.3 % (0-2); Eosinophils Percent Auto 0.4 % (0-4); Hematocrit 30.1 % (37.0-47.0); Hemoglobin 8.4 g/dl (12.0-16.0); Imm Gran Abs Auto 0.04 X10*3/uL (0.00-0.03); Imm Gran Pct Auto 0.4 % (0.0-0.4); Lymphocytes Percent Auto 9.9 % (20-40); Mean Corpuscular HGB Conc 27.9 g/dl (31.0-35.0); Mean Corpuscular Hemoglobin 20.8 pg (27.0-33.0); Mean Corpuscular Volume 74.5 fL (80.0-98.0); Mean Platelet Volume 9.1 fL (9.4-12.3); Monocytes Absolute Auto 1.4 X10*3/uL (0.1-1.2); Monocytes Percent Auto 14.1 % (2-11); Neutrophils Absolute Auto 7.2 x10*3/uL (2.0-8.3); Neutrophils Percent Auto 74.9 % (45-73); Platelet Count 596 X10*3/uL (160-400); Red Blood Count 4.04 X10*6/uL (4.20-5.50); White Blood Count 9.7 X10*3/uL (4.8-10.8)
[2022-02-06 14:55] LABS: Iron 11 mcg/dL (30-160); Percent Iron Saturation 2 % (15-50); Total Iron Binding Capacity 516 mcg/dL (228-428); Unsaturated Iron Binding 505 ug/dL
[2022-02-06 15:16] LABS: Thyroid Stimulating Hormone 2.31 uIU/mL (0.32-4.0)
[2022-02-07 04:56] LABS: HBS Num1 434.83 mIU/mL (0-7.99); HBc Num1 0.08 S/CO (0.00-0.79); Hepatitis B Core Antibody Nonreactive (Nonreactive); ~Hepatitis B Surface Antibody REACTIVE (Nonreactive)
[2022-02-07 05:00] LABS: HBsAGNum1 0.15 S/CO (0.00-0.99); Hepatitis B Surface Antigen Negative (Negative)
[2022-02-08 05:16] LABS: Rubeola IgG (Measles) >300.00 AU/mL
[2022-02-10 13:40] LABS: Vitamin D 25-OH, D2 6 ng/mL; Vitamin D 25-OH, D3 8 ng/mL; Vitamin D 25-OH, Total 14 ng/mL (30-100)
== END 2022-02-06 13:11 | disposition home or self-care (01) ==
LOC: HO.LAB 13:10
PROVIDERS: PCP Internal Medicine; Visit Provider Internal Medicine
DX: Z01.84 Encounter for antibody response examination (principal); E03.9 Hypothyroidism, unspecified; D64.9 Anemia, unspecified; E55.9 Vitamin D deficiency, unspecified
CPT/HCPCS: 36415; 82306; 83540; 84443; 85025; 86704; 86706; 86735; 86762; 86765; 87340

== ENCOUNTER 2022-03-02 12:19 | Outpatient (REF) | payer OTHER, SELFPAY ==
--- NOTE | ~2022-03-02 | US_ITS ---
EXAMINATION: US THYROID CLINICAL INFORMATION: Goiter COMPARISON: None TECHNIQUE: Linear transducer grayscale and color Doppler examination with attention to the region of the thyroid. FINDINGS: SIZE: Measurements of the thyroid lobes and nodules are given in sagittal, anteroposterior and transverse dimensions respectively. Right Thyroid Lobe: 3.9 x 1.1 x 1.6 cm, volume 3.8 mL. Parenchyma: The gland echotexture is heterogeneous. Thyroid vascularity is normal. Left Thyroid Lobe: 2.6 x 1.2 x 1.3 cm, volume 2.2 mL. Parenchyma: The gland echotexture is heterogeneous. Thyroid vascularity is normal. Isthmus: 0.38 cm in maximum AP dimension. Estimated total number of nodules greater than or equal to 1 cm: 0. Operations Scheduler nodules are described as follows: 1. Location: Right mid. Size: 0.8 x 0.67 x 0.58 cm, volume 0.16 mL. Nodule characteristics: Composition: Solid (2). Echogenicity: Hypoechoic (2). Shape: Not taller than wide (0). Margins: Smooth (0). Echogenic Foci: None (0). ACR TI-RADS total points: 4 ACR TI-RADS category: 4 NODES: No lymphadenopathy is seen in the tissue surrounding the thyroid gland. US/US thyroid IMPRESSION: Diffusely heterogeneous thyroid gland without hypervascularity. Subcentimeter right mid thyroid nodule with TI-RADS category 4 for which TI-RADS recommendation would be no follow up. ACR TI-RADS RECOMMENDATION REFERENCE: * TR1 (0 point) and TR 2 (2 points): No FNA or follow up * TR3 (3 points): FNA if more than or equal to 2.5 cm in maximum dimension, followup ultrasound in 1, 3 and 5 years if 1.5 to 2.4 cm in maximum dimension. * TR4 (4-6 points): FNA if more than or equal to 1.5 cm in maximum dimension, followup ultrasound in 1, 2, 3 and 5 years if 1 to 1.4 cm in maximum dimension. * TR5 (more than or equal to 7 points): FNA if more than or equal to 1 cm in maximum dimension, followup ultrasound every year for 5 years if 0.5 to 0.9 cm in maximum dimension. * TR3, TR4 or TR5 nodules that are below the size threshold for follow up receive no follow up.
== END 2022-03-02 12:20 | disposition home or self-care (01) ==
LOC: HO.US 12:19
PROVIDERS: Visit Provider Internal Medicine
DX: E04.9 Nontoxic goiter, unspecified (principal)
CPT/HCPCS: 76536

== ENCOUNTER 2022-04-24 12:33 | Outpatient (REF) | payer OTHER, SELFPAY ==
--- NOTE | ~2022-04-24 | XR_ITS ---
EXAMINATION: XR MANDIBLE CLINICAL INFORMATION: R68.84 - Jaw pain. Throat pain. COMPARISON: Soft tissue neck, right clavicle, chest 04/24/2022. TECHNIQUE: The mandible is imaged in 6 views. FINDINGS: No visible fracture or bony destructive process. No erosive changes condylar heads. The visualized sinuses and mastoid air cells show no air-fluid levels. Soft tissue neck unremarkable. No prevertebral soft tissue swelling. XR/XR mandible min 4V IMPRESSION: Unremarkable examination.
--- NOTE | ~2022-04-24 | XR_ITS ---
EXAMINATION: XR SOFT TISSUE NECK CLINICAL INDICATION: R07.0 - Pain in throat COMPARISON: Chest radiographs 04/24/2022, right clavicle 04/24/2022 TECHNIQUE: Soft tissue neck is imaged in 3 views. FINDINGS: There is normal vallecula, epiglottis, and area epiglottic folds. The subglottic airway is unremarkable. No prevertebral soft tissue swelling. No subcutaneous emphysema or apical pneumothorax. There is mild reversal cervical lordosis. Vertebral bodies are normal in height. There are mild degenerative disc changes C5-C6 and C6-C7. XR/XR soft tissue neck IMPRESSION: -Normal soft tissue neck. -Mild reversal cervical lordosis with degenerative disc changes C5-C7.
--- NOTE | ~2022-04-24 | XR_ITS ---
EXAMINATION: XR CHEST CLINICAL INFORMATION: R06.00 - Dyspnea, unspecified COMPARISON: Right clavicle radiograph 04/24/2022, chest radiographs 06/16/2021, 02/17/2021, 10/27/2020 TECHNIQUE: 2 views of the chest were obtained. FINDINGS: No pneumothorax, pleural reaction, airspace consolidation, or effusion. There is a tiny pleural-based nodular density superior medial right apex stable from prior exams. Heart size normal. Normal vascularity. The hilar and mediastinal contours are normal. There is gentle dextrocurvature thoracic spine. XR/XR chest 2V IMPRESSION: Unremarkable examination.
--- NOTE | ~2022-04-24 | XR_ITS ---
EXAMINATION: XR CLAVICLE, RIGHT CLINICAL INFORMATION: M89.8X1 - Other specified disorders of bone, shoulder COMPARISON: Chest radiographs 04/24/2022, 06/16/2021, 02/17/2021, 10/27/2020 TECHNIQUE: Two views of the right clavicle. FINDINGS: No fracture. The acromioclavicular alignment is normal. Normal bony mineralization. No destructive process. No apical pneumothorax or pleural reaction. Tiny nodular density right medial apex stable from prior studies. XR/XR clavicle RT IMPRESSION: Normal right clavicle.
[2022-04-24 13:34] LABS: MANUAL DIFF FLAG NO
[2022-04-24 13:41] LABS: Basophils Absolute Auto 0.1 X10*3/uL (0.0-0.2); Basophils Percent Auto 1.2 % (0-2); Eosinophils Absolute Auto 0.4 X10*3/uL (0.0-0.4); Eosinophils Percent Auto 6.8 % (0-4); Hematocrit 31.2 % (37.0-47.0); Hemoglobin 9.2 g/dl (12.0-16.0); Imm Gran Abs Auto 0.04 X10*3/uL (0.00-0.03); Imm Gran Pct Auto 0.6 % (0.0-0.4); Lymphocytes Absolute Auto 2.6 X10*3/uL (1.2-4.9); Lymphocytes Percent Auto 40.1 % (20-40); Mean Corpuscular HGB Conc 29.5 g/dl (31.0-35.0); Mean Corpuscular Hemoglobin 22.8 pg (27.0-33.0); Mean Corpuscular Volume 77.4 fL (80.0-98.0); Mean Platelet Volume 9.2 fL (9.4-12.3); Monocytes Absolute Auto 0.5 X10*3/uL (0.1-1.2); Monocytes Percent Auto 7.1 % (2-11); Neutrophils Absolute Auto 2.9 x10*3/uL (2.0-8.3); Neutrophils Percent Auto 44.2 % (45-73); Platelet Count 558 X10*3/uL (160-400); Red Blood Count 4.03 X10*6/uL (4.20-5.50); Red Cell Distribution Width 20.2 % (11.0-16.0); White Blood Count 6.5 X10*3/uL (4.8-10.8)
[2022-04-24 14:43] LABS: Folate 13.2 ng/mL (> or = 4.0); Vitamin B12 635 pg/mL (200-900)
[2022-04-24 14:57] LABS: TSH reflex Free T4 8.82 uIU/mL (0.32-4.0)
[2022-04-24 15:45] LABS: Free T4 (Free Thyroxine) 0.76 ng/dL (0.71-1.85)
[2022-04-24 15:57] LABS: Alanine Aminotransferase 12 U/L (0-31); Alkaline Phosphatase 83 U/L (39-117); Anion Gap 14 (12-20); Aspartate Amino Transferase 18 U/L (5-31); Bilirubin Total 0.2 mg/dL (0.0-1.0); Blood Urea Nitrogen 9 mg/dL (9-16); Carbon Dioxide 22 mmol/L (22-29); Chloride 108 mmol/L (96-108); Estimated Glomerular Filt Rate > 60; Glucose Fasting 105 mg/dL (60-99); Potassium 4.1 mmol/L (3.3-5.1); Sodium 140 mmol/L (135-145); Total Protein 7.3 g/dL (6.5-8.0)
[2022-04-25 15:52] LABS: Calcium (PTHI) 9.3 mg/dL (8.6-10.2); PTHI 66 pg/mL (16-77)
[2022-04-26 17:22] LABS: Calcium, Random Urine 6.5 mg/dL
[2022-04-27 15:06] LABS: Calcium, Ionized 5.1 mg/dL (4.8-5.6)
== END 2022-04-24 12:34 | disposition home or self-care (01) ==
LOC: HO.HMGCX 12:33
PROVIDERS: Absent Provider Physician Assistant; PCP Internal Medicine; Visit Provider Internal Medicine
DX: R07.0 Pain in throat (principal); E03.9 Hypothyroidism, unspecified; R68.84 Jaw pain; M89.8X1 Other specified disorders of bone, shoulder; R20.2 Paresthesia of skin; D64.9 Anemia, unspecified; E83.52 Hypercalcemia; R06.00 Dyspnea, unspecified
CPT/HCPCS: 36415; 70110; 70360; 71046; 73000; 80053; 82310; 82330; 82607; 82746; 83970; 84439; 84443; 85025

== ENCOUNTER 2022-07-16 22:55 | Emergency (ER) | payer OTHER, SELFPAY | END 2022-07-17 00:39 | disposition left against medical advice (07) | PROVIDERS: Emergency Provider Emergency Medicine; PCP Internal Medicine | DX: M79.642 Pain in left hand (principal) ==

== ENCOUNTER 2022-11-09 12:03 | Emergency (ER) | payer OTHER, SELFPAY ==
--- NOTE | ~2022-11-09 | XR_ITS ---
EXAMINATION: XR KNEE RIGHT XR TIBIA FIBULA RIGHT CLINICAL INFORMATION: Pain. Injury at work today. COMPARISON: None TECHNIQUE: Right knee, 4 views Right lower leg, 2 views FINDINGS: Right knee: Alignment is normal at patellofemoral and tibiofemoral joints. Overall, the bones, joints and soft tissues have a normal appearance. No fracture, subluxation or joint effusion. Right tibia-fibula: Bones are intact. No fractures or periostitis. No focal soft tissue swelling. No radiopaque foreign body. At the ankle, the talar dome is well-positioned within the mortise. XR/XR tibia fibula RT 2V IMPRESSION: 1. Normal right knee. 2. No acute osseous injury in the right lower extremity.
--- NOTE | ~2022-11-09 | XR_ITS ---
EXAMINATION: XR KNEE RIGHT XR TIBIA FIBULA RIGHT CLINICAL INFORMATION: Pain. Injury at work today. COMPARISON: None TECHNIQUE: Right knee, 4 views Right lower leg, 2 views FINDINGS: Right knee: Alignment is normal at patellofemoral and tibiofemoral joints. Overall, the bones, joints and soft tissues have a normal appearance. No fracture, subluxation or joint effusion. Right tibia-fibula: Bones are intact. No fractures or periostitis. No focal soft tissue swelling. No radiopaque foreign body. At the ankle, the talar dome is well-positioned within the mortise. XR/XR knee RT 4V IMPRESSION: 1. Normal right knee. 2. No acute osseous injury in the right lower extremity.
[2022-11-09 12:10] VITALS: BP 128/69; PULSE 61; RESP 18; TEMP 36.6; O2SAT 100; BMI 32.9
--- NOTE | 2022-11-09 12:10 | ED_ITS ---
HPI - Extremity Injury (Lower) General Chief Complaint: Extremity Injury, Lower <Kayleigh Joy NP - Last Filed: 11/09/22 12:13> Stated Complaint: work inj 11/09/22 @ 0715 <Kayleigh Joy NP - Last Filed: 11/09/22 12:13> Time Seen by Provider: 11/09/22 14:19 <Kayleigh Joy NP - Last Filed: 11/09/22 12:13> Source: patient <Pratibha Hanson NP - Last Filed: 11/09/22 15:14> Mode of arrival: ambulatory <Pratibha Hanson NP - Last Filed: 11/09/22 15:14> Limitations: no limitations <Pratibha Hanson NP - Last Filed: 11/09/22 15:14> History of Present Illness HPI Narrative: 37-year-old female with past medical history of polyarthralgia, depressi on, and GERD presents to the emergency department with complaints of right-sided leg pain over the past several months exacerbated at work yesterday when her calf/bone got pinned between a trash can and the door. She reports a known history of paresthesias in BUE and BLE followed by her primary care provider. She denies any new numbness, tingling, weakness in her right leg. <Pratibha Hanson NP - Last Filed: 11/09/22 15:14> MD complaint: leg injury <Pratibha Hanson NP - Last Filed: 11/09/22 15:14> Onset (ago): day(s) <Pratibha Hanson NP - Last Filed: 11/09/22 15:14> Place: home <Pratibha Hanson NP - Last Filed: 11/09/22 15:14> Severity: moderate <Pratibha Hanson NP - Last Filed: 11/09/22 15:14> Severity scale (1-10): 5 <Pratibha Hanson NP - Last Filed: 11/09/22 15:14> Relieving factors: nothing <Pratibha Hanson NP - Last Filed: 11/09/22 15:14> Exacerbating factors: palpation <Pratibha Hanson NP - Last Filed: 11/09/22 15:14> Other symptoms: none <Pratibha Hanson NP - Last Filed: 11/09/22 15:14> Related Data Home Medications: Previous Rx's Medication Instructions Recorded ibuprofen 800 mg tablet 800 mg PO Q8H PRN pain 10 days #30 09/30/20 tabs pyridoxine (vitamin B6) 25 mg 25 mg PO TID 14 days #42 tabs 06/16/21 tablet cyclobenzaprine 10 mg tablet 10 mg PO TID PRN muscle spasm #21 08/02/21 tabs naproxen 500 mg tablet 500 mg PO BID PRN pain #20 tabs 08/02/21 tranexamic acid 650 mg tablet 1,300 mg PO TID 30 days #180 tabs 09/27/21 (Lysteda) ondansetron 4 mg disintegrating 4 mg PO Q6H PRN nausea and 11/01/21 tablet vomiting #10 tabs docusate sodium 100 mg capsule 100 mg PO DAILY PRN constipation 11/22/21 90 days #90 caps risperidone 1 mg tablet 1 mg PO DAILY #90 tabs 01/12/22 calcitriol 0.5 mcg capsule 0.5 mcg PO DAILY 90 days #90 caps 02/14/22 omeprazole 20 mg capsule,delayed 20 mg PO QAM #90 caps 04/04/22 release paroxetine HCl 20 mg tablet 20 mg PO DAILY 90 days #90 tabs 06/19/22 acetaminophen 325 mg tablet 650 mg PO Q6H PRN fever or pain 30 08/17/22 days #120 tabs gabapentin 100 mg capsule 100 mg PO TID #270 caps 09/16/22 ferrous sulfate 325 mg (65 mg 325 mg PO TID 90 days #270 tabs 09/28/22 iron) tablet fluconazole 150 mg tablet 150 mg PO Q3D 2 doses #2 tabs 09/28/22 levothyroxine 25 mcg tablet 25 mcg PO DAILY 90 days #90 tabs 09/28/22 melatonin 10 mg capsule 10 mg PO BEDTIME PRN for insomnia 11/08/22 #30 caps <Kayleigh Joy NP - Last Filed: 11/09/22 12:13> Allergies/Adverse Reactions: Allergies Allergy/AdvReac Type Severity Reaction Status Date / Time metoclopramide [From REGLAN] Allergy Mild MAKES ME Verified 09/28/22 15:36 COLD prochlorperazine Allergy Mild RASH, gets Verified 09/28/22 15:36 [From Compazine] cold famotidine [Pepcid] AdvReac Mild loss of Verified 09/28/22 15:36 appetite <Kayleigh Joy NP - Last Filed: 11/09/22 12:13> Review of Systems Review of Systems: In addition to documented HPI above, the additional ROS was obtained: Constitutional: No Weight loss, No Fever, No Chills ENT/Mouth: No Ear Pain, No Nasal Congestion, No Sinus Pain, No Hoarseness, No sore throat, No Rhinorrhea, No Swallowing Difficulty Cardiovascular: No Chest Pain, No SOB Respiratory: No Cough, No Sputum, No Wheezing Gastrointestinal: No Nausea, No Vomiting, No Diarrhea, No Constipation, No Abdominal pain Genitourinary: No Dysuria, No Urinary Frequency, No Hematuria, No Urinary Incontinence/retention, No Urgency, No Flank Pain Musculoskeletal: No joint pain, No Myalgias, No Joint Swelling Skin: No Skin Lesions, No rash Neuro: No new Weakness, Numbness, Paresthesias <Pratibha Hanson NP - Last Filed: 11/09/22 15:14> Yes all other systems are reviewed and are negative <Pratibha Hanson NP - Last Filed: 11/09/22 15:14> PMFSH Past Medical History Attestation statement: The following information was validated with the patient. <Pratibha Hanson NP - Last Filed: 11/09/22 15:14> Source: old records reviewed and obtained from family <Pratibha Hanson NP - Last Filed: 11/09/22 15:14> Medical History: Medical History Anemia Anxiety Chest pain Chest pain Cyclic vomiting syndrome Depression Dyspnea GERD (gastroesophageal reflux disease) Goiter History of back pain History of bipolar disorder Hx of Hx of iron deficiency anemia Hx of migraines Hypercalcemia Hypokalemia Hypothyroidism Iron deficiency anemia due to chronic blood loss Iron deficiency anemia due to chronic blood loss Marijuana use, continuous Menorrhagia Moderate recurrent major depression Numbness of foot Pain in mandible Pain of right clavicle Polyarthralgia Renal calculi Shortness of breath Syphilis contact, treated Throat pain <Kayleigh Joy NP - Last Filed: 11/09/22 12:13> Surgical History: Surgical History History of dilation and curettage Hx of colonoscopy Hx of esophagogastroduodenoscopy <Kayleigh Joy NP - Last Filed: 11/09/22 12:13> Family History Family History: Family History Mother HTN (hypertension) Maternal Grandmother HTN (hypertension) Maternal Uncle HTN (hypertension) Maternal Aunt Diabetes mellitus Family/Other Mental health disorder Substance use disorder Father Cancer <Kayleigh Joy NP - Last Filed: 11/09/22 12:13> Social History Social History: Social History Housing: Apartment Are you a primary child day care provider to a significant other at home: No Do you presently have visiting nurse or other home services: No Alcohol intake: never Patient Tobacco Use Status: Current everyday Tobacco user Cigarette Packs Per Day: 0.25 Cigarettes Per Day: 5 Years Smoked: 15 e-Cigarette/Vaping Use: Never Used Second Hand Smoke Exposure: No Substance Use Type: Marijuana Advance Directives: No service: No Current occupational status: unemployed Cognitive needs: No Hearing needs: No Vision needs: No <Kayleigh Joy NP - Last Filed: 11/09/22 12:13> Physical Exam Vital Signs: Vital Signs: Last Vital Signs Temp 98 F 11/09/22 12:10 Pulse 61 11/09/22 12:10 Resp 18 11/09/22 12:10 BP 128/69 11/09/22 12:10 Pulse Ox 100 11/09/22 12:10 O2 Del Method 11/09/22 12:10 BMI result Body Mass Index 32.9 <Kayleigh Joy NP - Last Filed: 11/09/22 12:13> Vital Signs: Last Vital Signs Temp 98 F 11/09/22 12:10 Pulse 61 11/09/22 12:10 Resp 18 11/09/22 12:10 BP 128/69 11/09/22 12:10 Pulse Ox 100 11/09/22 12:10 O2 Del Method 11/09/22 12:10 BMI result Body Mass Index 32.9 <Pratibha Hanson NP - Last Filed: 11/09/22 15:14> Nursing notes and vital signs reviewed. GENERAL APPEARANCE: A&0 x 4, generally well appearing, no acute distress HENMT: Normal to inspection, atraumatic, face symmetrical. Normal external ears, nose, and oropharynx clear. EYE: PERRLA, EOM intact, structures appear normal NECK: Supple without lymphadenopathy. No stiffness or restricted ROM. CHEST: Normal to inspection HEART: Normal rate and regular rhythm, normal S1/S2, no M/R/G LUNGS: LS CTA, moving air well. Able to speak in complete sentences. No crackles, wheezes, or rhonchi auscultated ABDOMEN: Soft, nontender, nondistended. Normal bowel sounds noted BACK: No CVAT, no obvious deformity EXTREMITIES: Moving all extremities without difficulty. No cyanosis, clubbing, or edema. Normal capillary refill. NEUROLOGICAL: Alert and oriented, moving all 4 extremities with equal strength. CN not formally tested but appearing grossly intact. Observed to ambulate with normal gait. Cognition normal SKIN: Warm and dry without any lesions, rash, or visible sores PSYCH: Cooperative, normal affect, normal thought process <Pratibha Hanson NP - Last Filed: 11/09/22 15:14> Course Course Course Narrative: This is rapid medical exam. Deferred additional HPI, ROS, PE to primary provider. 37 yo female with history of anxiety, cyclic vomiting syndrome, hypothyroidism, anemia, depression here right knee pain x 1 yr worsened today with a work injury. Will obtain x-ray. VSS. <Kayleigh Joy NP - Last Filed: 11/09/22 12:13> Medical Decision Making Medical Decision Making MDM Narrative: 37-year-old female with past medical history of polyarthralgia, depression, and GERD presents to the emergency department with complaints of right-sided leg pain over the past several months exacerbated at work yesterday when her calf/bone got pinned between a trash can and the door. X-ray of right tibia, fibula, knee showing normal right knee, no fracture, periostitis psis, soft tissue swelling. Physical exam with no erythema or ecchymosis, tissue soft on palpation. Palpable 2+ dp/pt pulses. Moves right knee and ankle with good strength. Normal gait noted. History, physical exam and diagnostics consistent with right lower leg contusion. Perc score 0. Low suspicion for DVT, ischemia, compartment syndrome. Patient is safe for discharge at this time with plan to manage pain with [id number] Tylenol, Motrin, rest, heat or ice packs, and elevation. HPI, PE, diagnostics, and plan discussed with patient with no unanswered questions at this time. Patient educated to return to the emergency department with new, worsening, or concerning emergent symptoms. Recommended to follow-up with her primary care provider for further treatment and management. *Refer to Course for additional information on consultations, diagnostic interpretation, consultations, emergency department stay, conversations with patient and family, shared decision making with patient, and more information on medical decision making* <Pratibha Hanson NP - Last Filed: 11/09/22 15:14> Independent Interpretation I performed an independent interpretation of an: Plain X-Ray <Pratibha Hanson NP - Last Filed: 11/09/22 15:14> Interpretation: I independently reviewed the x-ray of right knee, tibia, fibula showing normal right knee no fracture, dislocation, or soft tissue swelling. <Pratibha Hanson NP - Last Filed: 11/09/22 15:14> Radiology Impression Discussion of test interpretation with radiology: I have reviewed the radiologist's reading. <Pratibha Hanson NP - Last Filed: 11/09/22 15:14> Radiologist Impression: EXAMINATION: XR KNEE RIGHT XR TIBIA FIBULA RIGHT CLINICAL INFORMATION: Pain. Injury at work today.? COMPARISON: None? TECHNIQUE: Right knee, 4 views Right lower leg, 2 views? FINDINGS: Right knee: Alignment is normal at patellofemoral and tibiofemoral joints. Overall, the bones, joints and soft tissues have a normal appearance. No fracture, subluxation or joint effusion. Right tibia-fibula: Bones are intact. No fractures or periostitis. No focal soft tissue swelling. No radiopaque foreign body. At the ankle, the talar dome is well-positioned within the mortise.? XR/XR tibia fibula RT 2V IMPRESSION: 1.? Normal right knee. 2.? No acute osseous injury in the right lower extremity. ? Dictated By: Brandon Singer MD Signed By: <Electronically signed by Brandon Singer MD in [place]> 11/09/22 1415 DD/ 1303 TD/TT:? Commercial Production Editor: <Pratibha Hanson NP - Last Filed: 11/09/22 15:14> Discharge Plan Discharge Clinical Impression: Acute pain of right lower extremity <Kayleigh Joy NP - Last Filed: 11/09/22 12:13> Patient Disposition: Home, Self-Care <Kayleigh Joy NP - Last Filed: 11/09/22 12:13> Instructions: Leg Pain (ED) <Kayleigh Joy NP - Last Filed: 11/09/22 12:13> Additional Instructions: Your lower leg x-ray shows a normal right knee, with good alignment, no fracture or joint effusion. Your right lower extremity bone show no fracture or soft tissue swelling. Your safe for discharge. You may use [id number] Tylenol and/or Motrin for control of discomfort. Please follow-up the primary care provider for further treatment and management. <Kayleigh Joy NP - Last Filed: 11/09/22 12:13> Prescriptions: No Action docusate sodium 100 mg capsule 100 mg PO DAILY PRN (Reason: constipation) 90 Days Qty: 90 3RF risperidone 1 mg tablet 1 mg PO DAILY Qty: 90 3RF calcitriol 0.5 mcg capsule 0.5 mcg PO DAILY 90 Days Qty: 90 1RF omeprazole 20 mg capsule,delayed release(DR/EC) 20 mg PO QAM Qty: 90 3RF paroxetine HCl 20 mg tablet 20 mg PO DAILY 90 Days Qty: 90 3RF acetaminophen 325 mg tablet 650 mg PO Q6H PRN (Reason: fever or pain) 30 Days Qty: 120 6RF gabapentin 100 mg capsule 100 mg PO TID Qty: 270 3RF melatonin 10 mg capsule 10 mg PO BEDTIME PRN (Reason: for insomnia) Qty: 30 3RF ondansetron 4 mg tablet,disintegrating 4 mg PO Q6H PRN (Reason: nausea and vomiting) Qty: 10 0RF naproxen 500 mg tablet 500 mg PO BID PRN (Reason: pain) Qty: 20 0RF cyclobenzaprine 10 mg tablet 10 mg PO TID PRN (Reason: muscle spasm) Qty: 21 0RF Rx Instructions: side effect is drowsiness. Do not take at work or while driving. ibuprofen 800 mg tablet 800 mg PO Q8H PRN (Reason: pain) 10 Days Qty: 30 0RF pyridoxine (vitamin B6) 25 mg tablet 25 mg PO TID 14 Days Qty: 42 0RF tranexamic acid [Lysteda] 650 mg tablet 1,300 mg PO TID 30 Days Qty: 180 6RF Rx Instructions: Start on the 1st day of menses up to 3-5 days levothyroxine 25 mcg tablet 25 mcg PO DAILY 90 Days Qty: 90 1RF ferrous sulfate 325 mg (65 mg iron) tablet 325 mg PO TID 90 Days Qty: 270 3RF fluconazole 150 mg tablet 150 mg PO Q3D Qty: 2 0RF <Kayleigh Joy NP - Last Filed: 11/09/22 12:13> Interventions: ED Discharge Assessment Last Done: 11/09/22 14:58 <Kayleigh Joy NP - Last Filed: 11/09/22 12:13> Discharge Date/Time: 11/09/22 14:59 <Kayleigh Joy NP - Last Filed: 11/09/22 12:13>
== END 2022-11-09 14:59 | disposition home or self-care (01) ==
PROVIDERS: Emergency Provider Student in an Organized Health Care Education/Training Program; PCP Internal Medicine
DX: Z04.2 Encounter for examination and observation following work accident (principal); M79.604 Pain in right leg; F17.210 Nicotine dependence, cigarettes, uncomplicated; F12.90 Cannabis use, unspecified, uncomplicated
CPT/HCPCS: 73564; 73590; 99282; 99283

== ENCOUNTER 2022-11-29 13:10 | Outpatient (REF) | payer OTHER, SELFPAY ==
[2022-11-29 13:51] LABS: COVID-19 Test Negative (Negative); IDNOW Serial# 9DB6401D
== END 2022-11-29 13:11 | disposition home or self-care (01) ==
LOC: HO.LAB 13:10
PROVIDERS: Visit Provider Internal Medicine
DX: Z20.822 Contact with and (suspected) exposure to COVID-19 (principal)
CPT/HCPCS: 87635; C9803

== ENCOUNTER 2022-12-13 12:48 | Outpatient (REF) | payer OTHER, SELFPAY ==
--- NOTE | 2022-12-13 10:30 | EMG_ITS ---
Please see scanned EMG / Nerve Conduction Report. MTDD
== END 2022-12-13 12:49 | disposition home or self-care (01) ==
LOC: HO.NEURO 12:48
PROVIDERS: PCP Internal Medicine; Visit Provider Internal Medicine
DX: R20.0 Anesthesia of skin (principal)
CPT/HCPCS: 95885; 95911

== ENCOUNTER 2023-01-29 13:46 | Outpatient (REF) | payer OTHER, SELFPAY ==
[2023-01-29 14:00] LABS: MANUAL DIFF FLAG NO
[2023-01-29 14:20] LABS: Basophils Absolute Auto 0.1 X10*3/uL (0.0-0.2); Basophils Percent Auto 1.3 % (0-2); Eosinophils Absolute Auto 0.3 X10*3/uL (0.0-0.4); Eosinophils Percent Auto 4.7 % (0-4); Hematocrit 32.5 % (37.0-47.0); Hemoglobin 9.4 g/dl (12.0-16.0); Imm Gran Abs Auto 0.01 X10*3/uL (0.00-0.03); Imm Gran Pct Auto 0.1 % (0.0-0.4); Lymphocytes Absolute Auto 2.8 X10*3/uL (1.2-4.9); Mean Corpuscular HGB Conc 28.9 g/dl (31.0-35.0); Mean Corpuscular Hemoglobin 22.3 pg (27.0-33.0); Mean Platelet Volume 9.7 fL (9.4-12.3); Monocytes Absolute Auto 0.6 X10*3/uL (0.1-1.2); Monocytes Percent Auto 8.1 % (2-11); Neutrophils Absolute Auto 3.2 x10*3/uL (2.0-8.3); Neutrophils Percent Auto 45.8 % (45-73); Platelet Count 430 X10*3/uL (160-400); Red Blood Count 4.22 X10*6/uL (4.20-5.50); Red Cell Distribution Width 17.9 % (11.0-16.0)
[2023-01-29 15:08] LABS: Alanine Aminotransferase 9 U/L (0-31); Albumin Level 4.3 g/dL (3.5-5.0); Alkaline Phosphatase 78 U/L (39-117); Anion Gap 14 (12-20); Aspartate Amino Transferase 18 U/L (5-31); Bilirubin Total 0.3 mg/dL (0.0-1.0); Blood Urea Nitrogen 10 mg/dL (9-16); Calcium 9.5 mg/dL (8.4-10.2); Carbon Dioxide 22 mmol/L (22-29); Chloride 109 mmol/L (96-108); Cholesterol 125 mg/dL; Estimated Glomerular Filt Rate > 60; Glucose Fasting 105 mg/dL (60-99); HDL Cholesterol 47 mg/dL; Iron 22 mcg/dL (30-160); LDL Cholesterol Calculated 68 mg/dl; Percent Iron Saturation 5 % (15-50); Potassium 4.1 mmol/L (3.3-5.1); Sodium 141 mmol/L (135-145); Total Iron Binding Capacity 419 mcg/dL (228-428); Total Protein 7.3 g/dL (6.5-8.0); Triglycerides 54 mg/dL; Unsaturated Iron Binding 397 ug/dL
[2023-01-29 15:27] LABS: Folate 10.3 ng/mL (> or = 4.0); Free T4 (Free Thyroxine) 0.66 ng/dL (0.71-1.85); Thyroid Stimulating Hormone 5.88 uIU/mL (0.32-4.0); Vitamin B12 539 pg/mL (200-900); Vitamin D 25-OH Total 14.2 ng/mL (>30)
[2023-01-30 17:33] LABS: Thyroid Peroxidase Antibodies 485 IU/mL (<9)
[2023-01-30 21:48] LABS: Thyroglobulin Antibodies 2 IU/mL (< or = 1)
== END 2023-01-29 13:47 | disposition home or self-care (01) ==
LOC: HO.LAB 13:46
PROVIDERS: PCP Internal Medicine; Visit Provider Internal Medicine
DX: Z00.00 Encounter for general adult medical examination without abnormal findings (principal); E03.9 Hypothyroidism, unspecified; E06.3 Autoimmune thyroiditis; R20.0 Anesthesia of skin; D64.9 Anemia, unspecified; E55.9 Vitamin D deficiency, unspecified
CPT/HCPCS: 36415; 80053; 80061; 82306; 82607; 82746; 83540; 84439; 84443; 85025; 86376; 86800

== ENCOUNTER 2023-05-09 15:03 | Outpatient (AMB) | payer OTHER, SELFPAY ==
[2023-05-09 15:33] VITALS: BP 118/80; PULSE 78; O2SAT 98; BMI 31.7
--- NOTE | 2023-05-09 15:33 | MHC.PC.OV ---
Vital Signs 05/09/23 15:33 Height 5 ft 2 in Weight 173 lb 4 oz BMI 31.7 BP 118/80 Blood Pressure Location Lt brachial Position Sitting Pulse 78 Pulse Source Pulse Oximeter Pulse Oximetry (%) 98 Oxygen Delivery Method Room Air Intake Visit Reasons: pain in neck and lower limbs Recyclable Materials Distributor Required: No Accompanied by: Self / Same As Patient Allergies metoclopramide [From REGLAN] Allergy (Mild, Verified 05/09/23 15:46) MAKES ME COLD prochlorperazine [From Compazine] Allergy (Mild, Verified 05/09/23 15:46) RASH, gets cold famotidine [Pepcid] Adverse Reaction (Mild, Verified 05/09/23 15:46) loss of appetite Medication List - Last Reconciled 05/09/23 by Zonia Black MD acetaminophen 650 mg (2 x 325 mg) PO Q6H PRN 30 days calcitriol 0.5 mcg PO DAILY 90 days chlorhexidine gluconate 0.12% mL PO cyclobenzaprine 10 mg PO TID PRN docusate sodium 100 mg PO DAILY PRN 90 days ferrous sulfate 325 mg PO TID 90 days fluconazole 150 mg PO Q3D 2 doses gabapentin 100 mg PO TID ibuprofen 800 mg PO Q8H PRN 10 days levothyroxine 25 mcg PO DAILY 90 days melatonin 10 mg PO BEDTIME PRN naproxen 500 mg PO BID PRN omeprazole 20 mg PO QAM ondansetron 4 mg PO Q6H PRN paroxetine HCl 20 mg PO DAILY 90 days pyridoxine (vitamin B6) 25 mg PO TID 14 days risperidone 1 mg PO DAILY tranexamic acid (Lysteda) 1,300 mg (2 x 650 mg) PO TID 30 days Tobacco use date assessed: 05/09/23 Dental Screening Dental Screen Date: 05/09/23 Did you have a dental visit in the last 12 months?: Yes Did you have a dental problem in the last 6 months where you did not have access to dental care?: No Was dental information given to patient?: Patient has dentist HPI HPI Comments History of Present Illness Details This is a 37-year-old female with iron-deficiency anemia due to chronic blood loss, autoimmune thyroiditis and moderate recurrent major depression that comes today complaining of low back pain radiating to both legs and associated with bilateral leg numbness. No fever, bowel or bladder incontinence. She also complains of hair loss and constipation and TSH was ordered. She admits not been compliant with levothyroxine. She does not tolerate ferrous sulfate and would like IV iron infusion and this is why I refer her to Hematology-Oncology. Depression still present but improved with paroxetine. I will send her to pain management for her lumbar radiculopathy and she also complains of neck pain. Has full active range of motion. Also complains of some shortness of breath and fatigue that is exacerbated by been at home and she smells mold coming inside the tarango. [facility] Medical History (Updated 05/09/23 @ 15:59 by Zonia Black MD) Anemia Anxiety Chest pain Chest pain Cyclic vomiting syndrome Depression Dyspnea GERD (gastroesophageal reflux disease) Goiter History of back pain History of bipolar disorder Hx of Hx of iron deficiency anemia Hx of migraines Hypercalcemia Hypokalemia Hypothyroidism Iron deficiency anemia due to chronic blood loss Iron deficiency anemia due to chronic blood loss Marijuana use, continuous Menorrhagia Moderate recurrent major depression Numbness of foot Pain in mandible Pain of right clavicle Polyarthralgia Renal calculi Shortness of breath Syphilis contact, treated Throat pain Surgical History History of dilation and curettage Hx of colonoscopy Hx of esophagogastroduodenoscopy Family History Mother HTN (hypertension) Maternal Grandmother HTN (hypertension) Maternal Uncle HTN (hypertension) Maternal Aunt Diabetes mellitus Family/Other Mental health disorder Substance use disorder Father Cancer Social History Housing: Apartment Are you a primary critical care clinical nurse specialist to a significant other at home: No Do you presently have visiting nurse or other home services: No Alcohol intake: never Patient Tobacco Use Status: Current everyday Tobacco user Cigarette Packs Per Day: 0.25 Cigarettes Per Day: 5 Years Smoked: 15 Packs Per Year: 4 Packs per year/per ci.75 e-Cigarette/Vaping Use: Never Used Second Hand Smoke Exposure: No Substance Use Type: Marijuana service: No Current occupational status: unemployed Cognitive needs: No Hearing needs: No Vision needs: No Female Reproductive History Menstrual Age of Menarche: 12 Questionnaire PHQ-9 Over the last 2 weeks, how often have you been bothered by any of the following problems? 1. Little interest or pleasure in doing things: several days 2. Feeling down, depressed, or hopeless: several days 3. Trouble falling or staying asleep, or sleeping too much: several days 4. Feeling tired or having little energy: several days 5. Poor appetite or overeating: not at all 6. Feeling bad about yourself - or that you are a failure or have let yourself or your family down: not at all 7. Trouble concentrating on things, such as reading the newspaper or watching television: not at all 8. Moving or speaking so slowly that other people could have noticed. Or the opposite - being so fidgety or restless that you have been moving around a lot more than usual: not at all 9. Thoughts that you would be better off or of hurting yourself in some way: not at all Total score: 4 Depression Screening Interpretation: Positive Depression Screening Follow-up: Existing condition and In treatment 27778 - PHQ-9 Billing: Yes Source: Developed by Drs. Pieter Hand, Shira Rahman, Ezra Martins and colleagues, with an educational amandeep from [employer]. Thrive Questionnaire Date Thrive assessed: 05/09/23 I am a: Patient What is your living situation today?: I have a steady place to live Within the past 12 months, did the food you bought not last and you didn't have the money to get more?: Never true Within the past 12 months, did you worry whether your food would run out before you got money to buy more?: Never true Do you have trouble paying for medicines?: No Do you have trouble getting transportation to medical appointments?: No Do you have trouble paying your heating and electricity bill?: No Do you have trouble taking care of your child, family member or friend?: No Do you have trouble with day-to-day activities such as bathing, preparing meals, shopping, managing finances, etc.?: No Are you currently unemployed and looking for a job?: No Are you interested in more education?: No Please select the resources that you would like help with: None Currently or been in a relationship where the following occur: no concerns reported AUDIT C Alcohol Use Questionnaire (AUDIT-C) 1. How often do you have a drink containing alcohol?: Never Total Score: 0 SHERI-7 AMB Questionnaire SHERI-7 Date SHERI - 7 assessed: 05/09/23 Feeling nervous, anxious, or on edge: 1 = Several days Not being able to stop or control worryin = Not at all Worrying too much about different things: 1 = Several days Trouble relaxin = Several days Being so restless that it is hard to sit still: 0 = Not at all Becoming easily annoyed or irritable: 1 = Several days Feeling afraid as if something awful might happen: 0 = Not at all Total SHERI-7 score (0-4 normal; 5-9 mild; 10-14 moderate; 15-21 severe): 4 Source: Developed by Drs. Pieter Hand, Shira Rahman, Ezra Martins and colleagues, with an educational amandeep from [employer]. SHERI-7 Assessment Billing SHERI-7 Assessment Tool: SHERI-7 Assessment 61979 Review of Systems Const All systems reviewed & are unremarkable except as noted in HPI and below Eyes Reports no additional complaints, Denies change in vision and Denies other visual disturbances Card Denies chest pain at rest, Denies chest pain with activity, Denies edema, Denies irregular heart rhythm, Denies claudication, Denies dyspnea, Denies dyspnea on exertion, Denies orthopnea, Denies paroxysmal nocturnal dyspnea and Denies slow heart rate Resp Denies cough, Denies dyspnea and Denies dyspnea on exertion GI Denies abdominal pain, Denies change in bowel habits, Denies excessive flatus, Denies nausea and Denies vomiting Denies urinary incontinence, Denies urinary hesitancy and Denies urinary urgency Musc Denies abnormal gait, Denies atrophy, Denies deformity and Denies limited range of motion Skin/Breast Denies bleeding lesions, Denies changing lesions and Denies rash Neuro Denies abnormal gait and Denies lack of coordination Physical exam (Primary Care) Vital Signs: Last Vital Signs Pulse 78 05/09/23 15:33 BP 118/80 05/09/23 15:33 Pulse Ox 98 05/09/23 15:33 Oxygen Delivery Method Room Air 05/09/23 15:33 BMI result Body Mass Index 31.7 Tobacco/Smoking Status: Tobacco use Status Tobacco use date assessed 05/09/23 05/09/23 15:41 Patient Tobacco Use Status Current everyday Tobacco 05/09/23 15:41 e-Cigarette/Vaping Use Never Used 05/09/23 15:41 PHQ-9: PHQ-9 Score PHQ-9: Total score 4 05/09/23 15:48 Depression Screening Interpretation: Positive Depression Screening Follow-up: Existing condition and In treatment Thrive Assessment: Date of Thrive Assessment Date Thrive assessed 05/09/23 05/09/23 15:41 Currently or been in a relationship where the following occur: no concerns reported Eyes General: appearance normal, both eyes and all related structures Eyelids: Yes eyelids normal Conjunctivae: conjunctivae normal Neck Neck: Yes normal visual inspection and Yes supple Resp Effort & Inspection: normal respiratory effort Auscultation: clear to auscultation bilaterally Cardio Jugular venous distension: no JVD Rate: regular rate Rhythm: regular rhythm Heart sounds: S1 normal heart sound present and S2 normal heart sound present Extrem General: Yes full ROM Assessment and Plan Assessment & Plan (1) Moderate recurrent major depression: Code(s): F33.1 - Major depressive disorder, recurrent, moderate Plan: Continue paroxetine. (2) Lumbar radiculopathy: Code(s): M54.16 - Radiculopathy, lumbar region Plan: Continue gabapentin. Referred to pain management. (3) Autoimmune thyroiditis: Code(s): E06.3 - Autoimmune thyroiditis Plan: Restart levothyroxine. Monitor TSH. (4) Iron deficiency anemia due to chronic blood loss: Code(s): D50.0 - Iron deficiency anemia secondary to blood loss (chronic) Plan: Referred to Hematology-Oncology. Orders: Orders IRON PROFILE Today D64.9 - Anemia, unspecified Thyroid Stimulating Hormone Today E06.3 - Autoimmune thyroiditis Complete Blood Count Auto Diff Today D64.9 - Anemia, unspecified Vitamin B12 and Folate Today E53.8 - Deficiency of other specified B group vitamins Vitamin D 25-OH Total Today E55.9 - Vitamin D deficiency, unspecified CT NG by PCR Today Z11.3 - Encounter for screening for infections with a predominantly sexual mode of transmission HIV Ab/Ag Today Z11.3 - Encounter for screening for infections with a predominantly sexual mode of transmission Syphilis Screen Today Z11.3 - Encounter for screening for infections with a predominantly sexual mode of transmission Referrals Pain Management Referral M54.16 - Radiculopathy, lumbar region, M54.2 - Cervicalgia Hematology & Oncology Referral D50.0 - Iron deficiency anemia secondary to blood loss (chronic) Medications: Discontinued calcitriol Discontinued Reason: Patient Completed Course 0.5 mcg PO DAILY 90 days 90 caps 1RF Coding Level of Care Code Est Pt Level 4 (78427) Diagnoses Moderate recurrent major depression F33.1 Lumbar radiculopathy M54.16 Autoimmune thyroiditis E06.3 Iron deficiency anemia due to chronic blood loss D50.0 Additional Codes SHERI-7 Assessment Billing - SHERI-7 Assessment Tool: SHERI-7 Assessment 76324 ([id number]) Time Spent (min) 23
== END 2023-05-09 16:05 | disposition home or self-care (01) ==
PROVIDERS: PCP Internal Medicine; Visit Provider Internal Medicine
DX: F33.1 Major depressive disorder, recurrent, moderate (principal); M54.16 Radiculopathy, lumbar region; E06.3 Autoimmune thyroiditis; D50.0 Iron deficiency anemia secondary to blood loss (chronic)
CPT/HCPCS: 96127; 99214

== ENCOUNTER → 2023-05-11 12:36 | Outpatient (BNV) | payer MEDICARE, OTHER, SELFPAY | PROVIDERS: PCP Internal Medicine; Visit Provider Internal Medicine | DX: D50.0 Iron deficiency anemia secondary to blood loss (chronic) (principal) | CPT/HCPCS: 99204; 99212; 99213; 99214 ==

== ENCOUNTER 2023-05-29 11:54 | Outpatient (REF) | payer OTHER, SELFPAY | END 2023-05-29 11:55 | disposition home or self-care (01) | LOC: HO.MDS 11:54 | PROVIDERS: Visit Provider Internal Medicine | DX: D50.8 Other iron deficiency anemias (principal) | CPT/HCPCS: 96365; J1756 ==

== ENCOUNTER 2023-05-31 12:07 | Outpatient (REF) | payer OTHER, SELFPAY ==
--- NOTE | ~2023-05-31 | XR_ITS ---
EXAMINATION: XR CERVICAL SPINE CLINICAL INFORMATION: Cervalgia. COMPARISON: Cervical spine 06/10/2008, report only. TECHNIQUE: 6 views of the cervical spine, inclusive of flexion and extension views, were obtained. FINDINGS: There is reversal of the normal cervical lordosis which was also described on the 2007 study. Degenerative changes are seen with disc space narrowing most prominent from C4 through C7. No prevertebral soft tissue swelling, fractures or subluxations are seen. Foramina are patent. There is some minimal encroachment at C6-C7 on the right. Opacity overlying the left apex adjacent to the mediastinum, I suspect is external to the patient. XR/XR cervical spine 5V IMPRESSION: Reversal of cervical lordosis and degenerative changes cervical spine from C4 through C7 with mild encroachment at C6-C7 foramen on the right.
--- NOTE | ~2023-05-31 | XR_ITS ---
EXAMINATION: XR LUMBOSACRAL SPINE CLINICAL INFORMATION: Low back pain. COMPARISON: Lumbar spine radiating 06/23/[address] abdomen and pelvis 01/02/2022. TECHNIQUE: Three views of the lumbosacral spine. FINDINGS: There is minimal retrolisthesis of L4 upon L5 with some minimal disc space narrowing, unchanged from prior studies. The vertebral bodies and posterior elements are otherwise unremarkable. The disc spaces are otherwise preserved and the vertebral alignment is normal. The paraspinal soft tissues are normal. XR/XR lumbar spine 2-3V IMPRESSION: Minimal retrolisthesis of L4 upon L5 with mild disc space narrowing, unchanged from prior.
[2023-05-31 12:26] LABS: MANUAL DIFF FLAG NO
[2023-05-31 13:09] LABS: Basophils Absolute Auto 0.1 X10*3/uL (0.0-0.2); Basophils Percent Auto 0.8 % (0-2); Eosinophils Absolute Auto 0.6 X10*3/uL (0.0-0.4); Eosinophils Percent Auto 9.4 % (0-4); Hematocrit 29.4 % (37.0-47.0); Hemoglobin 8.3 g/dl (12.0-16.0); Imm Gran Abs Auto 0.06 X10*3/uL (0.00-0.03); Imm Gran Pct Auto 0.9 % (0.0-0.4); Lymphocytes Absolute Auto 2.3 X10*3/uL (1.2-4.9); Lymphocytes Percent Auto 35.6 % (20-40); Mean Corpuscular HGB Conc 28.2 g/dl (31.0-35.0); Mean Corpuscular Hemoglobin 21.3 pg (27.0-33.0); Mean Corpuscular Volume 75.6 fL (80.0-98.0); Mean Platelet Volume 9.1 fL (9.4-12.3); Monocytes Absolute Auto 0.4 X10*3/uL (0.1-1.2); Monocytes Percent Auto 6.3 % (2-11); Platelet Count 555 X10*3/uL (160-400); Red Blood Count 3.89 X10*6/uL (4.20-5.50); White Blood Count 6.5 X10*3/uL (4.8-10.8)
[2023-05-31 14:47] LABS: Iron 32 mcg/dL (30-160); Percent Iron Saturation 9 % (15-50); Total Iron Binding Capacity 369 mcg/dL (228-428); Unsaturated Iron Binding 337 ug/dL
[2023-05-31 15:04] LABS: Vitamin D 25-OH Total 23.2 ng/mL (>30)
[2023-05-31 15:10] LABS: Folate 11.7 ng/mL (> or = 4.0); Vitamin B12 530 pg/mL (200-900)
[2023-05-31 18:05] LABS: CT PCR NOT DETECTED (Not Detect.); NG PCR NOT DETECTED (Not Detect.)
[2023-06-01 05:15] LABS: Syphilis Screen Reactive (Nonreactive)
[2023-06-01 05:28] LABS: HIV AB/AG Nonreactive (Nonreactive); HIV Num 1 0.05 S/CO (0.00-0.99)
[2023-06-10 14:36] LABS: RPR Quantitative Non-Reactive (Nonreactive)
[2023-06-10 14:37] LABS: T.Pallidum Particle Agg Test Reactive (Nonreactive)
== END 2023-05-31 12:08 | disposition home or self-care (01) ==
LOC: HO.XRAY 12:07
PROVIDERS: Absent Provider Internal Medicine; PCP Internal Medicine; Visit Provider Student in an Organized Health Care Education/Training Program
DX: Z11.4 Encounter for screening for human immunodeficiency virus [HIV] (principal); M54.50 Low back pain, unspecified; D64.9 Anemia, unspecified; E06.3 Autoimmune thyroiditis; E55.9 Vitamin D deficiency, unspecified; E53.8 Deficiency of other specified B group vitamins; Z20.2 Contact with and (suspected) exposure to infections with a predominantly sexual mode of transmission
CPT/HCPCS: 0353U; 36415; 72050; 72100; 82306; 82607; 82746; 83540; 84443; 85025; 86592; 86780; 87389

== ENCOUNTER 2023-06-26 10:25 | Outpatient (REF) | payer OTHER, SELFPAY ==
--- NOTE | ~2023-06-26 | XR_ITS ---
EXAMINATION: XR LUMBOSACRAL SPINE CLINICAL INFORMATION: Low back pain COMPARISON: 05/31/2023, abdominal CT 10/30/2021 TECHNIQUE: Three views of the lumbosacral spine. FINDINGS: Mineralization is normal. There is no fracture or vertebral malalignment. Posterior elements are intact. The disc spaces appear preserved. There is a broad transverse process on the left at L5 which articulates with the sacrum. The paraspinal soft tissues are unremarkable. XR/XR lumbar spine 2-3V IMPRESSION: There is articulation of the left L5 transverse process with the sacrum. The examination is otherwise unremarkable.
--- NOTE | ~2023-06-26 | XR_ITS ---
EXAMINATION: XR CERVICAL SPINE CLINICAL INFORMATION: Neck pain COMPARISON: 05/31/2023 TECHNIQUE: AP and lateral views of the cervical spine were obtained. FINDINGS: Bony mineralization is normal. There is no fracture or vertebral malalignment. The posterior elements are intact. There is mild to moderate disc space narrowing at C4-5, C5-6 and C6-7. There is reversal of the normal cervical lordosis which may be positional or indicate muscular spasm. The prevertebral and paravertebral soft tissues appear unremarkable. XR/XR cervical spine 2V IMPRESSION: Mid cervical degenerative disc disease with reversal of the normal cervical lordosis. No acute abnormality or significant change is evident.
== END 2023-06-26 10:26 | disposition home or self-care (01) ==
LOC: HO.XRAY 10:25
PROVIDERS: Visit Provider Student in an Organized Health Care Education/Training Program
DX: M54.50 Low back pain, unspecified (principal); M54.2 Cervicalgia
CPT/HCPCS: 72040; 72100

== ENCOUNTER 2023-07-10 08:59 | Outpatient (REF) | payer MEDICARE, SELFPAY | END 2023-07-10 09:00 | disposition home or self-care (01) | LOC: HO.XRAY 08:59 | PROVIDERS: PCP Internal Medicine; Visit Provider Student in an Organized Health Care Education/Training Program | DX: Z13.89 Encounter for screening for other disorder (principal) ==

== ENCOUNTER 2023-09-06 07:45 | Outpatient (REF) | payer MEDICARE, MEDICAID, SELFPAY | END 2023-09-06 07:46 | disposition home or self-care (01) | LOC: HO.MDS 07:45 | PROVIDERS: Visit Provider Internal Medicine | DX: D50.8 Other iron deficiency anemias (principal) | CPT/HCPCS: 96365; J1756 ==

== ENCOUNTER 2023-09-12 06:46 | Outpatient (REF) | payer MEDICARE, MEDICAID, SELFPAY | END 2023-09-12 06:47 | disposition home or self-care (01) | LOC: HO.MDS 06:46 | PROVIDERS: Visit Provider Internal Medicine | DX: D50.8 Other iron deficiency anemias (principal) | CPT/HCPCS: 96365; J1756 ==

== ENCOUNTER 2023-09-12 07:44 | Outpatient (REF) | payer MEDICARE, SELFPAY | END 2023-09-12 07:45 | disposition home or self-care (01) | LOC: HO.LAB 07:44 | PROVIDERS: PCP Internal Medicine; Visit Provider Internal Medicine | DX: Z01.82 Encounter for allergy testing (principal) | CPT/HCPCS: 36415; 86003 ==

== ENCOUNTER 2023-09-18 06:23 | Outpatient (REF) | payer MEDICARE, MEDICAID, SELFPAY | END 2023-09-18 06:24 | disposition home or self-care (01) | LOC: HO.MDS 06:23 | PROVIDERS: Visit Provider Internal Medicine | DX: D50.8 Other iron deficiency anemias (principal) | CPT/HCPCS: 96365; J1756 ==

== ENCOUNTER 2023-09-28 06:26 | Outpatient (REF) | payer MEDICARE, SELFPAY ==
[2023-09-28 08:36] LABS: MANUAL DIFF FLAG NO
[2023-09-28 08:45] LABS: Basophils Absolute Auto 0.1 X10*3/uL (0.0-0.2); Basophils Percent Auto 1.2 % (0-2); Eosinophils Absolute Auto 0.6 X10*3/uL (0.0-0.4); Eosinophils Percent Auto 10.3 % (0-4); Hematocrit 37.1 % (37.0-47.0); Hemoglobin 10.8 g/dl (12.0-16.0); Imm Gran Abs Auto 0.02 X10*3/uL (0.00-0.03); Imm Gran Pct Auto 0.4 % (0.0-0.4); Lymphocytes Percent Auto 34.9 % (20-40); Mean Corpuscular HGB Conc 29.1 g/dl (31.0-35.0); Mean Corpuscular Hemoglobin 24.1 pg (27.0-33.0); Mean Corpuscular Volume 82.6 fL (80.0-98.0); Mean Platelet Volume 8.7 fL (9.4-12.3); Monocytes Absolute Auto 0.4 X10*3/uL (0.1-1.2); Monocytes Percent Auto 7.3 % (2-11); Neutrophils Absolute Auto 2.6 x10*3/uL (2.0-8.3); Neutrophils Percent Auto 45.9 % (45-73); Platelet Count 458 X10*3/uL (160-400); Red Blood Count 4.49 X10*6/uL (4.20-5.50); Red Cell Distribution Width 22.4 % (11.0-16.0); White Blood Count 5.7 X10*3/uL (4.8-10.8)
== END 2023-09-28 06:27 | disposition home or self-care (01) ==
LOC: HO.LAB 06:26
PROVIDERS: PCP Internal Medicine; Visit Provider Internal Medicine
DX: D64.9 Anemia, unspecified (principal)
CPT/HCPCS: 36415; 85025

== ENCOUNTER 2023-09-28 06:29 | Outpatient (REF) | payer MEDICARE, MEDICAID, SELFPAY | END 2023-09-28 06:30 | disposition home or self-care (01) | LOC: HO.MDS 06:29 | PROVIDERS: Visit Provider Internal Medicine | DX: D50.8 Other iron deficiency anemias (principal) | CPT/HCPCS: 96365; J1756 ==

== ENCOUNTER 2023-10-05 07:44 | Outpatient (REF) | payer MEDICARE, MEDICAID, SELFPAY | END 2023-10-05 07:45 | disposition home or self-care (01) | LOC: HO.MDS 07:44 | PROVIDERS: Visit Provider Internal Medicine Medical Oncology | DX: D50.8 Other iron deficiency anemias (principal) | CPT/HCPCS: 96365; J1756 ==

== ENCOUNTER 2023-10-12 07:13 | Outpatient (REF) | payer MEDICARE, MEDICAID, SELFPAY | END 2023-10-12 07:14 | disposition home or self-care (01) | LOC: HO.MDS 07:13 | PROVIDERS: PCP Internal Medicine; Visit Provider Internal Medicine Medical Oncology | DX: D50.8 Other iron deficiency anemias (principal) | CPT/HCPCS: 96365; J1756 ==

== ENCOUNTER 2023-10-15 12:46 | Outpatient (AMB) | payer MEDICARE, MEDICAID, SELFPAY ==
--- NOTE | 2023-10-15 13:09 | MHC.PC.OV ---
Vital Signs 10/15/23 13:10 Height 5 ft Weight 178 lb BMI 34.8 BP 126/80 Blood Pressure Location Lt brachial Position Sitting Intake Visit Reasons: Annual Exam Intake Note: Patient here for a physical exam [employer] Required: No Accompanied by: Self / Same As Patient Allergies metoclopramide [From REGLAN] Allergy (Mild, Verified 10/15/23 13:21) MAKES ME COLD prochlorperazine [From Compazine] Allergy (Mild, Verified 10/15/23 13:21) RASH, gets cold famotidine [Pepcid] Adverse Reaction (Mild, Verified 10/15/23 13:21) loss of appetite Medication List - Last Reconciled 10/15/23 by Zonia Black MD acetaminophen 650 mg (2 x 325 mg) PO Q6H PRN 30 days chlorhexidine gluconate 0.12% 2 mL PO DAILY cyclobenzaprine 10 mg PO TID PRN docusate sodium 100 mg PO DAILY PRN 90 days ferrous sulfate 325 mg PO TID 90 days gabapentin 100 mg PO TID ibuprofen 800 mg PO Q8H PRN 10 days levothyroxine 25 mcg PO DAILY 90 days melatonin 10 mg PO BEDTIME PRN omeprazole 20 mg PO QAM paroxetine HCl 20 mg PO DAILY 90 days risperidone 1 mg PO DAILY tranexamic acid 1,300 mg (2 x 650 mg) PO TID 30 days Tobacco use date assessed: 05/09/23 HPI HPI Comments History of Present Illness Details This is a 38-year-old female with moderate recurrent major depression that comes our physical exam. Depression stable with paroxetine. Has not had a mammogram. Last Pap smear was 2019 was normal with HPV negative. No chest pain or shortness of breath. [facility] Medical History Hypercalcemia Goiter Throat pain Pain in mandible Pain of right clavicle Dyspnea Hypothyroidism Polyarthralgia Moderate recurrent major depression Cyclic vomiting syndrome Renal calculi Iron deficiency anemia due to chronic blood loss Chest pain Shortness of breath Iron deficiency anemia due to chronic blood loss Hx of History of back pain Hx of iron deficiency anemia Hx of migraines Anxiety History of bipolar disorder Chest pain Menorrhagia Hypokalemia Marijuana use, continuous Syphilis contact, treated Numbness of foot GERD (gastroesophageal reflux disease) Anemia Depression Surgical History Hx of esophagogastroduodenoscopy Hx of colonoscopy History of dilation and curettage Family History Mother HTN (hypertension) Maternal Grandmother HTN (hypertension) Maternal Uncle HTN (hypertension) Maternal Aunt Diabetes mellitus Family/Other Mental health disorder Substance use disorder Father Cancer Social History (Updated 10/15/23 @ 13:28 by Zonia Black MD) Household Members: None Housing: Apartment Are you a primary direct care supervisor to a significant other at home: No Do you presently have visiting nurse or other home services: No Alcohol intake: never Patient Tobacco Use Status: Former Tobacco user Cigarette Packs Per Day: 0.25 Years Smoked: 15 e-Cigarette/Vaping Use: Never Used Second Hand Smoke Exposure: No Substance Use Type: Marijuana service: No Current occupational status: unemployed Cognitive needs: No Hearing needs: No Vision needs: No Female Reproductive History Menstrual Age of Menarche: 12 Questionnaire Thrive Questionnaire Date Thrive assessed: 05/09/23 SHERI-7 AMB Questionnaire SHERI-7 Date SHERI - 7 assessed: 05/09/23 Source: Developed by Drs. Pieter Hand, Shira Rahman, Ezra Martins and colleagues, with an educational amandeep from [employer]. Review of Systems Const All systems reviewed & are unremarkable except as noted in HPI and below Eyes Reports no additional complaints, Denies change in vision and Denies other visual disturbances Card Denies chest pain at rest, Denies chest pain with activity, Denies edema, Denies irregular heart rhythm, Denies claudication, Denies dyspnea, Denies dyspnea on exertion, Denies orthopnea, Denies paroxysmal nocturnal dyspnea and Denies slow heart rate Resp Denies cough, Denies dyspnea and Denies dyspnea on exertion GI Denies abdominal pain, Denies change in bowel habits, Denies excessive flatus, Denies nausea and Denies vomiting Denies urinary incontinence, Denies urinary hesitancy and Denies urinary urgency Musc Denies abnormal gait, Denies atrophy, Denies deformity and Denies limited range of motion Skin/Breast Denies bleeding lesions, Denies changing lesions and Denies rash Neuro Denies abnormal gait and Denies lack of coordination Physical exam (Primary Care) Vital Signs: Last Vital Signs BP 126/80 10/15/23 13:10 BMI result Body Mass Index 34.8 Tobacco/Smoking Status: Tobacco use Status Tobacco use date assessed 05/09/23 10/15/23 13:16 Patient Tobacco Use Status Former Tobacco user 10/15/23 13:28 e-Cigarette/Vaping Use Never Used 10/15/23 13:28 Thrive Assessment: Date of Thrive Assessment Date Thrive assessed 05/09/23 10/15/23 13:16 Const Orientation/consciousness: patient oriented x3 HENMT Head: Yes normal to inspection, Yes normocephalic and Yes atraumatic Ears: external ears normal Eyes General: appearance normal, both eyes and all related structures Eyelids: Yes eyelids normal Conjunctivae: conjunctivae normal Neck Neck: Yes normal visual inspection and Yes supple Resp Effort & Inspection: normal respiratory effort Auscultation: clear to auscultation bilaterally Cardio Jugular venous distension: no JVD Rate: regular rate Rhythm: regular rhythm Heart sounds: S1 normal heart sound present and S2 normal heart sound present GI Inspection: Yes normal to inspection Palpation (GI): Soft to palpation and nontender Auscultation: normal bowel sounds Skin General skin exam: no rashes or lesions noted Neuro General: patient oriented x3 and no focal motor deficits Extrem General: Yes full ROM Psych Appearance: grossly normal Office Procedures Flu Questionnaire Does the patient have a severe egg allergy?: No Immunizations flu vacc [id number] 6mos up(PF) 60 mcg(15 mcgx4)/0.5 mL IM syringe Performing Provider: Zonia Black MD [facility] Documented (not given) by: OBIE Linder on 10/15/23 13:37 Reason Not Given: Not Given Assessment and Plan Assessment & Plan (1) Physical exam: Code(s): Z00.00 - Encounter for general adult medical examination without abnormal findings Plan: Repeat in a year. (2) Moderate recurrent major depression: Code(s): F33.1 - Major depressive disorder, recurrent, moderate Plan: Continue paroxetine. Orders: Orders Complete Blood Count Auto Diff Today D64.9 - Anemia, unspecified Vitamin D 25-OH Total Today E55.9 - Vitamin D deficiency, unspecified Lipid Panel Today E78.5 - Hyperlipidemia, unspecified Thyroid Stimulating Hormone Today E06.3 - Autoimmune thyroiditis Free T4 (Free Thyroxine) Today E06.3 - Autoimmune thyroiditis HIV Ab/Ag Today Z11.3 - Encounter for screening for infections with a predominantly sexual mode of transmission Comprehensive [place]. Panel Fast Today Z00.00 - Encounter for general adult medical examination without abnormal findings IRON PROFILE Today D64.9 - Anemia, unspecified Vitamin B12 and Folate Today E53.8 - Deficiency of other specified B group vitamins MM screening mammo BI Today Z12.31 - Encounter for screening mammogram for malignant neoplasm of breast Influenza [id number] Immunization Today Z23 - Encounter for immunization Medications: Refilled levothyroxine 25 mcg PO DAILY 90 tabs 1RF 90 days E03.9 - Hypothyroidism, unspecified Coding Level of Care Code Est Pt Prev Care 40-64y(24265) Diagnoses Physical exam Z00.00 Moderate recurrent major depression F33.1 Time Spent (min) 31
[2023-10-15 13:10] VITALS: BP 126/80; BMI 34.8
== END 2023-10-15 13:37 | disposition home or self-care (01) ==
PROVIDERS: Visit Provider Internal Medicine
DX: Z00.00 Encounter for general adult medical examination without abnormal findings (principal); F33.1 Major depressive disorder, recurrent, moderate
CPT/HCPCS: 99396

== ENCOUNTER 2023-10-19 07:34 | Outpatient (REF) | payer MEDICARE, SELFPAY ==
--- NOTE | ~2023-10-19 | MM_ITS ---
EXAMINATION: MM SCREENING DIGITAL BREAST TOMOSYNTHESIS, BILATERAL CLINICAL INFORMATION: Screening. Asymptomatic. COMPARISON: Mammography: This study is compared with prior exams dating back to 2013. There are no interval examinations. TECHNIQUE: Digital breast tomosynthesis is performed in both the craniocaudal and mediolateral oblique views along with computer-aided detection (CAD). Synthesized 2D images are generated from the tomosynthesis. FINDINGS: There are scattered areas of fibroglandular density (ACR BI-RADS breast composition Category b). There are no significant masses, abnormal calcifications, or other abnormalities. MM/MM tomosynthesis screening BI IMPRESSION: No mammographic evidence of malignancy. ASSESSMENT: BI-RADS BI-RADS 1 - Negative RECOMMENDATION: Routine annual mammography screening. 1 year F/U This examination should not preclude the clinical evaluation of a suspicious palpable abnormality. This patient's information was entered into a reminder system with a target due date for their next mammogram.
[2023-10-19 08:22] LABS: MANUAL DIFF FLAG NO
[2023-10-19 08:49] LABS: Basophils Absolute Auto 0.1 X10*3/uL (0.0-0.2); Basophils Percent Auto 1.2 % (0-2); Eosinophils Absolute Auto 0.5 X10*3/uL (0.0-0.4); Eosinophils Percent Auto 7.9 % (0-4); Hematocrit 36.4 % (37.0-47.0); Imm Gran Abs Auto 0.05 X10*3/uL (0.00-0.03); Imm Gran Pct Auto 0.8 % (0.0-0.4); Lymphocytes Absolute Auto 1.7 X10*3/uL (1.2-4.9); Lymphocytes Percent Auto 27.8 % (20-40); Mean Corpuscular HGB Conc 30.2 g/dl (31.0-35.0); Mean Corpuscular Hemoglobin 25.6 pg (27.0-33.0); Mean Corpuscular Volume 84.8 fL (80.0-98.0); Mean Platelet Volume 8.8 fL (9.4-12.3); Monocytes Absolute Auto 0.5 X10*3/uL (0.1-1.2); Monocytes Percent Auto 8.1 % (2-11); Neutrophils Absolute Auto 3.2 x10*3/uL (2.0-8.3); Neutrophils Percent Auto 54.2 % (45-73); Platelet Count 401 X10*3/uL (160-400); Red Blood Count 4.29 X10*6/uL (4.20-5.50); Red Cell Distribution Width 22.1 % (11.0-16.0); White Blood Count 5.9 X10*3/uL (4.8-10.8)
[2023-10-19 09:33] LABS: Alanine Aminotransferase 10 U/L (0-31); Albumin Level 4.1 g/dL (3.5-5.0); Alkaline Phosphatase 73 U/L (39-117); Anion Gap 12 (12-20); Aspartate Amino Transferase 18 U/L (5-31); Bilirubin Total 0.2 mg/dL (0.0-1.0); Blood Urea Nitrogen 10 mg/dL (9-16); Calcium 9.1 mg/dL (8.4-10.2); Carbon Dioxide 27 mmol/L (22-29); Chloride 107 mmol/L (96-108); Cholesterol 133 mg/dL (<200); Estimated Glomerular Filt Rate > 60; Glucose Fasting 85 mg/dL (60-99); HDL Cholesterol 51 mg/dL (>40); Iron 44 mcg/dL (30-160); LDL Cholesterol Calculated 73 mg/dL (<100); Percent Iron Saturation 16 % (15-50); Potassium 3.8 mmol/L (3.3-5.1); Sodium 142 mmol/L (135-145); Total Iron Binding Capacity 273 mcg/dL (228-428); Total Protein 7.2 g/dL (6.5-8.0); Triglycerides 49 mg/dL (<150); Unsaturated Iron Binding 229 ug/dL
[2023-10-19 09:44] LABS: HIV AB/AG Nonreactive (Nonreactive); HIV Num 1 0.04 S/CO (0.00-0.99)
[2023-10-19 10:04] LABS: Free T4 (Free Thyroxine) 0.64 ng/dL (0.71-1.85); Thyroid Stimulating Hormone 8.85 uIU/mL (0.32-4.0); Vitamin D 25-OH Total 16.2 ng/mL (>30)
[2023-10-19 10:06] LABS: Folate 11.1 ng/mL (> or = 4.0); Vitamin B12 627 pg/mL (200-900)
== END 2023-10-19 07:35 | disposition home or self-care (01) ==
LOC: HO.MAMMO 07:34
PROVIDERS: PCP Internal Medicine; Visit Provider Internal Medicine
DX: Z12.31 Encounter for screening mammogram for malignant neoplasm of breast (principal); D64.9 Anemia, unspecified; E06.3 Autoimmune thyroiditis; E78.5 Hyperlipidemia, unspecified; E53.8 Deficiency of other specified B group vitamins; E55.9 Vitamin D deficiency, unspecified; Z11.3 Encounter for screening for infections with a predominantly sexual mode of transmission
CPT/HCPCS: 36415; 77063; 77067; 80053; 80061; 82306; 82607; 82746; 83540; 84439; 84443; 85025; 87389

== ENCOUNTER → 2023-10-19 08:15 | Outpatient (BNV) | payer MEDICARE, SELFPAY | PROVIDERS: PCP Internal Medicine; Visit Provider Radiology Diagnostic Radiology | DX: Z12.31 Encounter for screening mammogram for malignant neoplasm of breast (principal) | CPT/HCPCS: 77063; 77067 ==

== ENCOUNTER 2023-10-23 09:17 | Outpatient (REF) | payer MEDICARE, SELFPAY ==
[2023-10-23 10:22] LABS: Iron 87 mcg/dL (30-160); Percent Iron Saturation 31 % (15-50); Total Iron Binding Capacity 279 mcg/dL (228-428); Unsaturated Iron Binding 192 ug/dL
[2023-10-23 10:36] LABS: Thyroid Stimulating Hormone 12.83 uIU/mL (0.32-4.0)
== END 2023-10-23 09:18 | disposition home or self-care (01) ==
LOC: HO.LAB 09:17
PROVIDERS: PCP Internal Medicine; Visit Provider Internal Medicine
DX: E03.9 Hypothyroidism, unspecified (principal); D64.9 Anemia, unspecified
CPT/HCPCS: 36415; 83540; 84443

== ENCOUNTER 2023-11-28 11:28 | Outpatient (REF) | payer OTHER, MEDICARE, SELFPAY ==
--- NOTE | ~2023-11-28 | XR_ITS ---
EXAMINATION: XR KNEE, RIGHT XR KNEE, LEFT CLINICAL INFORMATION: Pain in right knee Pain in left knee COMPARISON: Right knee 11/09/2022 TECHNIQUE: AP and lateral of the right knee and left knee FINDINGS: No fracture or joint effusion. Alignment is anatomic. Joint spaces are maintained. No abnormal soft tissue calcification. XR/XR knee LT 2V IMPRESSION: No bony abnormality of the right or left knee.
--- NOTE | ~2023-11-28 | XR_ITS ---
EXAMINATION: XR HAND, LEFT XR HAND, RIGHT CLINICAL INFORMATION: Pain in left hand Pain in right hand COMPARISON: None available. TECHNIQUE: PA, lateral, and oblique views of the right and left hand. FINDINGS: The bones and soft tissues are normal. No fracture. Alignment is anatomic. Joint spaces are maintained. No erosions or soft tissue calcifications. XR/XR hand RT 2V IMPRESSION: No bony abnormality of the right and left hand.
--- NOTE | ~2023-11-28 | XR_ITS ---
EXAMINATION: XR CERVICAL SPINE CLINICAL INFORMATION: Cervicalgia COMPARISON: None available. TECHNIQUE: 3 views of the cervical spine were obtained. FINDINGS: The tip of the odontoid is obscured on the open-mouth view. There is reversal of the usual cervical lordosis which may be due to patient positioning or muscle spasm. No fracture or subluxation prevertebral soft tissues are within normal limits. There is disc space narrowing with marginal osteophyte formation at C4-C5, C5-C6 and C6 and C7 XR/XR cervical spine 2V IMPRESSION: Mild cervical degenerative disc disease with reversal of the normal cervical lordosis. No acute abnormality or significant change is evident.
--- NOTE | ~2023-11-28 | XR_ITS ---
EXAMINATION: XR CLAVICLE, LEFT CLINICAL INFORMATION: Other specified disorders of bone, shoulder COMPARISON: Left clavicle 05/20/2019 TECHNIQUE: AP and axial of the left clavicle. FINDINGS: No acute fracture. The acromioclavicular joint spaces 7 mm, decreased from the prior study. No significant hypertrophic changes of the clavicle. XR/XR clavicle LT IMPRESSION: No acute finding.
--- NOTE | ~2023-11-28 | XR_ITS ---
EXAMINATION: XR TIBIA AND FIBULA, RIGHT XR TIBIA AND FIBULA, LEFT CLINICAL INFORMATION: Pain in right leg Pain in left leg COMPARISON: Right tibia fibula 11/09/2022 TECHNIQUE: AP and lateral views of the right and left tibia and fibula were obtained. FINDINGS: The bones and soft tissues are normal. No fracture. No osseous lesions. XR/XR tibia fibula RT 2V IMPRESSION: No bony abnormality in the right or left tibia and fibula.
--- NOTE | ~2023-11-28 | XR_ITS ---
EXAMINATION: XR CLAVICLE, RIGHT CLINICAL INFORMATION: Unspecified disorder of bone, shoulder COMPARISON: Right clavicle 04/24/2022 TECHNIQUE: AP and axial of the right clavicle. FINDINGS: No fracture. The acromioclavicular alignment is normal. Joint spaces 0.5 cm. Normal bony mineralization. No destructive process. Mild right apical pleural thickening. XR/XR clavicle RT IMPRESSION: No bony abnormality.
--- NOTE | ~2023-11-28 | XR_ITS ---
EXAMINATION: XR LUMBOSACRAL SPINE CLINICAL INFORMATION: Low back pain, unspecified COMPARISON: Lumbar spine 06/26/2023 TECHNIQUE: Three views of the lumbosacral spine. FINDINGS: There 5 nonrib-bearing lumbar-type vertebral bodies. There is a broad transverse process on the left at L5 which articulates with the sacrum. The height of the vertebral bodies is well-maintained. There is straightening of the usual lumbar lordosis which can be seen with muscle spasm. There is L5 spondylolysis with mild retrolisthesis of L4 with respect to L5. There is mild disc space narrowing at L4-L5. XR/XR lumbar spine 2-3V IMPRESSION: 1. Muscle spasm. 2. L5 spondylolysis with mild retrolisthesis of L4 with respect to L5. CT scan or MRI scan could be obtained for further evaluation. 3. Degenerative disc disease at L4-L5.
--- NOTE | ~2023-11-28 | XR_ITS ---
EXAMINATION: XR TIBIA AND FIBULA, RIGHT XR TIBIA AND FIBULA, LEFT CLINICAL INFORMATION: Pain in right leg Pain in left leg COMPARISON: Right tibia fibula 11/09/2022 TECHNIQUE: AP and lateral views of the right and left tibia and fibula were obtained. FINDINGS: The bones and soft tissues are normal. No fracture. No osseous lesions. XR/XR tibia fibula LT 2V IMPRESSION: No bony abnormality in the right or left tibia and fibula.
--- NOTE | ~2023-11-28 | XR_ITS ---
EXAMINATION: XR KNEE, RIGHT XR KNEE, LEFT CLINICAL INFORMATION: Pain in right knee Pain in left knee COMPARISON: Right knee 11/09/2022 TECHNIQUE: AP and lateral of the right knee and left knee FINDINGS: No fracture or joint effusion. Alignment is anatomic. Joint spaces are maintained. No abnormal soft tissue calcification. XR/XR knee RT 2V IMPRESSION: No bony abnormality of the right or left knee.
--- NOTE | ~2023-11-28 | XR_ITS ---
EXAMINATION: XR HAND, LEFT XR HAND, RIGHT CLINICAL INFORMATION: Pain in left hand Pain in right hand COMPARISON: None available. TECHNIQUE: PA, lateral, and oblique views of the right and left hand. FINDINGS: The bones and soft tissues are normal. No fracture. Alignment is anatomic. Joint spaces are maintained. No erosions or soft tissue calcifications. XR/XR hand LT 2V IMPRESSION: No bony abnormality of the right and left hand.
== END 2023-11-28 11:29 | disposition home or self-care (01) ==
LOC: HO.XRAY 11:28
PROVIDERS: PCP Internal Medicine; Visit Provider Internal Medicine
DX: M54.2 Cervicalgia (principal); M79.642 Pain in left hand; M79.641 Pain in right hand; M79.604 Pain in right leg; M79.605 Pain in left leg; M54.50 Low back pain, unspecified; M25.562 Pain in left knee; M25.561 Pain in right knee; M89.8X1 Other specified disorders of bone, shoulder
CPT/HCPCS: 72040; 72100; 73000; 73120; 73560; 73590

== ENCOUNTER 2023-12-14 10:30 | Outpatient (RCR) | payer MEDICARE, OTHER, SELFPAY | END 2024-03-18 07:54 | disposition home or self-care (01) | LOC: HO.PT 10:30 | PROVIDERS: PCP Internal Medicine; Visit Provider Internal Medicine | DX: M54.16 Radiculopathy, lumbar region (principal); M54.2 Cervicalgia ==

== ENCOUNTER 2024-01-29 11:25 | Outpatient (REF) | payer OTHER, MEDICARE, SELFPAY ==
--- NOTE | ~2024-01-29 | XR_ITS ---
EXAMINATION: XR CERVICAL SPINE CLINICAL INFORMATION: Cervicalgia. COMPARISON: 11/28/2023 TECHNIQUE: 3 views of the cervical spine were obtained. FINDINGS: Previously seen reversal of the cervical lordosis has resolved. Continued evidence of degenerative changes seen at C4-C5, C5-C6 and C6-C7 with displaced disc space narrowing, endplate sclerosis and some mild osteophytes. No prevertebral soft tissue swelling, fractures or subluxations are seen. XR/XR cervical spine 2V IMPRESSION: Degenerative changes in the cervical spine as described above.
--- NOTE | ~2024-01-29 | XR_ITS ---
EXAMINATION: XR KNEE, RIGHT XR TIBIA/FIBULA, RIGHT CLINICAL INFORMATION: Right leg pain. COMPARISON: Right knee and right tib-fib 11/28/2023. TECHNIQUE: 2 views right knee, 2 views right tib-fib. FINDINGS: No significant bone, joint or soft tissue abnormality is seen. No interval change when compared to the prior studies. XR/XR tibia fibula RT 2V IMPRESSION: Negative exam.
--- NOTE | ~2024-01-29 | XR_ITS ---
EXAMINATION: XR LUMBOSACRAL SPINE CLINICAL INFORMATION: Low back pain. COMPARISON: None available. TECHNIQUE: Three views of the lumbosacral spine. FINDINGS: There is a minimal possibly even positional scoliosis convex to the left in the lumbar region. There is mild degenerative change with narrowing at L4-L5 and L5-S1. Otherwise, the vertebral bodies and posterior elements are unremarkable. The remainder of the disc spaces are preserved. The paraspinal soft tissues are normal. XR/XR lumbar spine 2-3V IMPRESSION: Mild degenerative changes L4-L5 and L5-S1.
--- NOTE | ~2024-01-29 | XR_ITS ---
EXAMINATION: XR KNEE, RIGHT XR TIBIA/FIBULA, RIGHT CLINICAL INFORMATION: Right leg pain. COMPARISON: Right knee and right tib-fib 11/28/2023. TECHNIQUE: 2 views right knee, 2 views right tib-fib. FINDINGS: No significant bone, joint or soft tissue abnormality is seen. No interval change when compared to the prior studies. XR/XR knee RT 2V IMPRESSION: Negative exam.
--- NOTE | ~2024-01-29 | XR_ITS ---
EXAMINATION: XR CHEST CLINICAL INFORMATION: Dyspnea COMPARISON: Chest radiograph 04/24/2022 TECHNIQUE: 2 views of the chest were obtained. FINDINGS: No significant abnormality is noted involving the heart, lungs, mediastinum, bony thorax or soft tissues. XR/XR chest 2V IMPRESSION: Unremarkable examination.
== END 2024-01-29 11:26 | disposition home or self-care (01) ==
LOC: HO.XRAY 11:25
PROVIDERS: PCP Internal Medicine; Visit Provider Internal Medicine
DX: R06.00 Dyspnea, unspecified (principal); M54.50 Low back pain, unspecified; M25.561 Pain in right knee; M54.2 Cervicalgia; M79.604 Pain in right leg
CPT/HCPCS: 71046; 72040; 72100; 73560; 73590

== ENCOUNTER 2024-03-12 07:59 | Outpatient (AMB) | payer OTHER, MEDICARE, SELFPAY ==
[2024-03-12 09:39] VITALS: BP 127/77; PULSE 69; RESP 16; O2SAT 99; BMI 36.2
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
== END 2024-03-12 10:07 | disposition home or self-care (01) ==
PROVIDERS: PCP Internal Medicine; Referring Provider Internal Medicine; Visit Provider Registered Nurse Emergency
DX: M51.36 Other intervertebral disc degeneration, lumbar region (principal); M50.30 Other cervical disc degeneration, unspecified cervical region; M25.561 Pain in right knee; M79.18 Myalgia, other site
CPT/HCPCS: 99204

== ENCOUNTER → 2024-03-12 07:59 | Outpatient (BNVA) | payer OTHER, MEDICARE, SELFPAY | PROVIDERS: PCP Internal Medicine; Referring Provider Internal Medicine; Visit Provider Registered Nurse Emergency ==

== ENCOUNTER 2024-04-09 09:27 | Outpatient (AMB) | payer OTHER, SELFPAY ==
[2024-04-09 09:50] VITALS: BP 112/65; PULSE 75; RESP 16; O2SAT 96; BMI 36.1
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
== END 2024-04-09 10:10 | disposition home or self-care (01) ==
PROVIDERS: PCP Internal Medicine; Visit Provider Registered Nurse Emergency
DX: M51.36 Other intervertebral disc degeneration, lumbar region (principal); M50.30 Other cervical disc degeneration, unspecified cervical region; M25.561 Pain in right knee; M79.18 Myalgia, other site
CPT/HCPCS: 99214

== ENCOUNTER → 2024-04-09 09:27 | Outpatient (BNVA) | payer OTHER, MEDICARE, SELFPAY | PROVIDERS: PCP Internal Medicine; Visit Provider Registered Nurse Emergency ==

== ENCOUNTER 2024-04-28 06:26 | Outpatient (REF) | payer OTHER, SELFPAY ==
[2024-04-28 06:55] LABS: MANUAL DIFF FLAG NO
[2024-04-28 08:27] LABS: Basophils Percent Auto 0.6 % (0-2); Eosinophils Absolute Auto 0.4 X10*3/uL (0.0-0.4); Eosinophils Percent Auto 5.8 % (0-4); Hemoglobin 12.4 g/dl (12.0-16.0); Imm Gran Abs Auto 0.02 X10*3/uL (0.00-0.03); Imm Gran Pct Auto 0.3 % (0.0-0.4); Lymphocytes Absolute Auto 1.7 X10*3/uL (1.2-4.9); Lymphocytes Percent Auto 27.9 % (20-40); Mean Corpuscular Hemoglobin 28.6 pg (27.0-33.0); Mean Corpuscular Volume 92.4 fL (80.0-98.0); Mean Platelet Volume 9.2 fL (9.4-12.3); Monocytes Absolute Auto 0.4 X10*3/uL (0.1-1.2); Monocytes Percent Auto 7.1 % (2-11); Neutrophils Absolute Auto 3.6 x10*3/uL (2.0-8.3); Neutrophils Percent Auto 58.3 % (45-73); Platelet Count 402 X10*3/uL (160-400); Red Blood Count 4.33 X10*6/uL (4.20-5.50); Red Cell Distribution Width 14.4 % (11.0-16.0); White Blood Count 6.2 X10*3/uL (4.8-10.8)
[2024-04-28 09:18] LABS: Alanine Aminotransferase 16 U/L (0-31); Albumin Level 4.3 g/dL (3.5-5.0); Alkaline Phosphatase 85 U/L (39-117); Anion Gap 14 (12-20); Aspartate Amino Transferase 18 U/L (5-31); Bilirubin Total 0.3 mg/dL (0.0-1.0); Blood Urea Nitrogen 10 mg/dL (9-16); Calcium 9.7 mg/dL (8.4-10.2); Carbon Dioxide 29 mmol/L (22-29); Chloride 105 mmol/L (96-108); Cholesterol 153 mg/dL (<200); Estimated Glomerular Filt Rate > 60; Glucose Fasting 95 mg/dL (60-99); HDL Cholesterol 56 mg/dL (>40); Iron 36 mcg/dL (30-160); LDL Cholesterol Calculated 84 mg/dL (<100); Percent Iron Saturation 10 % (15-50); Potassium 3.7 mmol/L (3.3-5.1); Sodium 144 mmol/L (135-145); Thyroid Stimulating Hormone 9.77 uIU/mL (0.32-4.0); Total Iron Binding Capacity 368 mcg/dL (228-428); Total Protein 7.7 g/dL (6.5-8.0); Triglycerides 66 mg/dL (<150); Unsaturated Iron Binding 332 ug/dL; Vitamin D 25-OH Total 21.6 ng/mL (>30)
[2024-04-28 09:29] LABS: Folate 9.1 ng/mL (> or = 4.0); Vitamin B12 465 pg/mL (200-900)
== END 2024-04-28 06:27 | disposition home or self-care (01) ==
LOC: HO.LAB 06:26
PROVIDERS: PCP Internal Medicine; Visit Provider Internal Medicine
DX: D64.9 Anemia, unspecified (principal); E04.9 Nontoxic goiter, unspecified; K21.9 Gastro-esophageal reflux disease without esophagitis; E78.5 Hyperlipidemia, unspecified; E53.8 Deficiency of other specified B group vitamins; E55.9 Vitamin D deficiency, unspecified
CPT/HCPCS: 36415; 80053; 80061; 82306; 82607; 82746; 83540; 84443; 85025

== ENCOUNTER 2024-06-18 08:45 | Outpatient (AMB) | payer OTHER, MEDICAID, SELFPAY ==
[2024-06-18 08:55] VITALS: BP 126/76; PULSE 78; O2SAT 100; BMI 36.5
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
== END 2024-06-18 09:18 | disposition home or self-care (01) ==
PROVIDERS: PCP Internal Medicine; Visit Provider Registered Nurse Emergency
DX: M51.36 Other intervertebral disc degeneration, lumbar region (principal); M50.30 Other cervical disc degeneration, unspecified cervical region; M25.561 Pain in right knee; M79.18 Myalgia, other site
CPT/HCPCS: 99213

== ENCOUNTER → 2024-06-18 08:45 | Outpatient (BNVA) | payer OTHER, MEDICAID, SELFPAY | PROVIDERS: PCP Internal Medicine; Visit Provider Registered Nurse Emergency ==

== ENCOUNTER 2024-07-25 07:29 | Emergency (ER) | payer OTHER, SELFPAY ==
[2024-07-25 07:32] VITALS: BP 141/87; PULSE 85; RESP 20; TEMP 36.8; O2SAT 98; BMI 36.1
[2024-07-25 07:50] LABS: MANUAL DIFF FLAG NO
[2024-07-25 07:52] LABS: Basophils Percent Auto 0.3 % (0-2); Hematocrit 35.6 % (37.0-47.0); Hemoglobin 11.8 g/dl (12.0-16.0); Imm Gran Abs Auto 0.06 X10*3/uL (0.00-0.03); Imm Gran Pct Auto 0.5 % (0.0-0.4); Lymphocytes Absolute Auto 1.8 X10*3/uL (1.2-4.9); Lymphocytes Percent Auto 15.7 % (20-40); Mean Corpuscular HGB Conc 33.1 g/dl (31.0-35.0); Mean Corpuscular Volume 81.5 fL (80.0-98.0); Mean Platelet Volume 8.8 fL (9.4-12.3); Monocytes Absolute Auto 1.1 X10*3/uL (0.1-1.2); Monocytes Percent Auto 9.8 % (2-11); Neutrophils Absolute Auto 8.6 x10*3/uL (2.0-8.3); Neutrophils Percent Auto 73.7 % (45-73); Platelet Count 605 X10*3/uL (160-400); Red Blood Count 4.37 X10*6/uL (4.20-5.50); Red Cell Distribution Width 14.8 % (11.0-16.0); White Blood Count 11.6 X10*3/uL (4.8-10.8)
[2024-07-25 08:14] LABS: Alanine Aminotransferase 14 U/L (0-31); Albumin Level 4.9 g/dL (3.5-5.0); Alkaline Phosphatase 83 U/L (39-117); Anion Gap 19 (12-20); Aspartate Amino Transferase 23 U/L (5-31); Bilirubin Total 0.5 mg/dL (0.0-1.0); Blood Urea Nitrogen 11 mg/dL (9-16); Calcium 10.4 mg/dL (8.4-10.2); Carbon Dioxide 23 mmol/L (22-29); Chloride 104 mmol/L (96-108); Creatinine Clr Calc Pharmacy 80.8; Estimated Glomerular Filt Rate > 60; Glucose Random 140 mg/dL (60-115); Lipase 31 U/L (8-78); Potassium 3.5 mmol/L (3.3-5.1); Sodium 142 mmol/L (135-145); Total Protein 8.7 g/dL (6.5-8.0)
[2024-07-25 08:15] LABS: HCG Quantitative < 2 mIU/mL
[2024-07-25 08:29] LABS: Influenza A PCR NEGATIVE (Negative); Influenza B PCR NEGATIVE (Negative); Resp Syncy Virus RNA Qual PCR NEGATIVE (Negative); SARS COV2 PCR INHOUSE NEGATIVE (Negative)
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
--- NOTE | 2024-07-25 09:49 | PC.NURSE ---
Assumed care of patient at 0940, patient appears to be guarded, suspicious of staff, demanding to watch her items be searched by security. Continue plan of care for med clearance and CARE team sonido
[2024-07-25 09:50] VITALS: RESP 16
--- NOTE | 2024-07-25 09:55 | PC.NURSE ---
Pt unwilling to speak in depth about suicidal thoughts, she denies any plan at this time. Pt refusing urine sample at this time. Pt educated on need for urine sample to be evaluated by CARE team. Pt now sleeping on couch in BH 7, respirations even and unlabored, no apparent distress noted
[2024-07-25 11:21] LABS: UPreg QC Valid YES; Urine Pregnancy NEGATIVE (NEGATIVE)
[2024-07-25 11:22] LABS: Appearance Urine Cloudy; Color Urine Dark Yellow; Glucose Urine UA Negative (Negative); Leukocyte Esterase Urine Negative (Negative); Nitrite Urine Negative (Negative); Specific Gravity - Urine >= 1.030 (1.005-1.025); UMIC TRIGGER UACC YES; Urine Blood Moderate (2+) (Negative); Urine Ketones >=160 mg/dL (Negative); Urine Protein 300 (3+) mg/dL (Neg-Trace)
[2024-07-25 11:26] LABS: Bacteria Urine 1+ (None Seen); Hyaline Casts Urine 0-2 /LPF (0-2); RBC Urine >20 /HPF (0-2); WBC Urine 0-5 /HPF (0-5)
[2024-07-25 11:31] LABS: Amphetamine Screen Urine Not Detected (Not Detect); Barbiturates, Urine Not Detected (Not Detect); Benzodiazepines Screen Urine Not Detected (Not Detect); Buprenorphine Scr Not Detected (Not Detect); Cannabinoid Screen Urine POSITIVE (Not Detect); Cocaine Screen Urine Not Detected (Not Detect); Fentanyl, urine Not Detected (Not Detect); Methadone Screen, Urine Not Detected (Not Detect); Opiate Screen Urine Not Detected (Not Detect); Oxycodone Screen Urine Not Detected (Not Detect); Phencyclidine Screen Urine Not Detected (Not Detect)
--- NOTE | 2024-07-25 11:35 | PC.NURSE ---
Pt provided urine sample, now resting on couch in 7
--- NOTE | 2024-07-25 13:53 | MHC.CARE ---
[employer] Director went to meet patient in the Pod; she refuses to speak with staff writer as she just woke up. Will reapproach after patient more awake and able to engage.
[2024-07-25 16:14] VITALS: BP 97/66; PULSE 58; RESP 16; TEMP 37.2; O2SAT 100
--- NOTE | 2024-07-25 19:53 | PC.NURSE ---
patient appears to remain at rest periodically coming up and asking for ice, asking to take showers, appears able to let needs be known. appears in no distress.
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
--- NOTE | 2024-07-25 23:42 | PC.NURSE ---
client provided with 4 ounces water and 4 ounces cranberry juice over ice
--- NOTE | 2024-07-25 23:46 | PC.NURSE ---
patient came and requested and received menses pads
--- NOTE | 2024-07-25 23:47 | PC.NURSE ---
patient now requests warm blanket
--- NOTE | 2024-07-26 05:00 | PC.NURSE ---
client has nearly been awake all night, either approaching nurse station hourly or q 90 minutes.
[2024-07-26 06:44] VITALS: BP 110/74; PULSE 75; RESP 16; TEMP 37.1; O2SAT 97
--- NOTE | 2024-07-26 07:04 | PC.NURSE ---
Assumed care of patient at 0645. At this time the patient is lying quietly in their bed. No signs of distress observed. Breathing is even and unlabored.
--- NOTE | 2024-07-26 07:33 | PHA.MEDREC ---
Pharmacy Consult ? Medication Reconciliation Pharmacy has completed the medication reconciliation. Reviewed med rec done by nursing
[2024-07-26 07:36] LABS: Glucose, Whole Blood 138 mg/dL (60-115)
--- NOTE | 2024-07-26 07:38 | PC.NURSE ---
Nursing Communication PT is c/o dizziness and shakiness. PT denies using substances that could result in withdrawals. VS are WNL and glucose POC is 138. made aware.
[2024-07-26 07:47] VITALS: BP 107/55; PULSE 61; RESP 16; TEMP 37; O2SAT 98
[2024-07-26] MEDS: LORazepam 1 MG TABLET PO (07:53)
[2024-07-26] MEDS: Gabapentin 300 MG CAPSULE PO ×3 (09:25→19:57)
[2024-07-26] MEDS: Omeprazole 20 MG CAPSULE.DR PO (09:25)
[2024-07-26] MEDS: Sucralfate 1 GM TABLET PO ×2 (09:25→19:57)
[2024-07-26] MEDS: diphenhydrAMINE HCL 25 MG CAPSULE 50 MG PO (09:42)
--- NOTE | 2024-07-26 12:37 | MHC.CARE ---
Patient given medication to help her sleep and editorial writer will re-evaluate once patient is awake. Purchasing Engineer contacted [facility] and spoke with Juana to inquire on safe housing for patient in [facility]. Juana states 'it is unlikely' any available resources until Sunday at the earliest but she will initiate search and contact CARE Team directly if she is able to locate temporary group home for patient.
[2024-07-26 15:29] VITALS: BP 113/75; PULSE 90; RESP 17; TEMP 36.8; O2SAT 95
[2024-07-26] MEDS: LORazepam 1 MG TABLET 2 MG PO (16:02)
[2024-07-26] MEDS: TiZANidine HCL 4 MG TABLET 2 MG PO (19:57)
[2024-07-26 19:58] VITALS: BP 132/77; PULSE 72; RESP 16; TEMP 37.5; O2SAT 98
--- NOTE | 2024-07-27 01:53 | PC.NURSE ---
pt is talking on the phone, at this time
--- NOTE | 2024-07-27 02:34 | PC.NURSE ---
pt at the nurse's desk, wanting her phone, to get numbers. Pt was told, after the 2nd time of getting her phone, that was it, no more tonight. Pt is on the phone, calling people. Informed pt, it was 230 in the morning, and most people is sleeping, asked pt to wait, until daylight to be calling people. Pt very upset with this nurse, yelling that she is going to leave. Pt was informed she was a section 12, and care team would reevalate her, this am, until then, she could not go anywhere. The tech, was able to get the pt, to calm down.
[2024-07-27] MEDS: Omeprazole 20 MG CAPSULE.DR PO (06:41)
--- NOTE | 2024-07-27 07:01 | PC.NURSE ---
Assumed care of patient at 0645. At this time the patient is observed at the nurses station. No signs of distress observed. Breathing is even and unlabored.
[2024-07-27 07:44] VITALS: BP 106/77; PULSE 121; RESP 18; TEMP 36.9; O2SAT 97
[2024-07-27] MEDS: Sucralfate 1 GM TABLET PO (09:35)
[2024-07-27] MEDS: Gabapentin 300 MG CAPSULE PO (09:35)
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
[2024-07-27 11:13] VITALS: BP 106/77; PULSE 121; RESP 18; TEMP 36.9; O2SAT 97
== END 2024-07-27 11:19 | disposition home or self-care (01) ==
PROVIDERS: Student in an Organized Health Care Education/Training Program; Emergency Provider Emergency Medicine Emergency Medical Services; PCP Internal Medicine
DX: R45.851 Suicidal ideations (principal); R10.9 Unspecified abdominal pain; F33.1 Major depressive disorder, recurrent, moderate; F12.90 Cannabis use, unspecified, uncomplicated; D50.0 Iron deficiency anemia secondary to blood loss (chronic); K21.9 Gastro-esophageal reflux disease without esophagitis; Z87.891 Personal history of nicotine dependence; Z59.00 Homelessness unspecified; Z72.89 Other problems related to lifestyle; Z69.11 Encounter for mental health services for victim of spousal or partner abuse; Z79.899 Other long term (current) drug therapy; Z03.818 Encounter for observation for suspected exposure to other biological agents ruled out
CPT/HCPCS: 0241U; 36415; 80053; 80307; 81001; 81025; 82947; 83690; 84702; 85025; 99285; S9485

== ENCOUNTER 2024-08-04 14:25 | Outpatient (REF) | payer OTHER, SELFPAY ==
[2024-08-04 16:01] LABS: MANUAL DIFF FLAG NO
[2024-08-04 17:05] LABS: Basophils Absolute Auto 0.1 X10*3/uL (0.0-0.2); Basophils Percent Auto 1.1 % (0-2); Eosinophils Absolute Auto 0.5 X10*3/uL (0.0-0.4); Eosinophils Percent Auto 6.2 % (0-4); Hematocrit 33.3 % (37.0-47.0); Hemoglobin 10.1 g/dl (12.0-16.0); Imm Gran Abs Auto 0.02 X10*3/uL (0.00-0.03); Imm Gran Pct Auto 0.3 % (0.0-0.4); Lymphocytes Absolute Auto 2.7 X10*3/uL (1.2-4.9); Lymphocytes Percent Auto 37.6 % (20-40); Mean Corpuscular HGB Conc 30.3 g/dl (31.0-35.0); Mean Corpuscular Hemoglobin 26.2 pg (27.0-33.0); Mean Corpuscular Volume 86.5 fL (80.0-98.0); Mean Platelet Volume 9.6 fL (9.4-12.3); Monocytes Absolute Auto 0.6 X10*3/uL (0.1-1.2); Monocytes Percent Auto 7.7 % (2-11); Neutrophils Absolute Auto 3.4 x10*3/uL (2.0-8.3); Neutrophils Percent Auto 47.1 % (45-73); Platelet Count 499 X10*3/uL (160-400); Red Blood Count 3.85 X10*6/uL (4.20-5.50); White Blood Count 7.3 X10*3/uL (4.8-10.8)
[2024-08-04 17:39] LABS: Alanine Aminotransferase 21 U/L (0-31); Albumin Level 4.3 g/dL (3.5-5.0); Alkaline Phosphatase 64 U/L (39-117); Anion Gap 12 (12-20); Aspartate Amino Transferase 19 U/L (5-31); Bilirubin Total 0.4 mg/dL (0.0-1.0); Blood Urea Nitrogen 14 mg/dL (9-16); Calcium 9.5 mg/dL (8.4-10.2); Carbon Dioxide 28 mmol/L (22-29); Chloride 107 mmol/L (96-108); Cholesterol 135 mg/dL (<200); Estimated Glomerular Filt Rate > 60; Glucose Fasting 74 mg/dL (60-99); HDL Cholesterol 50 mg/dL (>40); LDL Cholesterol Calculated 72 mg/dL (<100); Sodium 144 mmol/L (135-145); Total Protein 7.4 g/dL (6.5-8.0); Triglycerides 68 mg/dL (<150)
[2024-08-04 17:45] LABS: Thyroid Stimulating Hormone 14.13 uIU/mL (0.32-4.0); Vitamin D 25-OH Total 21.3 ng/mL (>30)
[2024-08-04 17:53] LABS: Folate 10.1 ng/mL (> or = 4.0); Vitamin B12 720 pg/mL (200-900)
[2024-08-04 18:21] LABS: Potassium 2.9 mmol/L (3.3-5.1)
[2024-08-05 04:20] LABS: HIV AB/AG Nonreactive (Nonreactive); HIV Num 1 0.04 S/CO (0.00-0.99)
== END 2024-08-04 14:26 | disposition home or self-care (01) ==
LOC: HO.LAB 14:25
PROVIDERS: PCP Internal Medicine; Visit Provider Internal Medicine
DX: M54.50 Low back pain, unspecified (principal); F33.1 Major depressive disorder, recurrent, moderate; D50.0 Iron deficiency anemia secondary to blood loss (chronic); E87.6 Hypokalemia; E53.8 Deficiency of other specified B group vitamins; E55.9 Vitamin D deficiency, unspecified; E78.5 Hyperlipidemia, unspecified; E06.3 Autoimmune thyroiditis; Z79.899 Other long term (current) drug therapy; Z91.048 Other nonmedicinal substance allergy status; Z11.4 Encounter for screening for human immunodeficiency virus [HIV]; Z28.21 Immunization not carried out because of patient refusal
CPT/HCPCS: 36415; 80053; 80061; 82306; 82607; 82746; 84443; 85025; 86003; 87389; 90471; 99212

== ENCOUNTER 2024-08-04 14:25 | Outpatient (AMB) | payer OTHER, MEDICAID, SELFPAY ==
--- NOTE | 2024-08-04 14:46 | A.OFFPC_ITS ---
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 Required: No Accompanied by: Self / Same As Patient Allergies metoclopramide [From REGLAN] Allergy (Mild, Verified 08/04/24 15:06) MAKES ME COLD prochlorperazine [From Compazine] Allergy (Mild, Verified 08/04/24 15:06) RASH, gets cold famotidine [Pepcid] Adverse Reaction (Mild, Verified 08/04/24 15:06) loss of appetite Medication List - Last Reconciled 08/04/24 by Zonia Black MD gabapentin 300 mg PO TID 30 days omeprazole 20 mg PO DAILY 30 days ondansetron 4 mg PO Q6-8H PRN sucralfate 1 g PO QID 30 days tizanidine 2 mg PO TID PRN Tobacco use date assessed: 08/04/24 Dental Screening Dental Screen Date: 08/04/24 Did you have a dental visit in the last 12 months?: No Did you have a dental problem in the last 6 months where you did not have access to dental care?: No Was dental information given to patient?: Patient has dentist HPI HPI Comments History of Present Illness Details This is a 39-year-old female with hypothyroidism, iron-deficiency anemia due to chronic blood loss, lumbar pain, moderate recurrent major depression and hypokalemia that comes today complaining of out an allergy to mold and RAST test was ordered. She said she is now homeless and her apartment used to have mold and gave her symptoms like allergic rhinitis and shortness of breath. Due to her depression she will benefit from being with her service dog. TSH is abnormal and I increase Synthroid from 25-50 mcg. Hemoglobin has w orsened. She has an increase in lumbar pain due to her homeless status does not sleep well and I will increase gabapentin. Her potassium is low and will be supplemented. Patient is aware of all this. No chest pain or shortness on breath. [facility] Medical History (Updated 08/04/24 @ 15:30 by Zonia Black MD) Hypercalcemia Goiter Throat pain Pain in mandible Pain of right clavicle Dyspnea Hypothyroidism Polyarthralgia Moderate recurrent major depression Cyclic vomiting syndrome Renal calculi Iron deficiency anemia due to chronic blood loss Chest pain Shortness of breath Iron deficiency anemia due to chronic blood loss Hx of History of back pain Hx of iron deficiency anemia Hx of migraines Anxiety History of bipolar disorder Chest pain Menorrhagia Hypokalemia Marijuana use, continuous Syphilis contact, treated Numbness of foot GERD (gastroesophageal reflux disease) Anemia Depression Surgical History Hx of esophagogastroduodenoscopy Hx of colonoscopy History of dilation and curettage Family History Mother HTN (hypertension) Maternal Grandmother HTN (hypertension) Maternal Uncle HTN (hypertension) Maternal Aunt Diabetes mellitus Family/Other Mental health disorder Substance use disorder Father Cancer Social History Household Members: None Housing: Apartment Are you a primary healthcare associate to a significant other at home: No Do you presently have visiting nurse or other home services: No Alcohol intake: never Patient Tobacco Use Status: Former Tobacco user Cigarette Packs Per Day: 0.25 Years Smoked: 15 e-Cigarette/Vaping Use: Never Used Second Hand Smoke Exposure: No Substance Use Type: Marijuana service: No Current occupational status: unemployed Cognitive needs: No Hearing needs: No Vision needs: No Female Reproductive History Menstrual Age of Menarche: 12 Questionnaire Thrive Questionnaire Date Thrive assessed: 05/09/23 Are you currently unemployed and looking for a job?: Yes SHERI-7 AMB Questionnaire SHERI-7 Date SHERI - 7 assessed: 05/09/23 Source: Developed by Drs. Pieter Hand, Shira Rahman, Ezra Martins and colleagues, with an educational amandeep from [employer]. Review of Systems Const All systems reviewed & are unremarkable except as noted in HPI and below Card Denies chest pain at rest, Denies chest pain with activity, Denies edema, Denies irregular heart rhythm, Denies claudication, Denies dyspnea, Denies dyspnea on exertion, Denies orthopnea, Denies paroxysmal nocturnal dyspnea and Denies slow heart rate Resp Denies cough, Denies dyspnea and Denies dyspnea on exertion GI Denies abdominal pain, Denies change in bowel habits, Denies excessive flatus, Denies nausea and Denies vomiting Physical exam (Primary Care) Vital Signs: Last Vital Signs BP 110/80 08/04/24 14:47 BMI result Body Mass Index 34.8 BMI Assessment/Plan discussion: High BMI High, discussed plan: lifestyle, weight reduction, dietary and physical activity Tobacco/Smoking Status: Tobacco use Status Tobacco use date assessed 08/04/24 08/04/24 14:54 Patient Tobacco Use Status Former Tobacco user 08/04/24 14:54 e-Cigarette/Vaping Use Never Used 08/04/24 14:54 Thrive Assessment: Date of Thrive Assessment Date Thrive assessed 05/09/23 08/04/24 14:54 Resp Effort & Inspection: normal respiratory effort Auscultation: clear to auscultation bilaterally Cardio Jugular venous distension: no JVD Rate: regular rate Rhythm: regular rhythm Heart sounds: S1 normal heart sound present and S2 normal heart sound present Extrem General: Yes full ROM Psych Affect: Sad affect present Office Procedures Flu Questionnaire Does the patient have a severe egg allergy?: No Immunizations Fluarix Triv [id number] (PF) 45 mcg (15 mcg x 3)/0.5 mL IM syringe Performing Provider: Zonia Black MD [facility] Documented (not given) by: OBIE Lindre on 08/04/24 14:54 Reason Not Given: Patient Refused Coding Level of Care Code Est Pt Level 4 (31587) Complex EM visit Add On G2211 Diagnoses Lumbar pain M54.50 Moderate recurrent major depression F33.1 Hypothyroidism E03.9 Iron deficiency anemia due to chronic blood loss D50.0 Hypokalemia E87.6 Time Spent (min) 23 Assessment & Plan Assessment & Plan (1) Lumbar pain: Code(s): M54.50 - Low back pain, unspecified Category: Medical Plan: Increase gabapentin. (2) Moderate recurrent major depression: Code(s): F33.1 - Major depressive disorder, recurrent, moderate Category: Medical Plan: Will benefit from staying with her service dog. (3) Hypothyroidism: Code(s): E03.9 - Hypothyroidism, unspecified Category: Medical Plan: Increase Synthroid to 50 mcg. (4) Iron deficiency anemia due to chronic blood loss: Code(s): D50.0 - Iron deficiency anemia secondary to blood loss (chronic) Category: Medical Plan: Hemoglobin will be monitor. (5) Hypokalemia: Code(s): E87.6 - Hypokalemia Category: Medical Plan: Supplement potassium. Orders: Orders Influenza [id number] Immunization Today Z23 - Encounter for immunization Vitamin B12 and Folate Today E53.8 - Deficiency of other specified B group vitamins Rast Allergen Today Z91.048 - Other nonmedicinal substance allergy status Complete Blood Count Auto Diff Today D64.9 - Anemia, unspecified Vitamin D 25-OH Total Today E55.9 - Vitamin D deficiency, unspecified Lipid Panel Today E78.5 - Hyperlipidemia, unspecified Comprehensive [place]. Panel Fast Today M54.50 - Low back pain, unspecified Thyroid Stimulating Hormone Today E06.3 - Autoimmune thyroiditis HIV Ab/Ag Today Z11.4 - Encounter for screening for human immunodeficiency virus [HIV] Medications: New gabapentin 400 mg PO TID 30 days 90 caps 2RF albuterol sulfate 90 mcg/actuation (Ventolin HFA) 2 puffs inhalation Q6H 30 days PRN 8.5 grams 0RF shortness of breath or wheezing cholecalciferol (vitamin D3) 25 mcg PO DAILY 90 days 90 caps 0RF levothyroxine (Synthroid) 50 mcg PO DAILY 90 days 90 tabs 0RF Refilled potassium chloride 20 mEq (15 mL) PO DAILY 50 mL 0RF Discontinued gabapentin Discontinued Reason: Patient Completed Course 300 mg PO TID 30 days 90 caps 0RF
[2024-08-04 14:47] VITALS: BP 110/80; BMI 34.8
== END 2024-08-04 15:26 | disposition home or self-care (01) ==
PROVIDERS: PCP Internal Medicine; Visit Provider Internal Medicine
DX: M54.50 Low back pain, unspecified (principal); F33.1 Major depressive disorder, recurrent, moderate; E03.9 Hypothyroidism, unspecified; D50.0 Iron deficiency anemia secondary to blood loss (chronic); E87.6 Hypokalemia; Z23 Encounter for immunization

== ENCOUNTER 2024-09-04 06:45 | Emergency (ER) | payer OTHER, SELFPAY ==
[2024-09-04 06:51] VITALS: BP 129/72; PULSE 87; RESP 20; TEMP 36.7; O2SAT 98; BMI 34.2
[2024-09-04 08:44] VITALS: BP 132/81; PULSE 67; RESP 15; TEMP 36.6; O2SAT 99
[2024-09-04 08:48] LABS: Appearance Urine Clear; Color Urine Yellow; Glucose Urine UA Negative (Negative); Leukocyte Esterase Urine Negative (Negative); Nitrite Urine Negative (Negative); Specific Gravity - Urine >= 1.030 (1.005-1.025); UMIC TRIGGER UACC YES; Urine Blood Trace (Negative); Urine Ketones Trace mg/dL (Negative); Urine Protein Trace mg/dL (Neg-Trace)
--- NOTE | 2024-09-04 08:48 | PC.NURSE ---
Pt coming from home, reports left sided abdomen pain, N/V since early this morning. Poor PO intake. Reports she feels dehydrated, has had episodes of this in the past. Also reports feeling depressed (ongoing issue which she sees a therapist for), adamantly denies SI or HI. Alert and oriented, breathing even and unlabored. ABD soft, non-distended.
[2024-09-04 08:50] LABS: Bacteria Urine Trace (None Seen); Hyaline Casts Urine 0-2 /LPF (0-2); WBC Urine 0-5 /HPF (0-5)
--- NOTE | 2024-09-04 09:01 | ED_ITS ---
HPI - General Adult General Chief complaint: Recheck/Abnormal Lab/Rx Stated complaint: Low iron, vomiting Time Seen by Provider: 09/04/24 08:59 Source: patient Mode of arrival: ambulatory Limitations: no limitations History of Present Illness ED Provider: Sharla Guzman PA-C HPI narrative: Patient is a 39 year old assigned female at with a history of MDD, anemia, hypothyroidism, and GERD presenting to the emergency department today with intermittent nausea and vomiting. Patient states that she has had intermittent nausea and vomiting. Patient states that she feels as though she is dehydrated and previously her potassium was 2.9. Patient denies any dizziness, lightheadedness, abdominal pain, fever, chills, blurry vision, double vision, loss of vision, chest pain, difficulty breathing, shortness of breath, back pain, night sweats, pain with urination, increased urinary frequency, increased urinary urgency, blood in her urine or stool, syncope or a near syncopal episode, recent trauma or falls, bowel incontinence, bladder incontinence, or any other complaints at this time. Relieving factors: none Exacerbating factors: none Associated symptoms: nausea/vomiting Treatments prior to arrival: none Related Data Previous Rx's ?Medication ?Instructions ?Recorded omeprazole 20 mg capsule,delayed 20 mg PO DAILY 30 days #30 caps 07/27/24 release ondansetron 4 mg disintegrating 4 mg PO Q6-8H PRN nausea and 07/27/24 tablet vomiting #14 tabs sucralfate 1 gram tablet 1 g PO QID 30 days #120 tabs 07/27/24 tizanidine 2 mg capsule 2 mg PO TID PRN muscle spasticity 07/27/24 #20 caps cholecalciferol (vitamin D3) 25 25 mcg PO DAILY 90 days #90 caps 08/04/24 mcg (1,000 unit) capsule gabapentin 400 mg capsule 400 mg PO TID 30 days #90 caps 08/04/24 levothyroxine 50 mcg tablet 50 mcg PO DAILY 90 days #90 tabs 08/04/24 (Synthroid) potassium chloride 20 mEq/15 mL 20 meq (15 mL) PO DAILY #50 mL 08/04/24 oral liquid albuterol sulfate 90 mcg/actuation 2 puff inhalation Q6H PRN 08/31/24 aerosol inhaler (Ventolin HFA) shortness of breath or wheezing 30 days #8.5 grams Allergies Allergy/AdvReac Type Severity Reaction Status Date / Time metoclopramide [From REGLAN] Allergy Mild MAKES ME Verified 09/04/24 06:55 COLD prochlorperazine Allergy Mild RASH, gets Verified 09/04/24 06:55 [From Compazine] cold famotidine [Pepcid] AdvReac Mild loss of Verified 09/04/24 06:55 appetite Review of Systems 2 Constitutional: Constitutional: Reports no additional constitutional complaints, Denies chills, Denies fever(s) and Denies night sweats Eyes: Eyes: Reports no additional eye complaints, Denies blurry vision, Denies change in vision, Denies diplopia, Denies eye discharge, Denies loss of vision and Denies eye pain ENT: Denies dizziness Cardiovascular: Cardiovascular: Reports no additional cardiovascular complaints, Denies chest pain, Denies lightheadedness, Denies Loss of Consciousness and Denies dyspnea Respiratory: Respiratory: Reports no additional respiratory complaints and Denies dyspnea Gastrointestinal: Gastrointestinal: Reports no additional gastrointestinal complaints, Denies abdominal pain, Denies melena, Denies hematochezia, Denies change in bowel habits, Denies change in stool character, Reports nausea and Reports vomiting Genitourinary: Genitourinary: Denies hematuria, Denies urinary frequency, Denies dysuria, Denies urinary incontinence, Denies urinary hesitancy and Denies urinary urgency Musculoskeletal: Musculoskeletal: Reports no additional musculoskeletal complaints, Denies numbness and Denies tingling Neurologic: Denies dizziness, Denies loss of vision, Denies numbness and Denies tingling Psychiatric: Psychiatric: Reports no additional psychiatric complaints Endocrine: Endocrine: Reports no additional endocrine complaints Hematologic/Lymphatic: Hematologic/Lymphatic: Reports no additional hematologic/lymphatic complaints Allergic/Immunologic: Allergic/Immunologic: Reports no additional allergic/immunologic complaints PMFSH Past Medical History Attestation statement: The following information was validated with the patient. Source: old records reviewed and nursing notes reviewed Medical History Hypercalcemia Goiter Throat pain Pain in mandible Pain of right clavicle Dyspnea Hypothyroidism Polyarthralgia Moderate recurrent major depression Cyclic vomiting syndrome Renal calculi Iron deficiency anemia due to chronic blood loss Chest pain Shortness of breath Iron deficiency anemia due to chronic blood loss Hx of History of back pain Hx of iron deficiency anemia Hx of migraines Anxiety History of bipolar disorder Chest pain Menorrhagia Hypokalemia Marijuana use, continuous Syphilis contact, treated Numbness of foot GERD (gastroesophageal reflux disease) Anemia Depression Surgical History Hx of esophagogastroduodenoscopy Hx of colonoscopy History of dilation and curettage Family History Family History Mother HTN (hypertension) Maternal Grandmother HTN (hypertension) Maternal Uncle HTN (hypertension) Maternal Aunt Diabetes mellitus Family/Other Mental health disorder Substance use disorder Father Cancer Social History Social History Household Members: None Housing: Apartment Are you a primary client care consultant to a significant other at home: No Do you presently have visiting nurse or other home services: No Alcohol intake: never Patient Tobacco Use Status: Former Tobacco user Cigarette Packs Per Day: 0.25 Years Smoked: 15 Smoked in Last 30 Days: No e-Cigarette/Vaping Use: Never Used Second Hand Smoke Exposure: No Use of substances other than those prescribed or required for medical reasons: Yes Substance Use Type: Marijuana Advance Directives: No Advance Directives Information Provided: Yes service: No Current occupational status: unemployed Cognitive needs: No Hearing needs: No Vision needs: No Physical Exam ED Vital Signs: Vital Signs - 24 hr 09/04/24 06:51 09/04/24 08:44 Temperature 98.1 F 97.9 F Pulse Rate 87 67 Respiratory Rate 20 15 Blood Pressure 129/72 132/81 Pulse Oximetry 98 99 Oxygen Delivery Method Room Air Room Air BMI result Body Mass Index 34.2 Const General: cooperative, no acute distress, alert and awake Nutritional Appearance: well nourished Orientation/consciousness: patient oriented x3 Limitations: no limitations HENMT Head: Yes normal to inspection and Yes atraumatic Ears: hearing grossly normal bilaterally and external ears normal General nose exam: Normal external nose present, no nasal discharge noted and no epistaxis Face and sinus: Yes normal facial exam, No abrasion and No laceration Mouth: Normal oral and palatal mucosa present, no drooling and no muffled voice Eyes General: appearance normal, both eyes and all related structures Periorbital: periorbital findings normal Eyelids: Yes eyelids normal Conjunctivae: conjunctivae normal Pupils: Equal, round and reactive pupils present EOM: EOMs intact bilaterally Neck Neck: Yes normal visual inspection, Yes full ROM and Yes no lymphadenopathy Chest Chest palpation & inspection: normal inspection of the chest Resp Effort & Inspection: normal respiratory effort and able to speak in complete sentences GI Inspection: Yes normal to inspection Neuro General: patient oriented x3 and moves all extremities Cranial nerves: Yes Equal, round and reactive pupils present Cognition (Neuro): normal cognition Extrem General: Yes normal to inspection, Yes full ROM and Yes capillary refill normal Psych Appearance: grossly normal Mental Status: mental status grossly normal Affect: normal affect Attitude: cooperative Thought process: Normal thought process present Thought content: Normal thought content present Insight: Good insight present (Psych) Medical Decision Making Medical Decision Making [facility] Narrative: Patient is a 39 year old assigned female at with a history of MDD, anemia, hypothyroidism, and GERD presenting to the emergency department today with intermittent nausea and vomiting. Patient's physical exam was unremarkable. Patient's blood work was unremarkable and consistent with the patient's baseline. Patient's clinical presentation is most consistent with nausea and vomiting likely secondary to a viral pathology. I explained my physical exam findings as well as all test results to the patient. I answered all questions asked by the patient. Patient received IV fluids, zofran, and protonix which, upon re-evaluation, she stated it helped her symptoms. I stressed the importance of the patient taking her medication as directed (either prescribed or as the over the counter packaging recommends). I stressed the importance of the patient following up with her primary care provider. I stressed the importance of the patient returning to the emergency department immediately if her symptoms were to worsen or if she were to develop any dizziness, shortness of breath, difficulty breathing, chest pain, blurry vision, loss of vision, nausea, vomiting, abdominal pain, fever, chills, back pain, or any other complaints. Patient verbalized agreement and understanding with this treatment plan and discharge. Differential Diagnosis Differential Diagnoses: The differential diagnosis associated with the presentation includes Dehydration Nausea Vomiting Admission/Observation Consideration of admission/observation: Escalation of care including admission/observation considered Patient would have been admitted to the hospital had her work up had any findings where hospital admission was appropriate and her clinical presentation warranted hospital admission. Lab Data [facility] Lab Attestation statement: I reviewed the patient's lab results. My interpretation of these results are in the MDM Rationale portion of this note. 09/04/24 09:13 09/04/24 10:21 Labs: Lab Results 09/04/24 09/04/24 09/04/24 Range/Units 08:41 09:13 10:21 WBC 6.2 (4.8-10.8) X10*3/uL RBC 3.79 L (4.20-5.50) X10*6/uL Hgb 9.9 L (12.0-16.0) g/dl Hct 31.6 L (37.0-47.0) % MCV 83.4 (80.0-98.0) fL MCH 26.1 L (27.0-33.0) pg MCHC 31.3 (31.0-35.0) g/dl RDW 16.4 H (11.0-16.0) % Plt Count 489 H (160-400) X10*3/uL MPV 9.3 L (9.4-12.3) fL Immature Gran % (Auto) 0.3 (0.0-0.4) % Neut % (Auto) 49.2 (45-73) % Lymph % (Auto) 33.0 (20-40) % [place] % (Auto) 9.3 (2-11) % Eos % (Auto) 7.2 H (0-4) % Baso % (Auto) 1.0 (0-2) % Lymph # (Auto) 2.0 (1.2-4.9) X10*3/uL [place] # (Auto) 0.6 (0.1-1.2) X10*3/uL Eos # (Auto) 0.4 (0.0-0.4) X10*3/uL Baso # (Auto) 0.1 (0.0-0.2) X10*3/uL Abs Immat Gran (auto) 0.02 (0.00-0.03) X10*3/uL Absolute Neuts (auto) 3.0 (2.0-8.3) x10*3/uL Absolute Nucleated RBC 0.000 (0.0-0.012) X10*3/uL Nucleated RBC % (auto) 0.0 (0.0-0.2) /100WBC Sodium 140 (135-145) mmol/L Potassium 3.3 (3.3-5.1) mmol/L Chloride 109 H (96-108) mmol/L Carbon Dioxide 26 (22-29) mmol/L Anion Gap 8 L (12-20) BUN 10 (9-16) mg/dL Creatinine 0.63 (0.5-1.4) mg/dL Estim Creat Clear Calc 109.5 Estimated GFR > 60 Random Glucose 80 (60-115) mg/dL Calcium 8.5 D (8.4-10.2) mg/dL Urine Color Yellow Urine Appearance Clear Urine pH 7.0 (5.0-9.0) Ur Specific [place] >= 1.030 H (1.005-1.025) Urine Protein Trace (Neg-Trace) mg/dL Urine Glucose (UA) Negative (Negative) mg/dL Urine Ketones Trace (Negative) mg/dL Urine Blood Trace H (Negative) Urine Nitrite Negative (Negative) Ur Leukocyte Esterase Negative (Negative) Urine RBC 6-10 H (0-2) /HPF Urine WBC 0-5 (0-5) /HPF Ur Squamous Epith Cells 6-10 (0-2) /HPF Urine Bacteria Trace (None Seen) Hyaline Casts 0-2 (0-2) /LPF Tests considered The following testing was considered but not selected: I considered obtaining a CT of the abdomen/pelvis however, the patient's current clinical presentation and work up did not warrant this. I discussed this with the patient who verbalized understanding and agreement. Discharge Plan Discharge Clinical Impression: Nausea & vomiting Patient Disposition: Home, Self-Care Instructions: Acute Nausea and Vomiting (ED) Additional Instructions: Follow up with your primary care provider. Return to the emergency department immediately if your symptoms worsen or if you develop any dizziness, shortness of breath, difficulty breathing, chest pain, blurry vision, loss of vision, nausea, vomiting, abdominal pain, fever, chills, back pain, or any other complaints. Prescriptions: No Action albuterol sulfate [Ventolin HFA] 90 mcg/actuation HFA aerosol inhaler 2 puff inhalation Q6H PRN (Reason: shortness of breath or wheezing) 30 Days Qty: 8.5 0RF omeprazole 20 mg capsule,delayed release(DR/EC) 20 mg PO DAILY 30 Days Qty: 30 0RF ondansetron 4 mg tablet,disintegrating 4 mg PO Q6-8H PRN (Reason: nausea and vomiting) Qty: 14 0RF sucralfate 1 gram tablet 1 g PO QID 30 Days Qty: 120 0RF tizanidine 2 mg capsule 2 mg PO TID PRN (Reason: muscle spasticity) Qty: 20 0RF gabapentin 400 mg capsule 400 mg PO TID 30 Days Qty: 90 2RF potassium chloride 20 mEq/15 mL liquid 20 meq PO DAILY Qty: 50 0RF levothyroxine [Synthroid] 50 mcg tablet 50 mcg PO DAILY 90 Days Qty: 90 0RF cholecalciferol (vitamin D3) 25 mcg (1,000 unit) capsule 25 mcg PO DAILY 90 Days Qty: 90 0RF Referrals: Zonia Kamara MD [Primary Care Provider] - Stand Alone Forms: Work/School Release Print Language: [place]
[2024-09-04 09:16] LABS: MANUAL DIFF FLAG NO
[2024-09-04 09:24] LABS: Basophils Absolute Auto 0.1 X10*3/uL (0.0-0.2); Eosinophils Absolute Auto 0.4 X10*3/uL (0.0-0.4); Eosinophils Percent Auto 7.2 % (0-4); Hematocrit 31.6 % (37.0-47.0); Hemoglobin 9.9 g/dl (12.0-16.0); Imm Gran Abs Auto 0.02 X10*3/uL (0.00-0.03); Imm Gran Pct Auto 0.3 % (0.0-0.4); Mean Corpuscular HGB Conc 31.3 g/dl (31.0-35.0); Mean Corpuscular Hemoglobin 26.1 pg (27.0-33.0); Mean Corpuscular Volume 83.4 fL (80.0-98.0); Mean Platelet Volume 9.3 fL (9.4-12.3); Monocytes Absolute Auto 0.6 X10*3/uL (0.1-1.2); Monocytes Percent Auto 9.3 % (2-11); Neutrophils Percent Auto 49.2 % (45-73); Platelet Count 489 X10*3/uL (160-400); Red Blood Count 3.79 X10*6/uL (4.20-5.50); Red Cell Distribution Width 16.4 % (11.0-16.0); White Blood Count 6.2 X10*3/uL (4.8-10.8)
--- NOTE | 2024-09-04 09:44 | PC.NURSE ---
Pt hard stick, multiple attempts by RNs and techs. This RN reached out to ICU to assist with US guided line
[2024-09-04 10:42] LABS: Anion Gap 8 (12-20); Blood Urea Nitrogen 10 mg/dL (9-16); Calcium 8.5 mg/dL (8.4-10.2); Carbon Dioxide 26 mmol/L (22-29); Chloride 109 mmol/L (96-108); Creatinine Clr Calc Pharmacy 109.5; Estimated Glomerular Filt Rate > 60; Glucose Random 80 mg/dL (60-115); Potassium 3.3 mmol/L (3.3-5.1); Sodium 140 mmol/L (135-145)
[2024-09-04] MEDS: Sucralfate Oral Suspension 1 GM/10 ML ORAL.SUSP PO (10:44)
[2024-09-04] MEDS: ondansetron HCL 4 MG/2 ML VIAL IVPUSH (10:45)
[2024-09-04] MEDS: 0.9 % Sodium Chloride 1,000 ML 999 ML IV (10:45)
[2024-09-04] MEDS: Pantoprazole Sodium 40 MG/10 ML VIAL IVPUSH (10:45)
[2024-09-04] MEDS: HYDROmorphone HCl 1 MG/ML SYRINGE IVPUSH (11:22)
[2024-09-04 12:11] VITALS: BP 122/74; PULSE 58; RESP 16; TEMP 36.6; O2SAT 99
--- NOTE | 2024-09-04 12:27 | PC.NURSE ---
Pt requesting to speak to someone since she feels dizzy and is discharged. Pt advised to sit and provider will be alerted of change so she can be further eval. Pt advised if she did not feel safe to leave to stay here longer. Clinical coordinator told of situation and talked to pt, see noted.
--- NOTE | 2024-09-04 15:27 | PC.NURSE ---
late note: spoke w pt after primary RN discharged pt. pt stated that she feels dizzy after pain medication. explained side effects of medication to pt. pt encouraged to return to room to follow up w provider regarding sympoms if she felt unsafe for discharge. pt stated that she felt unsafe but declined to stay and that she was [facility] for not providing her information about the medication that she was given. this RN went to go find out who administered her medication per pt request. pt was seen leaving ED w discharge paperwork prior to being able to obtain information. provider aware.
== END 2024-09-04 13:00 | disposition home or self-care (01) ==
PROVIDERS: Emergency Provider Emergency Medicine; PCP Internal Medicine
DX: R11.2 Nausea with vomiting, unspecified (principal); D50.9 Iron deficiency anemia, unspecified; Z87.891 Personal history of nicotine dependence; Z79.899 Other long term (current) drug therapy
CPT/HCPCS: 36415; 80048; 81001; 85025; 96361; 96374; 96375; 99284; J1171; J2405; J2470

== ENCOUNTER 2024-09-05 09:14 | Emergency (ER) | payer OTHER, SELFPAY ==
[2024-09-05 09:16] VITALS: BP 159/96; PULSE 101; RESP 20; TEMP 36.5; O2SAT 97; BMI 33.2
--- NOTE | 2024-09-05 09:38 | ED_ITS ---
HPI - Nausea/Vomiting/Diarrhea General Chief complaint: Abdominal Pain Stated complaint: pain L side, abd pain, headache Time Seen by Provider: 09/05/24 09:37 Source: patient and old records reviewed Mode of arrival: ambulatory Limitations: no limitations History of Present Illness ED Provider: ADIEL HPI Narrative: 39 yo female [facility] PMH of cyclical vomiting with recurrent THC positive screens, hypothyroidism, anxiety, depression, GERD, anemia recurrent visits to here and local hospitals for abdominal pain n/v. Seen yesterday and treated with reassuring labs - given protonix, carafate, IV dilaudid, zofran. She was very upset on discharge yesterday and repeatedly asked for providers names and medications given so she could bring them to her senior business intelligence analyst. At this time given prior interactions Yisel BORGES to evaluate and assume care of patient. Adiel: Patient reports ongoing left sided abdominal pain, nausea and vomiting since yesterday, 3 episodes of diarrhea this morning. Feels that her symptoms were exacerbated by the dilaudid prior to leaving yesterday. Denies hematemesis, hematochezia or melena. Denies fevers. Denies back or flank pain. Denies urinary symptoms. MD elicited complaint: nausea, vomiting, diarrhea and abdominal pain Pertinent past history: cyclical vomiting Onset (ago): day(s) Description of vomiting: food contents Associated nausea: Yes Associated abdominal pain: Yes Location of pain: LUQ Quality: cramping Related Data Previous Rx's ?Medication ?Instructions ?Recorded omeprazole 20 mg capsule,delayed 20 mg PO DAILY 30 days #30 caps 07/27/24 release ondansetron 4 mg disintegrating 4 mg PO Q6-8H PRN nausea and 07/27/24 tablet vomiting #14 tabs sucralfate 1 gram tablet 1 g PO QID 30 days #120 tabs 07/27/24 tizanidine 2 mg capsule 2 mg PO TID PRN muscle spasticity 07/27/24 #20 caps cholecalciferol (vitamin D3) 25 25 mcg PO DAILY 90 days #90 caps 08/04/24 mcg (1,000 unit) capsule gabapentin 400 mg capsule 400 mg PO TID 30 days #90 caps 08/04/24 levothyroxine 50 mcg tablet 50 mcg PO DAILY 90 days #90 tabs 08/04/24 (Synthroid) potassium chloride 20 mEq/15 mL 20 meq (15 mL) PO DAILY #50 mL 08/04/24 oral liquid albuterol sulfate 90 mcg/actuation 2 puff inhalation Q6H PRN 08/31/24 aerosol inhaler (Ventolin HFA) shortness of breath or wheezing 30 days #8.5 grams ondansetron 4 mg disintegrating 4 mg PO Q8H PRN nausea and 09/05/24 tablet vomiting #10 tabs Allergies Allergy/AdvReac Type Severity Reaction Status Date / Time metoclopramide [From REGLAN] Allergy Mild MAKES ME Verified 09/05/24 09:19 COLD prochlorperazine Allergy Mild RASH, gets Verified 09/05/24 09:19 [From Compazine] cold famotidine [Pepcid] AdvReac Mild loss of Verified 09/05/24 09:19 appetite Review of Systems 2 Review of Systems: As per HPI. Yes all other systems are reviewed and are negative Constitutional: Constitutional: Reports as per HPI Gastrointestinal: Gastrointestinal: Reports nausea PMFSH Past Medical History Attestation statement: The following information was validated with the patient. Source: old records reviewed Medical History Hypercalcemia Goiter Throat pain Pain in mandible Pain of right clavicle Dyspnea Hypothyroidism Polyarthralgia Moderate recurrent major depression Cyclic vomiting syndrome Renal calculi Iron deficiency anemia due to chronic blood loss Chest pain Shortness of breath Iron deficiency anemia due to chronic blood loss Hx of History of back pain Hx of iron deficiency anemia Hx of migraines Anxiety History of bipolar disorder Chest pain Menorrhagia Hypokalemia Marijuana use, continuous Syphilis contact, treated Numbness of foot GERD (gastroesophageal reflux disease) Anemia Depression Surgical History Hx of esophagogastroduodenoscopy Hx of colonoscopy History of dilation and curettage Family History Family History Mother HTN (hypertension) Maternal Grandmother HTN (hypertension) Maternal Uncle HTN (hypertension) Maternal Aunt Diabetes mellitus Family/Other Mental health disorder Substance use disorder Father Cancer Social History Social History Household Members: None Housing: Apartment Are you a primary family day carer to a significant other at home: No Do you presently have visiting nurse or other home services: No Alcohol intake: never Patient Tobacco Use Status: Former Tobacco user Cigarette Packs Per Day: 0.25 Years Smoked: 15 e-Cigarette/Vaping Use: Never Used Second Hand Smoke Exposure: No Substance Use Type: Marijuana Advance Directives: No Advance Directives Information Provided: Yes Do you have a plan to hurt others: No Plan service: No Current occupational status: unemployed Cognitive needs: No Hearing needs: No Vision needs: No Physical Exam 2 Vital Signs: Vital Signs: Last Vital Signs Temp 97.7 F 09/05/24 09:16 Pulse 69 09/05/24 12:06 Resp 17 09/05/24 12:06 BP 146/87 H 09/05/24 12:06 Pulse Ox 98 09/05/24 12:06 O2 Del Method Room Air 09/05/24 12:06 BMI result Body Mass Index 33.2 Vital signs have been reviewed and appear to be correct. Blood pressure elevated. Heart rate slightly tachycardic. Respiratory rate normal. Temperature normal. Oxygen saturation normal. Const: General: cooperative, healthy appearing and no acute distress O rientation/consciousness: oriented to person, oriented to place, oriented to time and patient oriented x3 Limitations: no limitations HEENT: Head: Yes normocephalic and Yes atraumatic Ears: external ears normal General nose exam: Normal external nose present Face and sinus: Yes face symmetric Mouth: oropharynx normal and moist mucous membranes T hroat: Yes uvula midline Eyes: Pupils: Equal, round and reactive pupils present Neck: Neck: Yes normal visual inspection and Yes supple Resp: Effort & Inspection: normal respiratory effort and able to speak in complete sentences Auscultation: clear to auscultation bilaterally Cardio: Rate: regular rate Rhythm: regular rhythm Heart sounds: S1 normal heart sound present and S2 normal heart sound present GI: Palpation (GI): Soft to palpation and nontender Auscultation: n ormoactive bowel sounds : General: Yes no CVA tenderness Back/Spine/Pelvis: Back: no CVA tenderness Skin: General skin exam: elasticity normal and turgor normal Neuro: General: oriented to person, oriented to place, oriented to time, patient oriented x3, moves all extremities, no focal motor deficits and CN's II- XI intact bilaterally Cranial nerves: Yes Equal, round and reactive pupils present Cognition (Neuro): normal cognition Extrem: General: Yes full ROM, Yes no pedal edema and Yes no calf tenderness Psych: Mental Status: mental status grossly normal Affect: normal affect Thought process: Normal thought process present Medications Administered Discontinued Medications Generic Name Dose Route Start Last Admin Trade Name James PRN Reason Stop Dose Admin Haloperidol Lactate 5 mg 09/05/24 10:48 09/05/24 11:02 Haloperidol Lactate 5 Mg/Ml Vial IM 09/05/24 10:49 5 mg ONCE ONE Administration Lorazepam 2 mg 09/05/24 10:48 09/05/24 11:02 Lorazepam 2 Mg/Ml Vial IM 09/05/24 10:49 2 mg ONCE ONE Administration Medical Decision Making Medical Decision Making [facility] Narrative: 39 yo female wit PMH of cyclical vomiting with recurrent THC positive screens, hypothyroidism, anxiety, depression, GERD, anemia here with c/o left sided abdominal pain, nausea and vomiting. On exam patient is awake, A+Ox3, VS WNL, afebrile, normal neurological exam without focal deficits, physical exam findings as above. Given reported symptoms and physical exam findings, initial differential includes cyclical vomiting syndrome, gastritis, GERD, PUD. Labs notable for no leukocytosis, no electrolyte abnormalities, no evidence of DIANA, negative HCG. Urinalysis is without evidence of infection. Urine drug screen positive for THC. Patient witnessed by RN inducing vomiting by putting her fingers down her throat in the room multiple times throughout ED stay. Feel patient is stable for discharge home. Will send prescription for zofran. Follow up with GI. Return precautions discussed. Patient verbalized understanding of and agreement with plan. Differential Diagnosis Differential Diagnoses: The differential diagnosis associated with the presentation includes GERD, gastritis, cyclical vomiting Admission/Observation Consideration of admission/observation: Escalation of care including admission/observation considered Lab Data [facility] Lab Attestation statement: I reviewed the patient's lab results. as per mdm 09/05/24 10:33 09/05/24 10:33 Labs: Lab Results 09/05/24 09/05/24 Range/Units 10:24 10:33 WBC 6.9 (4.8-10.8) X10*3/uL RBC 4.23 (4.20-5.50) X10*6/uL Hgb 11.0 L (12.0-16.0) g/dl Hct 35.3 L (37.0-47.0) % MCV 83.5 (80.0-98.0) fL MCH 26.0 L (27.0-33.0) pg MCHC 31.2 (31.0-35.0) g/dl RDW 16.3 H (11.0-16.0) % Plt Count 402 H (160-400) X10*3/uL MPV 9.5 (9.4-12.3) fL Immature Gran % (Auto) 0.9 H (0.0-0.4) % Neut % (Auto) 66.0 (45-73) % Lymph % (Auto) 22.9 (20-40) % [place] % (Auto) 6.5 (2-11) % Eos % (Auto) 2.7 (0-4) % Baso % (Auto) 1.0 (0-2) % Lymph # (Auto) 1.6 (1.2-4.9) X10*3/uL [place] # (Auto) 0.5 (0.1-1.2) X10*3/uL Eos # (Auto) 0.2 (0.0-0.4) X10*3/uL Baso # (Auto) 0.1 (0.0-0.2) X10*3/uL Abs Immat Gran (auto) 0.06 H (0.00-0.03) X10*3/uL Absolute Neuts (auto) 4.6 (2.0-8.3) x10*3/uL Absolute Nucleated RBC 0.000 (0.0-0.012) X10*3/uL Nucleated RBC % (auto) 0.0 (0.0-0.2) /100WBC Sodium 141 (135-145) mmol/L Potassium 3.7 (3.3-5.1) mmol/L Chloride 110 H (96-108) mmol/L Carbon Dioxide 20 L (22-29) mmol/L Anion Gap 14 (12-20) BUN 5 L (9-16) mg/dL Creatinine 0.72 (0.5-1.4) mg/dL Estim Creat Clear Calc 98.3 Estimated GFR > 60 Random Glucose 103 (60-115) mg/dL Calcium 9.4 D (8.4-10.2) mg/dL Magnesium 2.1 (1.6-2.6) mg/dL Total Bilirubin 0.3 (0.0-1.0) mg/dL Direct Bilirubin 0.1 (0.0-0.5) mg/dL AST 28 (5-31) U/L ALT 15 (0-31) U/L Alkaline Phosphatase 71 (39-117) U/L Total Protein 7.5 (6.5-8.0) g/dL Albumin 4.3 (3.5-5.0) g/dL Lipase 21 (8-78) U/L Beta HCG, Quant < 2 mIU/mL Urine Color Yellow Urine Appearance Cloudy Urine pH 7.0 (5.0-9.0) Ur Specific [place] 1.015 (1.005-1.025) Urine Protein Negative (Neg-Trace) mg/dL Urine Glucose (UA) Negative (Negative) mg/dL Urine Ketones Negative (Negative) mg/dL Urine Blood Small (1+) H (Negative) Urine Nitrite Negative (Negative) Ur Leukocyte Esterase Negative (Negative) Urine RBC 6-10 H (0-2) /HPF Urine WBC 0-5 (0-5) /HPF Ur Squamous Epith Cells 11-20 (0-2) /HPF Urine Bacteria 2+ (None Seen) Hyaline Casts 0-2 (0-2) /LPF Urine Opiates Screen Not Detected (Not Detect) Ur Buprenorphine Scrn Not Detected (Not Detect) ng/mL Ur Oxycodone Screen Not Detected (Not Detect) ng/mL Urine Methadone Screen Not Detected (Not Detect) ng/mL Urine Fentanyl Screen Not Detected (Not Detect) Ur Barbiturates Screen Not Detected (Not Detect) Ur Phencyclidine Scrn Not Detected (Not Detect) Ur Amphetamines Screen Not Detected (Not Detect) U Benzodiazepines Scrn Not Detected (Not Detect) Urine Cocaine Screen Not Detected (Not Detect) U Marijuana (THC) Screen POSITIVE H (Not Detect) External Record Review External record reviewed: Inpatient record, Office record and Outpatient record Prescription Management I considered prescription management with: Other Discharge Plan Discharge Clinical Impression: Nausea & vomiting Patient Disposition: Home, Self-Care Instructions: Acute Nausea and Vomiting (ED) Additional Instructions: You were evaluated in the emergency department today for nausea and vomiting which is most likely due to irritation of the lining of your stomach. Your evaluation did not show evidence of conditions requiring emergent medical treatment at this time. You are being prescribed ondansetron which you can use every 8 hours for nausea. You can also use Mylanta, which is available over the counter, to help manage your symptoms. Avoid spicy or acidic foods. Avoid cannabis/marijuana use as this can worsen nausea and vomiting. Please follow up with your primary care physician within two days. Return to the emergency department if you experience shortness of breath, worsening or uncontrolled abdominal pain, chest pain, light headedness, faiting, persistent nausea and vomiting, bloody vomit or stools, black, tarry stools, or any other concerning symptoms. Prescriptions: New ondansetron 4 mg tablet,disintegrating 4 mg PO Q8H PRN (Reason: nausea and vomiting) Qty: 10 0RF No Action albuterol sulfate [Ventolin HFA] 90 mcg/actuation HFA aerosol inhaler 2 puff inhalation Q6H PRN (Reason: shortness of breath or wheezing) 30 Days Qty: 8.5 0RF omeprazole 20 mg capsule,delayed release(DR/EC) 20 mg PO DAILY 30 Days Qty: 30 0RF ondansetron 4 mg tablet,disintegrating 4 mg PO Q6-8H PRN (Reason: nausea and vomiting) Qty: 14 0RF sucralfate 1 gram tablet 1 g PO QID 30 Days Qty: 120 0RF tizanidine 2 mg capsule 2 mg PO TID PRN (Reason: muscle spasticity) Qty: 20 0RF gabapentin 400 mg capsule 400 mg PO TID 30 Days Qty: 90 2RF potassium chloride 20 mEq/15 mL liquid 20 meq PO DAILY Qty: 50 0RF levothyroxine [Synthroid] 50 mcg tablet 50 mcg PO DAILY 90 Days Qty: 90 0RF cholecalciferol (vitamin D3) 25 mcg (1,000 unit) capsule 25 mcg PO DAILY 90 Days Qty: 90 0RF Referrals: [facility] [place] [facility] [Provider Group] Print Language: Icelandic
--- NOTE | 2024-09-05 10:28 | PC.NURSE ---
RN/PCT/BILLING SUPERVISOR at bedside to talk with patient, pt stating she is having the same symptoms she was having yesterday. Pt was sleeping in the bed upon staff arrival. RN/PCT at bedside when BILLING SUPERVISOR stepped out, pt then began to dry heave, pt then went into bathroom but remained standing in bathroom dry heaving. PCT attempting to get labs at this time, pt needing to be redirected multiple times to stay still so staff can safely obtain labs.
[2024-09-05 10:41] LABS: Appearance Urine Cloudy; Color Urine Yellow; Glucose Urine UA Negative (Negative); Leukocyte Esterase Urine Negative (Negative); Nitrite Urine Negative (Negative); Specific Gravity - Urine 1.015 (1.005-1.025); UMIC TRIGGER UACC YES; Urine Blood Small (1+) (Negative); Urine Ketones Negative (Negative); Urine Protein Negative (Neg-Trace)
[2024-09-05 10:44] LABS: Bacteria Urine 2+ (None Seen); Hyaline Casts Urine 0-2 /LPF (0-2); WBC Urine 0-5 /HPF (0-5)
[2024-09-05 10:46] LABS: Basophils Absolute Auto 0.1 X10*3/uL (0.0-0.2); Eosinophils Absolute Auto 0.2 X10*3/uL (0.0-0.4); Eosinophils Percent Auto 2.7 % (0-4); Hematocrit 35.3 % (37.0-47.0); Imm Gran Abs Auto 0.06 X10*3/uL (0.00-0.03); Imm Gran Pct Auto 0.9 % (0.0-0.4); Lymphocytes Absolute Auto 1.6 X10*3/uL (1.2-4.9); Lymphocytes Percent Auto 22.9 % (20-40); Mean Corpuscular HGB Conc 31.2 g/dl (31.0-35.0); Mean Corpuscular Volume 83.5 fL (80.0-98.0); Mean Platelet Volume 9.5 fL (9.4-12.3); Monocytes Absolute Auto 0.5 X10*3/uL (0.1-1.2); Monocytes Percent Auto 6.5 % (2-11); Neutrophils Absolute Auto 4.6 x10*3/uL (2.0-8.3); Red Blood Count 4.23 X10*6/uL (4.20-5.50); Red Cell Distribution Width 16.3 % (11.0-16.0)
[2024-09-05 10:47] LABS: Platelet Count 402 X10*3/uL (160-400); White Blood Count 6.9 X10*3/uL (4.8-10.8)
[2024-09-05 10:52] LABS: Amphetamine Screen Urine Not Detected (Not Detect); Barbiturates, Urine Not Detected (Not Detect); Benzodiazepines Screen Urine Not Detected (Not Detect); Buprenorphine Scr Not Detected (Not Detect); Cannabinoid Screen Urine POSITIVE (Not Detect); Cocaine Screen Urine Not Detected (Not Detect); Fentanyl, urine Not Detected (Not Detect); Methadone Screen, Urine Not Detected (Not Detect); Opiate Screen Urine Not Detected (Not Detect); Oxycodone Screen Urine Not Detected (Not Detect); Phencyclidine Screen Urine Not Detected (Not Detect)
[2024-09-05] MEDS: Haloperidol Lactate 5 MG/ML VIAL IM (11:02)
[2024-09-05] MEDS: LORazepam 2 MG/ML VIAL IM (11:02)
[2024-09-05 11:13] LABS: Alanine Aminotransferase 15 U/L (0-31); Albumin Level 4.3 g/dL (3.5-5.0); Alkaline Phosphatase 71 U/L (39-117); Anion Gap 14 (12-20); Aspartate Amino Transferase 28 U/L (5-31); Bilirubin Direct 0.1 mg/dL (0.0-0.5); Bilirubin Total 0.3 mg/dL (0.0-1.0); Blood Urea Nitrogen 5 mg/dL (9-16); Calcium 9.4 mg/dL (8.4-10.2); Chloride 110 mmol/L (96-108); Creatinine Clr Calc Pharmacy 98.3; Estimated Glomerular Filt Rate > 60; Glucose Random 103 mg/dL (60-115); HCG Quantitative < 2 mIU/mL; Lipase 21 U/L (8-78); Magnesium 2.1 mg/dL (1.6-2.6); Potassium 3.7 mmol/L (3.3-5.1); Sodium 141 mmol/L (135-145); Total Protein 7.5 g/dL (6.5-8.0)
[2024-09-05 11:29] LABS: Carbon Dioxide 20 mmol/L (22-29)
[2024-09-05 12:06] VITALS: BP 146/87; PULSE 69; RESP 17; O2SAT 98
[2024-09-05 13:50] VITALS: BP 0/0; PULSE 0; RESP 0; TEMP -17.7; TEMP 0; O2SAT 0
== END 2024-09-05 13:51 | disposition home or self-care (01) ==
PROVIDERS: Emergency Provider Emergency Medicine; PCP Internal Medicine
DX: R11.2 Nausea with vomiting, unspecified (principal); R10.9 Unspecified abdominal pain; F12.90 Cannabis use, unspecified, uncomplicated; Z87.891 Personal history of nicotine dependence; Z79.899 Other long term (current) drug therapy
CPT/HCPCS: 36415; 80048; 80076; 80307; 81001; 83690; 83735; 84702; 85025; 96372; 99284; J1630; J2060

== ENCOUNTER 2024-09-07 07:44 | Emergency (ER) | payer OTHER, SELFPAY ==
--- NOTE | ~2024-09-07 | XR_ITS ---
EXAMINATION: XR LUMBAR SPINE CLINICAL INFORMATION: low back pain COMPARISON: January 2024 TECHNIQUE: Frontal lateral and coned-down L5-S1 frontal lateral, total of 3 views FINDINGS: Five [id number] lumbar vertebrae were identified maintaining normal height and alignments. Mild narrowing of intervertebral disc spaces L4-5 L5-S1 suggest underlying degenerative disc disease. , Paravertebral soft tissues are unremarkable. There are radiolucencies, most likely superimposed bowel gas.. No radiographic evidence of osteolytic or osteoblastic lesions. XR/XR lumbar spine 2-3V IMPRESSION: 1. No fracture. 2. Bone alignments are satisfactory. 3. Mild narrowing of intervertebral disc spaces L4-L5 and L5-S1 suggest underlying degenerative disc disease. Electronically signed by: Agustin Rolon MD 09/07/2024 08:33 AM BILLY AN
[2024-09-07 07:49] VITALS: BP 142/80; PULSE 106; O2SAT 99; BMI 32.2
[2024-09-07 07:58] VITALS: BP 137/93; PULSE 105; RESP 18; TEMP 37; O2SAT 97
--- NOTE | 2024-09-07 07:58 | ED.GENADULT ---
HPI - General Adult General Chief complaint: Back Pain/Injury Stated complaint: back pain depression Time Seen by Provider: 09/07/24 07:51 Source: patient, EMS, RN notes reviewed and old records reviewed Mode of arrival: EMS History of Present Illness ED Provider: Rita Garcia PA-C HPI narrative: 39-year-old female with a past medical history of MDD, anemia, hypothyroid, GERD, presenting to the ED via [place] complaining of low back pain radiating to abdomen and increasing depression. Reports pain worse with movement. Admits to heavy lifting at work which may have exacerbated symptoms. Denies known direct injury, trauma or fall. Denies vomiting, diarrhea, dysuria/hematuria, SI/HI. Patient has been evaluated in our ED on 09/04 and 09/05 for abdominal pain, nausea/vomiting, had reassuring labs. Related Data Previous Rx's ?Medication ?Instructions ?Recorded omeprazole 20 mg capsule,delayed 20 mg PO DAILY 30 days #30 caps 07/27/24 release ondansetron 4 mg disintegrating 4 mg PO Q6-8H PRN nausea and 07/27/24 tablet vomiting #14 tabs sucralfate 1 gram tablet 1 g PO QID 30 days #120 tabs 07/27/24 tizanidine 2 mg capsule 2 mg PO TID PRN muscle spasticity 07/27/24 #20 caps cholecalciferol (vitamin D3) 25 25 mcg PO DAILY 90 days #90 caps 08/04/24 mcg (1,000 unit) capsule gabapentin 400 mg capsule 400 mg PO TID 30 days #90 caps 08/04/24 levothyroxine 50 mcg tablet 50 mcg PO DAILY 90 days #90 tabs 08/04/24 (Synthroid) potassium chloride 20 mEq/15 mL 20 meq (15 mL) PO DAILY #50 mL 08/04/24 oral liquid albuterol sulfate 90 mcg/actuation 2 puff inhalation Q6H PRN 08/31/24 aerosol inhaler (Ventolin HFA) shortness of breath or wheezing 30 days #8.5 grams ondansetron 4 mg disintegrating 4 mg PO Q8H PRN nausea and 09/05/24 tablet vomiting #10 tabs Allergies Allergy/AdvReac Type Severity Reaction Status Date / Time metoclopramide [From REGLAN] Allergy Mild MAKES ME Verified 09/07/24 07:56 COLD prochlorperazine Allergy Mild RASH, gets Verified 09/07/24 07:56 [From Compazine] cold famotidine [Pepcid] AdvReac Mild loss of Verified 09/07/24 07:56 appetite Review of Systems Review of Systems: Yes all other systems are reviewed and are negative Constitutional: Constitutional: Reports as per [facility] Past Medical History Attestation statement: The following information was validated with the patient. Source: old records reviewed Medical History Hypercalcemia Goiter Throat pain Pain in mandible Pain of right clavicle Dyspnea Hypothyroidism Polyarthralgia Moderate recurrent major depression Cyclic vomiting syndrome Renal calculi Iron deficiency anemia due to chronic blood loss Chest pain Shortness of breath Iron deficiency anemia due to chronic blood loss Hx of History of back pain Hx of iron deficiency anemia Hx of migraines Anxiety History of bipolar disorder Chest pain Menorrhagia Hypokalemia Marijuana use, continuous Syphilis contact, treated Numbness of foot GERD (gastroesophageal reflux disease) Anemia Depression Surgical History Hx of esophagogastroduodenoscopy Hx of colonoscopy History of dilation and curettage Family History Family History Mother HTN (hypertension) Maternal Grandmother HTN (hypertension) Maternal Uncle HTN (hypertension) Maternal Aunt Diabetes mellitus Family/Other Mental health disorder Substance use disorder Father Cancer Social History Social History Household Members: None Housing: Apartment Are you a primary child care center administrator to a significant other at home: No Do you presently have visiting nurse or other home services: No Alcohol intake: never Patient Tobacco Use Status: Former Tobacco user Cigarette Packs Per Day: 0.25 Years Smoked: 15 e-Cigarette/Vaping Use: Never Used Second Hand Smoke Exposure: No Substance Use Type: Marijuana Advance Directives: No Advance Directives Information Provided: No Do you have a plan to hurt others: No Plan service: No Current occupational status: unemployed Cognitive needs: No Hearing needs: No Vision needs: No Physical Exam ED Vital Signs: Vital Signs - 24 hr 09/07/24 07:58 Temperature 98.6 F Pulse Rate 105 H Respiratory Rate 18 Blood Pressure 137/93 H Pulse Oximetry 97 Oxygen Delivery Method Room Air BMI result Body Mass Index 32.2 Const Other: tearful, flat General: cooperative and no acute distress Orientation/consciousness: patient oriented x3 Limitations: no limitations HENMT Head: Yes normal to inspection and Yes atraumatic Ears: hearing grossly normal bilaterally General nose exam: Normal external nose present Face and sinus: Yes normal facial exam Eyes General: appearance normal, both eyes and all related structures EOM: EOMs intact bilaterally Neck Neck: Yes normal visual inspection and Yes no meningeal signs Resp Effort & Inspection: normal respiratory effort and no respiratory distress Auscultation: clear to auscultation bilaterally Cardio Rate: regular rate Heart sounds: S1 normal heart sound present and S2 normal heart sound present GI Inspection: Yes normal to inspection Palpation (GI): Soft to palpation, nontender, no guarding and not rigid General: Yes no CVA tenderness Back/Spine/Pelvis Other: No midline cervical/thoracic/lumbar spinous tenderness/step-off or deformity. + bilateral lumbar MSK reproducible tenderness. No rash, erythema or ecchymosis. Back: no CVA tenderness Skin Rashes: no rashes Wounds: no wounds Neuro Other: Strength intact throughout. No saddle anesthesia. Sensation intact to light touch. Neurovascular intact distally General: patient oriented x3, tone normal, moves all extremities and no meningeal signs Cranial nerves: Yes CN's II-XII intact bilaterally Extrem General: Yes normal to inspection Psych Thought content: suicidality, no homicidality and Depressive thoughts present Course Course Course Narrative: -1002--UA with blood/RBCs, contaminated. Tox screen positive for THC XR lumbar spine 2-3V MPRESSION: 1. No fracture. 2. Bone alignments are satisfactory. 3. Mild narrowing of intervertebral disc spaces L4-L5 and L5-S1 suggest underlying degenerative disc disease. > patient medically cleared for CARE team sonido. Physician observation initiated at 10:03 -1014--patient very upset stating we are doing nothing for her here. States she will go to [facility] or [facility]. Continues to deny SI/HI. Will be discharged Medical Decision Making Medical Decision Making MDM Narrative: 39-year-old female with a past medical history of MDD, anemia, hypothyroid, GERD, presenting to the ED via EMS [place] complaining of low back pain radiating to abdomen and increasing depression. On exam tachycardic, tearful, upset/depressed, lumbar MSK reproducible tenderness. No midline spinous tenderness. Denies SI/HI. Abdomen soft/nontender. Concern for MSK pain/strain vs gastritis vs GERD vs PUD vs chronic abdominal pain/cyclical vomiting. Lower suspicion for renal stones/pyelo at this time. Patient had labs on 09/04 and 09/05 which were unremarkable, no need for repeat labs at this time Plan: UA, tox screen, CARE team consult Please refer to course for remaining clinical decision making, interpretation of labs/imaging results, and discussions with consultants and/or family members. Differential Diagnosis Differential Diagnoses: The differential diagnosis associated with the presentation includes As above Admission/Observation Consideration of admission/observation: Escalation of care including admission/observation considered Consult Healthcare Provider Management of the patient was discussed with: Behavioral Health Provider Lab Data MDM Lab Attestation statement: I reviewed the patient's lab results. Labs: Lab Results 09/07/24 Range/Units 08:07 Urine Color Dark Yellow Urine Appearance Turbid Urine pH 6.5 (5.0-9.0) Ur Specific [place] 1.025 (1.005-1.025) Urine Protein 300 (3+) H (Neg-Trace) mg/dL Urine Glucose (UA) Negative (Negative) mg/dL Urine Ketones 40 (Negative) mg/dL Urine Blood Moderate (2+) H (Negative) Urine Nitrite Negative (Negative) Ur Leukocyte Esterase Trace H (Negative) Urine RBC 11-20 H (0-2) /HPF Urine WBC 0-5 (0-5) /HPF Ur Squamous Epith Cells >20 (0-2) /HPF Urine Bacteria 2+ (None Seen) Hyaline Casts 0-2 (0-2) /LPF Urine Test NEGATIVE (NEGATIVE) Urine Opiates Screen Not Detected (Not Detect) Ur Buprenorphine Scrn Not Detected (Not Detect) ng/mL Ur Oxycodone Screen Not Detected (Not Detect) ng/mL Urine Methadone Screen Not Detected (Not Detect) ng/mL Urine Fentanyl Screen Not Detected (Not Detect) Ur Barbiturates Screen Not Detected (Not Detect) Ur Phencyclidine Scrn Not Detected (Not Detect) Ur Amphetamines Screen Not Detected (Not Detect) U Benzodiazepines Scrn Not Detected (Not Detect) Urine Cocaine Screen Not Detected (Not Detect) U Marijuana (THC) Screen POSITIVE H (Not Detect) Radiology Impression Discussion of test interpretation with radiology: I have reviewed the radiologist's reading. Independent Historian Clinical information obtained from an independent historian. History obtained from or confirmed by: EMS External Record Review External record reviewed: Inpatient record, Office record, Outpatient record, Prior outpatient labs, Prior outpatient radiology, Primary care record and Outside ED record Tests considered The following testing was considered but not selected: As above Chronic Conditions Patient?s care impacted by: Other Social Determinants Patient?s care significantly limited by Social Determinants of Health including: Inadequate housing, Low income, Alcoholism and drug addiction in family, Problems related to primary support group, Unemployment, Problems related to employment and Other Social Determinant of Health Discharge Plan Discharge Clinical Impression: Degenerative disc disease, lumbar, Depression Patient Disposition: Still a Patient Prescriptions: No Action albuterol sulfate [Ventolin HFA] 90 mcg/actuation HFA aerosol inhaler 2 puff inhalation Q6H PRN (Reason: shortness of breath or wheezing) 30 Days Qty: 8.5 0RF ondansetron 4 mg tablet,disintegrating 4 mg PO Q8H PRN (Reason: nausea and vomiting) Qty: 10 0RF omeprazole 20 mg capsule,delayed release(DR/EC) 20 mg PO DAILY 30 Days Qty: 30 0RF ondansetron 4 mg tablet,disintegrating 4 mg PO Q6-8H PRN (Reason: nausea and vomiting) Qty: 14 0RF sucralfate 1 gram tablet 1 g PO QID 30 Days Qty: 120 0RF tizanidine 2 mg capsule 2 mg PO TID PRN (Reason: muscle spasticity) Qty: 20 0RF gabapentin 400 mg capsule 400 mg PO TID 30 Days Qty: 90 2RF potassium chloride 20 mEq/15 mL liquid 20 meq PO DAILY Qty: 50 0RF levothyroxine [Synthroid] 50 mcg tablet 50 mcg PO DAILY 90 Days Qty: 90 0RF cholecalciferol (vitamin D3) 25 mcg (1,000 unit) capsule 25 mcg PO DAILY 90 Days Qty: 90 0RF Print Language: Cook Islander
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
[2024-09-07 08:16] LABS: Appearance Urine Turbid; Color Urine Dark Yellow; Glucose Urine UA Negative (Negative); Leukocyte Esterase Urine Trace (Negative); Nitrite Urine Negative (Negative); PH 6.5 (5.0-9.0); Specific Gravity - Urine 1.025 (1.005-1.025); UMIC TRIGGER UACC YES; Urine Blood Moderate (2+) (Negative); Urine Ketones 40 mg/dL (Negative); Urine Protein 300 (3+) mg/dL (Neg-Trace)
[2024-09-07 08:17] LABS: UPreg QC Valid YES; Urine Pregnancy NEGATIVE (NEGATIVE)
[2024-09-07 08:24] LABS: Amphetamine Screen Urine Not Detected (Not Detect); Barbiturates, Urine Not Detected (Not Detect); Benzodiazepines Screen Urine Not Detected (Not Detect); Buprenorphine Scr Not Detected (Not Detect); Cannabinoid Screen Urine POSITIVE (Not Detect); Cocaine Screen Urine Not Detected (Not Detect); Fentanyl, urine Not Detected (Not Detect); Methadone Screen, Urine Not Detected (Not Detect); Opiate Screen Urine Not Detected (Not Detect); Oxycodone Screen Urine Not Detected (Not Detect); Phencyclidine Screen Urine Not Detected (Not Detect)
[2024-09-07 08:34] LABS: Bacteria Urine 2+ (None Seen); Hyaline Casts Urine 0-2 /LPF (0-2); Squamous Epithelial Cell Urine >20 /HPF (0-2); WBC Urine 0-5 /HPF (0-5)
[2024-09-07 10:25] VITALS: BP 137/93; PULSE 105; RESP 18; TEMP 37; O2SAT 97
--- NOTE | 2024-09-07 10:26 | PC.NURSE ---
PT SWEARING AT STAFF, DEMANDING A STEAK DINNER. KATERINA WILLOUGHBY IN TO SPEAK WITH PT. CONTINUES TO SWEAR/THREATENING TO BURN THIS PLACE UP.
== END 2024-09-07 10:26 | disposition home or self-care (01) ==
PROVIDERS: Physician Assistant; Emergency Provider Emergency Medicine; PCP Internal Medicine
DX: M51.369 Other intervertebral disc degeneration, lumbar region without mention of lumbar back pain or lower extremity pain (principal); M54.50 Low back pain, unspecified; F33.1 Major depressive disorder, recurrent, moderate; Z51.81 Encounter for therapeutic drug level monitoring; Z79.899 Other long term (current) drug therapy; Z87.891 Personal history of nicotine dependence
CPT/HCPCS: 72100; 80307; 81001; 81025; 99283

== ENCOUNTER 2024-09-08 09:07 | Emergency (ER) | payer OTHER, SELFPAY ==
[2024-09-08 09:12] VITALS: BP 144/96; PULSE 84; O2SAT 98
[2024-09-08 09:33] VITALS: BP 144/94; PULSE 83; RESP 20; TEMP 37; O2SAT 98; BMI 25.1
== END 2024-09-08 13:14 | disposition left against medical advice (07) ==
PROVIDERS: Emergency Provider Emergency Medicine
DX: R10.2 Pelvic and perineal pain (principal)
CPT/HCPCS: 99281

== ENCOUNTER 2024-09-11 07:26 | Outpatient (AMB) | payer OTHER, SELFPAY ==
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
[2024-09-11 08:33] VITALS: BP 132/82; BMI 28.0
== END 2024-09-11 09:21 | disposition home or self-care (01) ==
PROVIDERS: PCP Internal Medicine; Visit Provider Internal Medicine
DX: R10.2 Pelvic and perineal pain (principal); Z11.3 Encounter for screening for infections with a predominantly sexual mode of transmission; R11.15 Cyclical vomiting syndrome unrelated to migraine; M54.50 Low back pain, unspecified; Z23 Encounter for immunization

== ENCOUNTER 2024-09-11 07:26 | Outpatient (REF) | payer OTHER, SELFPAY ==
[2024-09-11 11:13] LABS: HBS Num1 28.94 mIU/mL (0-7.99); HBc Num1 0.11 S/CO (0.00-0.79); HBsAGNum1 0.35 S/CO (0.00-0.99); HIV AB/AG Nonreactive (Nonreactive); HIV Num 1 0.06 S/CO (0.00-0.99); Hepatitis A Antibody IgM 0.14 Index (0-0.79); Hepatitis B Core Antibody Nonreactive (Nonreactive); Hepatitis B Surface Antigen Negative (Negative); ~Hepatitis A Antibody IgM Nonreactive (Nonreactive); ~Hepatitis B Surface Antibody REACTIVE (Nonreactive); ~Hepatitis C Antibody Nonreactive (Nonreactive)
[2024-09-12 08:02] LABS: CT PCR NOT DETECTED (Not Detect.); NG PCR NOT DETECTED (Not Detect.)
== END 2024-09-11 07:27 | disposition home or self-care (01) ==
LOC: HO.LAB 07:26
PROVIDERS: PCP Internal Medicine; Visit Provider Internal Medicine
DX: R10.2 Pelvic and perineal pain (principal); R11.15 Cyclical vomiting syndrome unrelated to migraine; M54.50 Low back pain, unspecified; Z23 Encounter for immunization; Z20.2 Contact with and (suspected) exposure to infections with a predominantly sexual mode of transmission
CPT/HCPCS: 36415; 86704; 86706; 86709; 86803; 87340; 87389; 87491; 87591; 90471; 90656; 96127; 99212

== ENCOUNTER 2024-09-16 13:26 | Outpatient (REF) | payer OTHER, SELFPAY | END 2024-09-16 13:27 | disposition home or self-care (01) | LOC: HO.US 13:26 | PROVIDERS: PCP Internal Medicine; Visit Provider Internal Medicine | DX: R10.2 Pelvic and perineal pain (principal) | CPT/HCPCS: 76830; 76856 ==

== ENCOUNTER 2024-10-27 07:19 | Outpatient (REF) | payer OTHER, SELFPAY ==
--- OUTSIDE RECORDS SUMMARY | 2024-10-27 07:22 | XMS_ITS ---
Author Name [facility] Organization Unknown History of Medication Use Medication Directions Dispensed Refills Start Date End Date [facility] oxycodone-acetaminophen 5 mg-325 mg tablet TAKE 1 TABLET EVERY 6 HOURS NEEDED FOR PAIN 03/15/2024 active ibuprofen 600 mg tablet TAKE 1 TABLET 4 TIMES A DAY WITH MEALS NEEDED 03/15/2024 active gabapentin 100 mg capsule TAKE 2 CAPSULES BY MOUTH 3 TIMES A DAY 03/15/2024 active amoxicillin 500 mg capsule TAKE 1 CAPSULE (500 MG) BY MOUTH EVERY 8 HOURS FOR 7 DAYS 03/15/2024 active ibuprofen 800 mg tablet PLEASE SEE ATTACHED FOR DETAILED DIRECTIONS 03/15/2024 active cyclobenzaprine 10 mg tablet TAKE 1 TABLET BY MOUTH THREE TIMES A DAY NEEDED FOR MUSCLE SPASM 03/15/2024 active prednisone 10 mg tablet Day 1: 4 tablets in the morning, Day 2: 4 tablets in the morning, Day 3: 3 tablets in the morning, Day 4: 3 tablets in the morning, Day 5: 2 tablets in the morning, Day 6: 2 tablets in the morning, Day 7: 1 tablet in the morning, Day 8: 1 tablet in the morning! 03/15/2024 active cholecalciferol (vitamin D3) 50 mcg (2,000 unit) capsule TAKE 1 CAPSULE BY MOUTH EVERY DAY 03/15/2024 active risperidone 1 mg tablet 03/15/2024 active omeprazole 20 mg capsule,delayed release 03/15/2024 a ctive gabapentin 300 mg capsule 03/15/2024 active chlorhexidine gluconate 0.12 % mouthwash RINSE MOUTH WITH 15ML (1 CAPFUL) FOR 30 SECONDS IN MORNING AND EVENING AFTER BRUSHING, THEN SPIT 03/15/2024 active acetaminophen ER 650 mg tablet,extended release TAKE 1 TABLET BY MOUTH EVERY 8 HOURS IF NEEDED FOR MODERATE PAIN. DO NOT CRUSH, CHEW, OR SPLIT. 03/15/2024 active paroxetine 20 mg tablet 03/15/2024 active levothyroxine 25 mcg tablet TAKE 1 TABLET ORALLY DAILY FOR 90 DAYS 03/15/2024 active sodium fluoride 1.1 %-potassium nitrate 5 % dental paste USE 2-3 TIMES DAILY,SPIT OUT EXCESS DO NOT RINSE WITH WATER. NO EATING OR DRINKING FOR 45 MIN AFTER. 03/15/2024 active clindamycin HCl 300 mg capsule TAKE 1 CAPSULE BY MOUTH EVERY 6 HOURS 03/15/2024 active 02/08/2024 active Allergies Allergen Reaction Severity Comment Documented Date Source Statu s COMPAZINE ENS_AONECT Problems Problem Status Onset Date Problem Type Date of Resoluti on Source Pain of right knee joint active 2024-03-13 ProblemAct ENS_AONECT
== END 2024-10-27 07:20 | disposition home or self-care (01) ==
LOC: HO.MAMMO 07:19
PROVIDERS: PCP Internal Medicine; Visit Provider Internal Medicine
DX: Z12.31 Encounter for screening mammogram for malignant neoplasm of breast (principal)
CPT/HCPCS: 77063; 77067

== ENCOUNTER → 2024-10-27 07:45 | Outpatient (BNV) | payer OTHER, SELFPAY | PROVIDERS: PCP Internal Medicine; Visit Provider Internal Medicine | DX: Z12.31 Encounter for screening mammogram for malignant neoplasm of breast (principal) | CPT/HCPCS: 77063; 77067 ==

== ENCOUNTER 2024-10-31 12:47 | Outpatient (AMB) | payer OTHER, MEDICAID, SELFPAY ==
--- NOTE | 2024-10-31 13:22 | A.OFFPC_ITS ---
Vital Signs 10/31/24 13:30 Height 5 ft 5 in Weight 176 lb 8 oz BMI 29.4 BP 102/60 Blood Pressure Location Lt brachial Position Sitting Pulse 92 Pulse Source Pulse Oximeter Pulse Oximetry (%) 97 Oxygen Delivery Method Room Air Intake Visit Reasons: Annual Exam Intake Note: Patient is here today for a physical. Police Records Clerk Required: No Accompanied by: Self / Same As Patient Allergies metoclopramide [From REGLAN] Allergy (Mild, Verified 10/31/24 13:38) MAKES ME COLD prochlorperazine [From Compazine] Allergy (Mild, Verified 10/31/24 13:38) RASH, gets cold famotidine [Pepcid] Adverse Reaction (Mild, Verified 10/31/24 13:38) loss of appetite Medication List - Last Reconciled 10/31/24 by Zonia Black MD albuterol sulfate 90 mcg/actuation (Ventolin HFA) 2 puffs inhalation Q6H PRN 30 days cholecalciferol (vitamin D3) 25 mcg PO DAILY 90 days gabapentin 400 mg PO TID 30 days levothyroxine (Synthroid) 50 mcg PO DAILY 90 days omeprazole 20 mg PO DAILY 30 days ondansetron 4 mg PO Q8H PRN potassium chloride 20 mEq (15 mL) PO DAILY sucralfate 1 g PO QID 30 days tizanidine 2 mg PO TID PRN Tobacco use date assessed: 10/31/24 Dental Screening Dental Screen Date: 10/31/24 Did you have a dental visit in the last 12 months?: Yes Did you have a dental problem in the last 6 months where you did not have access to dental care?: No Was dental information given to patient?: Patient has dentist HPI HPI Comments History of Present Illness Details The patient is a 39-year-old female presenting for an annual physical exam. The patient has a history of several medical issues including hypothyroidism managed with Synthroid, vitamin D deficiency managed with supplements, and asthma for which she uses an inhaler. The inhaler is nearly depleted due to increased use associated with physical exertion. The patient has a history of smoking but has since quit. She has also been diagnosed with depression and is currently under treatment, taking prescribed medications for it. There is a history of dyspepsia for which the patient takes omeprazole. The patient's last colonoscopy was in 2019, which is significant considering the family history of her father's cancer. She underwent an endoscopy and dilation and curettage (D&C) in 2000. On social factors, the patient struggles with managing credit and is in the process of securing stable housing. The patient has unresolved issues with her vitamin and potassium levels and requires refills for these supplements. Regarding her family health history, the patient's mother suffered from hypertension, while her father had cancer. The patient also reports sore ears, presumed to be due to the overuse of Q-tips. - Recent influenza vaccination completed in August - Tdap vaccine recorded in 2015; next du e in 2025 - Pap smear last done in 2019; normal re sults - Scheduled for upcoming mammogram - Flu shot received in August 2023 - Patient advised of the need for future blood work [facility] Medical History Hypercalcemia Goiter Throat pain Pain in mandible Pain of right clavicle Dyspnea Hypothyroidism Polyarthralgia Moderate recurrent major depression Cyclic vomiting syndrome Renal calculi Iron deficiency anemia due to chronic blood loss Chest pain Shortness of breath Iron deficiency anemia due to chronic blood loss Hx of History of back pain Hx of iron deficiency anemia Hx of migraines Anxiety History of bipolar disorder Chest pain Menorrhagia Hypokalemia Marijuana use, continuous Syphilis contact, treated Numbness of foot GERD (gastroesophageal reflux disease) Anemia Depression Surgical History Hx of esophagogastroduodenoscopy Hx of colonoscopy History of dilation and curettage Family History Mother HTN (hypertension) Maternal Grandmother HTN (hypertension) Maternal Uncle HTN (hypertension) Maternal Aunt Diabetes mellitus Family/Other Mental health disorder Substance use disorder Father Cancer Social History Household Members: None Housing: Apartment Are you a primary healthcare insurance sales agent to a significant other at home: No Do you presently have visiting nurse or other home services: No Alcohol intake: never Patient Tobacco Use Status: Former Tobacco user Cigarette Packs Per Day: 0.25 Years Smoked: 15 e-Cigarette/Vaping Use: Never Used Second Hand Smoke Exposure: No Substance Use Type: Marijuana service: No Current occupational status: unemployed Cognitive needs: No Hearing needs: No Vision needs: No Female Reproductive History Menstrual Age of Menarche: 12 Questionnaire PHQ-9 Over the last 2 weeks, how often have you been bothered by any of the following problems? 1. Little interest or pleasure in doing things: not at all 2. Feeling down, depressed, or hopeless: not at all 3. Trouble falling or staying asleep, or sleeping too much: not at all 4. Feeling tired or having little energy: not at all 5. Poor appetite or overeating: not at all 6. Feeling bad about yourself - or that you are a failure or have let yourself or your family down: not at all 7. Trouble concentrating on things, such as reading the newspaper or watching television: not at all 8. Moving or speaking so slowly that other people could have noticed. Or the opposite - being so fidgety or restless that you have been moving around a lot more than usual: not at all 9. Thoughts that you would be better off or of hurting yourself in some way: not at all Total score: 0 Depression Screening Interpretation: Negative Depression Screening Done: Yes 63952 - PHQ-9 Billing: Yes Source: Developed by Drs. Pietre Hand, Shira Rahman, Ezra Martins and colleagues, with an educational amandeep from [employer]. Thrive Questionnaire Date Thrive assessed: 10/31/24 I am a: Patient What is your living situation today?: I choose not to answer this question Within the past 12 months, did the food you bought not last and you didn't have the money to get more?: Never true Within the past 12 months, did you worry whether your food would run out before you got money to buy more?: I choose not to answer this question Do you have trouble paying for medicines?: I choose not to answer this question Do you have trouble getting transportation to medical appointments?: I choose not to answer this question Do you have trouble paying your heating and electricity bill?: I choose not to answer this question Do you have trouble taking care of your child, family member or friend?: I choose not to answer this question Do you have trouble with day-to-day activities such as bathing, preparing meals, shopping, managing finances, etc.?: I choose not to answer this question Are you currently unemployed and looking for a job?: I choose not to answer this question Are you interested in more education?: I choose not to answer this question Please select the resources that you would like help with: Housing/[facility], Food, Transportation, Daily support and Job search/training Currently or been in a relationship where the following occur: I choose not to answer THRIVE Score: 0 AUDIT C Alcohol Use Questionnaire (AUDIT-C) 1. How often do you have a drink containing alcohol?: Never 3. How often do you have six or more drinks on one occasion?: Never Total Score: 0 SHERI-7 AMB Questionnaire SHERI-7 Date SHERI - 7 assessed: 10/31/24 Feeling nervous, anxious, or on edge: 3 = Nearly every day Not being able to stop or control worryin = Not at all Worrying too much about different things: 0 = Not at all Trouble relaxin = Not at all Being so restless that it is hard to sit still: 0 = Not at all Becoming easily annoyed or irritable: 0 = Not at all Feeling afraid as if something awful might happen: 0 = Not at all Total SHERI-7 score (0-4 normal; 5-9 mild; 10-14 moderate; 15-21 severe): 3 Source: Developed by Drs. Pieter Hand, Shira Rahman, Ezra Martins and colleagues, with an educational amandeep from [employer]. SHERI-7 Assessment Billing SHERI-7 Assessment Tool: SHERI-7 Assessment 69416 Review of Systems Const All systems reviewed & are unremarkable except as noted in HPI and below Card Denies chest pain at rest, Denies chest pain with activity, Denies edema, Denies irregular heart rhythm, Denies claudication, Denies dyspnea, Denies dyspnea on exertion, Denies orthopnea, Denies paroxysmal nocturnal dyspnea and Denies slow heart rate Resp Denies cough, Denies dyspnea and Denies dyspnea on exertion GI Denies abdominal pain, Denies change in bowel habits, Denies excessive flatus, Denies nausea and Denies vomiting Physical exam (Primary Care) Vital Signs: Last Vital Signs Pulse 92 10/31/24 13:30 BP 102/60 10/31/24 13:30 Pulse Ox 97 10/31/24 13:30 Oxygen Delivery Method Room Air 10/31/24 13:30 BMI result Body Mass Index 29.4 Tobacco/Smoking Status: Tobacco use Status Tobacco use date assessed 10/31/24 10/31/24 13:32 Patient Tobacco Use Status Former Tobacco user 10/31/24 13:22 e-Cigarette/Vaping Use Never Used 10/31/24 13:22 PHQ-9: PHQ-9 Score PHQ-9: Total score 0 10/31/24 13:54 Depression Screening Interpretation: Negative Thrive Assessment: Date of Thrive Assessment Date Thrive assessed 10/31/24 10/31/24 13:32 Currently or been in a relationship where the following occur: I choose not to answer HENAL Head: Yes normal to inspection, Yes normocephalic and Yes atraumatic Ears: external ears normal Eyes General: appearance normal, both eyes and all related structures Eyelids: Yes eyelids normal Conjunctivae: conjunctivae normal Neck Neck: Yes normal visual inspection and Yes supple Resp Effort & Inspection: normal respiratory effort Auscultation: clear to auscultation bilaterally Cardio Jugular venous distension: no JVD Rate: regular rate Rhythm: regular rhythm Heart sounds: S1 normal heart sound present and S2 normal heart sound present GI Inspection: Yes normal to inspection Palpation (GI): Soft to palpation and nontender Auscultation: normal bowel sounds Skin General skin exam: no rashes or lesions noted Neuro General: no focal motor deficits Extrem General: Yes full ROM Psych Appearance: grossly normal Office Procedures Flu Questionnaire Does the patient have a severe egg allergy?: No Immunizations Fluarix Triv [id number] (PF) 45 mcg (15 mcg x 3)/0.5 mL IM syringe Performing Provider: Zonia Black MD Performing Location: [facility] Documented (not given) by: RITIKA Collazo on 10/31/24 13:36 Reason Not Given: Received Previously Boostrix Tdap 2.5 Lf unit-8 mcg-5 Lf/0.5 mL intramuscular syringe Performing Provider: Zonia Black MD Performing Location: [facility] Administered by: RITIKA Collazo on 10/31/24 13:54 Dose Route Admin Location Dispensed Lot Number Expiration Date [facility] Movie Critic 0.5 mL IM Left Deltoid 0.5 mL [id number] 11/22/26 [id number] DGTS VIS Given Date VIS Provided VIS Publication Date 10/31/24 Single Vaccine 21 Eligibility Eligibility Date Funding Source Not [facility] Eligible 10/31/24 Private Coding Level of Care Code Est Pt Prev Care 40-64y(81388) Diagnoses Physical exam Z00.00 Moderate recurrent major depression F33.1 Additional Codes SHERI-7 Assessment Billing - SHERI-7 Assessment Tool: SHERI-7 Assessment 93305 ([id number]) PHQ-9 - 15081 - PHQ-9 Billing: Yes ([id number]) Time Spent (min) 30 Assessment & Plan Assessment & Plan (1) Physical exam: Code(s): Z00.00 - Encounter for general adult medical examination without abnormal findings Category: Medical (2) Moderate recurrent major depression: Code(s): F33.1 - Major depressive disorder, recurrent, moderate Category: Medical Plan - Refill inhaler for asthma management. - Continue current management for hypothyroidism with Synthroid. - Refill and continue vitamin D supplementation. - Recommend OBGYN referral for upcoming Pap smear. - Conduct blood work as outlined for routine monitoring. - Refill potassium as per current supplementation status. Patient was informed and verbally consented to the use of an ambient scribe for clinic note documentation during this visit. During the visit, we discussed the current health maintenance plan including vaccinations and screenings. The patient is scheduled for a mammogram and will require a Pap smear annually. I emphasized the importance of maintaining her current asthma management regimen with regular inhaler use and highlighted the necessity of continued management of hypothyroidism and vitamin deficiencies. We talked about her cessation of smoking and managing related respiratory symptoms. As part of her therapeutic management for depression, we reviewed ongoing medication and the necessity for corresponding documentation for her service dog. We also addressed her dietary concerns and discussed strategies to manage her asthma, dietary issues, and mental health, including referral to OBGYN for her upcoming Pap smear. Orders: Orders Influenza [id number] Immunization Today Z23 - Encounter for immunization Complete Blood Count Auto Diff Today D64.9 - Anemia, unspecified Thyroid Stimulating Hormone Today E06.3 - Autoimmune thyroiditis Comprehensive [place]. Panel Fast Today Z00.00 - Encounter for general adult medical examination without abnormal findings TDaP Immunization Today Z23 - Encounter for immunization Lipid Panel Today E78.5 - Hyperlipidemia, unspecified IRON PROFILE Today D64.9 - Anemia, unspecified Vitamin D 25-OH Total Today E55.9 - Vitamin D deficiency, unspecified Referrals VESSEL MANAGER Referral Z12.4 - Encounter for screening for malignant neoplasm of cervix Medications: Refilled albuterol sulfate 90 mcg/actuation (Ventolin HFA) 2 puffs inhalation Q6H PRN 8.5 grams 0RF shortness of breath or wheezing 30 days potassium chloride 20 mEq (15 mL) PO DAILY 50 mL 0RF Patient Instructions: - Use inhaler as needed and refill prescriptions for asthma. - Continue taking Synthroid and vitamin D supplements as prescribed. - Schedule and attend upcoming mammogram and Pap smear appointments. - Contact OBGYN to facilitate Pap smear testing. - Discuss any new or worsening symptoms with me urgently. - Follow dietary recommendations to manage bowel movements. - Remain vigilant against scams and protect personal information.
[2024-10-31 13:30] VITALS: BP 102/60; PULSE 92; O2SAT 97; BMI 29.4
== END 2024-10-31 13:56 | disposition home or self-care (01) ==
PROVIDERS: PCP Internal Medicine; Visit Provider Internal Medicine
DX: Z00.00 Encounter for general adult medical examination without abnormal findings (principal); F33.1 Major depressive disorder, recurrent, moderate; Z23 Encounter for immunization

== ENCOUNTER → 2024-10-31 12:47 | Outpatient (BNVA) | payer OTHER, MEDICAID, SELFPAY | PROVIDERS: PCP Internal Medicine; Visit Provider Internal Medicine | DX: Z00.00 Encounter for general adult medical examination without abnormal findings (principal); Z23 Encounter for immunization; F33.1 Major depressive disorder, recurrent, moderate; J45.909 Unspecified asthma, uncomplicated; E03.9 Hypothyroidism, unspecified; E55.9 Vitamin D deficiency, unspecified; Z79.899 Other long term (current) drug therapy | CPT/HCPCS: 90471; 90715; 96127; 99396 ==

== ENCOUNTER 2025-06-25 08:42 | Outpatient (AMB) | payer OTHER, SELFPAY ==
--- NOTE | 2025-06-25 08:56 | MHC.PC.OV ---
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 Required: No Accompanied by: Self / Same As Patient Allergies metoclopramide (From REGLAN) Allergy (Mild, Verified 06/25/25 09:30) MAKES ME COLD prochlorperazine (From Compazine) Allergy (Mild, Verified 06/25/25 09:30) RASH, gets cold famotidine (Pepcid) Adverse Reaction (Mild, Verified 06/25/25 09:30) loss of appetite Medication List - Last Reconciled 06/25/25 by Zonia Black MD albuterol sulfate 90 mcg/actuation (Ventolin HFA) 2 puffs inhalation Q6H PRN 30 days cholecalciferol (vitamin D3) 25 mcg PO DAILY 90 days gabapentin 400 mg PO TID 30 days levothyroxine (Synthroid) 50 mcg PO DAILY 90 days omeprazole 20 mg PO DAILY 30 days ondansetron 4 mg PO Q8H PRN potassium chloride 20 mEq (15 mL) PO DAILY sucralfate 1 g PO QID 30 days tizanidine 2 mg PO TID PRN Tobacco use date assessed: 06/25/25 Dental Screening Dental Screen Date: 06/25/25 Did you have a dental visit in the last 12 months?: No Did you have a dental problem in the last 6 months where you did not have access to dental care?: No Was dental information given to patient?: Patient has dentist HPI HPI Comments History of Present Illness Details This is a 39-year-old female with autoimmune thyroiditis, GERD and iron-deficiency anemia due to chronic blood loss that comes today complaining neck pain, bilateral hand pain associated with numbness and tingling, thoracic spine pain, lumbar pain and pain in feet that started few weeks ago. We will order labs and x-ray. Will be referred to pain management and Podiatry. Has full active range of motion. [facility] Medical History (Updated 06/25/25 @ 10:13 by Zonia Black MD) Hyperemesis affecting , antepartum test positive Moderate recurrent major depression Hypercalcemia Goiter Throat pain Pain in mandible Pain of right clavicle Dyspnea Hypothyroidism Polyarthralgia Moderate recurrent major depression Cyclic vomiting syndrome Renal calculi Iron deficiency anemia due to chronic blood loss Chest pain Shortness of breath Iron deficiency anemia due to chronic blood loss Hx of History of back pain Hx of iron deficiency anemia Hx of migraines Anxiety History of bipolar disorder Chest pain Menorrhagia Hypokalemia Marijuana use, continuous Syphilis contact, treated Numbness of foot GERD (gastroesophageal reflux disease) Anemia Depression Surgical History Hx of esophagogastroduodenoscopy Hx of colonoscopy History of dilation and curettage Family History Mother HTN (hypertension) Maternal Grandmother HTN (hypertension) Maternal Uncle HTN (hypertension) Maternal Aunt Diabetes mellitus Family/Other Mental health disorder Substance use disorder Father Cancer Social History Household Members: None Housing: Apartment Are you a primary director critical care to a significant other at home: No Do you presently have visiting nurse or other home services: No Alcohol intake: never Patient Tobacco Use Status: Former Tobacco user Tobacco use type: Cigarette Cigarette Packs Per Day: 0.25 Years Smoked: 15 e-Cigarette/Vaping Use: Never Used Second Hand Smoke Exposure: No Substance Use Type: Marijuana service: No Current occupational status: unemployed Cognitive needs: No Hearing needs: No Vision needs: No Female Reproductive History Menstrual Age of Menarche: 12 Questionnaire PHQ-9 Over the last 2 weeks, how often have you been bothered by any of the following problems? 1. Little interest or pleasure in doing things: not at all 2. Feeling down, depressed, or hopeless: not at all 3. Trouble falling or staying asleep, or sleeping too much: not at all 4. Feeling tired or having little energy: not at all 5. Poor appetite or overeating: not at all 6. Feeling bad about yourself - or that you are a failure or have let yourself or your family down: not at all 7. Trouble concentrating on things, such as reading the newspaper or watching television: not at all 8. Moving or speaking so slowly that other people could have noticed. Or the opposite - being so fidgety or restless that you have been moving around a lot more than usual: not at all 9. Thoughts that you would be better off or of hurting yourself in some way: not at all Total score: 0 Depression Screening Interpretation: Negative Depression Screening Done: Yes 84028 - PHQ-9 Billing: Yes Source: Developed by Drs. Pieter Hand, Shira Rahman, Ezra Martins and colleagues, with an educational amandeep from [employer]. Thrive Questionnaire Date Thrive assessed: 06/25/25 I am a: Patient What is your living situation today?: I choose not to answer this question Within the past 12 months, did the food you bought not last and you didn't have the money to get more?: Sometimes True Within the past 12 months, did you worry whether your food would run out before you got money to buy more?: I choose not to answer this question Do you have trouble paying for medicines?: I choose not to answer this question Do you have trouble getting transportation to medical appointments?: I choose not to answer this question Do you have trouble paying your heating and electricity bill?: I choose not to answer this question Do you have trouble taking care of your child, family member or friend?: I choose not to answer this question Do you have trouble with day-to-day activities such as bathing, preparing meals, shopping, managing finances, etc.?: I choose not to answer this question Are you currently unemployed and looking for a job?: I choose not to answer this question Are you interested in more education?: I choose not to answer this question Currently or been in a relationship where the following occur: I choose not to answer THRIVE Score: 1 AUDIT C Alcohol Use Questionnaire (AUDIT-C) 1. How often do you have a drink containing alcohol?: Never 3. How often do you have six or more drinks on one occasion?: Never Total Score: 0 Score Reviewed/Action Taken: No SHERI-7 AMB Questionnaire SHERI-7 Date SHERI - 7 assessed: 06/25/25 Feeling nervous, anxious, or on edge: 3 = Nearly every day Not being able to stop or control worryin = Not at all Worrying too much about different things: 0 = Not at all Trouble relaxin = Not at all Being so restless that it is hard to sit still: 0 = Not at all Becoming easily annoyed or irritable: 0 = Not at all Feeling afraid as if something awful might happen: 0 = Not at all Total SHERI-7 score (0-4 normal; 5-9 mild; 10-14 moderate; 15-21 severe): 3 Source: Developed by Drs. Pieter Hand, Shira Rahman, Ezra Martins and colleagues, with an educational amandeep from [employer]. SHERI-7 Assessment Billing SHERI-7 Assessment Tool: SHERI-7 Assessment 45544 Review of Systems Const All systems reviewed & are unremarkable except as noted in HPI and below Card Denies chest pain at rest, Denies chest pain with activity, Denies edema, Denies irregular heart rhythm, Denies claudication, Denies dyspnea, Denies dyspnea on exertion, Denies orthopnea, Denies paroxysmal nocturnal dyspnea and Denies slow heart rate Resp Denies cough, Denies dyspnea and Denies dyspnea on exertion GI Denies abdominal pain, Denies change in bowel habits, Denies excessive flatus, Denies nausea and Denies vomiting Physical exam (Primary Care) Vital Signs: Last Vital Signs Temp 97.1 F 06/25/25 08:57 Pulse 65 06/25/25 08:57 Resp 18 06/25/25 08:57 BP 110/60 06/25/25 08:57 Pulse Ox 97 06/25/25 08:57 Oxygen Delivery Method Room Air 06/25/25 08:57 BMI result Body Mass Index 29.1 Tobacco/Smoking Status: Tobacco use Status Tobacco use date assessed 06/25/25 06/25/25 09:16 Patient Tobacco Use Status Former Tobacco user 06/25/25 08:58 Tobacco use type Cigarette 06/25/25 08:58 e-Cigarette/Vaping Use Never Used 06/25/25 08:58 PHQ-9: PHQ-9 Score PHQ-9: Total score 0 06/25/25 09:16 Depression Screening Interpretation: Negative Thrive Assessment: Date of Thrive Assessment Date Thrive assessed 06/25/25 06/25/25 08:58 Currently or been in a relationship where the following occur: I choose not to answer Resp Effort & Inspection: normal respiratory effort Auscultation: clear to auscultation bilaterally Cardio Jugular venous distension: no JVD Rate: regular rate Rhythm: regular rhythm Heart sounds: S1 normal heart sound present and S2 normal heart sound present Extrem General: Yes full ROM Coding Level of Care Code Est Pt Level 4 (84337) Complex EM visit Add On G2211 Diagnoses Autoimmune thyroiditis E06.3 Gastroesophageal reflux disease, unspecified whether esophagitis present K21.9 Esophagitis presence: esophagitis presence not specified Iron deficiency anemia due to chronic blood loss D50.0 Neck pain M54.2 Lumbar pain M54.50 Thoracic spine pain M54.6 Left hand pain M79.642 Right foot pain M79.671 Pain in both feet M79.671; M79.672 Paresthesia of hand, bilateral R20.2 Additional Codes SHERI-7 Assessment Billing - SHERI-7 Assessment Tool: SHERI-7 Assessment 60048 ([id number]) PHQ-9 - 77305 - PHQ-9 Billing: Yes ([id number]) Time Spent (min) 22 Assessment & Plan Assessment & Plan (1) Autoimmune thyroiditis: Code(s): E06.3 - Autoimmune thyroiditis Category: Medical (2) GERD (gastroesophageal reflux disease): Code(s): K21.9 - Gastro-esophageal reflux disease without esophagitis Category: Medical Qualifiers: Esophagitis presence: esophagitis presence not specified Qualified Code(s): K21.9 - Gastro-esophageal reflux disease without esophagitis (3) Iron deficiency anemia due to chronic blood loss: Code(s): D50.0 - Iron deficiency anemia secondary to blood loss (chronic) Category: Medical (4) Neck pain: Code(s): M54.2 - Cervicalgia Category: Medical (5) Lumbar pain: Code(s): M54.50 - Low back pain, unspecified Category: Medical (6) Thoracic spine pain: Code(s): M54.6 - Pain in thoracic spine Category: Medical (7) Left hand pain: Code(s): M79.642 - Pain in left hand Category: Medical (8) Right foot pain: Code(s): M79.671 - Pain in right foot Category: Medical (9) Pain in both feet: Code(s): M79.671 - Pain in right foot; M79.672 - Pain in left foot Category: Medical (10) Paresthesia of hand, bilateral: Code(s): R20.2 - Paresthesia of skin Category: Medical Plan Continue current meds. Labs, x-ray and nerve conduction study ordered. Referred to pain management and Podiatry. Orders: Orders Comprehensive Met. Panel Today M54.2 - Cervicalgia Vitamin D 25-OH Total Today E55.9 - Vitamin D deficiency, unspecified Vitamin B12 and Folate Today E53.8 - Deficiency of other specified B group vitamins Thyroid Stimulating Hormone Today E06.3 - Autoimmune thyroiditis XR hand LT 2V Today M79.642 - Pain in left hand XR foot LT 2V Today M79.672 - Pain in left foot XR foot RT 2V Today M79.671 - Pain in right foot XR thoracic spine 2V Today M54.6 - Pain in thoracic spine Complete Blood Count Auto Diff Today D64.9 - Anemia, unspecified IRON PROFILE Today D64.9 - Anemia, unspecified NE nerve conduction velocity Today R20.2 - Paresthesia of skin NE electromyogram (EMG) Today R20.2 - Paresthesia of skin XR cervical spine 2V Today M54.2 - Cervicalgia XR hand RT 2V Today M79.641 - Pain in right hand XR lumbar spine 2-3V Today M54.50 - Low back pain, unspecified Referrals Pain Management Referral M54.2 - Cervicalgia, M54.50 - Low back pain, unspecified, M54.6 - Pain in thoracic spine Podiatry Referral M79.671 - Pain in right foot, M79.672 - Pain in left foot Medications: Refilled cholecalciferol (vitamin D3) 25 mcg PO DAILY 90 caps 0RF 90 days levothyroxine (Synthroid) 50 mcg PO DAILY 90 tabs 0RF 90 days omeprazole 20 mg PO DAILY 30 caps 0RF 30 days
[2025-06-25 08:57] VITALS: BP 110/60; PULSE 65; RESP 18; TEMP 36.2; O2SAT 97; BMI 29.1
--- OUTSIDE RECORDS SUMMARY | 2025-06-25 09:25 | XMS_ITS | Clinical Summary ---
Author Organization [employer] Address [address] [place] [address] Care Team Providers Care Retort Engineer Name Role Phone Unavailable Primary Care Provider Unavailabl e Allergies Active Allergy Reactions Criticality Noted Date Comments Metoclopramide 01/29/2023 Other reaction(s): [D]Nausea and vomiting Prochlorperazine 01/29/2023 Medications calcitriol (Rocaltrol) 0.5 MCG capsule 3 Active docusate sodium (Colace) 100 MG capsule 3 Active doxycycline (Vibra-Tabs) 100 MG tablet Take 100 mg by mouth 2 times daily. 2 Active ergocalciferol (Vitamin D2) 1.25 MG (51748 UT) capsule 2 Active FeroSul 325 (65 Fe) MG tablet 3 Active fluconazole (Diflucan) 150 MG tablet TAKE 1 TABLET BY MOUTH TODAY AND REPEAT IN 3 DAYS 2 Active gabapentin (Neurontin) 100 MG capsule 3 Active omeprazole (PriLOSEC) [address] capsule 3 Active OLANZapine zydis (ZyPREXA) 5 MG disintegrating tablet DISSOLVE 1 TABLET BY MOUTH EVERY DAY NEEDED FOR NAUSEA 2 Active levothyroxine (Synthroid, Levoxyl) 25 MCG tablet Take 25 mcg by mouth in the morning. 3 Active ondansetron ODT (Zofran-ODT) 4 MG disintegrating tablet Take 4 mg by mouth. 2 Active pantoprazole (ProtoNix) 20 MG EC tablet Take 20 mg by mouth. 1 Active Active Problems Problem Noted Date Diagnosed Date Dental calculus 03/09/2023 Social History Tobacco Use Types Packs/Day Years Used Date Smoking Tobacco: Former Cigarettes Passive Smoke Exposure: Past Smokeless Tobacco: Former Tobacco Cessation:Counseling Given: Not Answered Alcohol Use Standard Drinks/Week Comments Never 0 (1 standard drink = 0.6 oz pur e alcohol) Comments Unknown Sex and Gender Information Value Date Recorded Sex Assigned at Female 08/28/2022 10:17 AM EDT Legal Sex Female 10:17 AM EDT Gender Identity Female 01/29/2023 10:23 AM EDT Sexual Orientation Choose not to disclose 2022 10:23 AM EDT Last Filed Vital Signs Vital Sign Reading Time Taken Comments Blood Pressure 128/74 03/09/2023 8:01 AM EDT Pulse 70 03/09/2023 8:01 AM EDT Temperature - - Respiratory Rate - - Oxygen Saturation - - Inhaled Oxygen Concentration - - Weight - - Height - - Body Mass Index - - Plan of Treatment Health Maintenance Due Date Last Done Comments Depression Screening 1983 HIV Screening 1983 SDOH Screening 1983 Disability Screening 1983 Alcohol/Substance Use Screening 1995 Family Planning (PISQ) 1998 HPV Vaccines (1 - 3-dose series) 1998 Hepatitis C Screening 2001 Pap Smear 2004 Cervical Cancer Screening 2013 HPV/Cotest 2013 Hepatitis B Vaccines (3 of 3 - 19+ 3-dose series) 05/09/2022 12/12/2021, 11/09/2021 Mammogram 2023 Dental Oral Exam 08/22/2023 02/19/2023 Dental Prophylaxis 09/10/2023 03/09/2023 Dental X-Ray: Bitewings 02/21/2024 02/19/2023 COVID-19 Vaccine (4 - 2023-2 5 season) 2024 10/13/2021, 03/12/2021, 02/18/2021 Tobacco Screening 08/27/2024 08/27/2023 Influenza Vaccine (#1) 2025 09/11/2024 Dental X-Ray: Full Mouth 02/20/2026 02/19/2023 Zoster Vaccines (1 of 2) 2033 DTaP/Tdap/Td Vaccines (2 - T d or Tdap) 10/31/2034 10/31/2024, 03/26/2016 RSV Patients and Patients Aged 60 years or older (1 - 1-dose 75+ series) 2058 HIB Vaccines Aged Out No longer eligi ble based on patient's age to complete this topic Hepatitis A Vaccines Aged Out No long er eligible based on patient's age to complete this topic IPV Vaccines Aged Out No longer eligi ble based on patient's age to complete this topic Meningococcal B Vaccine Aged Out No l onger eligible based on patient's age to complete this topic Meningococcal Vaccine Aged Out No aleksey marshal eligible based on patient's age to complete this topic Pneumococcal Vaccine: Pediatrics (0 to 5 Years) and At-Risk Patients (6 to 49) Years Aged Out No longer eligible b ased on patient's age to complete this topic RSV under 20 months Aged Out No longe r eligible based on patient's age to complete this topic Rotavirus Vaccines Aged Out No longer eligible based on patient's age to complete this topic Procedures Procedure Name Priority Date/Time Associated Diagnosis Comments PROPHYLAXIS - ADULT Routine 03/09/2023 8 :00 AM EDT Dental calculus INTRAORAL - COMPLETE SERIES OF RADIOGRAPHIC IMAGES Routine 02/19/2023 10:00 AM EDT COMPREHENSIVE ORAL EVALUATION - NEW OR ESTABLISHED PATIENT Routine 02/19/2023 10:00 AM EDT from Last 3 Months or Most Recently Relevant to Health Maintenance Insurance [facility]AL - [facility]
--- OUTSIDE RECORDS SUMMARY | 2025-06-25 09:25 | XMS_ITS | Encounter Summary ---
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 Name Role Phone Unavailable Primary Care Provider Unavailabl e Encounter Details Date Type Department Care Team (Latest Contact Info) Description 11/22/2018 Abstract [facility] CONVERSIONS Dental, Provider, DDS Social History Tobacco Use Types Packs/Day Years Used Date Smoking Tobacco: Never Assessed Comments Unknown Sex and Gender Information Value Date Recorded Sex Assigned at Female 08/28/2022 10:17 AM EDT Legal Sex Female 10:17 AM EDT Gender Identity Female 01/29/2023 10:23 AM EDT Sexual Orientation Choose not to disclose 2022 10:23 AM EDT documented as of this encounter Plan of Treatment Not on file documented as of this encounter Visit Diagnoses Not on filedocumented in this encounter
--- OUTSIDE RECORDS SUMMARY | 2025-06-25 09:25 | XMS_ITS | Encounter Summary ---
Author Organization [facility] Address [address] [place] [address] Care Team Providers Care Bag Machine Operator Name Role Phone Unavailable Primary Care Provider Unavailabl e Encounter Details Date Type Department Care Team (Late st Contact Info) Description 02/20/2023 Abstract [facility] ADULT DENTAL [address] [place] [address] Bonita Sosa DDS [address] [place] [address] Social History Tobacco Use Types Packs/Day Years Used Date Smoking Tobacco: Former Cigarettes Passive Smoke Exposure: Past Smokeless Tobacco: Former Alcohol Use Standard Drinks/Week Comments Never 0 (1 standard drink = 0.6 oz pur e alcohol) Comments Unknown Sex and Gender Information Value Date Recorded Sex Assigned at Female 08/28/2022 10:17 AM EDT Legal Sex Female 10:17 AM EDT Gender Identity Female 01/29/2023 10:23 AM EDT Sexual Orientation Choose not to disclose 2022 10:23 AM EDT COVID-19 Exposure Response Date Recorded In the last 10 days, have yo u been in contact with someone who was confirmed or suspected to have Coronavirus/COVID-19? No / Unsure 02/19/2023 8:57 AM EDT documented as of this encounter Plan of Treatment Not on file documented as of this encounter Visit Diagnoses Not on filedocumented in this encounter
--- OUTSIDE RECORDS SUMMARY | 2025-06-25 09:25 | XMS_ITS ---
Author Name [facility] Organization Unknown History of Medication Use Medication Directions Dispensed Refills Start Date End Date Stat us prednisone 10 mg tablet Day 1: 4 tablets in the morning, Day 2: 4 tablets in the morning, Day 3: 3 tablets in the morning, Day 4: 3 tablets in the morning, Day 5: 2 tablets in the morning, Day 6: 2 tablets in the morning, Day 7: 1 tablet in the morning, Day 8: 1 tablet in the morning! 03/13/2024 active active amoxicillin 500 mg capsule TAKE 1 CAPSULE (500 MG) BY MOUTH EVERY 8 HOURS FOR 7 DAYS active chlorhexidine gluconate 0.12 % mouthwash RINSE MOUTH WITH 15ML (1 CAPFUL) FOR 30 SECONDS IN MORNING AND EVENING AFTER BRUSHING, THEN SPIT active risperidone 1 mg tablet active Allergies Allergen Reaction Severity Comment Documented Date Source Statu s COMPAZINE ENS_AONECT Problems Problem Status Onset Date Problem Type Date of Resoluti on Source Pain of right knee joint active 2024-03-13 ProblemAct ENS_AONECT Encounters Encounter Type Encounter Reason Primary Diagnosis Location Date Ambulatory [facility] 03/13/2024 Ambulatory [facility] 03/11/2024 Ambulatory [facility] 02/21/2024 Ambulatory [facility] 02/07/2024 Ambulatory [facility] 02/06/2024 Ambulatory [facility] 02/06/2024 Ambulatory [facility] 01/21/2024
--- OUTSIDE RECORDS SUMMARY | 2025-06-25 09:25 | XMS_ITS | Encounter Summary ---
Author Organization [employer] [facility] Address [address] [facility] [address] [place] [address] Care Team Providers Care Florist Designer Name Role Phone Unavailable Primary Care Provider Unavailabl e Encounter Details Date Type Department Care Team (Late st Contact Info) Description 07/03/[address] [facility] ADULT DENTAL [address] [place] [address] Joaquim Jackson, SAE [address] [place] [address] Social History Tobacco Use Types Packs/Day Years [...]
--- OUTSIDE RECORDS SUMMARY | 2025-06-25 09:25 | XMS_ITS | Clinical Summary ---
Author Organization [facility] Address [address] [place] [address] Phone Care Team Providers Care Card Grinder Helper Name Role Phone Zonia Black MD Primary Care Provider [phone] Allergies Active Allergy Reactions Criticality Noted Date Comments Prochlorperazine Unknown 09/08/2024 Methylphenidate Unknown 09/04/2022 Metoclopramide Other 01/29/2023 Other reaction(s): [D]Nausea and vomiting Medications ondansetron ODT (ZOFRAN-ODT) 4 mg disintegrating tablet Let 1 tablet dissolve under the tongue three times daily as needed for nausea or vomiting. 10 tablet 5 Active pantoprazole (PROTONIX) 40 mg EC tablet Take 1 tablet (40 mg total) by mouth 1 (one) time each day before breakfast. Do not crush, chew, or split. 30 each 5 07/02/20 25 Active Active Problems No known active problems Encounters Date Type Department Care Team Description 06/02/2025 4:43 PM EDT - 06/02/2025 5:06 PM EDT Emergency [facility] Emergency [address] [place] [phone] Chris Palafox MD Chronic gastric ulcer, unspecified whether gastric ulcer hemorrhage or perforation present (Primary Dx) Discharge Disposition: Home or Self Care 05/09/2025 11:32 AM EDT - 05/09/2025 5:19 PM EDT Emergency [facility] Emergency [address] [place] [address] Fani Marr MD Vomiting and diarrhea (Primary Dx); Hypokalemia; DIANA (acute kidney injury) ([facility] V24) Discharge Disposition: Home or Self Care from Last 3 Months Medical History Medical History Date Comments Depression Anemia Social History Tobacco Use Types Packs/Day Years Used Date Smoking Tobacco: Every Day Cigarettes 0.3 1.7 Started: 2023 Smokeless Tobacco: Never Tobacco Cessation:Ready to Q uit: Not Asked; Counseling Given: Not Answered Alcohol Use Standard Drinks/Week Comments Not Currently 0 (1 standard drink = 0.6 oz pur e alcohol) Comments Unknown Sex and Gender Information Value Date Recorded Sex Assigned at Female 01/05/2025 4:10 PM EDT Legal Sex Female 10:37 PM EST Gender Identity Female 01/05/2025 4:10 PM EDT Sexual Orientation Straight 01/05/2025 4 :10 PM EDT Obstetrics History Last Filed Vital Signs Vital Sign Reading Time Taken Comments Blood Pressure 127/93 06/02/2025 3:04 PM EDT Pulse 84 06/02/2025 3:04 PM EDT Temperature 37.1 C (98.8 F) 06/02/2025 3:04 PM EDT Respiratory Rate 18 06/02/2025 3:04 PM EDT Oxygen Saturation 100% 06/02/2025 3:04 PM EDT Inhaled Oxygen Concentration - - Weight 79.4 kg (175 lb) 06/02/2025 3:04 PM EDT Height 152.4 cm (5') 06/02/2025 3:04 PM EDT Body Mass Index 34.18 06/02/2025 3:04 PM EDT Plan of Treatment Health Maintenance Due Date Last Done Comments Breast Cancer Screening 1983 Pneumococcal Vaccine: Pediatrics (0 to 5 Years) and At-Risk Patients (6 to 49 Years) (1 of 2 - PCV) 2002 Cervical Cancer Screening: P ap Smear 2004 Hepatitis B Vaccines (3 of 3 - 19+ 3-dose series) 05/09/2022 12/12/2021, 11/09/2021 Cholesterol Screening (Lipid Panel) 10/01/2022 HIV Screening 10/01/2022 Hepatitis C Screening 10/01/2022 Medicare Annual Wellness Visit 10/01/2022 Social Influencers of Health Screening 10/01/2022 COVID-19 Vaccine (4 - 2023-2 5 season) 2024 10/13/2021, 03/12/2021, 02/18/2021 Depression Screening 10/29/2024 Influenza Vaccine (#1) 2025 09/11/2024 DTaP,Tdap,and Td Vaccines (3 - Td or Tdap) 10/31/2034 10/31/2024, 03/26/2016 MMR Vaccines Aged Out 12/12/2021, 11/09/2021 No longer eligible based on patient's age to complete this topic HIB Vaccines Aged Out No longer eligi ble based on patient's age to complete this topic HPV Vaccines Aged Out No longer eligi ble based on patient's age to complete this topic Hepatitis A Vaccines Aged Out No long er eligible based on patient's age to complete this topic IPV Vaccines Aged Out No longer eligi ble based on patient's age to complete this topic Meningococcal ACWY Vaccine Aged Out N o longer eligible based on patient's age to complete this topic Meningococcal B Vaccine Aged Out No l onger eligible based on patient's age to complete this topic RSV Immunization Patients Under 20 months Aged Out No longer eligible b ased on patient's age to complete this topic Varicella Vaccines Aged Out No longer eligible based on patient's age to complete this topic Procedures Procedure Name Priority Date/Time Associated Diagnosis Comments ECG ANNOTATED 05/11/2025 LACTATE, WITH REFLEX Timed 05/09/2025 3:30 PM EDT MAGNESIUM STAT Add-on 05/09/2025 11:58 AM EDT LACTATE, WITH REFLEX STAT 05/09/2025 11:58 AM EDT CBC WITH AUTO DIFFERENTIAL STAT 05/09/2025 11:58 AM EDT LIPASE STAT 05/09/2025 11:58 AM EDT COMPREHENSIVE METABOLIC PANEL STAT 05/09/2025 11:58 AM EDT CBC AND DIFFERENTIAL STAT 05/09/2025 11:58 AM EDT ECG 12-LEAD STAT 05/09/2025 10:08 AM EDT from Last 3 Months Results * ECG-Annotated (05/11/2025) us Provider Onbase ECG ORDERABLES Final Result * Lactate, with reflex (05/09/2025 3:30 PM EDT) Only the most recent of2 resultswithin the time period is included. [facility] LACTIC ACID 1.7 0.4 - 2.0 mmol/L LAB CHEMISTRY METHOD 05/09/2025 4:08 PM EDT [facility] Blood Venous blood specimen / Unknown Venipuncture / Unknown 05/09/2025 3:30 PM EDT 05/09/2025 3:39 PM EDT Fani Marr MD LAB BLOOD ORDERABLES Final Resul t [facility] [address] [place] [address], * (ABNORMAL) CBC auto differential (05/09/2025 11:58 AM EDT) [facility] WBC 11.8(H) 4.8 - 10.8 K/mcL LAB HEMETOLOGY METHOD 05/09/2025 12:17 PM EDT [facility] RBC 5.40(H) 3.80 - 4.80 M/mcL LAB HEMETOLOGY METHOD 05/09/2025 12:17 PM EDT [facility] Hemoglobin 10.9(L) 11.5 - 16.0 g/dL LAB HEMETOLOGY METHOD 05/09/2025 12:17 PM EDT [facility] Hematocrit 37.2 35.0 - 47.0 % LAB HEMETOLOGY METHOD 05/09/2025 12:17 PM EDT [facility] MCV 68.9(L) 79.0 - 98.0 FL LAB HEMETOLOGY [facility] MCH 20.2(L) 27.0 - 32.0 pcg LAB HEMETOLOGY METHOD 05/09/2025 12:17 PM [facility] MCHC 29.3(L) 32.0 - 37.0 g/dL LAB HEMETOLOGY METHOD 05/09/2025 12:17 PM [facility] RDW 20.2(H) 11.0 - 15.0 % LAB HEMETOLOGY METHOD 05/09/2025 12:17 PM [facility] Platelets 824(H) 130 - 400 K/mcL LAB HEMETOLOGY METHOD 05/09/2025 12:17 PM [facility] MPV 8.8 7.0 - 11.0 FL LAB HEMETOLOGY METHOD 05/09/2025 12:17 PM [facility] NRBC 0.0 <1.0 % LAB HEMETOLOGY METHOD 05/09/2025 12:17 PM [facility] NRBC Absolute 0.00 <0.10 K/mcL LAB HEMETOLOGY METHOD 05/09/2025 12:17 PM [facility] Neutrophils Relative 61.2 % LAB HEMETOLOGY METHOD 05/09/2025 12:17 PM [facility] Lymphocytes Relative 24.3 % LAB HEMETOLOGY METHOD 05/09/2025 12:17 PM [facility] Monocytes Relative 13.4 % LAB HEMETOLOGY METHOD 05/09/2025 12:17 PM [facility] Eosinophils Relative 0.1 % LAB HEMETOLOGY METHOD 05/09/2025 12:17 PM [facility] Basophils Relative 0.7 % LAB HEMETOLOGY METHOD 05/09/2025 12:17 PM EDT [facility] Immature Granulocytes Relative 0.3 % LAB HEMETOLOGY METHOD 05/09/2025 12:17 PM EDT [facility] Neutrophils Absolute 7.25(H) 1.50 - 7.00 K/mcL LAB HEMETOLOGY METHOD 05/09/2025 12:17 PM EDT [facility] Lymphocytes Absolute 2.87 1.00 - 5.00 K/mcL LAB HEMETOLOGY METHOD 05/09/2025 12:17 PM EDT [facility] Monocytes Absolute 1.58(H) 0.20 - 1.00 K/mcL LAB HEMETOLOGY METHOD 05/09/2025 12:17 PM EDT [facility] Eosinophils Absolute 0.01 0.00 - 0.50 K/mcL LAB HEMETOLOGY METHOD 05/09/2025 12:17 PM EDT [facility] Basophils Absolute 0.08 0.00 - 0.20 K/mcL LAB HEMETOLOGY METHOD 05/09/2025 12:17 PM EDT [facility] Immature Granulocytes Absolute 0.04(H) 0.00 - 0.03 K/mcL LAB HEMETOLOGY METHOD 05/09/2025 12:17 PM T [facility] Blood Venous blood specimen / Unknown Venipuncture / Unknown 05/09/2025 11:58 AM EDT 05/09/2025 12:09 PM EDT us Fani Marr MD LAB BLOOD ORDERABLES Final Resul t [facility] [address] [place] [address], * Magnesium (05/09/2025 11:58 AM EDT) Magnesium 2.1 1.9 - 2.6 mg/dL LAB CHEMISTRY METHOD 05/09/2025 12:33 PM EDT [facility] Blood Venous blood specimen / Unknown Venipuncture / Unknown 05/09/2025 11:58 AM EDT 05/09/2025 12:09 PM EDT us Fani Marr MD LAB BLOOD ORDERABLES Final Resul t Performing Organization Address [facility]/ZIP Co de Phone Number [facility] [address] [place] [address], [place] [phone] * Lipase (05/09/2025 11:58 AM EDT) Lipase 33 13 - 75 unit/L LAB CHEMISTRY METHOD 05/09/2025 12:33 PM EDT [facility] Blood Venous blood specimen / Unknown Venipuncture / Unknown 05/09/2025 11:58 AM EDT 05/09/2025 12:09 PM EDT us Fani Marr MD LAB BLOOD ORDERABLES Final Resul t Performing Organization Address [facility]/ZIP Co de Phone Number [facility] [address] [place] [address], [place] [phone] * (ABNORMAL) Comprehensive metabolic panel (05/09/2025 11:58 AM EDT) Sodium 130(L) 133 - 145 mmol/L LAB CHEMISTRY METHOD 05/09/2025 12:42 PM EDT [facility] Potassium 3.1(L) 3.5 - 5.5 mmol/L LAB CHEMISTRY METHOD 05/09/2025 12:42 PM EDT [facility] Chloride 86(L) 96 - 110 mmol/L LAB CHEMISTRY METHOD 05/09/2025 12:42 PM EDT [facility] CO2 30 21 - 32 mmol/L LAB CHEMISTRY METHOD 05/09/2025 12:42 PM EDT [facility] Anion Gap 14(H) 3 - 11 LAB CHEMISTRY METHOD 05/09/2025 12:42 PM [facility] Glucose 108(H) 70 - 100 mg/dL LAB CHEMISTRY METHOD 05/09/2025 12:42 PM [facility] BUN 38(H) 5 - 25 mg/dL LAB CHEMISTRY METHOD 05/09/2025 12:42 PM [facility] Comment:Results verified by repeat testing Creatinine 1.58(H) 0.50 - 1.10 mg/dL LAB CHEMISTRY METHOD 05/09/2025 12:42 PM [facility] eGFR 42(L) >=60 mL/min/1. 73m2 LAB CHEMISTRY METHOD 05/09/2025 12:42 PM [facility] Comment:Calculation based on the Chronic Kidney Disease Epidemiology Collaboration (CKD-EPI) equation refit without adjustment for race. BUN/Creatinine Ratio 24.1 LAB CHEMISTRY METHOD 05/09/2025 12:42 PM [facility] Calcium 10.4 8.5 - 10.5 mg/dL LAB CHEMISTRY METHOD 05/09/2025 12:42 PM [facility] AST (SGOT) 24 10 - 42 unit/L LAB CHEMISTRY METHOD 05/09/2025 12:42 PM [facility] ALT (SGPT) 22 10 - 60 unit/L LAB CHEMISTRY METHOD 05/09/2025 12:42 PM [facility] Alkaline Phosphatase 88 42 - 121 unit/L LAB CHEMISTRY METHOD 05/09/2025 12:42 PM [facility] Total Protein 8.8(H) 6.0 - 8.0 g/dL LAB CHEMISTRY METHOD 05/09/2025 12:42 PM [facility] Albumin 4.7 3.2 - 5.0 g/dL LAB CHEMISTRY METHOD 05/09/2025 12:42 PM [facility] Total Bilirubin 1.0 0.0 - 1.4 mg/dL LAB CHEMISTRY METHOD 05/09/2025 12:42 PM EDT [facility] Blood Venous blood specimen / Unknown Venipuncture / Unknown 05/09/2025 11:58 AM EDT 05/09/2025 12:09 PM EDT us Fani Marr MD LAB BLOOD ORDERABLES Final Resul t [facility] [address] [place] [address], * ECG 12 lead (05/09/2025 10:08 AM EDT) Ventricular Rate ECG 105 BPM GEMUSE Atrial Rate 105 BPM GEMUSE P-R Interval 130 ms GEMUSE QRS Duration 78 ms GEMUSE Q-T Interval 414 ms GEMUSE QTc 547 ms GEMUSE P Wave [place] 74 degrees GEMUSE R [place] 70 degrees GEMUSE T [place] 54 degrees GEMUSE ECG Interpretation Sinus tachycardia Biatrial enlargement Prolonged QT Abnormal ECG When compared with ECG of 05-JAN-2025 19:40, QT has lengthened Confirmed by [place], LYNN ([id number]) on 05/09/2025 3:19:04 PM GEMUSE 05/09/2025 10:0 8 AM EDT 05/09/2025 3:19 PM EDT Fani Marr MD ECG ORDERABLES Final Result Performing Organization Address City/[facility]/ZIP Co de Phone Number GEMUSE from Last 3 Months Insurance MEDICAID - [place] [facility] MEDIC[facility] Member Subscriber Plan / Payer (Ef fective 2024-Present) Name:STACEY BENOIT Relation to Subscriber:Self Name:Stacey Benoit Payer ID:[id number] Group ID:[id number] Type:Not on file Address: [address] [place] [address] Care Teams Card Grinder Helper Relationship Specialty Start Date End Date Zonia Black MD [address] [facility] , [address] [facility] D/B/A: [facility] SHAHZAD Phillips PCP - General Internal Medicine 07/28/19
== END 2025-06-25 09:45 | disposition home or self-care (01) ==
LOC: HO.HMCH 08:43
PROVIDERS: PCP Internal Medicine; Visit Provider Internal Medicine
DX: E06.3 Autoimmune thyroiditis (principal); K21.9 Gastro-esophageal reflux disease without esophagitis; D50.0 Iron deficiency anemia secondary to blood loss (chronic); M54.2 Cervicalgia; M54.50 Low back pain, unspecified; M54.6 Pain in thoracic spine; M79.642 Pain in left hand; M79.671 Pain in right foot; M79.672 Pain in left foot; R20.2 Paresthesia of skin

== ENCOUNTER → 2025-06-25 08:42 | Outpatient (BNVA) | payer OTHER, SELFPAY | PROVIDERS: PCP Internal Medicine; Visit Provider Internal Medicine | DX: E06.3 Autoimmune thyroiditis (principal); K21.9 Gastro-esophageal reflux disease without esophagitis; M54.2 Cervicalgia; M79.642 Pain in left hand; M79.641 Pain in right hand; R20.0 Anesthesia of skin; R20.2 Paresthesia of skin; M54.6 Pain in thoracic spine; M54.50 Low back pain, unspecified; D50.0 Iron deficiency anemia secondary to blood loss (chronic); M79.671 Pain in right foot; M79.672 Pain in left foot | CPT/HCPCS: 96127; 99212 ==

== ENCOUNTER 2025-07-01 08:32 | Outpatient (REF) | payer OTHER, SELFPAY ==
--- NOTE | ~2025-07-01 | XR_ITS ---
Exam: XR HAND 3 VIEWS BILATERAL, bilateral hand x-rays TECHNIQUE: AP, lateral, and ball-catcher views upper extremity, bilateral hands INDICATION: M79.641 - Pain in right hand COMPARISON: November 28, 2023 FINDINGS: RIGHT HAND: There is normal bone mineral density. Joint spaces are preserved. There is no bony proliferative change. There is focal osteopenia involving neck region of the fifth metacarpal on the ball-catcher's view. There is a marginal osteophyte involving the fifth metacarpal head. LEFT HAND: There is normal bone mineral density. Joint spaces are preserved. Small marginal osteophytes are noted involving the first metacarpal head. No erosions are identified. XR/XR Hand Bilat min 3v IMPRESSION: Right hand: Mild osteophyte formation noted at the first metacarpal head. Questionable early erosion in the bare area of the fifth metacarpal neck region, seen on the ball-catcher's view Left hand: Mild osteophyte formation noted at the first metacarpal head Electronically signed by: Dc Ham MD 07/01/2025 09:58 AM EDT
--- NOTE | ~2025-07-01 | XR_ITS ---
EXAMINATION: XR LUMBOSACRAL SPINE CLINICAL INFORMATION: M54.50 - Low back pain, unspecified COMPARISON: September 07, 2024. TECHNIQUE: AP and lateral views. FINDINGS: There is a prominent left transverse processes of L5 articulating to the sacrum with sclerosis along the articular surface. Decreased intervertebral disc height at L4-5 and L5-S1. Mild levoconvex curvature of the upper lumbar spine. No lytic or blastic lesions. No acute cortical disruption. No gross malalignment. 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 Electronically signed by: Azam Shen MD 07/01/2025 09:37 AM EDT
--- NOTE | ~2025-07-01 | XR_ITS ---
EXAMINATION: XR CERVICAL SPINE CLINICAL INFORMATION: M54.2 - Cervicalgia COMPARISON: January 29, 2024. TECHNIQUE: AP lateral and atlantoodontoid views. FINDINGS: Craniocervical junction is intact. Endplate sclerosis marginal osteophyte formation and decreased intervertebral disc height from C4 to C7 pronounced at C6-7. Reverse curvature apex at C5-6. Probable grade 1 retrolisthesis on a degenerative basis, C6-7. No acute cortical disruption. No lytic or blastic lesions. [place] tail overlapping the atlantoodontoid view on the AP view. XR/XR cervical spine 2V IMPRESSION: Multilevel cervical spondylosis C4 C7 pronounced at C6-7 resulting in grade 1 retrolisthesis and reverse curvature. Electronically signed by: Azam Shen MD 07/01/2025 09:34 AM EDT
--- NOTE | ~2025-07-01 | XR_ITS ---
Exam: Three-view bilateral feet. INDICATION: Foot pain, right COMPARISON: None FINDINGS: Right foot: Joint spaces are preserved. There is hallux valgus deformity. There are small osteophytes involving the medial first MTP joint. No definite erosions are evident. There is a bipartite medial sesamoid of the first metatarsal. Left foot: There is mild hallux valgus deformity. There are minute osteophytes involving medial first MTP joint. Joint spaces are preserved. No abnormalities are evident. XR/XR Foot Brian 3V IMPRESSION: Hallux valgus deformity with early osteoarthritis involving first MTP joints, right greater than left. Electronically signed by: Dc Ham MD 07/01/2025 10:00 AM EDT
--- NOTE | ~2025-07-01 | XR_ITS ---
EXAMINATION: XR THORACIC SPINE CLINICAL INFORMATION: M54.6 - Pain in thoracic spine COMPARISON: Prior dated June 10, 2008 is not available on PACS. Correlated to chest x-ray dated January 29, 2024 TECHNIQUE: AP lateral and swimmer's projection. FINDINGS: S-shaped curvature of the thoracic spine with a dextroconvex morphology. No acute cortical disruption or gross malalignment. Mild endplate sclerosis decreased intervertebral disc height and small marginal osteophyte formation pronounced in the mid portion of the spine. No lytic or blastic lesions. XR/XR thoracic spine 2V IMPRESSION: Dextroconvex scoliosis, mild to moderate and multilevel spondylosis. Electronically signed by: Azam Shen MD 07/01/2025 09:35 AM EDT
--- OUTSIDE RECORDS SUMMARY | 2025-07-01 09:04 | XMS_ITS | Clinical Summary ---
Author Organization [employer] Address [address] [facility] [address] [place] [address] Care Team Providers Care Door Operator Name Role Phone Unavailable Primary Care Provider Unavailabl e Allergies Active Allergy Reactions Criticality Noted Date Comments Metoclopramide 01/29/2023 Other reaction(s): [D]Nausea and vomiting Prochlorperazine 01/29/2023 Medications calcitriol (Rocaltrol) 0.5 MCG capsule 3 Active docusate sodium (Colace) 100 MG capsule 3 Active doxycycline (Vibra-Tabs) 100 MG tablet Take 100 mg by mouth 2 times daily. 2 Active ergocalciferol (Vitamin D2) 1.25 MG (66657 UT) capsule 2 Active FeroSul 325 (65 [...] Health Maintenance Insurance [facility]AL - [facility]
--- OUTSIDE RECORDS SUMMARY | 2025-07-01 09:04 | XMS_ITS | Clinical Summary ---
Author Organization [facility] Address [address] [place] [address] Phone Care Team Providers Care Hedis Specialist Name Role Phone Zonia Black MD Primary Care Provider [phone] Allergies Active Allergy Reactions Criticality Noted Date [...] EDT - 06/02/2025 5:06 PM EDT Emergency [facility] Emergency [address] [place] [phone] Chris Palafox MD Chronic gastric ulcer, unspecified whether gastric ulcer hemorrhage or perforation present (Primary Dx) Discharge Disposition: Home or Self Care 05/09/2025 11:32 AM EDT - 05/09/2025 5:19 PM EDT Emergency [facility] Emergency [address] [place] [address] Fani Marr MD Vomiting and diarrhea (Primary Dx); Hypokalemia; DIANA (acute kidney injury) ([facility] V24) Discharge Disposition: Home or Self Care [...] 10/01/2022 Social Influencers of Health Screening 10/01/2022 Depression Screening 10/29/2024 COVID-19 Vaccine (4 - 2024-2 6 season) 2025 10/13/2021, 03/12/2021, 02/18/2021 Influenza Vaccine (#1) 2025 09/11/2024 DTaP,Tdap,and Td [...] of2 resultswithin the time period is included. [facility] LACTIC ACID 1.7 0.4 - 2.0 mmol/L LAB CHEMISTRY METHOD 05/09/2025 4:08 PM EDT [facility] Blood Venous blood specimen / Unknown Venipuncture / Unknown 05/09/2025 3:30 PM EDT 05/09/2025 3:39 PM EDT Fani Marr MD LAB BLOOD ORDERABLES Final Resul t [facility] [address] [place] [address], * (ABNORMAL) CBC auto differential (05/09/2025 11:58 AM EDT) [facility] WBC 11.8(H) 4.8 - 10.8 K/mcL LAB HEMETOLOGY METHOD 05/09/2025 12:17 PM EDT [facility] RBC 5.40(H) 3.80 - 4.80 M/mcL LAB HEMETOLOGY METHOD 05/09/2025 12:17 PM EDT [facility] Hemoglobin 10.9(L) 11.5 - 16.0 g/dL LAB HEMETOLOGY METHOD 05/09/2025 12:17 PM EDT [facility] Hematocrit 37.2 35.0 - 47.0 % LAB HEMETOLOGY METHOD 05/09/2025 12:17 PM EDT [facility] MCV 68.9(L) 79.0 - 98.0 FL LAB HEMETOLOGY METHOD 05/09/2025 [facility] MCH 20.2(L) 27.0 - 32.0 pcg LAB HEMETOLOGY METHOD 05/09/2025 12:17 PM [facility] MCHC 29.3(L) 32.0 - 37.0 g/dL LAB HEMETOLOGY METHOD 05/09/2025 12:17 PM [facility] RDW 20.2(H) 11.0 - 15.0 % LAB HEMETOLOGY METHOD 05/09/2025 12:17 PM [facility] Platelets 824(H) 130 - 400 K/mcL LAB HEMETOLOGY METHOD 05/09/2025 12:17 PM [facility] MPV 8.8 7.0 - 11.0 FL LAB HEMETOLOGY METHOD 05/09/2025 12:17 PM [facility] NRBC 0.0 <1.0 % LAB HEMETOLOGY METHOD 05/09/2025 12:17 PM [facility] NRBC Absolute 0.00 <0.10 K/mcL LAB HEMETOLOGY METHOD 05/09/2025 12:17 PM [facility] Neutrophils Relative 61.2 % LAB HEMETOLOGY METHOD 05/09/2025 12:17 PM [facility] Lymphocytes Relative 24.3 % LAB HEMETOLOGY METHOD 05/09/2025 12:17 PM [facility] Monocytes Relative 13.4 % LAB HEMETOLOGY METHOD 05/09/2025 12:17 PM [facility] Eosinophils Relative 0.1 % LAB HEMETOLOGY METHOD 05/09/2025 12:17 PM [facility] Basophils Relative 0.7 % LAB HEMETOLOGY METHOD 05/09/2025 12:17 PM EDT [facility] Immature Granulocytes Relative 0.3 % LAB HEMETOLOGY METHOD 05/09/2025 12:17 PM EDT [facility] Neutrophils Absolute 7.25(H) 1.50 - 7.00 K/mcL LAB HEMETOLOGY METHOD 05/09/2025 12:17 PM EDT [facility] Lymphocytes Absolute 2.87 1.00 - 5.00 K/mcL LAB HEMETOLOGY METHOD 05/09/2025 12:17 PM EDT [facility] Monocytes Absolute 1.58(H) 0.20 - 1.00 K/mcL LAB HEMETOLOGY METHOD 05/09/2025 12:17 PM EDT [facility] Eosinophils Absolute 0.01 0.00 - 0.50 K/mcL LAB HEMETOLOGY METHOD 05/09/2025 12:17 PM EDT [facility] Basophils Absolute 0.08 0.00 - 0.20 K/mcL LAB HEMETOLOGY METHOD 05/09/2025 12:17 PM EDT [facility] Immature Granulocytes Absolute 0.04(H) 0.00 - 0.03 K/mcL LAB HEMETOLOGY METHOD 05/09/2025 12:17 PM T [facility] Blood Venous blood specimen / Unknown Venipuncture / Unknown 05/09/2025 11:58 AM EDT 05/09/2025 12:09 PM EDT us Fani Marr MD LAB BLOOD ORDERABLES Final Resul t [facility] [address] [place] [address], * Magnesium (05/09/2025 11:58 AM EDT) Magnesium 2.1 1.9 - 2.6 mg/dL LAB CHEMISTRY METHOD 05/09/2025 12:33 PM EDT [facility] Blood Venous blood specimen / Unknown Venipuncture / Unknown 05/09/2025 11:58 AM EDT 05/09/2025 12:09 PM EDT us Fani Marr MD LAB BLOOD ORDERABLES Final Resul t Performing Organization Address [facility]/ZIP Co de Phone Number [facility] [address] [place] [address], [place] [phone] * Lipase (05/09/2025 11:58 AM EDT) Lipase 33 13 - 75 unit/L LAB CHEMISTRY METHOD 05/09/2025 12:33 PM EDT [facility] Blood Venous blood specimen / Unknown Venipuncture / Unknown 05/09/2025 11:58 AM EDT 05/09/2025 12:09 PM EDT us Fani Marr MD LAB BLOOD ORDERABLES Final Resul t Performing Organization Address [facility]/ZIP Co de Phone Number [facility] [address] [place] [address], [place] [phone] * (ABNORMAL) Comprehensive metabolic panel (05/09/2025 11:58 AM EDT) Sodium 130(L) 133 - 145 mmol/L LAB CHEMISTRY METHOD 05/09/2025 12:42 PM EDT [facility] Potassium 3.1(L) 3.5 - 5.5 mmol/L LAB CHEMISTRY METHOD 05/09/2025 12:42 PM EDT [facility] Chloride 86(L) 96 - 110 mmol/L LAB CHEMISTRY METHOD 05/09/2025 12:42 PM EDT [facility] CO2 30 21 - 32 mmol/L LAB CHEMISTRY METHOD 05/09/2025 12:42 PM EDT [facility] Anion Gap 14(H) 3 - 11 LAB CHEMISTRY METHOD 05/09/2025 12:42 PM [facility] Glucose 108(H) 70 - 100 mg/dL LAB CHEMISTRY METHOD 05/09/2025 12:42 PM [facility] BUN 38(H) 5 - 25 mg/dL LAB CHEMISTRY METHOD 05/09/2025 12:42 PM [facility] Comment:Results verified by repeat testing Creatinine 1.58(H) 0.50 - 1.10 mg/dL LAB CHEMISTRY METHOD 05/09/2025 12:42 PM [facility] eGFR 42(L) >=60 mL/min/1. 73m2 LAB CHEMISTRY METHOD 05/09/2025 12:42 PM [facility] Comment:Calculation based on the Chronic Kidney Disease Epidemiology Collaboration (CKD-EPI) equation refit without adjustment for race. BUN/Creatinine Ratio 24.1 LAB CHEMISTRY METHOD 05/09/2025 12:42 PM [facility] Calcium 10.4 8.5 - 10.5 mg/dL LAB CHEMISTRY METHOD 05/09/2025 12:42 PM [facility] AST (SGOT) 24 10 - 42 unit/L LAB CHEMISTRY METHOD 05/09/2025 12:42 PM [facility] ALT (SGPT) 22 10 - 60 unit/L LAB CHEMISTRY METHOD 05/09/2025 12:42 PM [facility] Alkaline Phosphatase 88 42 - 121 unit/L LAB CHEMISTRY METHOD 05/09/2025 12:42 PM [facility] Total Protein 8.8(H) 6.0 - 8.0 g/dL LAB CHEMISTRY METHOD 05/09/2025 12:42 PM [facility] Albumin 4.7 3.2 - 5.0 g/dL LAB CHEMISTRY METHOD 05/09/2025 12:42 PM [facility] Total Bilirubin 1.0 0.0 - 1.4 mg/dL LAB CHEMISTRY METHOD 05/09/2025 12:42 PM EDT [facility] Blood Venous blood specimen / Unknown Venipuncture / Unknown 05/09/2025 11:58 AM EDT 05/09/2025 12:09 PM EDT us Fani Marr MD LAB BLOOD ORDERABLES Final Resul t [facility] [address] [place] [address], * ECG 12 lead (05/09/2025 10:08 AM EDT) Ventricular Rate ECG 105 BPM GEMUSE Atrial Rate 105 BPM GEMUSE P-R Interval 130 ms GEMUSE QRS Duration 78 ms GEMUSE Q-T Interval 414 ms GEMUSE QTc 547 ms GEMUSE P Wave [place] 74 degrees GEMUSE R [place] 70 degrees GEMUSE T [place] 54 degrees GEMUSE ECG Interpretation Sinus tachycardia Biatrial enlargement Prolonged QT Abnormal ECG When compared with ECG of 05-JAN-2025 19:40, QT has lengthened Confirmed by [place], LYNN ([id number]) on 05/09/2025 3:19:04 PM GEMUSE 05/09/2025 10:0 8 AM EDT 05/09/2025 3:19 PM EDT Fani Marr MD ECG ORDERABLES Final Result Performing Organization Address City/[facility]/ZIP Co de Phone Number GEMUSE from Last 3 Months Insurance [place] - [place] [facility] MEDICARE Member Subscriber Plan / Payer (Ef fective 2024-Present) Name:STACEY BENOIT Relation to Subscriber:Self Name:Stacey Benoit Payer ID:[id number] Group ID:[id number] Type:Not on file Address: [address] [place] [phone] Care Teams Hedis Specialist Relationship Specialty Start Date End Date Zonia Black MD [address] [facility] , [address] [facility] D/B/A: [facility] SHAHZAD Phillips PCP - General Internal Medicine 07/28/19
--- OUTSIDE RECORDS SUMMARY | 2025-07-01 09:04 | XMS_ITS | Encounter Summary ---
Author Organization [facility] Address [address] [facility] [address] [place] [address] Care Team Providers Care Supervisor Last Model Department Name Role Phone Unavailable Primary Care Provider Unavailabl e Encounter Details Date Type Department Care Team (Late st Contact Info) Description 02/20/2023 Abstract [facility] [address] [place] [address] Bonita Sosa DDS [address] [place] [address] Social History Tobacco Use Types Packs/Day Years [...]
--- OUTSIDE RECORDS SUMMARY | 2025-07-01 09:04 | XMS_ITS | Encounter Summary ---
Author Organization [employer] [facility] Address [address] [place] [address] Care Team Providers Care Novelty Balloon Assembler And Packer Name Role Phone Unavailable Primary Care Provider Unavailabl e Encounter Details Date Type Department Care Team (Latest Contact Info) Description 11/22/2018 Abstract [facility] CONVERSIONS Dental, Provider, DDS Social [...]
--- OUTSIDE RECORDS SUMMARY | 2025-07-01 09:04 | XMS_ITS | Encounter Summary ---
Author Organization [employer] [facility] Address [address] [facility] [address] [place] [address] Care Team Providers Care Shoe Sprayer Name Role Phone Unavailable Primary Care Provider Unavailabl e Encounter Details Date Type Department Care Team (Late st Contact Info) Description 07/03/2023 Abstract [facility] [address] [place] [address] Joaquim Jackson, SAE [address] [place] [address] Social History Tobacco Use Types Packs/Day Years [...]
[2025-07-01 09:46] LABS: MANUAL DIFF FLAG NO
[2025-07-01 10:11] LABS: Hematocrit 27.7 % (37.0-47.0); Hemoglobin 7.8 g/dl (12.0-16.0); Imm Gran Abs Auto 0.01 X10*3/uL (0.00-0.03); Imm Gran Pct Auto 0.2 % (0.0-0.4); Lymphocytes Absolute Auto 2.5 X10*3/uL (1.2-4.9); Mean Corpuscular HGB Conc 28.2 g/dl (31.0-35.0); Mean Corpuscular Hemoglobin 20.0 pg (27.0-33.0); Mean Corpuscular Volume 71.0 fL (80.0-98.0); NRBC Abs Auto 0.000 X10*3/uL (0.0-0.012); NRBC Pct Auto 0.0 /100WBC (0.0-0.2); Platelet Count 521 X10*3/uL (160-400); Red Blood Count 3.90 X10*6/uL (4.20-5.50); White Blood Count 5.7 X10*3/uL (4.8-10.8)
[2025-07-01 11:03] LABS: Alanine Aminotransferase 11 U/L (0-31); Albumin Level 4.5 g/dL (3.5-5.0); Alkaline Phosphatase 76 U/L (39-117); Anion Gap 13 (12-20); Aspartate Amino Transferase 27 U/L (5-31); Blood Urea Nitrogen 10 mg/dL (9-16); Calcium 9.1 mg/dL (8.4-10.2); Carbon Dioxide 25 mmol/L (22-29); Chloride 106 mmol/L (96-108); Cholesterol 147 mg/dL (<200); Estimated Glomerular Filt Rate > 60; HDL Cholesterol 64 mg/dL (>40); Iron 14 mcg/dL (30-160); Percent Iron Saturation 3 % (15-50); Potassium 3.7 mmol/L (3.3-5.1); Sodium 140 mmol/L (135-145); Total Iron Binding Capacity 465 mcg/dL (228-428); Total Protein 7.5 g/dL (6.5-8.0); Triglycerides 50 mg/dL (<150); Unsaturated Iron Binding 451 ug/dL
[2025-07-01 11:05] LABS: Thyroid Stimulating Hormone 6.89 uIU/mL (0.32-4.0)
[2025-07-01 11:24] LABS: Folate 6.7 ng/mL (> or = 4.0); Vitamin B12 514 pg/mL (200-900)
== END 2025-07-01 08:33 | disposition home or self-care (01) ==
LOC: HO.XRAY 08:32
PROVIDERS: PCP Internal Medicine; Visit Provider Internal Medicine
DX: Z00.00 Encounter for general adult medical examination without abnormal findings (principal); I10 Essential (primary) hypertension; M54.2 Cervicalgia; M54.6 Pain in thoracic spine; M79.641 Pain in right hand; M79.671 Pain in right foot; M54.50 Low back pain, unspecified; D64.9 Anemia, unspecified; E06.3 Autoimmune thyroiditis; E78.5 Hyperlipidemia, unspecified; E55.9 Vitamin D deficiency, unspecified; E53.8 Deficiency of other specified B group vitamins
CPT/HCPCS: 36415; 72040; 72070; 72100; 73130; 73630; 80053; 80061; 82306; 82607; 82746; 83540; 84443; 85025

== ENCOUNTER → 2025-07-01 08:38 | Outpatient (BNV) | payer OTHER, SELFPAY | PROVIDERS: PCP Internal Medicine; Visit Provider Radiology Diagnostic Radiology | DX: M43.12 Spondylolisthesis, cervical region (principal); M54.50 Low back pain, unspecified; M47.814 Spondylosis without myelopathy or radiculopathy, thoracic region; M25.741 Osteophyte, right hand; M20.11 Hallux valgus (acquired), right foot | CPT/HCPCS: 72040; 72070; 72100; 73130; 73630 ==

== ENCOUNTER 2025-07-21 12:48 | Outpatient (AMB) | payer OTHER, SELFPAY ==
[2025-07-21 13:19] VITALS: BMI 29.0
--- NOTE | 2025-07-21 13:19 | MHC.OFFVIS ---
Vital Signs 07/21/25 13:19 Height 5 ft 5 in Weight 174 lb BMI 29.0 Intake Visit Reasons: Bilateral foot pain Intake Note: Stacey is a 39 year old female who presents to the office today as a new patient visit referred by her PCP Dr. Torres for bilateral foot pain. She mentions she has had the pain for about 4-5 years and is located through out the whole feet. She describes the pain as a burning sensation and numbness that runs up her leg. FINDINGS: Right foot: Joint spaces are preserved. There is hallux valgus deformity. There are small osteophytes involving the medial first MTP joint. No definite erosions are evident. There is a bipartite medial sesamoid of the first metatarsal. Left foot: There is mild hallux valgus deformity. There are minute osteophytes involving medial first MTP joint. Joint spaces are preserved. No abnormalities are evident. IMPRESSION: Hallux valgus deformity with early osteoarthritis involving first MTP joints, right greater than left. Allergies metoclopramide (From REGLAN) Allergy (Mild, Verified 07/21/25 13:20) MAKES ME COLD prochlorperazine (From Compazine) Allergy (Mild, Verified 07/21/25 13:20) RASH, gets cold famotidine (Pepcid) Adverse Reaction (Mild, Verified 07/21/25 13:20) loss of appetite Medication List - Last Reconciled 07/21/25 by Regina Thompson DPM albuterol sulfate 90 mcg/actuation (Ventolin HFA) 2 puffs inhalation Q6H PRN 30 days cholecalciferol (vitamin D3) 25 mcg PO DAILY 90 days diclofenac sodium 1% (Voltaren Arthritis Pain) 4 grams topical QID gabapentin 400 mg PO TID 30 days levothyroxine (Synthroid) 50 mcg PO DAILY 90 days omeprazole 20 mg PO DAILY 30 days ondansetron 4 mg PO Q8H PRN potassium chloride 20 mEq (15 mL) PO DAILY sucralfate 1 g PO QID 30 days tizanidine 2 mg PO TID PRN HPI Comments Details: The patient is a 40-year-old female with a past medical history as seen below presenting with bilateral foot pain. The pain has been persistent for several years and has worsened over time, particularly with walking and wearing high heels, which she has since stopped due to increased discomfort. She reports that the pain is exacerbated by pressure and certain movements, and she experiences numbness and tingling, particularly at night and during walking. The patient has a history of arthritis, which may be contributing to her symptoms. Her lifestyle includes regular walking, which she continues despite the pain, and she has made footwear adjustments to alleviate symptoms. She denies any inciting injuries. She denies any other pedal concerns. She denies any current nausea vomiting fever or chills. [facility] Medical History (Updated 07/21/25 @ 14:38 by Regina Thompson DPM) Radiculopathy Paresthesia of both lower extremities Hammertoe, bilateral Hallux abducto valgus, bilateral Arthritis of first metatarsophalangeal (MTP) joints of both feet Hyperemesis affecting , antepartum test positive Moderate recurrent major depression Hypercalcemia Goiter Throat pain Pain in mandible Pain of right clavicle Dyspnea Hypothyroidism Polyarthralgia Moderate recurrent major depression Cyclic vomiting syndrome Renal calculi Iron deficiency anemia due to chronic blood loss Chest pain Shortness of breath Iron deficiency anemia due to chronic blood loss Hx of History of back pain Hx of iron deficiency anemia Hx of migraines Anxiety History of bipolar disorder Chest pain Menorrhagia Hypokalemia Marijuana use, continuous Syphilis contact, treated Numbness of foot GERD (gastroesophageal reflux disease) Anemia Depression Surgical History Hx of esophagogastroduodenoscopy Hx of colonoscopy History of dilation and curettage Family History Mother HTN (hypertension) Maternal Grandmother HTN (hypertension) Maternal Uncle HTN (hypertension) Maternal Aunt Diabetes mellitus Family/Other Mental health disorder Substance use disorder Father Cancer Social History Household Members: None Housing: Apartment Are you a primary primary care md to a significant other at home: No Do you presently have visiting nurse or other home services: No Alcohol intake: never Patient Tobacco Use Status: Former Tobacco user Tobacco use type: Cigarette Cigarette Packs Per Day: 0.25 Years Smoked: 15 e-Cigarette/Vaping Use: Never Used Second Hand Smoke Exposure: No Substance Use Type: Marijuana service: No Current occupational status: unemployed Cognitive needs: No Hearing needs: No Vision needs: No Female Reproductive History Menstrual Age of Menarche: 12 Review of Systems Const Details: - Musculoskeletal: Reports chronic bilateral foot pain, exacerbated by walking and wearing certain shoes. Denies recent injuries to the feet or legs. - Neurological: Reports numbness and tingling in the lower extremities, particularly at night and during walking. All systems reviewed & are unremarkable except as noted in HPI and below Physical Exam Vital Signs: BMI result Body Mass Index 29.0 Extrem Other: Bilateral lower extremity focused physical exam: Derm: No open lesions abrasions or wounds noted. Skin supple and turgor within normal limits. No clinical signs of infection. No ecchymosis or erythema noted. Vascular: DP/PT pulses palpable. Capillary refill time less than 3 seconds. Temperature gradient warm to warm. Pedal hair absent. Mild edema noted to the medial prominences of bilateral 1st MPJs. Neuro: Protective sensation is grossly intact, patient experiences intermittent numbness and tingling to the lateral aspects of the lower extremities with burning noted as well. MSK: Tracking Hallux abductovalgus noted bilaterally worse to the right with a palpable medial prominence. Pain on palpation to the medial prominences of the 1st MPJs bilaterally, worse to the right. Pain with range of motion of the 1st MPJs bilaterally. No crepitus noted. Reducible Hammertoe deformities noted to 2nd through 5th toes bilaterally. In-toeing noted bilaterally. Mild antalgic gait unassisted noted. Results Reviewed Results Reviewed: Podiatry read of bilateral foot x-rays (07/01/2025): Left-mild hallux abducto valgus noted with minimal joint space narrowing noted to the 1st MPJ. First IM angle noted to be approximately 14 degrees. Hammertoe deformities noted to toes 2 through 5. Minimal osteophytic changes noted to the 1st MPJ. Right-mild hallux abductovalgus noted, worse to the right foot than left foot. Minimal joint space narrowing noted to the 1st MPJ with mild osteophytic changes. Bipartite medial sesamoid. First IM angle noted to be approximately 14 degrees. Hammertoe deformities noted to 2nd through 5th toes. No acute fractures or dislocations noted bilaterally. Bilateral foot x-rays (07/01/2025): FINDINGS: Right foot: Joint spaces are preserved. There is hallux valgus deformity. There are small osteophytes involving the medial first MTP joint. No definite erosions are evident. There is a bipartite medial sesamoid of the first metatarsal. Left foot: There is mild hallux valgus deformity. There are minute osteophytes involving medial first MTP joint. Joint spaces are preserved. No abnormalities are evident. IMPRESSION: Hallux valgus deformity with early osteoarthritis involving first MTP joints, right greater than left. Assessment & Plan Assessment & Plan (1) Pain in both feet: Code(s): M79.671 - Pain in right foot; M79.672 - Pain in left foot Category: Medical (2) Arthritis of first metatarsophalangeal (MTP) joints of both feet: Code(s): M19.071 - Primary osteoarthritis, right ankle and foot; M19.072 - Primary osteoarthritis, left ankle and foot Category: Medical (3) Hallux abducto valgus, bilateral: Code(s): M20.11 - Hallux valgus (acquired), right foot; M20.12 - Hallux valgus (acquired), left foot Category: Medical (4) Hammertoe, bilateral: Code(s): M20.41 - Other hammer toe(s) (acquired), right foot; M20.42 - Other hammer toe(s) (acquired), left foot Category: Medical (5) Paresthesia of both lower extremities: Code(s): R20.2 - Paresthesia of skin Category: Medical (6) Radiculopathy: Code(s): M54.10 - Radiculopathy, site unspecified Category: Medical Plan Patient was informed and verbally consented to the use of an ambient scribe for clinic note documentation during this visit. I discussed with the patient the nature of her foot conditions, including bunions, hammertoes, and arthritis, and the associated nerve-related pain (radiculopathy). We reviewed the x-ray findings, which confirmed the presence of these conditions without fractures. I explained the conservative management options, including the use of Voltaren Gel, bunion/toe sleeves, and appropriate footwear/insoles. We also discussed the potential for surgical intervention if conservative measures do not provide sufficient relief. I emphasized the importance of trying non-surgical options first and scheduled a follow-up appointment in one month to reassess her condition and discuss further management options if necessary. 1. B/L HAV, 1st MPJ arthritis, and hammertoes - Prescribed Voltaren Gel for arthritic pain management. - Recommended bunion/toe sleeves for cushioning and protection. - Recommended use of James's Extension if pain worsens. - Advised the use of wide toed shoes with good support and consider silicone toe sleeves to alleviate pressure on the bunions and hammertoes. - Discussed the potential for surgical intervention if conservative measures fail to alleviate symptoms, emphasizing the importance of trying non-surgical options first. 2. B/L LE Paresthesias (Radiculopathy) - Continue to monitor symptoms. - Continue taking gabapentin as directed. Patient is to follow up in 1 month to re-evaluate symptoms. Medications: New diclofenac sodium 1% (Voltaren Arthritis Pain) apply to single elbow, wrist or hand; for hand includes palm/fingers/back of hand 4 grams topical QID 50 grams 0RF B/L bunions and arthritis M19.071 - Primary osteoarthritis, right ankle and foot, M19.072 - Primary osteoarthritis, left ankle and foot, M79.671 - Pain in right foot, M79.672 - Pain in left foot Coding Level of Care Code New Pt Level 4 (32338) Diagnoses Pain in both feet M79.671; M79.672 Arthritis of first metatarsophalangeal (MTP) joints of both feet M19.071; M19.072 Hallux abducto valgus, bilateral M20.11; M20.12 Hammertoe, bilateral M20.41; M20.42 Paresthesia of both lower extremities R20.2 Radiculopathy M54.10 Time Spent (min) 55
--- OUTSIDE RECORDS SUMMARY | 2025-07-21 15:41 | XMS_ITS | Clinical Summary ---
Author Organization [employer] Address [address] [facility] [address] [place] [address] Care Team Providers Care Bung Remover Name Role Phone Unavailable Primary Care Provider Unavailabl e Allergies Active Allergy Reactions Criticality Noted Date Comments Metoclopramide 01/29/2023 Other reaction(s): [D]Nausea and vomiting Prochlorperazine 01/29/2023 Medications calcitriol (Rocaltrol) 0.5 MCG capsule 3 Active docusate sodium (Colace) 100 MG capsule 3 Active doxycycline (Vibra-Tabs) 100 MG tablet Take 100 mg by mouth 2 times daily. 2 Active ergocalciferol (Vitamin D2) 1.25 MG (25916 UT) capsule 2 Active FeroSul 325 (65 [...] 09/10/2023 03/09/2023 Dental X-Ray: Bitewings 02/21/2024 02/19/2023 Tobacco Screening 08/27/2024 08/27/2023 COVID-19 Vaccine (4 - 2024-2 6 season) 2025 10/13/2021, 03/12/2021, 02/18/2021 Influenza Vaccine (#1) 2025 09/11/2024 Dental X-Ray: [...] Relevant to Health Maintenance Insurance DENTAL - [facility]
--- OUTSIDE RECORDS SUMMARY | 2025-07-21 15:41 | XMS_ITS | Clinical Summary ---
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 30 each 5 07/02/20 25 Active Problems No known active problems Encounters Date Type Department Care Team Description 06/02/2025 4:43 PM EDT - 06/02/2025 5:06 PM EDT Emergency [facility] Emergency [address] [place] [address] Chris Palafox MD Chronic gastric ulcer, unspecified whether gastric ulcer hemorrhage or perforation present (Primary Dx) Discharge Disposition: Home or Self Care 05/09/2025 11:32 AM EDT - 05/09/2025 5:19 PM EDT Emergency [facility] Emergency [address] [place] [address] Fani Marr MD Vomiting and diarrhea (Primary Dx); Hypokalemia; DIANA (acute kidney injury) ([facility] V24) Discharge Disposition: Home or Self Care [...] 4:10 PM EDT Sexual Orientation Straight 01/05/2025 4: 10 PM EDT Obstetrics History Last Filed Vital [...] - Td or Tdap) 10/31/2034 10/31/2024, 03/26/2016 RSV Immunization Adult Patients (1 - 1-dose 75+ series) 2058 MMR Vaccines Aged Out 12/12/2021, 11/09/2021 No [...] of2 resultswithin the time period is included. [facility] LACTIC ACID 1.7 0.4 - 2.0 mmol/L LAB CHEMISTRY METHOD 05/09/2025 4:08 PM EDT [facility] Blood Venous blood specimen / Unknown Venipuncture / Unknown 05/09/2025 3:30 PM EDT 05/09/2025 3:39 PM EDT us Fani Marr MD LAB BLOOD ORDERABLES Final Resul t [facility] [address] [place] [address], * (ABNORMAL) CBC auto differential (05/09/2025 11:58 AM EDT) [facility] WBC 11.8(H) 4.8 - 10.8 K/mcL LAB HEMETOLOGY METHOD 05/09/2025 12:17 PM EDT [facility] RBC 5.40(H) 3.80 - 4.80 M/mcL LAB HEMETOLOGY METHOD 05/09/2025 12:17 PM EDT [facility] Hemoglobin 10.9(L) 11.5 - 16.0 g/dL LAB HEMETOLOGY METHOD 05/09/2025 12:17 PM EDT [facility] Hematocrit 37.2 35.0 - 47.0 % LAB HEMETOLOGY METHOD 05/09/2025 12:17 PM [facility] MCV 68.9(L) 79.0 - 98.0 FL LAB HEMETOLOGY METHOD 05/09/2025 12:17 PM [facility] MCH 20.2(L) 27.0 - 32.0 pcg LAB HEMETOLOGY METHOD 05/09/2025 12:17 PM [facility] MCHC 29.3(L) 32.0 - 37.0 g/dL LAB HEMETOLOGY METHOD 05/09/2025 12:17 PM [facility] RDW 20.2(H) 11.0 - 15.0 % LAB HEMETOLOGY METHOD 05/09/2025 12:17 PM [facility] Platelets 824(H) 130 - 400 K/mcL LAB HEMETOLOGY METHOD 05/09/2025 12:17 PM [facility] MPV 8.8 7.0 - 11.0 FL LAB HEMETOLOGY METHOD 05/09/2025 12:17 PM [facility] NRBC 0.0 <1.0 % LAB HEMETOLOGY METHOD 05/09/2025 12:17 PM [facility] NRBC Absolute 0.00 <0.10 K/mcL LAB HEMETOLOGY METHOD 05/09/2025 12:17 PM [facility] Neutrophils Relative 61.2 % LAB HEMETOLOGY METHOD 05/09/2025 12:17 PM [facility] Lymphocytes Relative 24.3 % LAB HEMETOLOGY METHOD 05/09/2025 12:17 PM [facility] Monocytes Relative 13.4 % LAB HEMETOLOGY METHOD 05/09/2025 12:17 PM [facility] Eosinophils Relative 0.1 % LAB HEMETOLOGY METHOD 05/09/2025 12:17 PM [facility] Basophils Relative 0.7 % LAB HEMETOLOGY METHOD 05/09/2025 12:17 PM EDT [facility] Immature Granulocytes Relative 0.3 % LAB HEMETOLOGY METHOD 05/09/2025 12:17 PM EDT [facility] Neutrophils Absolute 7.25(H) 1.50 - 7.00 K/mcL LAB HEMETOLOGY METHOD 05/09/2025 12:17 PM EDT [facility] Lymphocytes Absolute 2.87 1.00 - 5.00 K/mcL LAB HEMETOLOGY METHOD 05/09/2025 12:17 PM EDT [facility] Monocytes Absolute 1.58(H) 0.20 - 1.00 K/mcL LAB HEMETOLOGY METHOD 05/09/2025 12:17 PM EDT [facility] Eosinophils Absolute 0.01 0.00 - 0.50 K/mcL LAB HEMETOLOGY METHOD 05/09/2025 12:17 PM EDT [facility] Basophils Absolute 0.08 0.00 - 0.20 K/mcL LAB HEMETOLOGY METHOD 05/09/2025 12:17 PM EDT [facility] Immature Granulocytes Absolute 0.04(H) 0.00 - 0.03 K/mcL LAB HEMETOLOGY METHOD 05/09/2025 12:17 PM EDT [facility] Blood Venous blood specimen / Unknown Venipuncture / Unknown 05/09/2025 11:58 AM EDT 05/09/2025 12:09 PM EDT us Fani Marr MD LAB BLOOD ORDERABLES Final Resul t [facility] [address] [place] [address], * Magnesium (05/09/2025 11:58 AM EDT) Magnesium 2.1 1.9 - 2.6 mg/dL LAB CHEMISTRY METHOD 05/09/2025 12:33 PM EDT [facility] Blood Venous blood specimen / Unknown Venipuncture / Unknown 05/09/2025 11:58 AM EDT 05/09/2025 12:09 PM EDT us Fani Marr MD LAB BLOOD ORDERABLES Final Resul t Performing Organization Address City/[facility]/ZIP Co de Phone Number [facility] [address] [place] [address], [place] [phone] * Lipase (05/09/2025 11:58 AM EDT) Pathologist [facility] Lipase 33 13 - 75 unit/L LAB CHEMISTRY METHOD 05/09/2025 12:33 PM EDT [facility] Blood Venous blood specimen / Unknown Venipuncture / Unknown 05/09/2025 11:58 AM EDT 05/09/2025 12:09 PM EDT us Fani Marr MD LAB BLOOD ORDERABLES Final Resul t Performing Organization Address [facility]/ZIP Co de Phone Number [facility] [address] [place] [address], [place] [phone] * (ABNORMAL) Comprehensive metabolic panel (05/09/2025 11:58 AM EDT) Sodium 130(L) 133 - 145 mmol/L LAB CHEMISTRY METHOD 05/09/2025 12:42 PM EDT [facility] Potassium 3.1(L) 3.5 - 5.5 mmol/L LAB CHEMISTRY METHOD 05/09/2025 12:42 PM EDT [facility] Chloride 86(L) 96 - 110 mmol/L LAB CHEMISTRY METHOD 05/09/2025 12:42 PM EDT [facility] CO2 30 21 - 32 mmol/L LAB CHEMISTRY METHOD 05/09/2025 12:42 PM EDT [facility] Anion Gap 14(H) 3 - 11 LAB CHEMISTRY METHOD 05/09/2025 12:42 PM [facility] Glucose 108(H) 70 - 100 mg/dL LAB CHEMISTRY METHOD 05/09/2025 12:42 PM [facility] BUN 38(H) 5 - 25 mg/dL LAB CHEMISTRY METHOD 05/09/2025 12:42 PM [facility] Comment:Results verified by repeat testing Creatinine 1.58(H) 0.50 - 1.10 mg/dL LAB CHEMISTRY METHOD 05/09/2025 12:42 PM [facility] eGFR 42(L) >=60 mL/min/1. 73m2 LAB CHEMISTRY METHOD 05/09/2025 12:42 PM [facility] Comment:Calculation based on the Chronic Kidney Disease Epidemiology Collaboration (CKD-EPI) equation refit without adjustment for race. BUN/Creatinine Ratio 24.1 LAB CHEMISTRY METHOD 05/09/2025 12:42 PM [facility] Calcium 10.4 8.5 - 10.5 mg/dL LAB CHEMISTRY METHOD 05/09/2025 12:42 PM [facility] AST (SGOT) 24 10 - 42 unit/L LAB CHEMISTRY METHOD 05/09/2025 12:42 PM [facility] ALT (SGPT) 22 10 - 60 unit/L LAB CHEMISTRY METHOD 05/09/2025 12:42 PM [facility] Alkaline Phosphatase 88 42 - 121 unit/L LAB CHEMISTRY METHOD 05/09/2025 12:42 PM [facility] Total Protein 8.8(H) 6.0 - 8.0 g/dL LAB CHEMISTRY METHOD 05/09/2025 12:42 PM [facility] Albumin 4.7 3.2 - 5.0 g/dL LAB CHEMISTRY METHOD 05/09/2025 12:42 PM [facility] Total Bilirubin 1.0 0.0 - 1.4 mg/dL LAB CHEMISTRY METHOD 05/09/2025 12:42 PM EDT [facility] Blood Venous blood specimen / Unknown Venipuncture / Unknown 05/09/2025 11:58 AM EDT 05/09/2025 12:09 PM EDT us Fani Marr MD LAB BLOOD ORDERABLES Final Resul t [facility]) [facility] [address] [place] [address], * ECG 12 lead (05/09/2025 10:08 AM EDT) Ventricular Rate ECG 105 BPM GEMUSE Atrial Rate 105 BPM GEMUSE P-R Interval 130 ms GEMUSE QRS Duration 78 ms GEMUSE Q-T Interval 414 ms GEMUSE QTc 547 ms GEMUSE P Wave [place] 74 degrees GEMUSE R [place] 70 degrees GEMUSE T [place] 54 degrees GEMUSE ECG Interpretation Sinus tachycardia Biatrial enlargement Prolonged QT Abnormal ECG When compared with ECG of 05-JAN-2025 19:40, QT has lengthened Confirmed by [place], [facility] ([id number]) on 05/09/2025 3:19:04 PM GEMUSE 05/09/2025 10:0 8 AM EDT 05/09/2025 3:19 PM EDT us Fani Marr MD ECG ORDERABLES Final Result Performing Organization Address City/[facility] Co de Phone Number GEMUSE from Last 3 Months Insurance MEDICAID - [facility] MEDICARE Member Subscriber Plan / Payer (Ef fective 2024-Present) Name:STACEY BENOIT Relation to Subscriber:Self Name:Stacey Benoit Payer ID:[id number] Group ID:[id number] Type:Not on file Address: [address] [place] [address] Care Teams Oil Pump Station Operator Chief Relationship Specialty Start Date End Date Zonia Black MD [address] , [address] [facility] Physician Associ D/B/A: [facility] [place] PCP - General Internal Medicine 07/28/19
--- OUTSIDE RECORDS SUMMARY | 2025-07-21 15:41 | XMS_ITS | Encounter Summary ---
Author Organization [employer] [facility] Address [address] [place] [address] Care Team Providers Care Sample Wrapper Name Role Phone Unavailable Primary Care Provider Unavailabl e Encounter Details Date Type Department Care Team (Latest Contact Info) Description 11/22/2018 Abstract [facility] CONVERSIONS Dental, Provider, DDS Social History Tobacco [...]
--- OUTSIDE RECORDS SUMMARY | 2025-07-21 15:41 | XMS_ITS | Encounter Summary ---
Author Organization [employer] [facility] Address [address] [place] [address] Care Team Providers Care Chainstitch Binder Name Role Phone Unavailable Primary Care Provider Unavailabl e Encounter Details Date Type Department Care Team (Late st Contact Info) Description 02/20/2023 Abstract [facility] ADULT DENTAL [address] [place] [address] Bonita Sosa DDS [address] [place] [address] Social History Tobacco Use Types Packs/Day Years [...]
--- OUTSIDE RECORDS SUMMARY | 2025-07-21 15:41 | XMS_ITS | Encounter Summary ---
Author Organization [employer] [facility] Address [address] [place] [address] Care Team Providers Care Beeswax Bleacher Name Role Phone Unavailable Primary Care Provider Unavailabl e Encounter Details Date Type Department Care Team (Late st Contact Info) Description 07/03/2023 Abstract [facility] ADULT DENTAL [address] [place] [address] Joauqim Jackson, SAE [address] [place] [address] Social History Tobacco Use Types Packs/Day Years [...]
== END 2025-07-21 13:54 | disposition home or self-care (01) ==
LOC: HO.HPODS 12:49
PROVIDERS: PCP Internal Medicine; Visit Provider Student in an Organized Health Care Education/Training Program
DX: M79.671 Pain in right foot (principal); M79.672 Pain in left foot; M19.071 Primary osteoarthritis, right ankle and foot; M19.072 Primary osteoarthritis, left ankle and foot; M20.11 Hallux valgus (acquired), right foot; M20.12 Hallux valgus (acquired), left foot; M20.41 Other hammer toe(s) (acquired), right foot; M20.42 Other hammer toe(s) (acquired), left foot; R20.2 Paresthesia of skin; M54.10 Radiculopathy, site unspecified
CPT/HCPCS: 99204

== ENCOUNTER → 2025-07-21 12:48 | Outpatient (BNVA) | payer OTHER, SELFPAY | PROVIDERS: PCP Internal Medicine; Visit Provider Student in an Organized Health Care Education/Training Program | DX: M19.071 Primary osteoarthritis, right ankle and foot (principal); M19.072 Primary osteoarthritis, left ankle and foot; M79.671 Pain in right foot; M79.672 Pain in left foot; M20.11 Hallux valgus (acquired), right foot; M20.12 Hallux valgus (acquired), left foot; M20.41 Other hammer toe(s) (acquired), right foot; M20.42 Other hammer toe(s) (acquired), left foot; M54.10 Radiculopathy, site unspecified; R20.2 Paresthesia of skin | CPT/HCPCS: 99202 ==

== ENCOUNTER 2025-08-31 12:01 | Outpatient (AMB) | payer OTHER, SELFPAY ==
[2025-08-31 13:16] VITALS: BMI 29.1
--- NOTE | 2025-08-31 13:16 | A.OFFVIS_ITS ---
Vital Signs 08/31/25 13:16 Height 5 ft 5 in Weight 175 lb BMI 29.1 Intake Visit Reasons: Follow Up B/L bunions & hammertoes Intake Note: Stacey is a 40 year old female who presents today for a follow up on her bunnion and hammer toes. Patient reports she experiences pain throught out her whole right foor and she has soreness in her left foot. 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 The patient reports experiencing foot pain that worsens with walking and causes a sensation of wobbling and dizziness due to the pain. She also notes numbness in her legs and knees, extending to her toes, and a burning sensation from the edges of her feet. The patient expresses a desire for her toes to be straightened. She states she has recently been experiencing panic attacks. She denies any new pedal injuries. She denies any other pedal concerns. 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 [facility] Medical History (Updated 07/21/25 @ 14:38 by Regnia Thompson DPM) Radiculopathy Paresthesia of both lower extremities Hammertoe, bilateral Hallux abducto valgus, bilateral Arthritis of first metatarsophalangeal (MTP) joints of both feet Hyperemesis affecting , antepartum test positive Moderate recurrent major depression Hypercalcemia Goiter Throat pain Pain in mandible Pain of right clavicle Dyspnea Hypothyroidism Polyarthralgia Moderate recurrent major depression Cyclic vomiting syndrome Renal calculi Iron deficiency anemia due to chronic blood loss Chest pain Shortness of breath Iron deficiency anemia due to chronic blood loss Hx of History of back pain Hx of iron deficiency anemia Hx of migraines Anxiety History of bipolar disorder Chest pain Menorrhagia Hypokalemia Marijuana use, continuous Syphilis contact, treated Numbness of foot GERD (gastroesophageal reflux disease) Anemia Depression Surgical History Hx of esophagogastroduodenoscopy Hx of colonoscopy History of dilation and curettage Family History Mother HTN (hypertension) Maternal Grandmother HTN (hypertension) Maternal Uncle HTN (hypertension) Maternal Aunt Diabetes mellitus Family/Other Mental health disorder Substance use disorder Father Cancer Social History Household Members: None Housing: Apartment Are you a primary career education teacher to a significant other at home: No Do you presently have visiting nurse or other home services: No Alcohol intake: never Patient Tobacco Use Status: Former Tobacco user Tobacco use type: Cigarette Cigarette Packs Per Day: 0.25 Years Smoked: 15 e-Cigarette/Vaping Use: Never Used Second Hand Smoke Exposure: No Substance Use Type: Marijuana service: No Current occupational status: unemployed Cognitive needs: No Hearing needs: No Vision needs: No Female Reproductive History Menstrual Age of Menarche: 12 Review of Systems Const Details: - Musculoskeletal: Reports foot pain and swelling, numbness in legs, and burning sensation in feet. - Neurological: Reports numbness in legs and toes. - Psychiatric: Reports depression and panic attacks. All systems reviewed & are unremarkable except as noted in HPI and below Physical Exam Vital Signs: BMI result Body Mass Index 29.1 Extrem Other: Bilateral lower extremity focused physical exam: Derm: No open lesions abrasions or wounds noted. Skin supple and turgor within normal limits. No clinical signs of infection. No ecchymosis or erythema noted. Vascular: DP/PT pulses palpable. Capillary refill time less than 3 seconds. Temperature gradient warm to warm. Pedal hair absent. Mild edema noted to the medial prominences of bilateral 1st MPJs, worse to the right foot. Neuro: Protective sensation is grossly intact, patient experiences intermittent numbness and tingling to the lateral aspects of the lower extremities with burning noted as well. MSK: Tracking Hallux abductovalgus noted bilaterally worse to the right with a palpable medial prominence. Pain on palpation to the medial prominences of the 1st MPJs bilaterally, worse to the right. Pain with range of motion of the 1st MPJs bilaterally. No crepitus noted. Reducible Hammertoe deformities noted to 2nd through 5th toes bilaterally. In-toeing noted bilaterally. Mild antalgic gait unassisted noted. Results Reviewed Results Reviewed: Podiatry read of bilateral foot x-rays (07/01/2025): Left-mild hallux abducto valgus noted with minimal joint space narrowing noted to the 1st MPJ. First IM angle noted to be approximately 14 degrees. Hammertoe deformities noted to toes 2 through 5. Minimal osteophytic changes noted to the 1st MPJ. Right-mild hallux abductovalgus noted, worse to the right foot than left foot. Minimal joint space narrowing noted to the 1st MPJ with mild osteophytic changes. Bipartite medial sesamoid. First IM angle noted to be approximately 14 degrees. Hammertoe deformities noted to 2nd through 5th toes. No acute fractures or dislocations noted bilaterally. Bilateral foot x-rays (07/01/2025): FINDINGS: Right foot: Joint spaces are preserved. There is hallux valgus deformity. There are small osteophytes involving the medial first MTP joint. No definite erosions are evident. There is a bipartite medial sesamoid of the first metatarsal. Left foot: There is mild hallux valgus deformity. There are minute osteophytes involving medial first MTP joint. Joint spaces are preserved. No abnormalities are evident. IMPRESSION: Hallux valgus deformity with early osteoarthritis involving first MTP joints, right greater than left. Assessment & Plan Assessment & Plan (1) Paresthesia of both lower extremities: Code(s): R20.2 - Paresthesia of skin Category: Medical (2) Pain in both feet: Code(s): M79.671 - Pain in right foot; M79.672 - Pain in left foot Category: Medical (3) Hallux abducto valgus, bilateral: Code(s): M20.11 - Hallux valgus (acquired), right foot; M20.12 - Hallux valgus (acquired), left foot Category: Medical (4) Arthritis of first metatarsophalangeal (MTP) joints of both feet: Code(s): M19.071 - Primary osteoarthritis, right ankle and foot; M19.072 - Primary osteoarthritis, left ankle and foot Category: Medical (5) Hammertoe, bilateral: Code(s): M20.41 - Other hammer toe(s) (acquired), right foot; M20.42 - Other hammer toe(s) (acquired), left foot Category: Medical (6) Radiculopathy: Code(s): M54.10 - Radiculopathy, site unspecified Category: Medical Plan Patient was informed and verbally consented to the use of an ambient scribe for clinic note documentation during this visit. I discussed with the patient the nature of her bunions as seen on x-ray and the potential for conservative management with prescribed shoes and inserts. We talked about the possibility of surgical intervention if symptoms do not improve. I also addressed the importance of managing her psychiatric symptoms and encouraged her to seek mental health support. - Recommended where shoes and inserts to alleviate foot pain and prevent further bunion progression. Prescribed orthopedic shoes and inserts. - Sent new prescription for Voltaren gel. - Recommended bunion/toe sleeves for cushioning and protection. - Recommended use of James's Extension if pain worsens. - Advised the use of wide toed shoes with good support and consider silicone toe sleeves to alleviate pressure on the bunions and hammertoes. - Consider surgical intervention for bunion if symptoms persist despite conservative measures. - Address psychiatric symptoms with appropriate mental health support and management. RTC in 2 months. Medications: New [Orthopedic shoes and inserts] As directed 1 ea 0RF M19.071 - Primary osteoarthritis, right ankle and foot, M19.072 - Primary osteoarthritis, left ankle and foot, M20.11 - Hallux valgus (acquired), right foot, M20.12 - Hallux valgus (acquired), left foot, M20.41 - Other hammer toe(s) (acquired), right foot, M20.42 - Other hammer toe(s) (acquired), left foot, M79.671 - Pain in right foot, M79.672 - Pain in left foot, R20.2 - Paresthesia of skin diclofenac sodium 1% (Voltaren Arthritis Pain) apply to single knee, ankle, foot; for foot includes sole/toes/top of foot 4 grams topical QID 50 grams 1RF Arthritic Pain M19.071 - Primary osteoarthritis, right ankle and foot, M19.072 - Primary osteoarthritis, left ankle and foot, M20.11 - Hallux valgus (acquired), right foot, M20.12 - Hallux valgus (acquired), left foot, M20.41 - Other hammer toe(s) (acquired), right foot, M20.42 - Other hammer toe(s) (acquired), left foot, M79.671 - Pain in right foot, M79.672 - Pain in left foot, R20.2 - Paresthesia of skin Discontinued diclofenac sodium 1% (Voltaren Arthritis Pain) apply to single elbow, wrist or hand; for hand includes palm/fingers/back of hand Discontinued Reason: Doctor's Order 4 grams topical QID 50 grams 0RF B/L bunions and arthritis M19.071 - Primary osteoarthritis, right ankle and foot, M19.072 - Primary osteoarthritis, left ankle and foot, M79.671 - Pain in right foot, M79.672 - Pain in left foot Coding Level of Care Code Est Pt Level 4 (13522) Diagnoses Paresthesia of both lower extremities R20.2 Pain in both feet M79.671; M79.672 Hallux abducto valgus, bilateral M20.11; M20.12 Arthritis of first metatarsophalangeal (MTP) joints of both feet M19.071; M19.072 Hammertoe, bilateral M20.41; M20.42 Radiculopathy M54.10 Time Spent (min) 35
--- OUTSIDE RECORDS SUMMARY | 2025-08-31 15:15 | XMS_ITS | Clinical Summary ---
Author Organization [employer] Address [address] [place] [address] Care Team Providers Care Fashion Editor Name Role Phone Unavailable Primary Care Provider Unavailabl e Allergies Active Allergy Reactions Criticality Noted Date Comments Metoclopramide 01/29/2023 Other reaction(s): [D]Nausea and vomiting Prochlorperazine 01/29/2023 Medications calcitriol (Rocaltrol) 0.5 MCG capsule 3 Active docusate sodium (Colace) 100 MG capsule 3 Active doxycycline (Vibra-Tabs) 100 MG tablet Take 100 mg by mouth 2 times daily. 2 Active ergocalciferol (Vitamin D2) 1.25 MG (12521 UT) capsule 2 Active FeroSul 325 (65 [...] Relevant to Health Maintenance Insurance DENTAL - [facility]
--- OUTSIDE RECORDS SUMMARY | 2025-08-31 15:15 | XMS_ITS | Encounter Summary ---
Author Organization [employer] [facility] Address [address] [place] [address] Care Team Providers Care Agricultural Purchasing Agent Name Role Phone Unavailable Primary Care Provider Unavailabl e Encounter Details Date Type Department Care Team (Late st Contact Info) Description 02/20/2023 Abstract [facility] ADULT DENTAL [address] [place] [address] Bonita Sosa DDS [address] [place] [address] Social History Tobacco Use Types Packs/Day Years [...]
--- OUTSIDE RECORDS SUMMARY | 2025-08-31 15:15 | XMS_ITS | Encounter Summary ---
Author Organization [employer] [facility] Address [address] [place] [address] Care Team Providers Care Sterilisation Technician Name Role Phone Unavailable Primary Care Provider Unavailabl e Encounter Details Date Type Department Care Team (Latest Contact Info) Description 11/22/2018 Abstract [facility] CONVERSIONS Dental, Provider, DDS Social History [...]
--- OUTSIDE RECORDS SUMMARY | 2025-08-31 15:15 | XMS_ITS | Encounter Summary ---
Author Organization [email or web address] [facility] Address [address] [place] [address] Care Team Providers Care Superintendent Renting Managing Name Role Phone Unavailable Primary Care Provider Unavailabl e Encounter Details Date Type Department Care Team (Late st Contact Info) Description 07/03/[address] [facility] ADULT DENTAL [address] [place] [address] Joaquim Jackson, SAE [address] [place] [address] Social History Tobacco Use Types Packs/Day Years [...]
== END 2025-08-31 13:54 | disposition home or self-care (01) ==
LOC: HO.HPODS 12:02
PROVIDERS: PCP Internal Medicine; Visit Provider Student in an Organized Health Care Education/Training Program
DX: R20.2 Paresthesia of skin (principal); M79.671 Pain in right foot; M79.672 Pain in left foot; M20.11 Hallux valgus (acquired), right foot; M20.12 Hallux valgus (acquired), left foot; M19.071 Primary osteoarthritis, right ankle and foot; M19.072 Primary osteoarthritis, left ankle and foot; M20.41 Other hammer toe(s) (acquired), right foot; M20.42 Other hammer toe(s) (acquired), left foot; M54.10 Radiculopathy, site unspecified
CPT/HCPCS: 99214

== ENCOUNTER → 2025-08-31 12:01 | Outpatient (BNVA) | payer OTHER, SELFPAY | PROVIDERS: PCP Internal Medicine; Visit Provider Student in an Organized Health Care Education/Training Program | DX: M79.671 Pain in right foot (principal); R20.2 Paresthesia of skin; M79.672 Pain in left foot; M20.11 Hallux valgus (acquired), right foot; M20.12 Hallux valgus (acquired), left foot; M19.071 Primary osteoarthritis, right ankle and foot; M19.072 Primary osteoarthritis, left ankle and foot; M20.41 Other hammer toe(s) (acquired), right foot; M54.10 Radiculopathy, site unspecified | CPT/HCPCS: 99212 ==

== ENCOUNTER 2025-10-14 14:25 | Outpatient (AMB) | payer OTHER, SELFPAY ==
--- NOTE | 2025-10-14 14:42 | MHC.OFFVIS ---
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: Inseam Trimming Machine Operator Present (Siomara, ) Accompanied by: Self / Same As Patient Allergies metoclopramide (From REGLAN) Allergy (Mild, Verified 10/14/25 14:44) MAKES ME COLD prochlorperazine (From Compazine) Allergy (Mild, Verified 10/14/25 14:44) RASH, gets cold famotidine (Pepcid) Adverse Reaction (Mild, Verified 10/14/25 14:44) loss of appetite Medication List - Last Reconciled 10/14/25 by Aggie Ambriz CNM albuterol sulfate 90 mcg/actuation (Ventolin HFA) 2 puffs inhalation Q6H PRN 30 days cholecalciferol (vitamin D3) 25 mcg PO DAILY 90 days diclofenac sodium 1% (Voltaren Arthritis Pain) 4 grams topical QID gabapentin 400 mg PO TID 30 days levothyroxine (Synthroid) 50 mcg PO DAILY 90 days omeprazole 20 mg PO DAILY 30 days ondansetron 4 mg PO Q8H PRN [Orthopedic shoes and inserts As directed] potassium chloride 20 mEq (15 mL) PO DAILY sucralfate 1 g PO QID 30 days tizanidine 2 mg PO TID PRN Is last menstrual period known: Yes Last menstrual period: 09/02/25 Post menopausal: No Patient : No HPI HPI 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 Expressed ounhappiness about being here and reluctance to have the exam and wanted to just get it over with and did not answer most questions and did not make eye contact until after the exam. Exhibited anger. Had angry responses to any and all questions, Nevertheless insisted that since she was here she wanted to get it done . Please note: per routine in this office chaperones are present for the pelvic exam. patient said she did not want anyone else looking at her privates. Patient was very angry and not responding to most questions, but insisting that I proceed with the exam. and this provider requested the the visit be chaperoned, at the provider's request. [facility] Medical History Radiculopathy Paresthesia of both lower extremities Hammertoe, bilateral Hallux abducto valgus, bilateral Arthritis of first metatarsophalangeal (MTP) joints of both feet Hyperemesis affecting , antepartum test positive Moderate recurrent major depression Hypercalcemia Goiter Throat pain Pain in mandible Pain of right clavicle Dyspnea Hypothyroidism Polyarthralgia Moderate recurrent major depression Cyclic vomiting syndrome Renal calculi Iron deficiency anemia due to chronic blood loss Chest pain Shortness of breath Iron deficiency anemia due to chronic blood loss Hx of History of back pain Hx of iron deficiency anemia Hx of migraines Anxiety History of bipolar disorder Chest pain Menorrhagia Hypokalemia Marijuana use, continuous Syphilis contact, treated Numbness of foot GERD (gastroesophageal reflux disease) Anemia Depression Surgical History Hx of esophagogastroduodenoscopy Hx of colonoscopy History of dilation and curettage Family History Mother HTN (hypertension) Maternal Grandmother HTN (hypertension) Maternal Uncle HTN (hypertension) Maternal Aunt Diabetes mellitus Family/Other Mental health disorder Substance use disorder Father Cancer Social History Household Members: None Housing: Apartment Are you a primary career transition specialist to a significant other at home: No Do you presently have visiting nurse or other home services: No Alcohol intake: never Patient Tobacco Use Status: Former Tobacco user Tobacco use type: Cigarette Cigarette Packs Per Day: 0.25 Years Smoked: 15 e-Cigarette/Vaping Use: Never Used Second Hand Smoke Exposure: No Substance Use Type: Marijuana Patient : No service: No Current occupational status: unemployed Cognitive needs: No Hearing needs: No Vision needs: No Female Reproductive History Menstrual Age of Menarche: 12 Date of last menstrual period: 09/02/25 control method: none Date of last pap smear: 08/27/22 (negative pap smear, negative hpv ) Physical Exam Vital Signs: Last Vital Signs BP 112/70 10/14/25 14:45 BMI result Body Mass Index 28.3 Const General: healthy appearing, comfortable, no acute distress, well developed, alert, combative and other (Exhibited angry responses to any and all questions until after the exam....) Nutritional Appearance: average body habitus Orientation/consciousness: patient oriented x3 Limitations: no limitations HEENT Head: Yes normocephalic Neck Neck: Yes normal visual inspection Chest Chest palpation & inspection: normal inspection of the chest Breast/axilla inspection: normal inspection of the breasts and normal inspection of the axillae Breast/axilla palpation: normal palpation of the breasts and normal palpation of the axillae Resp Effort & Inspection: normal respiratory effort GI Inspection: Yes normal to inspection, No Abdominal wall edema and No distended Palpation (GI): Soft to palpation and nontender Other: Pelvic exam done with the patient's express request to ?get it over with because that is why she came here External exam within normal limits vagina pink and moist with whitish discharge consistent with 2nd half of cycle which patient later shared was where she was in her cycle. Cervix pink and smooth healthy appearing no abnormal discharge cervix long close thick mobile nontender uterus midposition mobile nontender adnexa nontender nonenlarged fair tone with 2nd attempt of Kegel. General: Yes bladder normal to palpation External Female Exam: normal external appearance and normal appearance of the urethra Speculum Exam - Vagina: normal appearance of the vagina, normal palpation and normal vaginal discharge Speculum Exam - Cervix: normal appearance of the cervix, normal palpation and nontender Bimanual exam- vagina & uterus: normal bimanual exam, normal palpation, uterine size normal, bladder normal to palpation, consistency normal, normal palpation, uterine mobility normal, uterine shape normal, No Cervical tenderness present, non-tender and no cervical motion tenderness Bimanual Exam- Adnexa, other: normal adnexae, no masses, normal and No adnexal tenderness Neuro General: patient oriented x3 Assessment & Plan Assessment & Plan (1) Menorrhagia: Comment: Used to take lysteda and it helped but reluctant to take any thing secondary to side effects.... And they were big and hard to swallow. Code(s): N92.0 - Excessive and frequent menstruation with regular cycle Category: Medical (2) Screen for STD (sexually transmitted disease): Code(s): Z11.3 - Encounter for screening for infections with a predominantly sexual mode of transmission Category: Medical (3) Screening for cervical cancer: Code(s): Z12.4 - Encounter for screening for malignant neoplasm of cervix Category: Medical (4) Screening for malignant neoplasm of cervix: Code(s): Z12.4 - Encounter for screening for malignant neoplasm of cervix Category: Medical (5) control counseling: Comment: Intends condoms but would appreciate a prescription for plan B, Code(s): Z30.09 - Encounter for other general counseling and advice on contraception Category: Medical (6) Women's annual routine gynecological examination: Code(s): Z01.419 - Encounter for gynecological examination (general) (routine) without abnormal findings Category: Medical (7) Breast cancer screening: Code(s): Z12.39 - Encounter for other screening for malignant neoplasm of breast Category: Medical Plan Patient was angry throughout most of the visit. After the pelvic exam was over patient appeared to relax and engaged in more verbal responses to questions and offered more information voluntarily, and made eye contact. In response directly to the question of whether not she was simply anxious about the exam the whole time she said yes, and she apologized for how she had acted through the rest of the visit, and she actually asked for a hug. She said she has been going through a lot and things have been very difficult and she has a lot on her plate. She has a new boyfriend and she did want to get tested for STIs though she had no particular worries and she wanted to go to blood work today. She did not respond with any knowledge of previous mammograms and I did not see an order in the system so I am placing an order for her breast exam was within normal limits as was pelvic exam. Patient says sometimes she is itchy and feels like she has to urinate more frequently and then other times she feels okay and she feels like she has been told she needs to drink more. I recommend she follow-up with any concern with for UTI with her primary however she was not experiencing those symptoms today. She said she sometimes is using different kinds of soaks because of her living situation that she does not have any control over and she worries what they are doing to her vagina she has been told to get douches but she is afraid of those. I recommend that she does not bother with anything like that and use what ever soap that she has access to on the rest of her body and for the areas that need to be cleaned with soap but that for her vagina she simply rinse with cool water and nothing else and we will call her for anything that shows up on the testing and the bacterial vaginosis and yeast often show up but do not need to be treated unless they are causing a problem. I inquired again about what she was using for control and she said she uses condoms but sometimes she has not and she is not sure what she would do if she got at this time she thinks she might like to have a baby but she is just not which sure what she would do. I offered her a prescription for plan B just in case a condom broke or her boyfriend did not use a condom as she intended him to. She did say she wanted to accept a prescription for that. She then talked about her periods that were had been heavy in the past and the medicine that had been given to her from the [facility] office did help however it was very big and hard to take and she did not have or want anymore and did not like taking medicines if she does not need to because of side effects in general.. She says she missed an appointment with her primary care provider and she is going to be calling her tomorrow morning to make that appointment and I told her that I would order a mammogram if she did not have 1 in the system and I ordered blood work for her for HIV hep B hep C and syphilis and I gave her a pamphlet about signing up for the portal but asked her to ask the box office manager that she meets at the next appointment to help her sign up for the portal, which is where any negative or non worrisome labs would be recorded. Orders: Orders Hepatitis C Antibody Today N92.0 - Excessive and frequent menstruation with regular cycle, Z01.419 - Encounter for gynecological examination (general) (routine) without abnormal findings, Z11.3 - Encounter for screening for infections with a predominantly sexual mode of transmission, Z12.39 - Encounter for other screening for malignant neoplasm of breast, Z12.4 - Encounter for screening for malignant neoplasm of cervix, Z30.09 - Encounter for other general counseling and advice on contraception MM tomosynthesis screening BI Today Z12.31 - Encounter for screening mammogram for malignant neoplasm of breast Hepatitis B Surface Antigen Today N92.0 - Excessive and frequent menstruation with regular cycle, Z01.419 - Encounter for gynecological examination (general) (routine) without abnormal findings, Z11.3 - Encounter for screening for infections with a predominantly sexual mode of transmission, Z12.39 - Encounter for other screening for malignant neoplasm of breast, Z12.4 - Encounter for screening for malignant neoplasm of cervix, Z30.09 - Encounter for other general counseling and advice on contraception HIV Ab/Ag Today N92.0 - Excessive and frequent menstruation with regular cycle, Z01.419 - Encounter for gynecological examination (general) (routine) without abnormal findings, Z11.3 - Encounter for screening for infections with a predominantly sexual mode of transmission, Z12.39 - Encounter for other screening for malignant neoplasm of breast, Z12.4 - Encounter for screening for malignant neoplasm of cervix, Z30.09 - Encounter for other general counseling and advice on contraception Syphilis Screen Today N92.0 - Excessive and frequent menstruation with regular cycle, Z01.419 - Encounter for gynecological examination (general) (routine) without abnormal findings, Z11.3 - Encounter for screening for infections with a predominantly sexual mode of transmission, Z12.39 - Encounter for other screening for malignant neoplasm of breast, Z12.4 - Encounter for screening for malignant neoplasm of cervix, Z30.09 - Encounter for other general counseling and advice on contraception Medications: New levonorgestrel (Plan B One-Step) 1.5 mg PO ONCE 1 tab 2RF Coding Level of Care Code New Pt Prev Care 40-64y(02408) Diagnoses Menorrhagia N92.0 Screen for STD (sexually transmitted disease) Z11.3 Screening for cervical cancer Z12.4 Screening for malignant neoplasm of cervix Z12.4 control counseling Z30.09 Women's annual routine gynecological examination Z01.419 Breast cancer screening Z12.39
[2025-10-14 14:45] VITALS: BP 112/70; BMI 28.3
--- OUTSIDE RECORDS SUMMARY | 2025-10-14 19:16 | XMS_ITS | Clinical Summary ---
Author Organization [facility] Address [address] [place] [id number] Phone Care Team Providers Care Senior Java J2Ee Developer Name Role Phone Zonia Black MD Primary Care Provider [phone] Allergies Active Allergy Reactions Criticality Noted Date Comments Prochlorperazine Unknown 09/08/2024 Methylphenidate Unknown 09/04/2022 Metoclopramide Other 01/29/2023 Other reaction(s): [D]Nausea and vomiting Medications ondansetron ODT (ZOFRAN-ODT) 4 mg disintegrating tablet Let 1 tablet dissolve under the tongue three times daily as needed for nausea or vomiting. 10 tablet Active Active Problems No known active problems Medical History Medical History Date Comments Depression Anemia Social History Tobacco Use Types Packs/Day Years Used Date Smoking Tobacco: Every Day Cigarettes 0.3 2 Started: 2023 Smokeless Tobacco: Never Tobacco Cessation:Ready [...] Orientation Straight 01/05/2025 4: 10 PM EDT Last Filed Vital Signs Vital Sign [...] Cervical Cancer Screening: P ap Smear 2004 HPV Vaccines (1 - 3-dose SCD M series) 2010 Hepatitis B Vaccines (3 of 3 - [...] on patient's age to complete this topic Insurance MEDICAID - [place] [employer] MEDICARE Member Subscriber Plan / Payer ( fective 2024-Present) Name:DOMENIC SANFORDA Relation to Subscriber:Self Name:Aldair Sanfordisha Nato Payer ID:[id number] Group ID:[id number] Type:Not on file Address: [address] [place] [id number] Care Teams Senior Java J2Ee Developer Relationship Specialty Start Date End Date Zonia Black MD [address] [facility] , [address] [facility] D[facility]A: [facility] [place], [place] PCP - General Internal Medicine 07/28/19
--- OUTSIDE RECORDS SUMMARY | 2025-10-14 19:16 | XMS_ITS | Clinical Summary ---
Author Organization [employer] Address [address] [place] [address] Care Team Providers Care Nuclear Medicine Tech Name Role Phone Unavailable Primary Care Provider Unavailabl e Allergies Active Allergy Reactions Criticality Noted Date Comments Metoclopramide 01/29/2023 Other reaction(s): [D]Nausea and vomiting Prochlorperazine 01/29/2023 Medications calcitriol (Rocaltrol) 0.5 MCG capsule 3 Active docusate sodium (Colace) 100 MG capsule 3 Active doxycycline (Vibra-Tabs) 100 MG tablet Take 100 mg by mouth 2 times daily. 2 Active ergocalciferol (Vitamin D2) 1.25 MG (99892 UT) capsule 2 Active FeroSul 325 (65 [...] Relevant to Health Maintenance Insurance DENTAL - [facility]
--- OUTSIDE RECORDS SUMMARY | 2025-10-14 19:16 | XMS_ITS | Encounter Summary ---
Author Organization [employer] [facility] Address [address] [facility] [address] [address] [place] [address] Care Team Providers Care College Or University Business Manager Name Role Phone Unavailable Primary Care Provider Unavailabl e Encounter Details Date Type Department Care Team (Late st Contact Info) Description 07/03/2023 Abstract [facility] [address] [place] [address] Joaquim Jackson, SAE [address] [place] [address] Social History Tobacco Use Types Packs/Day Years [...]
--- OUTSIDE RECORDS SUMMARY | 2025-10-14 19:16 | XMS_ITS | Encounter Summary ---
Author Organization [employer] [facility] Address [address] [facility] [address] [facility] [address] [place] [address] Care Team Providers Care Comic Artist Name Role Phone Unavailable Primary Care Provider Unavailabl e Encounter Details Date Type Department Care Team (Late st Contact Info) Description 02/20/2023 Abstract [facility] [address] [place] [address] Bonita Sosa DDS [address] [place] [address] Social History Tobacco Use Types Packs/Day Years [...]
--- OUTSIDE RECORDS SUMMARY | 2025-10-14 19:16 | XMS_ITS | Encounter Summary ---
Author Organization [employer] [facility] Address [address] [facility] [address] [place] [address] Care Team Providers Care Wharf Worker Name Role Phone Unavailable Primary Care Provider Unavailabl e Encounter Details Date Type Department Care Team (Latest Contact Info) Description 11/22/2018 Abstract [facility] Dental, Provider, DDS Social History Tobacco [...]
== END 2025-10-14 16:19 | disposition home or self-care (01) ==
LOC: HO.HWSM 14:25
PROVIDERS: PCP Internal Medicine; Visit Provider Advanced Practice Midwife
DX: Z01.419 Encounter for gynecological examination (general) (routine) without abnormal findings (principal); N92.0 Excessive and frequent menstruation with regular cycle; Z11.3 Encounter for screening for infections with a predominantly sexual mode of transmission; Z12.4 Encounter for screening for malignant neoplasm of cervix; Z30.09 Encounter for other general counseling and advice on contraception; Z12.39 Encounter for other screening for malignant neoplasm of breast
CPT/HCPCS: 99386; 99459

== ENCOUNTER 2025-10-14 14:25 | Outpatient (REF) | payer OTHER, SELFPAY ==
[2025-10-14 16:16] LABS: MANUAL DIFF FLAG NO
[2025-10-14 16:23] LABS: Hematocrit 27.9 % (37.0-47.0); Hemoglobin 7.5 g/dl (12.0-16.0); Imm Gran Abs Auto 0.03 X10*3/uL (0.00-0.03); Imm Gran Pct Auto 0.4 % (0.0-0.4); Lymphocytes Absolute Auto 3.2 X10*3/uL (1.2-4.9); Mean Corpuscular HGB Conc 26.9 g/dl (31.0-35.0); Mean Corpuscular Hemoglobin 18.8 pg (27.0-33.0); Mean Corpuscular Volume 70.1 fL (80.0-98.0); NRBC Abs Auto 0.000 X10*3/uL (0.0-0.012); NRBC Pct Auto 0.0 /100WBC (0.0-0.2); Platelet Count 542 X10*3/uL (160-400); Red Blood Count 3.98 X10*6/uL (4.20-5.50); White Blood Count 8.1 X10*3/uL (4.8-10.8)
[2025-10-14 17:01] LABS: Iron 15 mcg/dL (30-160); Percent Iron Saturation 4 % (15-50); Total Iron Binding Capacity 423 mcg/dL (228-428); Unsaturated Iron Binding 408 ug/dL
[2025-10-14 17:04] LABS: Thyroid Stimulating Hormone 21.65 uIU/mL (0.32-4.0)
[2025-10-15 04:24] LABS: HIV Num 1 0.13 S/CO (0.00-0.99); ~HepC Num1 0.14 S/CO (0.00-0.79); ~Hepatitis C Antibody Nonreactive (Nonreactive)
[2025-10-15 04:57] LABS: Syphilis Screen Reactive (Nonreactive)
[2025-10-15 13:17] LABS: HBsAGNum1 0.23 S/CO (0.00-0.99); Hepatitis B Surface Antigen Negative (Negative)
== END 2025-10-14 14:26 | disposition home or self-care (01) ==
LOC: HO.HHCL 14:25
PROVIDERS: Advanced Practice Midwife; PCP Internal Medicine; Visit Provider Internal Medicine
DX: Z01.419 Encounter for gynecological examination (general) (routine) without abnormal findings (principal); Z11.3 Encounter for screening for infections with a predominantly sexual mode of transmission; Z30.09 Encounter for other general counseling and advice on contraception; Z11.59 Encounter for screening for other viral diseases; Z12.39 Encounter for other screening for malignant neoplasm of breast; N92.0 Excessive and frequent menstruation with regular cycle; E06.3 Autoimmune thyroiditis; E55.9 Vitamin D deficiency, unspecified; D64.9 Anemia, unspecified
CPT/HCPCS: 36415; 82306; 83540; 84443; 85025; 86592; 86780; 86803; 87340; 87389

== ENCOUNTER 2025-10-14 16:05 | Outpatient (REF) | payer OTHER, SELFPAY ==
[2025-10-15 15:48] LABS: Bacterial Vaginosis PCR POSITIVE (Negative); Candida Group PCR DETECTED (Not Detect); Candida glab krusei PCR DETECTED (Not Detect); Trichomonas vaginalis PCR NOT DETECTED (Not Detect)
[2025-10-15 16:24] LABS: CT PCR NOT DETECTED (Not Detect.); NG PCR NOT DETECTED (Not Detect.)
== END 2025-10-14 16:06 | disposition home or self-care (01) ==
LOC: HO.LNP 16:05
PROVIDERS: Visit Provider Advanced Practice Midwife
DX: Z01.419 Encounter for gynecological examination (general) (routine) without abnormal findings (principal); Z20.2 Contact with and (suspected) exposure to infections with a predominantly sexual mode of transmission
CPT/HCPCS: 36415; 81515; 82306; 83540; 84443; 85025; 86592; 86780; 86803; 87340; 87389; 87491; 87591; 87626; 88175